=== PATIENT | female | born 1945 | race Caucasian/White ===

== ENCOUNTER 2016-11-01 13:46 | Outpatient (CLI) | payer MEDICARE, OTHER ==
--- NOTE | 2016-11-02 12:17 | XRAY Report ---
CERVICAL SPINE COMPLETE WITH OBLIQUES, AP, LATERAL OBLIQUES, ODONTOID: 11/01/2016 CLINICAL HISTORY: Left hand numbness. FINDINGS: Moderate degree of calcific atherosclerotic plaque is noted at each carotid artery bifurca tion in the neck. Mild anterior spurring is noted at C2, C3, C4, C5, and C6. Moderate degree of disk space narrowing is noted at C5-6. Mild posterior spur formation is noted at C5-6 and C6-7. Moderate amount of osteoarthritis is seen at the right facet joint at the C3-4 level posteriorly. Odontoid process shows no significant abnormality. Spurring at the uncinate processes of C4, C5, and C6 is seen. IMPRESSION: 1. OSTEOARTHRITIS OF THE C-SPINE IS NOTED WITH MOST PRONOUNCED CHANGES SEEN AT THE C6-7 LEVEL. 2. MODERATE DEGREE OF ATHEROSCLEROTIC CALCIFICATION IS NOTED AT THE CAROTID ARTERY BIFURCATION BILAT ERALLY IN THE NECK. JOB #: [id number] EXT JOB #:[id number]
--- NOTE | 2016-11-02 19:00 | XRAY Report ---
LEFT HAND, THREE VIEWS: 11/01/2016 CLINICAL HISTORY: Left hand numbness and pain. FINDINGS: Moderate degree of narrowing is seen at the articulation between the base of the first met acarpal and trapezium. Spurring is noted at the base of the first metacarpal. Prominent subchondral cyst formation is noted along the adjacent articular surfaces of the left second MP joint. Prominen t subchondral cyst formation is seen in the head of the middle phalanx of the left index finger and l eft ring finger. Prominent subchondral cyst formation is seen in the head of the proximal phalanx of the left little finger. Pronounced joint space narrowing s seen in the second and third MP joints a nd in the proximal interphalangeal joint of the left little finger. Also pronounced joint space narr owing is seen in the distal interphalangeal joint of the index and ring fingers. There is prominent subchondral cyst formation also seen in the base of the first metacarpal and in the head of the first metacarpal. Mild joint space narrowing is seen at the first MP joint. Moderate degree of joint spa ce narrowing is noted in the proximal interphalangeal joints of the index and ring finger. Moderate degree of joint space narrowing is noted between the navicular and trapezium/trapezoid. The trapezoi d and trapezium bones appear fused as does the lunate and triquetrum. This fusion is developmental v ariation. Spurring is noted about the periarticular margins of the distal interphalangeal joints and about the periarticular margins of the proximal interphalangeal joint of the little finger. Combination of findings is compatible with significant osteoarthritis of the left hand with also some involvement of the carpal bones. IMPRESSION: 1. SIGNIFICANT OSTEOARTHRITIS OF THE LEFT HAND WITH ALSO SOME INVOLVEMENT OF THE CARPAL BONES. 2. NONSPECIFIC SOFT TISSUE SWELLING IS SEEN ABOUT THE LEFT WRIST, ESPECIALLY DORSALLY. :9 JOB #: [id number] EXT JOB #:[id number]
== END 2016-11-01 13:47 | disposition home or self-care (01) ==
LOC: DI.S 13:46
PROVIDERS: ATTEND Nurse Practitioner Family
DX: M19.042 Primary osteoarthritis, left hand (principal); M19.032 Primary osteoarthritis, left wrist; R22.32 Localized swelling, mass and lump, left upper limb
CPT/HCPCS: 72050

== ENCOUNTER 2016-12-30 10:54 | Outpatient (CLI) | payer MEDICARE, OTHER ==
--- NOTE | 2017-01-01 18:23 | Ultrasound Report ---
EXAM: CAROTID DOPPLER ULTRASOUND EXAM DATE: 12/30/2016 11:01 AM. CLINICAL HISTORY: Atherosclerotic disease of carotid artery per x-ray. COMPARISON: 11/01/2016. TECHNIQUE: Real-time sonographic vascular imaging was performed by the patient accounting representative through the caroti d arterial system with a linear transducer utilizing color-flow, Doppler flow and spectral analysis. Multiple personal financial representative static images were saved for review. FINDINGS: Right: RCCA Prox: PSV 100 cm/sec. RCCA Dist: PSV 59 cm/sec, EDV 14 cm/sec. RECA: PSV 59 cm/sec. R Bulb: PSV 63 cm/sec, EDV 17 cm/sec, ICA/CCA ratio 1.07. GORAN Prox: PSV 54 cm/sec, EDV 19 cm/sec, ICA/CCA ratio 0.92. GORAN Mid: PSV 65 cm/sec, EDV 20 cm/sec, ICA/CCA ratio 1.10. GORAN Dist: PSV 46 cm/sec, EDV 15 cm/sec, ICA/CCA ratio 0.78. RVA: PSV 38 cm/sec. RVA flow direction: Antegrade. Left: LCCA Prox: PSV 83 cm/sec. LCCA Dist: PSV 56 cm/sec, EDV 16 cm/sec. LECA: PSV 46 cm/sec. L Bulb: PSV 77 cm/sec, EDV 26 cm/sec, ICA/CCA ratio 1.38. LICA Prox: PSV 71 cm/sec, EDV 24 cm/sec, ICA/CCA ratio 1.27. LICA Mid: PSV 51 cm/sec, EDV 17 cm/sec, ICA/CCA ratio 0.91. LICA Dist: PSV 66 cm/sec, EDV 22 cm/sec, ICA/CCA ratio 1.18. LVA: PSV 35 cm/sec. LVA flow direction: Antegrade. Other: Mild atherosclerotic disease bilaterally. IMPRESSION: Mild atherosclerotic disease bilaterally without hemodynamically significant stenoses see n in either carotid arterial system. Validated velocity measurements with angiographic measurements and velocity criteria are extrapolated from diameter data as defined by the Society of Radiologists in Ultrasound Consensus Conference Radi ology 2003; 229;340-346. [facility] Referring Provider Line: [phone] SITE ID: [id number]
== END 2016-12-30 10:55 | disposition home or self-care (01) ==
LOC: DI 10:54
PROVIDERS: ATTEND Nurse Practitioner Family
DX: I65.23 Occlusion and stenosis of bilateral carotid arteries (principal)
CPT/HCPCS: 93880

== ENCOUNTER 2017-02-26 10:21 | Day surgery (SDC) | payer MEDICARE, OTHER ==
[2017-02-26] MEDS ORDERED: ceFAZolin 2 GM/50 ML 2 GM/50 ML BAG IV ONE (10:35)
[2017-02-26] MEDS ORDERED: LACTATED RINGERS 1,000 ML IV ONE (11:10)
[2017-02-26] MEDS ORDERED: MIDAZOLAM 2 MG/2 ML VIAL IVP ONE (12:30)
[2017-02-26] MEDS ORDERED: LIDOCAINE-MPF 2% 5 ML VIAL IM ONE (12:30)
[2017-02-26] MEDS ORDERED: PROPOFOL 200 MG/20 ML VIAL IVP ONE (12:30)
[2017-02-26] MEDS ORDERED: LIDOCAINE MPF 2%-EPI 1:200000 20 ML VIAL SUBQ ONE ×3 (13:05)
[2017-02-26] MEDS ORDERED: KETOROLAC 15 MG/ML VIAL ONE (14:07)
[2017-02-26 14:39] VITALS: BP 175/82
--- NOTE | 2017-02-26 17:58 | OPERATIVE REPORT ---
Operative Report - General Procedure Date: 02/26/17 Planned Procedure: LEFT CARPAL TUNNEL RELEASE Pre-Op Diagnosis: LEFT CARPAL TUNNEL SYNDROME Procedure Performed: LEFT CARPAL TUNNEL RELEASE Post Op Diagnosis: SAME - Procedure Note Primary Surgeon: STEPHEN Secondary Surgeon: CLEVELAND Anesthesia Provider: AMOR Anesthesia Technique: Moderate sedation Estimated Blood Loss (mL): 5 Complications: NONE - Other Other Information/Narrative: VERY TIGHT PROXIMAL 1/2 OF CANAL
--- NOTE | 2017-02-27 10:12 | OPERATIVE REPORT ---
DATE OF SURGERY: 02/26/2017 00:00:00 SURGEON: Pete Shepadr MD. PROFESSIONAL FIGHTER: None. ANESTHESIA: ESTEFANÍA Ibrahim. ANESTHESIA TYPE: Intravenous deep sedation and local anesthetic. PREOPERATIVE DIAGNOSIS: Left wrist carpal tunnel syndrome. POSTOPERATIVE DIAGNOSIS: Left wrist carpal tunnel syndrome, compression of the median nerve. PROCEDURE PERFORMED: Left carpal tunnel release. ESTIMATED BLOOD LOSS: 2 mL. TOURNIQUET TIME: 18 minutes. FINDINGS AT SURGERY: The proximal portion of the transverse carpal ligament was very tight on the med candy nerve producing a slight hourglass deformity. Distally, the canal was well opened. INDICATIONS: This woman has suffered for 6 more months with left hand pain and numbness. Nerve conduc tion study showed severe slowing of the median nerve at the wrist. DESCRIPTION OF PROCEDURE: The patient was brought into the operating room and given light sedation. T he hand and wrist were then infiltrated with 2% Marcaine with epinephrine. The left upper extremity w as then prepped and sterilely draped in the usual fashion. Tourniquet was applied to the arm and infl ated to 225 mmHg for 18 minutes. A timeout was then held to identify the patient, site, and procedure . A usual transverse incision was made in the distal volar wrist crease and carried down through the de rmis sharply and with spreading through the subcutaneous tissue. The palmaris longus tendon was retra cted towards the ulnar side. Soft tissue was then pushed away to the radial side. The transverse vola r wrist fascia was then identified. A short longitudinal incision was made in the distal portion of t his. The median nerve was identified below this. The plane was developed superficial at the beginning of the transverse carpal ligament. It was easy to see that the ligament was pushing down on the medi an nerve. With great care, the superficial portion of the transverse carpal ligament was then divided sharply. Then, using a careful stroke of the 15 blade from deep to superficial, the transverse carpa l tunnel was resected in order to about 1 cm. This was under direct vision. Attention was directed distally. A longitudinal incision was made in line with the third finger from the palmar crease. This was carried down through moderate fatty tissue and through the palmaris fasci a. The distal portion of the canal was identified to be well opened with no pressure whatsoever on th e nerve. Again, under direct vision and with care, the transverse carpal ligament was resected proxim ally back into the joint, the resection from the proximal end. This was checked carefully. It was pos sible to introduce a hemostat easily in the canal. The wound was irrigated with normal saline from both directions. The skin was then closed with a 4-0 nylon subcuticular stitch. A sterile dressing was applied. The patient was then taken to the recovery room in good condition having tolerated the procedure well. JOB #: [id number] EXT JOB #:[id number]
== END 2017-02-26 10:22 | disposition home or self-care (01) ==
LOC: SDS 10:21
PROVIDERS: ATTEND Orthopaedic Surgery
PROC: 01N50ZZ Release Median Nerve, Open Approach (ICD-10-PCS; principal; 2017-02-26 11:30)
DX: G56.02 Carpal tunnel syndrome, left upper limb (principal); I10 Essential (primary) hypertension; I49.9 Cardiac arrhythmia, unspecified
CPT/HCPCS: 64721; 93005; J0690; J7120

== ENCOUNTER 2017-06-28 04:11 | Outpatient (CLI) | payer MEDICARE, OTHER | END 2017-06-28 04:12 | disposition critical access hospital (66) | LOC: EMS 04:11 | PROVIDERS: ATTEND Surgery | DX: R53.1 Weakness (principal) | CPT/HCPCS: A0425; A0429 ==

== ENCOUNTER 2017-06-28 04:28 | Observation (INO) | payer MEDICARE, OTHER ==
[2017-06-28] MEDS ORDERED: SODIUM CHLORIDE 0.9% 500 ML IV ONE (04:45)
--- NOTE | 2017-06-28 04:45 | ED Physician Documentation ---
PD HPI FOCAL NEURO - Stated complaint Stated Complaint: POSS STROKE - Chief complaint Chief Complaint: Neuro - History obtained from History obtained from: Patient, Family (son) - History of Present Illness Timing - onset: How many hours ago (uncertain, felt okay when went to bed alst night about 7 pm, then awoke at 1 am), Today Timing - duration: Hours Review of Systems Constitutional: denies: Fever, Chills Eyes: denies: Loss of vision, Decreased vision Nose: denies: Rhinorrhea / runny nose, Congestion Throat: denies: Sore throat Cardiac: denies: Chest pain / pressure, Palpitations Respiratory: denies: Dyspnea, Cough GI: denies: Abdominal Pain, Nausea, Vomiting, Diarrhea : denies: Dysuria, Frequency Skin: denies: Rash, Lesions Musculoskeletal: reports: Back pain (with prior low back fusion), Extremity pain (left hip pain ongoing/chronic). denies: Neck pain Neurologic: reports: Focal weakness. denies: Near syncope, Altered mental status, Headache, Head injury Endocrine: denies: Weight loss, Easy bruising / bleeding Immunocompromised: denies: Immunocompromised PD PAST MEDICAL HISTORY - Past Medical History Past Medical History: Yes Cardiovascular: Congestive heart failure, Hypertension, High cholesterol, Coronary artery disease, Deep vein thrombosis, Arrhythmia, Other Respiratory: Shortness of breath Endocrine/Autoimmune: None : None HEENT: Chronic vision loss, Other Psych: Depression, Other Musculoskeletal: Chronic back pain Derm: None - Past Surgical History Past Surgical History: Yes Ortho: Spine surgery HEENT: Cataracts Derm: Other - Present Medications Home Medications: Ambulatory Orders Medication Instructions Recorded Confirmed Ca/D3/Mag#11/Zinc/Research Assistant Member/Chris/Bor 1 - 2 each PO DAILY 02/23/17 02/26/17 [Caltrate 600+D Plus Tablet] Furosemide 80 mg PO BID 02/23/17 02/26/17 Potassium Chloride [Klor-Con M20] 20 meq PO DAILY 02/23/17 02/26/17 Aspirin 325 mg PO PRN 02/26/17 - Allergies Allergies/Adverse Reactions: Allergies Allergy/AdvReac Type Severity Reaction Status Date / Time No Known Drug Allergies Allergy Verified 06/28/17 04:38 - Living Situation Living Situation: reports: Alone (but on property with her son) Living Arrangement: reports: At home - Social History Does the pt smoke?: Yes Does the pt drink ETOH?: Yes Does the pt have substance abuse?: No - Family History Family history: reports: Non contributory. denies: Cerebral aneurysm - Immunizations Immunizations are current?: No PD ED PE NORMAL - Vitals Vital signs reviewed: Yes - General General: Alert and oriented X 3, No acute distress (but slightly anxious), Well developed/nourished - HEENT HEENT: Atraumatic, PERRL, EOMI, Ears normal, Pharynx benign - Neck Neck: Supple, no meningeal sign, No adenopathy - Cardiac Cardiac: RRR, No murmur - Respiratory Respiratory: Clear bilaterally - Abdomen Abdomen: Soft, Non tender - Female Female : Deferred - Rectal Rectal: Deferred - Back Back: No CVA TTP - Derm Derm: Normal color, Warm and dry - Extremities Extremities: No deformity, No tenderness to palpate, Normal ROM s pain - Neuro Neuro: Alert and oriented X 3, line pilot 2-12 intact, Normal speech, Other (left arm and leg with mild weakness and drift. No facial abnormality. ) Eye Opening: Spontaneous Motor: Obeys Commands Verbal: Oriented GCS Score: 15 - Psych Psych: Normal mood, Normal affect NIHSS - Level of Consciousness Level of consciousness: (0) Alert, Keenly responsive LOC Questions: (0) Answers both Q's correct LOC Commands: (0) Performs both correctly - Gaze Best Gaze: (0) Normal - Visual Visual: (0) No loss - Facial Palsy Facial Palsy: (0) Normal, symmetrical movement - Motor Arms (both separate) Motor Arm (right): (0) No drift Motor Arm (left): (1) Drift - Motor Legs (both separate) Motor Leg (right): (0) No drift Motor Leg (left): (1) Drift - Limb Ataxia Limb Ataxia: (2) Present in 2 limbs - Sensory Sensory: (0) Normal - Best Language Best Language: (0) No aphasia - Dysarthria Dysarthria: (0) Normal - Extinction and Inattention (formally neg Extinction and inattention: (0) No abnormality - Total Score/Results Total Score/Result: 4 Results - Vitals Vitals: Vital Signs - 24 hr 06/28/17 06/28/17 04:29 05:04 Temperature 36.2 C L Heart Rate 65 63 Respiratory 20 18 Rate Blood Pressure 150/73 H O2 Saturation 100 99 Oxygen O2 Source Room air - EKG (time done) 04:33 Rate: Rate (enter#) (66) Rhythm: NSR [place]: LAD Intervals: RBBB Ischemia: Normal ST segments, Non specific changes. No: ST elevation c/w ischemia - Labs Labs: Laboratory Tests 06/28/17 06/28/17 05:20 05:20 WBC 7.9 RBC 3.55 L Hgb 11.7 L Hct 35.6 L MCV 100.2 H MCH 33.1 H MCHC 33.0 RDW 14.4 Plt Count 320 MPV 9.0 Neut # 4.1 Lymph # 2.9 Bulloch # 0.5 Eos # 0.3 Baso # 0.1 Absolute Nucleated RBC 0.00 Nucleated RBC % 0.0 Sodium 135 Potassium 3.7 Chloride 101 Carbon Dioxide 26 Anion Gap 8.0 BUN 16 Creatinine 0.8 Estimated GFR (MDRD) 71 L Glucose 101 H Calcium 8.8 Magnesium 2.2 Total Bilirubin 0.4 AST 18 ALT 10 Alkaline Phosphatase 42 Total Protein 6.9 Albumin 4.0 Globulin 2.9 Albumin/Globulin Ratio 1.4 Lipase 33 - Rads (name of study) head CT Radiology: Prelim report reviewed, Discussed with rads (normal head CT) PD MEDICAL DECISION MAKING - ED course Complexity details: considered differential (sounds like CVA but no facial weakness. Head CT is okay. She awoke with symptoms at 1 am. She is out of window time for even 4 1/[address] results here. I talked with her and son about potential interventions for CVA and the time limitations for these. ) , d/w patient, d/w healthcare network consultant (Hospitalist) Departure - Departure Disposition: ED Place in Observation Clinical Impression: Left-sided weakness Cerebrovascular accident (CVA) Qualifiers: CVA mechanism: unspecified Qualified Code(s): I63.9 - Cerebral infarction, unspecified Condition: Stable Record reviewed to determine appropriate education?: Yes
[2017-06-28] MEDS ORDERED: ASPIRIN CHEW 81 MG TABLET PO STA (05:04)
--- NOTE | 2017-06-28 05:10 | CT Preliminary Report ---
Exam: CT HEAD W/O STROKE PROTOCOL IMPRESSION: 1. No acute intracranial process. ASPECTS score 10. 2. Opacification of the left mastoid sinus without definite air-fluid level. This finding may be welt drawer cleo. [facility] The call report notification system was initiated by Dr. Jeimy Hodgson at 05:07 hrs on 06/28/17. The above findings were discussed with Dr. Whitaker by Dr. Jeimy Hodgson at 05:09 hrs on 06/28/17 . SITE ID: [id number]
--- NOTE | 2017-06-28 05:15 | CT Report ---
EXAM: CT HEAD EXAM DATE: 06/28/2017 05:02 AM. CLINICAL HISTORY: Awoke with left arm/leg weakness at 1 am this morning. COMPARISON: None. TECHNIQUE: Multiaxial CT images were obtained from the foramen magnum to the vertex. Reformats: Coron al. IV contrast: None. In accordance with CT protocol optimization, one or more of the following dose reduction techniques w ere utilized for this exam: automated exposure control, adjustment of mA and/or KV based on patient s ize, or use of iterative reconstructive technique. FINDINGS: Parenchyma: No intraparenchymal hemorrhage. No evidence of mass, midline shift, or CT findings of acu te infarction. Clark-white differentiation is distinct. Mild diffuse chronic microangiopathic white ma tter changes are evident. Extraaxial Spaces: Normal for age. No subdural or epidural collections identified. Ventricles: The ventricles and cortical sulci are mildly enlarged, consistent with age-related tissue loss. Sinuses and orbits: Postsurgical changes from cataract extractions are noted in the globes. The paran avi sinuses are unremarkable. Opacification of the left mastoid sinus is seen without a definite air -fluid level. Bones: No evidence of fracture or calvarial defect. Other: Moderate intracranial atherosclerosis is noted. IMPRESSION: 1. No acute intracranial process. ASPECTS score 10. 2. Opacification of the left mastoid sinus without a definite air-fluid level. This finding may be ch ronic. [facility] The call report notification system was initiated by Dr. Jeimy Hodgson at 05:07 hrs on 06/28/17. The above findings were discussed with Dr. Whitaker by Dr. Jeimy Hodgson at 05:09 hrs on 06/28/17 . Referring Provider Line: [phone] SITE ID: [id number]
[2017-06-28 05:26] LABS: BASOPHILS # (AUTO) 0.1 10^3/uL (0.0-0.1); BASOPHILS % (AUTO) 1.5 %; EOSINOPHILS # (AUTO) 0.3 10^3/uL (0.0-0.7); EOSINOPHILS % (AUTO) 4.4 %; HGB - HEMOGLOBIN 11.7 g/dL (12.0-16.0); LYMPHOCYTES # (AUTO) 2.9 10^3/uL (1.5-3.5); LYMPHOCYTES % (AUTO) 36.3 %; MEAN CORPUSCULAR HEMOGLOBIN 33.1 pg (27.0-31.0); MEAN CORPUSCULAR VOLUME 100.2 fL (81.0-99.0); MONOCYTES # (AUTO) 0.5 10^3/uL (0.0-1.0); MONOCYTES % (AUTO) 5.8 %; NEUTROPHILS # (AUTO) 4.1 10^3/uL (1.5-6.6); PLT - PLATELET COUNT 320 10^3/uL (130-450); RED BLOOD COUNT 3.55 10^6/uL (4.20-5.40); RED CELL DISTRIBUTION WIDTH 14.4 % (12.0-15.0); WHITE BLOOD COUNT 7.9 x10^3/uL (4.8-10.8)
[2017-06-28 05:37] LABS: ALBUMIN/GLOBULIN RATIO 1.4 (1.0-2.2); BILIRUBIN,TOTAL 0.4 mg/dL (0.2-1.0); CALCIUM 8.8 mg/dL (8.5-10.3); CREATININE 0.8 mg/dL (0.4-1.0); MAGNESIUM 2.2 mg/dL (1.7-2.8); TOTAL PROTEIN 6.9 g/dL (6.7-8.2)
[2017-06-28] MEDS ORDERED: ACETAMINOPHEN 325 MG TABLET PO PRN (06:49)
[2017-06-28] MEDS ORDERED: ONDANSETRON 4 MG/2 ML VIAL IVP PRN (06:49)
[2017-06-28] MEDS ORDERED: SODIUM CHLORIDE FLUSH 0.9% 10 ML SYRINGE IVP PRN (06:49)
[2017-06-28] MEDS ORDERED: DEXTROSE 5%-0.9% NACL 1,000 ML IV SCH (07:00)
[2017-06-28] MEDS: POLYETHYLENE GLYCOL 3350 17 GM PACKET PO SCH (10:50)
[2017-06-28] MEDS: FAMOTIDINE 20 MG TABLET PO SCH (10:58)
[2017-06-28] MEDS: SODIUM CHLORIDE FLUSH 0.9% 10 ML SYRINGE IVP SCH ×3 (10:58→23:42)
--- NOTE | 2017-06-28 12:20 | MRI Preliminary Report ---
Exam: MRI BRAIN W/O IMPRESSION: 1. Findings are suspicious for small acute executive administrative asst infarct of the posterior limb of the right inte rnal capsule. 2. Generalized age-related changes. 3. Prominent confluent fluid opacity of the left mastoid air cells. [facility] SITE ID: [id number]
--- NOTE | 2017-06-28 12:40 | MRI Report ---
EXAM: MRI BRAIN WITHOUT CONTRAST EXAM DATE: 06/28/2017 11:59 AM. CLINICAL HISTORY: Left-sided weakness. COMPARISON: None. TECHNIQUE: Multiplanar, multisequence T1-weighted and fluid-sensitive MR sequences of the brain were performed. Sequences optimized for routine evaluation. Other: None. IV Contrast: None. FINDINGS: There is an ovoid asymmetric focus of diffusion hyperintensity measuring about 7 x 4 mm in the region of the posterior limb of the right internal capsule. Equivocal findings of ADC map hypointensity. Th is lesion is difficult to further evaluate accurately due to small size. There may be a trace of T2 h yperintensity. Diffusion hyperintensity can be seen normally in the posterior limbs of the internal c apsules, but the above-described asymmetry is suspicious for small vessel buffing wheel former automatic recent ischemic infarct on the right corresponding to the region of asymmetric increased diffusion signal. No other definite evidence for acute intracranial ischemic injury. No evidence for cerebral hemorrhag e. Mild to moderate chronic-appearing multifocal cerebral white matter disease likely contributed to by aging and chronic microangiopathy. Mild generalized age-related cerebral volume loss. No hydrocephalus. Patchy and confluent much more significant-appearing left than right mastoid fluid opacity. No eviden ce for acute paranasal sinus disease. The major arterial skull base flow voids are present. Previous lens extractions. IMPRESSION: 1. Findings are suspicious for small acute buffing wheel former automatic infarct of the posterior limb of the right inte rnal capsule. 2. Generalized age-related changes as described. 3. Prominent confluent fluid opacity of the left mastoid air cells. [facility] Referring Provider Line: [phone] SITE ID: [id number]
--- NOTE | 2017-06-28 13:42 | HISTORY & PHYSICAL EXAMINATION ---
Chief Complaint - Chief Complaint Chief Complaint: left sided weakness History of Present Illness - Admitted From Admitted From:: ED - History Obtained From Records Reviewed: yes History obtained from: chart review, patient, [place] Exam Limitations: none - History of Present Illness HPI Comment/Other: Nita Holcomb is a 71-year old female with a past medical history of CHF, HTN , hyperlipidemia, CAD, DVT, arrhythmia, chronic vision loss, chronic hearing loss, chronic back pain from scholiosis, post laminectomy, cataracts, and obesity. Patient was in her usual state of health when she went to bed last evening around 7pm, then awoke at 1AM with left sided weakness and an inability to ambulate. Her son lives next door and called 911. Once in the ED, she was noted to have slight upper and lower left extremity weakness with continued ataxia. Patient will be admitted to observation for further work up of her symptoms. History - Past Medical History Cardiovascular: reports: Congestive heart failure, Hypertension, High cholesterol, Coronary artery disease, Deep vein thrombosis, Arrhythmia, Other Respiratory: reports: Shortness of breath Neuro: reports: None Endocrine/Autoimmune: reports: None GI: reports: None : reports: None HEENT: reports: Chronic vision loss, Other Psych: reports: Depression, Other Musculoskeletal: reports: Scoliosis, Chronic back pain Derm: reports: None MRSA Hx?: No - Past Surgical History Ortho: reports: Spine surgery HEENT: reports: Cataracts Derm: reports: Other - Family & Social History Family History: Mother: , Father: , Sister: , Brother: Family History Comment/Other: All family has ; mother had heart disease and colon CA, father of "black lung", 2 sisters had an unknown type of cancer, 2 brothers; one that had vascular disease causing him to loose both lower extremities. Living arrangement: At home Living Situation: Alone (but on property with her son) Social History Notes: Patient has 3 boys. She lives independently and does all of her own ADLs. She drives and loves to bake. 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 She admits to socially drinking alcohol, denies tobacco or illicit drug use. She wishes to be a DNR. - Substance History Use: Uses substance without health or social issues: NONE Abuse: Recurrent use of substance despite neg consequences: NONE Dependence: Experiences withdrawal or developed tolerances: NONE - POLST Patient has POLST: No POLST Status: DNR Meds/Allgy - Home Medications Home Medications: Ambulatory Orders Medication Instructions Recorded Confirmed Furosemide 80 mg PO DAILY 02/23/17 06/28/17 Potassium Chloride [Klor-Con M20] 20 meq PO DAILY 02/23/17 06/28/17 Calcium Carbonate/Vitamin D3 1 tab PO DAILY 06/28/17 06/28/17 [Calcium 600-Vit D3 400 Tablet] - Allergies Allergies/Adverse Reactions: Allergies Allergy/AdvReac Type Severity Reaction Status Date / Time No Known Drug Allergies Allergy Verified 06/28/17 04:38 Review of Systems - Constitutional Constitutional: reports: Weakness - Eyes Eyes: reports: Vision loss, Corrective lenses - Ears, Nose & Throat Ears, Nose & Throat: reports: Hearing loss, Nasal congestion, Postnasal drainage - Cardiovascular Cariovascular: reports: Edema, Decr. exercise tolerance - Respiratory Respiratory: reports: Cough (chronic cough ever since Apr.) - Gastrointestinal Gastrointestinal: reports: Reflux/heartburn - Genitourinary Genitourinary: reports: Dysuria, Incontinence, Nocturia - Musculoskeletal Musculoskeletal: reports: Joint swelling - Integumentary Integumentary: reports: Dryness, Other (current yeasty folds in yoel area) - Neurological Neurological: reports: General weakness, Focal weakness, Headache, Abnormal gait - All Other Systems All Other Systems: reports: Reviewed and negative Exam - Vital Signs Reviewed Vital Signs: Yes Vital Signs: Vital Signs x48h Temp Pulse Pulse Resp BP BP Pulse Ox 06/28/17 12:27 36.6 C 69 17 148/66 H 99 06/28/17 08:00 36.5 C 64 18 152/69 H 98 06/28/17 07:27 60 16 158/78 H 95 06/28/17 07:03 57 L 16 150/77 H 95 - Physical Exam General Appearance: positive: Alert, Moderate distress, Anxious Eyes Bilateral: positive: Normal inspection, PERRL ENT: positive: ENT inspection nml, Pharynx nml, No signs of dehydration Neck: positive: Nml inspection, Thyroid nml, No JVD, Trachea midline Respiratory: positive: Chest non-tender, No respiratory distress, Breath sounds nml, Other (crackles) Cardiovascular: positive: Regular rate & rhythm, No gallop, Systolic murmur, Decreased pulse(s) Peripheral Pulses: positive: 1+ Abdomen: positive: Non-tender, Nml bowel sounds, Hepatomegaly, Other (obese, soft) Back: positive: Nml inspection Skin: positive: No rash, Warm, Dry Extremities: positive: Non-tender, Full ROM, Nml appearance, Pedal edema, Joint swelling Neurologic/Psychiatric: positive: Oriented x3, CN's nml (2-12), Motor nml, Sensation nml, Depressed mood/affect Reflexes: Bicep (R): 3+, Bicep (L): 1+ Conclusion/Plan - Problem List (1) Left-sided weakness Conclusion/Plan: Patient presents with left sided weakness that began at 1AM when the patient got up to use the restroom. When she went to bed last night she was in her usual state of health. She is nearly equal upon exam and notes that she believes she is improved since the onset of her symptoms. Plan: PT evaluation, and fall precautions. (2) Hyperlipidemia Conclusion/Plan: Patient has several risk factors, but predominately uses tobacco. She does not take any medications at home. Plan: Start Atorvastatin and check a lipid panel in the AM. (3) Tobacco dependence Conclusion/Plan: Patient has been a life long smoker and had quit successfully for ~5 years, but recently started again. She states that she currently uses about 5 cigarettes per day. Plan: Offer a nicotine patch and encourage cessation. (4) TIA (transient ischemic attack) Conclusion/Plan: Patient presents with left sided weakness that began at 1AM when the patient got up to use the restroom. When she went to bed last night she was in her usual state of health. Plan: Patient will undergo a full TIA work up including head MRI, carotid dopplers, echocardiogram, PT evaluation and telemetry monitoring. - Lab Results Lab results reviewed: Yes Fish Bones: 06/28/17 05:20 06/28/17 05:20 - Diagnostic Imaging Results Diagnostic Imaging Results: positive: Prelim report reviewed, Final report reviewed - EKG Results EKG Interpreted Independently: Yes Core Measures - Anticipated LOS I expect patient to be DC'd or transferred within 96 hours.: Yes - DVT/VTE - Prophylaxis VTE/DVT Device ordered at admit?: Yes VTE/DVT Prophylaxis med ordered at admit?: Yes - Stroke - Rehab Assessment Rehab services assessment to be ordered?: Yes - AMI - Statin at Admit Aspirin Prescribed on Admit: Yes
[2017-06-28] MEDS ORDERED: FUROSEMIDE 40 MG/4 ML VIAL IVP SCH (14:00)
[2017-06-28] MEDS: NYSTATIN POWDER 15 GM TOP SCH ×2 (14:50→21:18)
[2017-06-28] MEDS: ATORVASTATIN 40 MG TABLET PO SCH (14:50)
[2017-06-28] MEDS: FLUCONAZOLE 100 MG TABLET PO SCH (14:50)
[2017-06-28] MEDS: NICOTINE 7 MG PATCH TOP SCH (14:50)
[2017-06-28] MEDS ORDERED: LORazepam 0.5 MG TABLET PO PRN (15:41)
[2017-06-28] MEDS: ASPIRIN EC 325 MG TABLET PO SCH (15:54)
[2017-06-28] MEDS: HYDROcod/ACETAM 5/325 MG TABLET PO PRN ×2 (18:10→21:59)
--- NOTE | 2017-06-28 18:58 | ADVANCE CARE PLANNING NOTE ---
Advance Care Planning - Date/Time Date: 06/28/17 Time: 18:58 - Purpose of encounter Text: To establish code status and address end of life wishes. - Parties in attendance Parties in attendance: Myself, my patient-Nita Holcomb, and her son-Cesar. - Decisional capacity Decisional capacity of: Patient showed no signs of confusion, could identify her medical conditions correctly and was A & O x4. - Subjective/Patient's story Subjective/Patient's story: Patient states that she wants no resuscitation efforts to be attempted if she were found unresponsive. She believes that she has lived a full life and does not want to be a "burden to her family" in the event of a life threatening event. - Objective/Medical story Objective/Medical Story: The patient and her son expressed their understanding of attempts made to save her life should not be performed given her age and chronic illnesses. She states that she has the paperwork at home and wants to be a DNR. She states NO to chest compressions, shocking, medications, and intubation. - Goals of Care Goals of care determinations: The goal of cares are surrounded by no heroic effort in the event of a life threatening complication and doing necessary testing to figure out non-life threatening conditions. - Plan Plan: Patient is agreeable to undergo necessary testing for this admission, but does not want to be transferred to another hospital and does not want invasive procedures if indicated. - Code Status Code Status: Do Not Attempt Resuscitation - Time Spent on Advance Care Planning Time spent on advance care plannin
[2017-06-29 06:19] LABS: CHOL/HDL RATIO 5.9 (<4.4); CHOLESTEROL 278 mg/dL; HDL CHOLESTEROL 47 mg/dL; LDL CHOLESTEROL,CALCULATED 208 mg/dL; LDL/HDL RATIO 4.4 (<4.4); VLDL CHOLESTEROL 23 mg/dL
[2017-06-29 08:18] VITALS: BP 136/72
--- NOTE | 2017-06-29 08:26 | Discharge Plan ---
Discharge Plan Disposition: Home, Self Care Condition: Good Prescriptions: Aspirin EC [Ecotrin] 325 mg PO DAILY #30 tablet Atorvastatin [Lipitor] 40 mg PO DAILY #30 tablet Nicotine 7 mg Patch [Nicoderm] 1 patch TOP DAILY #30 patch Diet: Cardiac Activity Restrictions: No Restrictions Shower Restrictions: No Driving Restrictions: Yes Assistance Devices: Walker, Cane Weight Bearing: Full Weight Instruction Topics: Meds Cholesterol, Tips Cardiovascular Quit Smoking, Stroke Dc Additional Instructions or Follow Up instructions: You were admitted for left sided weakness and were found to have a same stroke ( CVA). Please follow up with your primary care provider within one week. Please take your new medications and resume all other medications. Follow-Up Care: Home Health - PT, Home Health - OT No Smoking: If you smoke, Please STOP! Call for help.
--- NOTE | 2017-06-29 08:30 | DISCHARGE SUMMARY ---
Discharge Summary Admit Date: 06/28/17 Discharge Date: 06/29/17 Discharging Provider: ROBYN Hutchins Primary Care Provider: Efrain Beckham Code Status: Do Not Attempt Resuscitation Condition at Discharge: Good Discharge Disposition: 01 Home, Self Care - DIAGNOSES Admission Diagnoses: Weakness (R53.1) Hyperlipidemia, unspecified (E78.5) Nicotine dependence, unspecified, uncomplicated (F17.200) Transient cerebral ischemic attack, unspecified (G45.9) Discharge Diagnoses with Status of Each Condition: CVA (cerebral vascular accident) (I63.9) Ataxia (R27.0) Left-sided weakness (R53.1) Hyperlipidemia (E78.5) Tobacco dependence (F17.200) - HPI History of Present Illness: Nita Holcomb is a 71-year old female with a past medical history of CHF, HTN , hyperlipidemia, CAD, DVT, arrhythmia, chronic vision loss, chronic hearing loss, chronic back pain from scholiosis, post laminectomy, cataracts, and obesity. Patient was in her usual state of health when she went to bed last evening around 7pm, then awoke at 1AM with left sided weakness and an inability to ambulate. Her son lives next door and called 911. Once in the ED, she was noted to have slight upper and lower left extremity weakness with continued ataxia. Patient will be admitted to observation for further work up of her symptoms. - HOSPITAL COURSE Hospital Course: The following diagnoses were prevalent during this hospital stay: (1) Left-sided weakness- Patient presents with left sided weakness that began at 1AM when the patient got up to use the restroom. When she went to bed last night she was in her usual state of health. She is nearly equal upon exam and notes that she believes she is improved since the onset of her symptoms. Patient was evaluated by PT, who deemed patient at nearly baseline with mild ataxia. She was maintained on fall precautions. A hip x-ray was ordered that was grossly negative for left hip/groin soreness. (2) Hyperlipidemia- Patient has several risk factors, but predominately uses tobacco. She does not take any medications at home. Patient was started on Atorvastatin which was recommended to continue at the time of discharge. A lipid panel was check and showed a total CHO of 278, triglyceride level of 114, LDL of 208, HDL of 47 and a ratio of 4.4. She is to follow up with her PCP. (3) Tobacco dependence- Patient has been a life long smoker and had quit successfully for ~5 years, but recently started again. She states that she currently uses about 5 cigarettes per day. Patient was offered a low dose nicotine patch and encouraged cessation. (4) TIA (transient ischemic attack)- Patient presents with left sided weakness that began at 1AM when the patient got up to use the restroom. When she went to bed last night she was in her usual state of health. Patient underwent a full TIA work up including head MRI, carotid dopplers, echocardiogram, PT evaluation and telemetry monitoring. The brain MRI was the only abnormal finding and showed an acute food packer infarct of the posterior limb of the right internal capsule and a prominent confluient fluid opacity of the left mastoid air cells. Disposition: Patient was discharged home in stable condition and no oxygen requirements. She was transported via [facility] back home. - ALLERGIES Allergies/Adverse Reactions: Allergies Allergy/AdvReac Type Severity Reaction Status Date / Time No Known Drug Allergies Allergy Verified 06/28/17 04:38 - MEDICATIONS Home Medications: Ambulatory Orders Medication Instructions Recorded Confirmed Furosemide 80 mg PO DAILY 02/23/17 06/28/17 Potassium Chloride [Klor-Con M20] 20 meq PO DAILY 02/23/17 06/28/17 Calcium Carbonate/Vitamin D3 1 tab PO DAILY 06/28/17 06/28/17 [Calcium 600-Vit D3 400 Tablet] Aspirin EC [Ecotrin] 325 mg PO DAILY #30 tablet 06/29/17 Atorvastatin [Lipitor] 40 mg PO DAILY #30 tablet 06/29/17 Nicotine 7 mg Patch [Nicoderm] 1 patch TOP DAILY #30 patch 06/29/17 - PHYSICAL EXAM AT DISCHARGE General Appearance: positive: No acute distress, Alert Eyes Bilateral: positive: Normal inspection, PERRL ENT: positive: ENT inspection nml, Pharynx nml, No signs of dehydration Neck: positive: Nml inspection, Thyroid nml, No JVD, Trachea midline Respiratory: positive: Chest non-tender, No respiratory distress Cardiovascular: positive: Regular rate & rhythm, No gallop Peripheral Pulses: positive: 1+ Abdomen: positive: Non-tender Back: positive: Nml inspection Skin: positive: No rash, Warm, Dry Extremities: positive: Non-tender, Full ROM, Nml appearance, Pedal edema Neurologic/Psychiatric: positive: Oriented x3, CN's nml (2-12), Motor nml, Sensation nml, Weakness, Depressed mood/affect Reflexes: Bicep (R): 2+, Bicep (L): 1+ - LABS Result Diagrams: 06/28/17 05:20 06/28/17 05:20 - DIAGNOSTIC IMAGING Diagnostic Imaging Results: Final report reviewed Diagnostic Imaging Results Comments: EXAM: CT HEAD EXAM DATE: 06/28/2017 05:02 AM. CLINICAL HISTORY: Awoke with left arm/leg weakness at 1 am this morning. COMPARISON: None. TECHNIQUE: Multiaxial CT images were obtained from the foramen magnum to the vertex. Reformats: Coronal. IV contrast: None. In accordance with CT protocol optimization, one or more of the following dose reduction techniques were utilized for this exam: automated exposure control, adjustment of mA and/or KV based on patient size, or use of iterative reconstructive technique. FINDINGS: Parenchyma: No intraparenchymal hemorrhage. No evidence of mass, midline shift, or CT findings of acute infarction. Clark-white differentiation is distinct. Mild diffuse chronic microangiopathic white matter changes are evident. Extraaxial Spaces: Normal for age. No subdural or epidural collections identified. Ventricles: The ventricles and cortical sulci are mildly enlarged, consistent with age-related tissue loss. Sinuses and orbits: Postsurgical changes from cataract extractions are noted in the globes. The paranasal sinuses are unremarkable. Opacification of the left mastoid sinus is seen without a definite air-fluid level. Bones: No evidence of fracture or calvarial defect. Other: Moderate intracranial atherosclerosis is noted. IMPRESSION: 1. No acute intracranial process. ASPECTS score 10. 2. Opacification of the left mastoid sinus without a definite air-fluid level. This finding may be chronic. CAROTID DOPPLER ULTRASOUND: 06/28/2017 COMPARISON: Carotid Doppler ultrasound 12/30/2016. INDICATION: CVA. TECHNIQUE: Real-time sonographic vascular imaging was performed by the claim processor through the carotid arteries utilizing both color-flow and Doppler spectral analysis. Multiple national account representative static images were saved for review. FINDINGS: There is mild diffuse bilateral intimal thickening. IMPRESSION: MILD ATHEROSCLEROTIC DISEASE WITHOUT EVIDENCE OF CLINICALLY SIGNIFICANT STENOSIS. EXAM: MRI BRAIN WITHOUT CONTRAST EXAM DATE: 06/28/2017 11:59 AM. CLINICAL HISTORY: Left-sided weakness. COMPARISON: None. TECHNIQUE: Multiplanar, multisequence T1-weighted and fluid-sensitive MR sequences of the brain were performed. Sequences optimized for routine evaluation. Other: None. IV Contrast: None. FINDINGS: There is an ovoid asymmetric focus of diffusion hyperintensity measuring about 7 x 4 mm in the region of the posterior limb of the right internal capsule. Equivocal findings of ADC map hypointensity. This lesion is difficult to further evaluate accurately due to small size. There may be a trace of T2 hyperintensity. Diffusion hyperintensity can be seen normally in the posterior limbs of the internal capsules, but the above-described asymmetry is suspicious for small vessel food packer recent ischemic infarct on the right corresponding to the region of asymmetric increased diffusion signal. No other definite evidence for acute intracranial ischemic injury. No evidence for cerebral hemorrhage. Mild to moderate chronic-appearing multifocal cerebral white matter disease likely contributed to by aging and chronic microangiopathy. Mild generalized age-related cerebral volume loss. No hydrocephalus. Patchy and confluent much more significant-appearing left than right mastoid fluid opacity. No evidence for acute paranasal sinus disease. The major arterial skull base flow voids are present. Previous lens extractions. IMPRESSION: 1. Findings are suspicious for small acute food packer infarct of the posterior limb of the right internal capsule. 2. Generalized age-related changes as described. 3. Prominent confluent fluid opacity of the left mastoid air cells. LEFT HIP AND PELVIS: 06/29/2017 COMPARISON: None. INDICATION: Pain and weakness. TECHNIQUE: Two views. FINDINGS: Normal alignment. No evidence of acute fracture. No degenerative changes about the hip. Vascular calcifications are noted. IMPRESSION: ESSENTIALLY NEGATIVE HIP. ECHOCARDIOGRAM 06/28/17 Overall LV systolic function is normal with an EF of 60- 65%. Contrast injection of agitated saline was negative for an atrial shunt. - FOLLOW UP Follow Up: Disposition: Home, Self Care Condition: Good Prescriptions: Aspirin EC [Ecotrin] 325 mg PO DAILY #30 tablet Atorvastatin [Lipitor] 40 mg PO DAILY #30 tablet Nicotine 7 mg Patch [Nicoderm] 1 patch TOP DAILY #30 patch Diet: Cardiac Activity Restrictions: No Restrictions Shower Restrictions: No Driving Restrictions: Yes Assistance Devices: Walker, Cane Weight Bearing: Full Weight Instruction Topics: Meds Cholesterol, Tips Cardiovascular Quit Smoking, Stroke Dc Additional Instructions or Follow Up instructions: You were admitted for left sided weakness and were found to have a same stroke ( CVA). Please follow up with your primary care provider within one week. Please take your new medications and resume all other medications. - TIME SPENT Time Spent in Discharge (Minutes): 45
[2017-06-29] MEDS ORDERED: CHOLECALCIFEROL 1,000 UNIT TABLET PO SCH (09:00)
[2017-06-29] MEDS ORDERED: FUROSEMIDE 40 MG TABLET PO SCH (09:00)
[2017-06-29] MEDS ORDERED: POTASSIUM CHLORIDE 20 MEQ TABLET PO SCH (09:00)
[2017-06-29] MEDS ORDERED: CALCIUM CARBONATE CHEW 500 MG TABLET PO SCH (09:00)
--- NOTE | 2017-06-29 09:31 | XRAY Report ---
LEFT HIP AND PELVIS: 06/29/2017 COMPARISON: None. INDICATION: Pain and weakness. TECHNIQUE: Two views. FINDINGS: Normal alignment. No evidence of acute fracture. No degenerative changes about the hip. Vascular calcifications are noted. IMPRESSION: ESSENTIALLY NEGATIVE HIP. TD: 06/29/2017 09:31 MTDEvan
[2017-06-29] MEDS: FAMOTIDINE 20 MG TABLET PO SCH (09:46)
[2017-06-29] MEDS: FLUCONAZOLE 100 MG TABLET PO SCH (09:47)
[2017-06-29] MEDS: ATORVASTATIN 40 MG TABLET PO SCH (09:48)
[2017-06-29] MEDS: ASPIRIN EC 325 MG TABLET PO SCH (09:48)
[2017-06-29] MEDS: NICOTINE 7 MG PATCH TOP SCH (09:49)
[2017-06-29] MEDS: NYSTATIN POWDER 15 GM TOP SCH (09:51)
[2017-06-29] MEDS: POLYETHYLENE GLYCOL 3350 17 GM PACKET PO SCH (09:51)
[2017-06-29] MEDS: SODIUM CHLORIDE FLUSH 0.9% 10 ML SYRINGE IVP SCH (09:51)
[2017-06-29] MEDS: HYDROcod/ACETAM 5/325 MG TABLET PO PRN (12:23)
--- NOTE | 2017-06-29 16:00 | Ultrasound Report ---
CAROTID DOPPLER ULTRASOUND: 06/28/2017 COMPARISON: Carotid Doppler ultrasound 12/30/2016. INDICATION: CVA. TECHNIQUE: Real-time sonographic vascular imaging was performed by the compliance spec through the carotid arteries utilizing both color-flow and Doppler spectral analysis. Multiple sales development representative static images were saved for review. RIGHT Vessel PSV cm/sec EDV cm/sec ICA/CCA RSV Ratio Degree of Stenosis Plaque Estimate % RCCA Prox 80 -- -- RCCA Dist 62 12 -- RECA 69 -- -- RT BULB 67 15 1.08 GORAN Prox 68 20 1.10 GORAN Mid 82 24 1.32 GORAN Dist 43 15 0.69 RVA 41 -- -- RVA flow direction: Antegrade LEFT Vessel PSV cm/sec EDV cm/sec ICA/CCA RSV Ratio Degree of Stenosis Plaque Estimate % LCCA Prox 80 -- -- LCCA Dist 53 18 -- LECA 51 -- -- LFT BULB 58 23 1.09 LICA Prox 85 29 1.60 LICA Mid 51 18 0.96 LICA Dist 77 25 1.45 LVA 62 -- -- LVA flow direction: Antegrade Velocity criteria are extrapolated from diameter data as defined by the Society of Radiologists in Ultrasound Consensus Conference Radiology 2003; 229; 340-346. Degree of Stenosis % ICA PSV cm/sec ICA EDV cm/sec ICA/CCA PSV Ratio Plaque Estimate % Normal < 125 < 40 < 2.0 None <50 < 125 < 40 < 2.0 < 50 50-69 125-130 40-100 2.0-4.0 >/=50 >/=70 but less than near occlusion > 230 > 100 > 4.0 >/=50 Near occlusion High, low or undetectable Variable Variable Visible Total occlusion Undetectable Not applicable Not applicable No detectable lumen FINDINGS: There is mild diffuse bilateral intimal thickening. IMPRESSION: MILD ATHEROSCLEROTIC DISEASE WITHOUT EVIDENCE OF CLINICALLY SIGNIFICANT STENOSIS. TD: 06/28/2017 12:02 [facility]
== END 2017-06-29 12:37 | disposition home or self-care (01) ==
LOC: EDUNIT# → ED 04:28 → OBS 06:49
PROVIDERS: ADMIT Nurse Practitioner; ATTEND Nurse Practitioner
DX: I63.9 Cerebral infarction, unspecified (principal); G81.94 Hemiplegia, unspecified affecting left nondominant side; R29.704 NIHSS score 4; R40.2412 Glasgow coma scale score 13-15, at arrival to emergency department; R27.0 Ataxia, unspecified; M25.552 Pain in left hip; G89.29 Other chronic pain; M41.9 Scoliosis, unspecified; I11.0 Hypertensive heart disease with heart failure; I50.9 Heart failure, unspecified; E78.5 Hyperlipidemia, unspecified; I25.10 Atherosclerotic heart disease of native coronary artery without angina pectoris; F17.210 Nicotine dependence, cigarettes, uncomplicated; E66.9 Obesity, unspecified; Z68.38 Body mass index [BMI] 38.0-38.9, adult; Z86.718 Personal history of other venous thrombosis and embolism; Z98.1 Arthrodesis status; Z79.82 Long term (current) use of aspirin; Z86.79 Personal history of other diseases of the circulatory system; Z66 Do not resuscitate
CPT/HCPCS: 36415; 70450; 70551; 73501; 80053; 80061; 83690; 83735; 85025; 92610; 93005; 93306; 93880; 96360; 97116; 97161; 97165; 99284; 99285; A9270; G0378; G8978; G8979; G8996; G8997; G8998; 83721; 96361; 96374

== ENCOUNTER 2017-11-26 13:39 | Outpatient (CLI) | payer MEDICARE, OTHER ==
[2017-11-26] MEDS ORDERED: GADOBUTROL 7.5 MMOL/7.5 ML VIAL ONE (13:59)
[2017-11-26] MEDS ORDERED: GADOBUTROL 7.5 MMOL/7.5 ML VIAL IVP ONE (14:43)
--- NOTE | 2017-11-27 07:41 | MRI Report ---
Procedure Date: 11/26/2017 Accession Number: [id number] / [id number] Procedure: MRI - Lumbar Spine W/WO CPT Code: FULL RESULT: EXAM: MRI LUMBAR SPINE WITHOUT AND WITH CONTRAST EXAM DATE: 11/26/2017 03:05 PM. CLINICAL HISTORY: 72-year-old female. PERSISTENT LUMBAR PAIN. COMPARISONS: None. TECHNIQUE: Multiplanar, multisequence T1-weighted and fluid-sensitive sequences of the lumbar spine from T12 to S1 before and after administration of intravenous contrast. Other: None. IV contrast: 7.8 mL Gadavist. FINDINGS: Spinal Canal: The conus terminates at T12. The conus medullaris and cauda equina are unremarkable. Alignment: S-shaped thoracolumbar scoliosis with lower thoracic/upper lumbar dextroscoliosis and lower lumbar levoscoliosis. The Green angle for the lower lumbar levoscoliosis measures 20 degrees. Grade 1 anterolisthesis L4 on L5 measuring 5 mm. Grade 1 retrolisthesis L2 on L3 measuring 5 mm Bone Marrow: The patient is status post L1-L2 posterior fusion Five hmq-ojg-cnpsjbp lumbar vertebral bodies are assumed. No gross fractures or bone lesions. The bone marrow is diffusely heterogeneous, nonspecific, may represent fatty replacement of the marrow. Modic type I degenerative endplate changes at L2-L3 level with endplate edema and enhancement. Disk Levels/Facets: T12-L1: Moderate disk height loss and desiccation. Mild diffuse disk bulge. No significant central canal narrowing. Bmwa-ah-iojgjjmg left foraminal narrowing. No right foraminal narrowing. L1-L2: Moderate disk height loss and desiccation. Postsurgical level status post laminectomy. No residual central canal narrowing. Jqrd-fb-ajvxzhee left foraminal narrowing. No right foraminal narrowing. L2-L3: Moderate disk height loss and desiccation. Moderate diffuse disk bulge. Moderate to severe bilateral facet arthropathy and ligamentum flavum hypertrophy. Moderate to severe central canal narrowing. Severe left and moderate to severe right foraminal narrowing. Severe left lateral recess narrowing with mass effect on traversing left L3 nerve. L3-L4: Mild disk height loss and desiccation. Moderate diffuse disk bulge. Moderate to severe bilateral facet arthropathy and ligamentum flavum hypertrophy. There is a likely 6 mm synovial cyst arising from the left facet joint. Moderate central canal narrowing. Moderate to severe right and mild left foraminal narrowing. L4-L5: Uncovered disk with superimposed moderate diffuse disk bulge. Severe right and moderate to severe left facet arthropathy. Ixop-rj-qrzawogn central canal narrowing. Moderate right and mild left foraminal narrowing. L5-S1: Moderate to severe bilateral facet arthropathy. Mild diffuse disk bulge. Mild central canal narrowing. Moderate left and mild right foraminal narrowing. Spinal Canal: No enhancing masses within the spinal canal. No epidural abscess. Musculature: Moderate fatty atrophy of the paraspinal musculature. Other: The visualized retroperitoneum is unremarkable. IMPRESSION: 1. Moderate to severe multilevel degenerative spondylosis in this patient status post L1-L2 posterior fusion, as detailed above and summarized below. No acute fracture or malalignment. No cord signal abnormality. No evidence of diskitis/osteomyelitis or epidural abscess/phlegmon. 2. S-shaped thoracolumbar scoliosis with lower thoracic/upper lumbar dextroscoliosis and lower lumbar levoscoliosis. The Green angle for the lower lumbar levoscoliosis measures 20 degrees. Grade 1 anterolisthesis L4 on L5 measuring 5 mm. Grade 1 retrolisthesis L2 on L3 measuring 5 mm 3. Modic type I degenerative endplate changes at L2-L3 level with endplate edema and enhancement. Modic type 1 changes may represent a source of pain. 4. T12-L1 level demonstrates no significant central canal narrowing. Hxjy-fi-eshtmmog left foraminal narrowing. No right foraminal narrowing. 5. The postsurgical L1-L2 level demonstrates no residual central canal narrowing. Benb-gd-vcfgjqjr left foraminal narrowing. No right foraminal narrowing. 6. L2-L3 level demonstrates moderate to severe central canal narrowing. Severe left and moderate to severe right foraminal narrowing. Severe left lateral recess narrowing with mass effect on traversing left L3 nerve. Recommend correlation for left-sided L2 and L3 radicular symptoms, also for right-sided L2 radicular symptoms. 7. L3-L4 level demonstrates moderate central canal narrowing. Moderate to severe right and mild left foraminal narrowing. Recommend correlation for right-sided L3 radicular symptoms. 8. L4-L5 level demonstrates mild to moderate central canal narrowing. Moderate right and mild left foraminal narrowing. 9. L5-S1 level demonstrates mild central canal narrowing. Moderate left and mild right foraminal narrowing. Comment: The following findings are so common in adults without low back pain that while we report their presence, they must be interpreted with caution and in the context of the clinical situation. (Reference Pandak et al, Spine 2001) Prevalence of findings in patients without low back pain: Disk degeneration (any evidence): 92% Disk desiccation/T2 signal loss: 83% Disk height loss: 56% Disk bulge: 64% Disk protrusion: 32% Annular tear/high intensity zone: 38% RADIA
== END 2017-11-26 13:40 | disposition home or self-care (01) ==
LOC: DI 13:39
PROVIDERS: ATTEND Family Medicine
DX: M47.26 Other spondylosis with radiculopathy, lumbar region (principal); M41.86 Other forms of scoliosis, lumbar region; M48.061 Spinal stenosis, lumbar region without neurogenic claudication; Z98.1 Arthrodesis status
CPT/HCPCS: 72158; A9585

== ENCOUNTER 2021-08-06 22:11 | Inpatient (IN) | payer MEDICARE, OTHER ==
[2021-08-06] MEDS ORDERED: SODIUM CHLORIDE 0.9% 1,000 ML IV STA (22:33)
[2021-08-06] MEDS ORDERED: LORazepam 2 MG/ML VIAL IVP STA (22:33)
--- NOTE | 2021-08-06 22:41 | ED Physician Documentation ---
PD HPI NVD - Stated complaint Stated Complaint: VOMIT, WEAKNESS - Chief complaint Chief Complaint: Neuro - Additonal information Additional information: Patient is a 75-year-old female with past medical significant for CHF, DVT, hypertension, dyslipidemia presenting to the emergency department with chief complaint of nausea and vomiting. Accompanied by son who is present at bedside. Endorsed for cute onset nausea vomiting that began this evening. She states a similar episode happened approximately 2 weeks ago. Denies unusual foods, travel, antibiotics. Review of Systems Ten Systems: 10 systems reviewed and negative Constitutional: denies: Fever Eyes: denies: Loss of vision Ears: denies: Loss of hearing Nose: denies: Rhinorrhea / runny nose Throat: denies: Dental pain / toothache Cardiac: denies: Chest pain / pressure Respiratory: denies: Dyspnea GI: reports: Nausea, Vomiting : denies: Dysuria PD PAST MEDICAL HISTORY - Past Medical History Cardiovascular: Congestive heart failure, Hypertension, High cholesterol, Coronary artery disease, Deep vein thrombosis, Arrhythmia, Other Respiratory: Shortness of breath Endocrine/Autoimmune: None GI: None : None HEENT: Chronic vision loss, Other Psych: Depression, Other Musculoskeletal: Scoliosis, Chronic back pain Derm: None - Past Surgical History Past Surgical History: Yes Ortho: Spine surgery HEENT: Cataracts Derm: Other - Present Medications Home Medications: Ambulatory Orders Medication Instructions Recorded Confirmed Furosemide 80 mg PO DAILY 02/23/17 06/28/17 Potassium Chloride [Klor-Con M20] 20 meq PO DAILY 02/23/17 06/28/17 Calcium Carbonate/Vitamin D3 1 tab PO DAILY 06/28/17 06/28/17 [Calcium 600-Vit D3 400 Tablet] Aspirin EC [Ecotrin] 325 mg PO DAILY #30 tablet 06/29/17 Atorvastatin [Lipitor] 40 mg PO DAILY #30 tablet 06/29/17 Nicotine 7 mg Patch [Nicoderm] 1 patch TOP DAILY #30 patch 06/29/17 - Allergies Allergies/Adverse Reactions: Allergies Allergy/AdvReac Type Severity Reaction Status Date / Time No Known Drug Allergies Allergy Verified 08/06/21 22:27 - Social History Does the pt smoke?: Yes Smoking Status: Current some day smoker Does the pt drink ETOH?: Yes Does the pt have substance abuse?: No - Immunizations Immunizations are current?: No - POLST Patient has POLST: No POLST Status: DNR PD ED PE NORMAL - Vitals Vital signs reviewed: Yes - General General: Alert and oriented X 3, Other (Ill-appearing) - HEENT HEENT: Atraumatic, PERRL, EOMI, Ears normal, Moist mucous membranes, Pharynx benign - Neck Neck: Supple, no meningeal sign, No bony TTP, No JVD - Cardiac Cardiac: RRR, No murmur, No gallop, Strong equal pulses - Respiratory Respiratory: No respiratory distress, Clear bilaterally - Abdomen Abdomen: Normal bowel sounds, Non tender - Female Female : Deferred - Rectal Rectal: Deferred - Back Back: No CVA TTP, No spinal TTP - Extremities Extremities: No deformity - Neuro Neuro: Alert and oriented X 3, travel administrator 2-12 intact, No motor deficit, Normal speech Results - Vitals Vitals: Vital Signs - 24 hr 08/06/21 08/06/21 08/07/21 22:20 22:23 01:38 Temperature 36.0 C L Heart Rate 66 72 60 Respiratory 18 17 16 Rate Blood Pressure 186/110 H 175/124 H 198/76 H O2 Saturation 99 99 Oxygen O2 Source Room air - EKG (time done) 2245 Rate: Rate (enter#) (67) Rhythm: NSR [place]: LAD Intervals: RBBB QRS: Normal Ischemia: Normal ST segments, Non specific changes Compare to prior EKG: Unchanged from prior EKG Computer interpretation: Disagree with computer (Patient's rhythm is not atrial fibrillation) 0017 Rate: Rate (enter#) (61) Rhythm: NSR [place]: LAD Intervals: RBBB QRS: Normal Ischemia: Non specific changes Compare to prior EKG: Unchanged from prior EKG Computer interpretation: Disagree with computer (rhythm not a fib) - Labs Labs: Laboratory Tests 08/06/21 08/06/21 08/06/21 22:43 22:43 22:43 WBC 12.2 H RBC 3.20 L Hgb 13.1 Hct 33.2 L MCV 103.8 H MCH 40.9 H MCHC 39.5 H RDW 18.4 H Plt Count 320 MPV 11.7 H Neut # (Auto) 9.6 H Lymph # (Auto) 1.7 [place] # (Auto) 0.6 Eos # (Auto) 0.1 Baso # (Auto) 0.1 Absolute Nucleated RBC 0.00 Nucleated RBC % 0.0 PT 11.3 INR 1.0 Sodium 136 Potassium 3.6 Chloride 95 L Carbon Dioxide 27 Anion Gap 14.0 H BUN 24 H Creatinine 1.2 H Estimated GFR (MDRD) 44 L Glucose 164 H Lactic Acid Calcium 9.7 Total Bilirubin 0.9 AST 18 ALT 11 Alkaline Phosphatase 59 Total Creatine Kinase 79 Troponin I High Sens Total Protein 8.1 Albumin 4.4 Globulin 3.7 Albumin/Globulin Ratio 1.2 Lipase 60 H Urine Color Urine Clarity Urine pH Ur Specific Rice Urine Protein Urine Glucose (UA) Urine Ketones Urine Occult Blood Urine Nitrite Urine Bilirubin Urine Urobilinogen Ur Leukocyte Esterase Ur Microscopic Review Urine Culture Comments Nasal Adenovirus (PCR) Nasal B. parapertussis DNA (PCR) Nasal Coronavir 229E PCR Nasal Coronavir HKU1 PCR Nasal Coronavir NL63 PCR Nasal Coronavir OC43 PCR Nasal Enterovir/Rhinovir PCR Nasal Influenza B PCR Nasal Influenza A PCR Nasal Parainfluen 1 PCR Nasal Parainfluen 2 PCR Nasal Parainfluen 3 PCR Nasal Parainfluen 4 PCR Nasal RSV (PCR) Nasal B.pertussis DNA PCR Nasal C.pneumoniae (PCR) Tab Human Metapneumo PCR Nasal M.pneumoniae (PCR) Nasal SARS-CoV-2 (PCR) Ethyl Alcohol < 5.0 08/06/21 08/06/21 08/07/21 22:43 22:43 00:25 WBC RBC Hgb Hct MCV MCH MCHC RDW Plt Count MPV Neut # (Auto) Lymph # (Auto) [place] # (Auto) Eos # (Auto) Baso # (Auto) Absolute Nucleated RBC Nucleated RBC % PT INR Sodium Potassium Chloride Carbon Dioxide Anion Gap BUN Creatinine Estimated GFR (MDRD) Glucose Lactic Acid 1.3 Calcium Total Bilirubin AST ALT Alkaline Phosphatase Total Creatine Kinase Troponin I High Sens 15.8 H* 18.3 H* Total Protein Albumin Globulin Albumin/Globulin Ratio Lipase Urine Color Urine Clarity Urine pH Ur Specific Rice Urine Protein Urine Glucose (UA) Urine Ketones Urine Occult Blood Urine Nitrite Urine Bilirubin Urine Urobilinogen Ur Leukocyte Esterase Ur Microscopic Review Urine Culture Comments Nasal Adenovirus (PCR) Nasal B. parapertussis DNA (PCR) Nasal Coronavir 229E PCR Nasal Coronavir HKU1 PCR Nasal Coronavir NL63 PCR Nasal Coronavir OC43 PCR Nasal Enterovir/Rhinovir PCR Nasal Influenza B PCR Nasal Influenza A PCR Nasal Parainfluen 1 PCR Nasal Parainfluen 2 PCR Nasal Parainfluen 3 PCR Nasal Parainfluen 4 PCR Nasal RSV (PCR) Nasal B.pertussis DNA PCR Nasal C.pneumoniae (PCR) Tab Human Metapneumo PCR Nasal M.pneumoniae (PCR) Nasal SARS-CoV-2 (PCR) Ethyl Alcohol 08/07/21 08/07/21 01:00 02:49 WBC RBC Hgb Hct MCV MCH MCHC RDW Plt Count MPV Neut # (Auto) Lymph # (Auto) [place] # (Auto) Eos # (Auto) Baso # (Auto) Absolute Nucleated RBC Nucleated RBC % PT INR Sodium Potassium Chloride Carbon Dioxide Anion Gap BUN Creatinine Estimated GFR (MDRD) Glucose Lactic Acid Calcium Total Bilirubin AST ALT Alkaline Phosphatase Total Creatine Kinase Troponin I High Sens Total Protein Albumin Globulin Albumin/Globulin Ratio Lipase Urine Color YELLOW Urine Clarity CLEAR Urine pH 7.0 Ur Specific Rice 1.015 Urine Protein TRACE Urine Glucose (UA) NEGATIVE Urine Ketones NEGATIVE Urine Occult Blood NEGATIVE Urine Nitrite NEGATIVE Urine Bilirubin NEGATIVE Urine Urobilinogen 0.2 (NORMAL) Ur Leukocyte Esterase NEGATIVE Ur Microscopic Review NOT INDICATED Urine Culture Comments NOT INDICATED Nasal Adenovirus (PCR) NOT DETECTED Nasal B. parapertussis DNA (PCR) NOT DETECTED Nasal Coronavir 229E PCR NOT DETECTED Nasal Coronavir HKU1 PCR NOT DETECTED Nasal Coronavir NL63 PCR NOT DETECTED Nasal Coronavir OC43 PCR NOT DETECTED Nasal Enterovir/Rhinovir PCR NOT DETECTED Nasal Influenza B PCR NOT DETECTED Nasal Influenza A PCR NOT DETECTED Nasal Parainfluen 1 PCR NOT DETECTED Nasal Parainfluen 2 PCR NOT DETECTED Nasal Parainfluen 3 PCR NOT DETECTED Nasal Parainfluen 4 PCR NOT DETECTED Nasal RSV (PCR) NOT DETECTED Nasal B.pertussis DNA PCR NOT DETECTED Nasal C.pneumoniae (PCR) NOT DETECTED Tab Human Metapneumo PCR NOT DETECTED Nasal M.pneumoniae (PCR) NOT DETECTED Nasal SARS-CoV-2 (PCR) NOT DETECTED Ethyl Alcohol PD MEDICAL DECISION MAKING - ED course Complexity details: reviewed results, d/w patient, d/w family, d/w technical consultant ED course: Patient is 75-year-old female presenting to the emergency department with nausea, vomiting that began earlier this evening. Afebrile, hemodynamically stable on arrival to the emergency department. Was ill-appearing on presentation however had a soft and benign abdomen. IV access was obtained and fluid resuscitation initiated. Comprehensive labs obtained demonstrated an elevation in patient's baseline creatinine of 1.2 with baseline 0.8 and an elevation in BUN consistent with mild dehydration. Additionally she had a very mild elevation in high-sensitivity troponin, 0-hour 15.3, 1 hour 18.8 with delta +3.5. She was monitored carefully throughout her stay in the emergency department. On reevaluation she reported feeling significantly better. Of note she denied any chest pain, shortness of breath, heart palpitations or other symptoms that would be of eminent concern for cardiac ischemia. She was able to tolerate p.o. fluids well in the emergency department however Sitting up and standing caused her to become acutely dizzy and she had difficulty with ambulation. Orthostatic vital signs demonstrated an increased elevation heart rate with sitting to standing. Her care was discussed with the Hospital service. At this time she will be hospitalized for further evaluation and treatment. Departure - Departure Disposition: ED Place in Observation Clinical Impression: Nausea & vomiting, Dehydration, Elevated troponin, General weakness Discharge Date/Time: 08/07/21 04:29
[2021-08-06 22:53] LABS: BASOPHILS # (AUTO) 0.1 10^3/uL (0.0-0.1); BASOPHILS % (AUTO) 0.7 %; EOSINOPHILS # (AUTO) 0.1 10^3/uL (0.0-0.7); EOSINOPHILS % (AUTO) 0.6 %; HCT - HEMATOCRIT 33.2 % (37.0-47.0); HGB - HEMOGLOBIN 13.1 g/dL (12.0-16.0); LYMPHOCYTES # (AUTO) 1.7 10^3/uL (1.5-3.5); LYMPHOCYTES % (AUTO) 14.2 %; MEAN CORPUSCULAR HEMOGLOBIN 40.9 pg (27.0-31.0); MEAN CORPUSCULAR HGB CONC 39.5 g/dL (32.0-36.0); MEAN CORPUSCULAR VOLUME 103.8 fL (81.0-99.0); MEAN PLATELET VOLUME 11.7 fL (7.9-10.8); MONOCYTES # (AUTO) 0.6 10^3/uL (0.0-1.0); MONOCYTES % (AUTO) 4.9 %; NEUTROPHILS # (AUTO) 9.6 10^3/uL (1.5-6.6); NEUTROPHILS % (AUTO) 79.3 %; PLT - PLATELET COUNT 320 10^3/uL (130-450); RED CELL DISTRIBUTION WIDTH 18.4 % (12.0-15.0); WHITE BLOOD COUNT 12.2 x10^3/uL (4.8-10.8)
[2021-08-06 22:57] LABS: PT - PROTHROMBIN TIME 11.3 secs (9.9-12.6)
[2021-08-06 23:07] LABS: ALBUMIN 4.4 g/dL (3.2-5.5); ALBUMIN/GLOBULIN RATIO 1.2 (1.0-2.2); ALKALINE PHOSPHATASE 59 IU/L (42-121); ALT ALANINE AMINOTRANSFERASE 11 IU/L (10-60); AST ASPARTATE AMINOTRANSFERASE 18 IU/L (10-42); BILIRUBIN,TOTAL 0.9 mg/dL (0.2-1.0); BUN - BLOOD UREA NITROGEN 24 mg/dL (6-20); CALCIUM 9.7 mg/dL (8.5-10.3); CARBON DIOXIDE - CO2 27 mmol/L (21-32); CHLORIDE 95 mmol/L (101-111); CK- CREATINE KINASE 79 IU/L (22-269); CREATININE 1.2 mg/dL (0.4-1.0); ETOH - ETHANOL < 5.0 mg/dL; GFR - MDRD 44 (>89); GLUCOSE 164 mg/dL (70-100); LIPASE 60 U/L (22-51); POTASSIUM 3.6 mmol/L (3.5-5.0); SODIUM 136 mmol/L (135-145); TOTAL PROTEIN 8.1 g/dL (6.7-8.2)
[2021-08-07 01:46] LABS: BILIRUBIN,URINE NEGATIVE (NEGATIVE); CLARITY,URINE CLEAR (CLEAR); GLUCOSE, URINE (UA) NEGATIVE (NEGATIVE); KETONES,URINE (UA) NEGATIVE (NEGATIVE); LEUKOCYTE ESTERASE, URINE NEGATIVE (NEGATIVE); NITRITE,URINE NEGATIVE (NEGATIVE); OCCULT BLOOD,URINE NEGATIVE (NEGATIVE); PROTEIN,URINE TRACE mg/dL (NEGATIVE); UROBILINOGEN,URINE 0.2 (NORMAL) E.U./dL (NORMAL)
[2021-08-07] MEDS ORDERED: SODIUM CHLORIDE FLUSH 0.9% 10 ML SYRINGE IVP PRN (03:27)
[2021-08-07] MEDS ORDERED: ACETAMINOPHEN 325 MG TABLET PO PRN (03:27)
--- NOTE | 2021-08-07 03:37 | HISTORY & PHYSICAL EXAMINATION ---
Chief Complaint - Chief Complaint Chief Complaint: nausea, vomiting, dizziness, weakness History of Present Illness - Admitted From Admitted From:: [facility] ED - History Obtained From Records Reviewed: yes History obtained from: patient - History of Present Illness HPI Comment/Other: Patient is a 75-year-old female with medical history significant for CHF, hypertension, hyperlipidemia, coronary artery disease, DVT, CVA, chronic back pain, hypothyroidism, who presented to the ED today with complaint of nausea and vomiting. Her symptoms started today. She denied eating anything unusual. She denied abdominal pain, fever or chills. She last vomited upon arrival to the ED. There was no blood in the vomitus. Work-up in the ED showed a creatinine of 1.2. At baseline her creatinine is about 0.8. She was given Ativan which helped with her nausea and vomiting however attempts to ambulate her resulted in significant dizziness. She also has weakness which persist. As a result of her symptoms she was presented for admission for continued treatment. At bedside she was resting comfortably. She also denies chest pain or dyspnea. After her stroke in 2018 she had very mild left-sided weakness. No significant weakness or overall neurologic findings are noted today. History - Past Medical History Cardiovascular: reports: Congestive heart failure, Hypertension, High cholesterol, Coronary artery disease, Deep vein thrombosis, Arrhythmia, Other Respiratory: reports: Shortness of breath Neuro: reports: CVA Endocrine/Autoimmune: reports: None GI: reports: None : reports: None HEENT: reports: Chronic vision loss, Other Psych: reports: Depression, Other Musculoskeletal: reports: Scoliosis, Chronic back pain Derm: reports: None MRSA Hx?: No - Past Surgical History Ortho: reports: Spine surgery HEENT: reports: Cataracts Derm: reports: Other - Family & Social History Family History: Mother: , Father: , Sister: , Brother: Family History Comment/Other: All family has ; mother had heart disease and colon CA, father of "black lung", 2 sisters had an unknown type of cancer, 2 brothers; one that had vascular disease causing him to loose both lower extremities. Social History Notes: Patient has 3 boys. She lives independently and does all of her own ADLs. She drives and loves to bake. 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 She admits to socially drinking alcohol, denies tobacco or illicit drug use. - Substance History Use: Uses substance without health or social issues: NONE - POLST Patient has POLST: No POLST Status: Full Code Meds/Allgy - Home Medications Home Medications: Ambulatory Orders Medication Instructions Recorded Confirmed Furosemide 80 mg PO DAILY 02/23/17 06/28/17 Potassium Chloride [Klor-Con M20] 20 meq PO DAILY 02/23/17 06/28/17 Calcium Carbonate/Vitamin D3 1 tab PO DAILY 06/28/17 06/28/17 [Calcium 600-Vit D3 400 Tablet] Aspirin EC [Ecotrin] 325 mg PO DAILY #30 tablet 06/29/17 Atorvastatin [Lipitor] 40 mg PO DAILY #30 tablet 06/29/17 Nicotine 7 mg Patch [Nicoderm] 1 patch TOP DAILY #30 patch 06/29/17 - Allergies Allergies/Adverse Reactions: Allergies Allergy/AdvReac Type Severity Reaction Status Date / Time No Known Drug Allergies Allergy Verified 08/06/21 22:27 Review of Systems - Constitutional Constitutional: reports: Chills, Weakness. denies: Fever - Eyes Eyes: denies: Pain - Ears, Nose & Throat Ears, Nose & Throat: denies: Ear pain, Sore throat - Cardiovascular Cariovascular: reports: Lightheadedness. denies: Edema, Exertional dyspnea - Respiratory Respiratory: denies: Cough, Sputum production, Wheezing, SOB at rest, SOB with exertion - Gastrointestinal Gastrointestinal: reports: Nausea, Vomiting. denies: Abdominal pain, Diarrhea, [place] blood emesis, Coffee grounds emesis, Reflux/heartburn, Poor appetite - Genitourinary Genitourinary: denies: Dysuria, Frequency, Urgency, Hematuria - Musculoskeletal Musculoskeletal: denies: Muscle pain, Back pain, Stiffness - Integumentary Integumentary: denies: Rash, Pruritis - Neurological Neurological: reports: General weakness, Dizziness. denies: Focal weakness, Hea dache - Psychiatric Psychiatric: denies: Depression, Anxiety - Endocrine Endocrine: denies: Polyuria, Polydypsia - Hematologic/Lymphatic Hematologic/Lymphatic: denies: Anemia, Bruising, Petechiae Prior Level of Functionality: Patient is normally independent of activities of daily living. She lives alone and gets around using a cane or walking independently. Exam - Vital Signs Vital Signs: Vital Signs x48h Temp Pulse Resp BP Pulse Ox 04/24/22 01:38 60 16 198/76 H 08/06/21 22:23 72 17 175/124 H 99 08/06/21 22:20 2.2 C L 66 18 186/110 H 99 - Physical Exam General Appearance: positive: No acute distress, Alert Eyes Bilateral: positive: PERRL, EOMI ENT: positive: Dry mucous membranes Neck: positive: No JVD, Trachea midline Respiratory: positive: Chest non-tender, No respiratory distress, Breath sounds nml. negative: Wheezes, Rales, Rhonchi Cardiovascular: positive: Regular rate & rhythm, Systolic murmur Abdomen: positive: Non-tender, Nml bowel sounds, No distention. negative: Guarding, Rebound Back: positive: Nml inspection Skin: positive: Color nml, No rash, Warm, Dry Extremities: positive: Non-tender, Nml appearance, No pedal edema Neurologic/Psychiatric: positive: Oriented x3, Mood/affect nml Conclusion/Plan - Problem List (1) Dehydration Conclusion/Plan: Likely prerenal due to nausea and vomiting. Patient's creatinine was 1.2. Baseline creatinine is 0.8. Patient's heart rate increased about 20 points when orthostatic vitals were done. Patient was given IV hydration in the ED. We will continue with normal saline at 100 mL/h. Anticipating improvement. (2) Nausea & vomiting Conclusion/Plan: Etiology undetermined. Patient does not have abdominal pain. She also denied fever or chills. CT of the abdomen/pelvis pending. (3) MARCELA (acute kidney injury) Conclusion/Plan: Likely prerenal due to nausea and vomiting. Patient's creatinine was 1.2. Baseline creatinine is 0.8. Patient's heart rate increased about 20 points when orthostatic vitals were done. Patient was given IV hydration in the ED. We will continue with normal saline at 100 mL/h. Anticipating improvement. (4) Dizziness Conclusion/Plan: Suspect this is secondary to dehydration which in turn is related to nausea vomiting. Patient's dizziness significantly worsened with attempt at ambulation. Her orthostatics were positive in that her heart rate increased 20 points going from sitting to standing. We will continue IV hydration with normal saline at 100 mL/h. If dizziness persists despite adequate hydration, will consider obtaining an image of the brain. (5) General weakness Conclusion/Plan: Due to dehydration. Anticipating improvement with hydration. We will also check patient's TSH. (6) Hypothyroidism Conclusion/Plan: We will check patient's TSH. Will resume patient's Synthroid once verified. (7) Hypertension Conclusion/Plan: Will resume patient's antihypertensive when appropriate to do so. However will hold for now while actively hydrating the patient. If systolic blood pressures greater than 180, will administer a as needed medication. (8) Elevated troponin Conclusion/Plan: Mild. Patient does not have chest pain. EKG is negative for any acute findings. Initial troponin was 15.8 with repeat troponin of 18.3. This is probably also affected by acute kidney injury. Will trend troponin x1 more. (9) Hyperlipidemia Conclusion/Plan: On rosuvastatin at home. (10) Tobacco dependence Conclusion/Plan: Nkicotine patch ordered. - Lab Results Fish Bones: 08/06/21 22:43 08/06/21 22:43 Core Measures - Anticipated LOS I expect patient to be DC'd or transferred within 96 hours.: Yes - DVT/VTE - Prophylaxis VTE/DVT Device ordered at admit?: Yes
[2021-08-07 03:40] LABS: B. PARAPERTUSSIS- RESP PCR PAN NOT DETECTED; B. PERTUSSIS- RESP PCR PANEL NOT DETECTED; C. PNEUMONIAE- RESP PCR PANEL NOT DETECTED; CORONAVIRUS 229E-RESP PCR NOT DETECTED; CORONAVIRUS HKU1-RESP PCR NOT DETECTED; CORONAVIRUS NL63-RESP PCR NOT DETECTED; CORONAVIRUS OC43-RESP PCR NOT DETECTED; HUMAN METAPNEUMOVIRUS NOT DETECTED; INFLUENZA A- RESP PCR PANEL NOT DETECTED; INFLUENZA B - RESP PCR PANEL NOT DETECTED; M. PNEUMONIAE- RESP PCR PANEL NOT DETECTED; PARAINFLUENZA VIRUS 1 NOT DETECTED; PARAINFLUENZA VIRUS 2 NOT DETECTED; PARAINFLUENZA VIRUS 3 NOT DETECTED; PARAINFLUENZA VIRUS 4 NOT DETECTED; RHINOVIRUS/ENTEROVIRUS NOT DETECTED; RSV- RESP PCR PANEL NOT DETECTED; SARS-CoV-2 -RESP PCR PANEL NOT DETECTED
[2021-08-07] MEDS: SODIUM CHLORIDE 0.9% 1,000 ML IV SCH ×2 (04:09→14:32)
[2021-08-07] MEDS: ONDANSETRON 4 MG/2 ML VIAL IVP PRN ×2 (04:57→11:53)
[2021-08-07 06:40] LABS: BASOPHILS # (AUTO) 0.1 10^3/uL (0.0-0.1); BASOPHILS % (AUTO) 0.5 %; EOSINOPHILS % (AUTO) 0.1 %; HCT - HEMATOCRIT 34.2 % (37.0-47.0); HGB - HEMOGLOBIN 12.4 g/dL (12.0-16.0); LYMPHOCYTES # (AUTO) 1.4 10^3/uL (1.5-3.5); LYMPHOCYTES % (AUTO) 14.2 %; MEAN CORPUSCULAR HEMOGLOBIN 36.9 pg (27.0-31.0); MEAN CORPUSCULAR HGB CONC 36.3 g/dL (32.0-36.0); MEAN CORPUSCULAR VOLUME 101.8 fL (81.0-99.0); MEAN PLATELET VOLUME 11.4 fL (7.9-10.8); MONOCYTES # (AUTO) 0.4 10^3/uL (0.0-1.0); MONOCYTES % (AUTO) 3.8 %; NEUTROPHILS # (AUTO) 8.1 10^3/uL (1.5-6.6); NEUTROPHILS % (AUTO) 81.2 %; PLT - PLATELET COUNT 296 10^3/uL (130-450); RED BLOOD COUNT 3.36 10^6/uL (4.20-5.40); RED CELL DISTRIBUTION WIDTH 17.1 % (12.0-15.0); WHITE BLOOD COUNT 9.9 x10^3/uL (4.8-10.8)
[2021-08-07 06:50] LABS: CALCIUM 9.2 mg/dL (8.5-10.3); POTASSIUM 3.7 mmol/L (3.5-5.0)
[2021-08-07] MEDS: SODIUM CHLORIDE FLUSH 0.9% 10 ML SYRINGE IVP SCH ×2 (08:09→17:35)
[2021-08-07] MEDS: NICOTINE 7 MG PATCH TOP SCH (08:09)
--- NOTE | 2021-08-07 10:35 | PHARMACY PROGRESS NOTE ---
- Best Possible Medication History Admit Date and Time: 08/07/21 0327 Processed by: Pharmacy Medication History completed: Yes Patient Interview: Completed Secondary Source(s): Pharmacy records, Insurance records Patient reports she takes furosemide but is inconsistent and often forgets. There is no record of a fill of the medication in the last year. Patient says she takes her other medications every day and does not forget them. She also takes a low dose zinc 5 mg - ascorbic acid 15 mg dietary supplement daily. As the person ultimately responsible for medication therapy, providers are able to order a medication from an existing home medication list in [facility] via the "Reconcile Routine" prior to Confirmation of that medication by developer support engineer. Such practice is discouraged except when the physician, in their clinical judgment, deems that a medical need exists for a medication without regard to previous use.
[2021-08-07 11:13] LABS: FOLATE 11.66 ng/mL (5.90 - >24.8)
[2021-08-07] MEDS ORDERED: HYDROcod/ACETAM 7.5 MG/325 MG TABLET PO PRN (11:44)
[2021-08-07] MEDS: ASPIRIN CHEW 81 MG TABLET PO SCH (11:57)
[2021-08-07] MEDS ORDERED: LEVOTHYROXINE 100 MCG VIAL IVP SCH (12:00)
--- NOTE | 2021-08-07 12:32 | PROVIDER PROGRESS NOTE ---
Hospitalist Cross-cover Note - Cross-Cover Note Cross-Cover Note: Telemetry shows afib-flutter, rate 70-90 (on no HR-slowing meds). Pt was seen and examined. She still c/o nausea. She claims no hematemesis. Her mucosa appears dry and possible dried blood on tongue. She is in no respiratory distress currently. Abd soft w/ bowel sounds present. No edema. Orthostatic VS are pending She had no abdominal imaging or CXR done at admission. Labs were remarkable for pre-renal azotemia which has corrected with iv fluids, but she has marked Hypothyroidism present, with TSH >14. This, despite her taking her morning Synthroid dose, she told me. EKG was done to confirm Afib. EKG (was interpreted by me) and showed : Afib- flutter, rate 79, RBBB, LAFB, poor R wave progression. This is similar to EKG from 2017, but in ER last night she was in sinus rhythm. 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 The Echo showed: Dilated LA and RA, moderately. Normal LV size, mild LVH, normal LV contratility, LVEF 55-60%. Mildly dilated RV with normal RV contractility. Mild MR and TR. Provbably mild . There is a modertae circumferential pericardial effusion, with echogenic debris along the visceral pericardium (which signifies chronic effusion). There are no signs of tamponade. Imp: Persistent N/V and abd pain of unclear etiology. She has inability to maintain oral intake yet. Paroxysmal Afib Hx of CVA (and pt says she stopped taking daily aspirin on her own). Hypothyroidism, inadequately treated Moderate circumferential pericardial effusion (likely from undertreated Hypothyroidsim, since she has no Hx of malignancy or Rhemiatoid Arthritis or other connective tissue disease or systolic heart failure) HTN (she was only on Lasix for this at home?) Pre-renal azotemia, improved with iv fluids Plan: Inpatient admission since she has inability to maintain oral intake yet. Obtain CXR Obtain abd/pelvis CT Continue iv fluids. De-escalate her diet to clear liquids, then will advance diet as tolerated and depending on CT of abdomen results. Start daily baby aspirin (pt agreeable) Will consider Eliquis after she is not nauseated and if a GI bleed is not suspected, since her CHADS score = 3 (HTN, age> 75 and Hx of stroke) Continue telemetry Daily orthostatic VS checks. Hold her Lasix Adjust meds for BP control Give IV Synthroid CRITICAL CARE TIME SPENT: 45 min
--- NOTE | 2021-08-07 12:51 | CT Report ---
PROCEDURE: CT abdomen and pelvis without contrast INDICATIONS: Pain TECHNIQUE: Noncontrast 5 mm thick sections acquired from the diaphragms to the symphysis. 5 mm coronal and sagi ttal reformats were then performed. For radiation dose reduction, the following was used: automated exposure control, adjustment of mA and/or kV according to patient size. COMPARISON: None. FINDINGS: Image quality: Excellent. ABDOMEN: Lung bases: Minimal right basilar atelectasis. Dense coronary artery vascular calcification and peric ardial effusion measuring 2 cm in thickness. Solid organs: Liver and spleen are normal in size. Gallbladder unremarkable. Pancreas is normal in contours. No adrenal nodules. Kidneys are normal in size, without hydronephrosis or nephrolithiasi s. Prominence of both adrenal glands probably reflects adrenal hypertrophy. Peritoneum and bowel: Unenhanced bowel loops demonstrate normal wall thickness and caliber. No free fluid or air. Nodes and vessels: No retroperitoneal or mesenteric adenopathy by size criteria. Infrarenal abdomina l aortic aneurysm measures 5.2 x 4.4 cm. Dense atherosclerotic vascular calcification. Miscellaneous: No ventral hernias. PELVIS: Genitourinary: Bladder wall thickness is normal. Miscellaneous: No inguinal hernias or adenopathy. Bones: No suspicious bony lesions. No vertebral body compression fractures. Multilevel degenerativ e disc disease and arthropathy. L1-2 discectomy and fusion with posterior javed and screw instrumentati on. IMPRESSION: 1. No acute CT findings in the abdomen and pelvis. 2. Infrarenal abdominal aortic aneurysm measures up to 5.2 cm. Recommend vascular consultation. Reviewed by: Abdelrahman Woo MD on 08/07/2021 11:50 AM GORDY Approved by: Abdelrahman Woo MD on 08/07/2021 11:50 AM GORDY Station ID: [id number]
--- NOTE | 2021-08-07 13:07 | XRAY Report ---
PROCEDURE: Chest 1 View X-Ray INDICATIONS: Lightheadedness, pericardial effusion on Echo TECHNIQUE: One view of the chest was acquired. COMPARISON: None FINDINGS: Surgical changes and devices: None. Lungs and pleura: No pleural effusions or pneumothorax. Lungs are clear. Mediastinum: Mediastinal contours appear normal. Heart size is enlarged. Mild vascular congestion n oted. Atherosclerotic vascular calcification noted in the aortic arch. . Bones and chest wall: No suspicious bony lesions. Overlying soft tissues appear unremarkable. IMPRESSION: Primary mild vascular congestion Reviewed by: Abdelrahman Woo MD on 08/07/2021 12:06 PM GORDY Approved by: Abdelrahman Woo MD on 08/07/2021 12:06 PM GORDY Station ID: [id number]
[2021-08-08] MEDS: SODIUM CHLORIDE FLUSH 0.9% 10 ML SYRINGE IVP SCH ×2 (00:14→08:31)
[2021-08-08] MEDS: SODIUM CHLORIDE 0.9% 1,000 ML IV SCH ×3 (00:36→12:06)
[2021-08-08] MEDS: ONDANSETRON 4 MG/2 ML VIAL IVP PRN (01:13)
[2021-08-08 04:41] LABS: BASOPHILS # (AUTO) 0.1 10^3/uL (0.0-0.1); EOSINOPHILS # (AUTO) 0.1 10^3/uL (0.0-0.7); EOSINOPHILS % (AUTO) 1.1 %; HCT - HEMATOCRIT 29.2 % (37.0-47.0); HGB - HEMOGLOBIN 10.8 g/dL (12.0-16.0); LYMPHOCYTES # (AUTO) 1.6 10^3/uL (1.5-3.5); LYMPHOCYTES % (AUTO) 22.2 %; MEAN CORPUSCULAR HEMOGLOBIN 39.1 pg (27.0-31.0); MEAN CORPUSCULAR VOLUME 105.8 fL (81.0-99.0); MONOCYTES # (AUTO) 0.5 10^3/uL (0.0-1.0); MONOCYTES % (AUTO) 6.3 %; NEUTROPHILS # (AUTO) 5.1 10^3/uL (1.5-6.6); NEUTROPHILS % (AUTO) 69.1 %; PLT - PLATELET COUNT 289 10^3/uL (130-450); RED BLOOD COUNT 2.76 10^6/uL (4.20-5.40); RED CELL DISTRIBUTION WIDTH 18.1 % (12.0-15.0); WHITE BLOOD COUNT 7.3 x10^3/uL (4.8-10.8)
[2021-08-08 04:50] LABS: CALCIUM 8.7 mg/dL (8.5-10.3); CREATININE 0.9 mg/dL (0.4-1.0); POTASSIUM 3.4 mmol/L (3.5-5.0)
[2021-08-08] MEDS ORDERED: hydrALAZINE INJ 20 MG/ML VIAL IVP PRN (07:09)
[2021-08-08] MEDS: ASPIRIN CHEW 81 MG TABLET PO SCH (08:05)
[2021-08-08] MEDS: NICOTINE 7 MG PATCH TOP SCH (08:05)
[2021-08-08] MEDS: POTASSIUM CHLOR 10 MEQ/100 ML 10 MEQ/100 ML BAG IV SCH ×2 (08:27→10:06)
[2021-08-08] MEDS ORDERED: LOSARTAN 50 MG TABLET PO SCH ×2 (09:00→12:00)
[2021-08-08] MEDS ORDERED: MULTIVITAMIN W/MINERALS TABLET PO SCH (12:00)
[2021-08-08 13:05] VITALS: BP 151/63
--- NOTE | 2021-08-08 14:22 | Discharge Plan ---
Discharge Plan Problem Reviewed?: Yes Disposition: Home, Self Care Condition: Fair Prescriptions: Losartan [Cozaar] 50 mg PO 0900 #30 tablet Levothyroxine Sodium [Levothyroxine] 100 mcg PO DAILY #30 cap Aspirin Chewable [St Ab Aspirin] 81 mg PO DAILY #30 tablet Multivitamin W/Minerals [Theragran M] 1 tab PO QDLUNCH #30 tablet Diet: Low Sodium (Please advance your diet from pureed and soft to your usual diet (low salt) in several days, but go back to liquids if you become nauseated) Activity Restrictions: Activity as Tolerated Shower Restrictions: No Driving Restrictions: Yes (due to dizziness, until cleared to resume by PCP) Instruction Topics: Balance System Inner Ear, Dizziness Vertigo Inner Ear, Dizziness Vertigo Balance Safety, Labyrinthitis Health Concerns: You were hospitalized for ongoing dizziness plus nausea and vomiting, which had caused dehydration. We found you to have atrial fib (Afib) - an abnormal heart rhythm that causes strokes. An ultrasound Echocardiogram of your heart was done and we found a significant amount of fluid in the sac around your heart (pericardial effusion), which is likely causing the chest pain you get and is probably related to another finding, which is severe hypothyroidism. Your blood pressure was very high and your BP meds was changed. The Cy maneuver was performed twice for you, which appeared to have helped your dizziness and nausea. Your medications have been adjusted, please follow the new list and put away the old meds and doses. All new prescriptions were electronically sent to your pharmacy. You should see your primary care provider in the next 5 to 10 days for hospital follow-up visit, and to be cleared to drive a car safely. There needs to be determination if your once a day aspirin should be changed to once a day blood thinner (like Eliquis). Plan of Treatment: As above. Care Goals: Improvement in symptoms and stabilization are the goals. Assessment: The patient, and son at bedside, understand and are agreeable with the plan. Additional Instructions or Follow Up instructions: If you have new or worsening symptoms, call your PCP for advice or come to the ED. No Smoking: If you smoke, Please STOP! Call for help. Follow-up with: ANDREW MEDRAON ARNP [Physician No Access] -
--- NOTE | 2021-08-08 14:32 | DISCHARGE SUMMARY ---
Discharge Summary Admit Date: 08/07/21 Discharge Date: 08/08/21 Discharging Provider: Dr Sendy Martell Primary Care Provider: DAVID Dumont Code Status: Attempt Resuscitation Condition at Discharge: Fair Discharge Disposition: 01 Home, Self Care - DIAGNOSES Admission Diagnoses: (1) Dehydration (2) Nausea & vomiting (3) MARCELA (acute kidney injury) (4) Dizziness (5) General weakness (6) Hypothyroidism (7) Hypertension (8) Elevated troponin (9) Hyperlipidemia (10) Tobacco dependence - HPI History of Present Illness: From the admission H&P of Dr. Kamar Durant: Patient is a 75-year-old female with medical history significant for CHF, hypertension, hyperlipidemia, coronary artery disease, DVT, CVA, chronic back pain, hypothyroidism, who presented to the ED today with complaint of nausea and vomiting. Her symptoms started today. She denied eating anything unusual. She denied abdominal pain, fever or chills. She last vomited upon arrival to the ED. There was no blood in the vomitus. Work-up in the ED showed a creatinine of 1.2. At baseline her creatinine is about 0.8. She was given Ativan which helped with her nausea and vomiting canales umer attempts to ambulate her resulted in significant dizziness. She also has weakness which persist. As a result of her symptoms she was presented for admission for continued treatment. At bedside she was resting comfortably. She also denies chest pain or dyspnea. After her stroke in 2018 she had very mild left-sided weakness. No significant weakness or overall neurologic findings are noted today. - HOSPITAL COURSE Hospital Course: 1) Pre-renal azotemia The patient was given IV fluids starting in the ED and continued on the hospital side. Her BUN/creatinine labs improved by the next day. She was continued on IV fluids an additional day until she was able to tolerate oral hydration and a bland diet without nausea and vomiting. 2) Persistent N/V Her N/V persisted after the first day and she was made an inpatient because of inability to adequately orally hydrate. IV fluids were continued. She underwent an abdominal CT which showed no GI pathology. Her nausea improved, along with her dizziness, after an Cy maneuver was performed (see below). 3) Dizziness Her "dizziness" complaint was of vertigo, not of lightheadedness or presyncope. Her orthostatic vital signs were only abnormal with respect to heart rate, no drop in BP. This Hospitalist therefore performed an Cy maneuver, and this showed nystagmus to the right. After the maneuver, she had resolution of her nausea, had no more vomiting and no more vertigo. The Cy maneuver was repeated just before discharge at her request. 4) Paroxysmal Afib Her admission EKG showed sinus rhythm with PACs but telemetry showed A. fib at rates of 70-90 (on no rate-controlled meds). When A. fib was mentioned to the patient, she said she has heard this term before and thinks she gets it occasionally. Because of the A. fib, an Echocardiogram was performed by this Hospitalist (as a Board-Certified Integration Specialist), since we have no Echo service available here at this time. The Echo showed: Moderately dilated left atrium and right atrium. Normal LV size, mild LVH, normal LV contratility, LVEF 55-60%. Mildly dilated RV with normal RV contractility. Mild mitral regurg and tricuspid regurg. Probably mild aortic stenosis. There is a moderate circumferential pericardial effusion, with echogenic debris along the visceral pericardium (which signifies chronic effusion). There were no signs of tamponade. The patient was started on 1 baby aspirin daily. The patient needs follow-up with her PCP or with Cardiology, to determine if she is a candidate for anticoagulat ion (like using Eliquis), because an anticoagulant would be preferred, given her CHADS score of 3 (hypertension, age over 75 and history of stroke). 5) Hx of CVA Patient was hospitalized here for stroke symptoms in 2018. Her Echocardiogram then showed normal LVEF. She reported that she stopped taking daily aspirin on her own and only takes aspirin prn pain. She was started on 1 baby aspirin daily and she and her son at bedside were educated as to her needing it chronically. The patient needs follow-up with her PCP to determine if she is a candidate for anticoagulation (using Eliquis), because an anticoagulant would be preferred, given her CHADS score of 3 (hypertension, age over 75 and history of stroke). There were no signs of muscle weakness noted. She was seen by Physical Therapy and had no trouble with ambulation or balance. 6) Hypothyroidism A very remarkable lab result returned showing her TSH to be over 14 (normal range 0.34-5.6), despite her being on Levothyroxine 50 mcg daily, which she said she was compliant with. This was probably the cause of the significant pericardial effusion, with debris noted, signifying that it was chronic. She received a dose of IV levothyroxine 75 mcg x 1. She was discharged on a new higher dose of Levothyroxine 100 mcg daily. She needs follow-up with her PCP re garding re-testing for adequate dosing. 7) Moderate circumferential pericardial effusion Her marked hypothyroidism was probably the cause of this significant pericardial effusion, since she had no evidence of systolic heart failure or any connective tissue disorders. There was echogenic debris noted within the pericardial effusion, signifying that it was chronic, thus we suspected her hypothyroidism has been under treated for a long time. There were no signs of tamponade. Adequate thyroid treatment and anti-inflammatory medications would help it reabsorb. 8) Chest pain Her troponins were "flat" at 15, 18, 16, ruling her out for AK. On the morning of discharge, she complained of left anterior chest pain, she could not qualify it, it had no radiation or associated symptoms and she said she has had it for several years, on and off, it happens several times a month, not associated with exercise. She has never reported to her PCP. She takes an aspirin for it and it usually resolves in 30-60 min. Her vital signs were normal at the time. This complaint is likely discomfort related to the pericardial effusion. She needs evaluation and follow-up of the pericardial effusion with Cardiology. 9) HTN According to the patient, her medication for high blood pressure is oral Lasix daily. The Lasix was stopped given her dehydration. It was not resumed. She was started on new blood pressure medicine when systolic BP reached 180-200 mmHg. Losartan 50 mg daily was begun. She needs close follow-up with her PCP regarding adjusting the dose. 10) Depression She has a very flat affect, answered all questions in a monotone, and voiced to her RN that she "does not care about anything". She was seen in consult by Social Work for possible depression. The impression was that of mild chronic depression, no suicidal ideation. No meds were started for this. 11) Tobacco use Quitting smoking was discussed. 12) AAA An incidental finding on the CT abdomen was abdominal aortic aneurysm sized 5.2 cm x 4.4 cm. This will need further follow-up. - ALLERGIES Allergies/Adverse Reactions: Allergies Allergy/AdvReac Type Severity Reaction Status Date / Time milk AdvReac Mild Cramps Verified 08/08/21 14:06 - MEDICATIONS Home Medications: Ambulatory Orders Medication Instructions Recorded Confirmed HYDROcodone/ACET 7.5/325 [[place] 0.5 - 1 tab PO DAILY PRN 08/07/21 08/07/21 7.5/325] Rosuvastatin Calcium [Crestor] 5 mg PO DAILY 08/07/21 08/07/21 Aspirin Chewable [St Ab 81 mg PO DAILY #30 tablet 08/08/21 Aspirin] Levothyroxine Sodium 100 mcg PO DAILY #30 cap 08/08/21 [Levothyroxine] Losartan [Cozaar] 50 mg PO 0900 #30 tablet 08/08/21 Multivitamin W/Minerals [Theragran 1 tab PO QDLUNCH #30 tablet 08/08/21 M] - PHYSICAL EXAM AT DISCHARGE General Appearance: positive: No acute distress, Alert Eyes Bilateral: positive: Normal inspection, EOMI ENT: positive: ENT inspection nml, No signs of dehydration Neck: positive: Nml inspection, No JVD Respiratory: positive: No respiratory distress, Breath sounds nml Cardiovascular: positive: Irregularly irregular, Systolic murmur, Friction rub Abdomen: positive: Non-tender, Nml bowel sounds, No distention Skin: positive: Warm, Dry Extremities: positive: Non-tender, No pedal edema Neurologic/Psychiatric: positive: Oriented x3 (Non-focal) - LABS Result Diagrams: 08/08/21 04:20 08/08/21 04:20 - DIAGNOSTIC IMAGING Diagnostic Imaging Results: Final report reviewed - FOLLOW UP Follow Up: See PCP for a hospital follow-up visit in 5-10 days. - TIME SPENT Time Spent in Discharge (Minutes): 60
== END 2021-08-08 14:44 | disposition home or self-care (01) | DRG 683 ==
LOC: ED 22:11 → MS2 08-07 03:27 → OBSVTOIN 08-07 12:32
PROVIDERS: ADMIT Internal Medicine; ATTEND Internal Medicine
DX: N17.9 Acute kidney failure, unspecified (principal); R11.2 Nausea with vomiting, unspecified; I31.3 Pericardial effusion (noninflammatory); E03.9 Hypothyroidism, unspecified; E78.00 Pure hypercholesterolemia, unspecified; E86.0 Dehydration; I45.10 Unspecified right bundle-branch block; I11.0 Hypertensive heart disease with heart failure; I25.10 Atherosclerotic heart disease of native coronary artery without angina pectoris; I48.0 Paroxysmal atrial fibrillation; I50.9 Heart failure, unspecified; I71.4 Abdominal aortic aneurysm, without rupture; G89.29 Other chronic pain; M54.9 Dorsalgia, unspecified; R10.9 Unspecified abdominal pain; F17.200 Nicotine dependence, unspecified, uncomplicated; Z66 Do not resuscitate; Z20.822 Contact with and (suspected) exposure to COVID-19; F32.A Depression, unspecified; R11.15 Cyclical vomiting syndrome unrelated to migraine; R42 Dizziness and giddiness; R77.8 Other specified abnormalities of plasma proteins; R79.89 Other specified abnormal findings of blood chemistry; Z79.82 Long term (current) use of aspirin; Z79.890 Hormone replacement therapy; Z79.899 Other long term (current) drug therapy; Z80.0 Family history of malignant neoplasm of digestive organs; Z80.9 Family history of malignant neoplasm, unspecified; Z82.49 Family history of ischemic heart disease and other diseases of the circulatory system; Z86.718 Personal history of other venous thrombosis and embolism; Z86.73 Personal history of transient ischemic attack (TIA), and cerebral infarction without residual deficits
CPT/HCPCS: 36415; 71045; 74176; 80048; 80053; 81003; 82550; 82607; 82746; 83605; 83690; 83735; 84443; 84484; 85025; 85610; 87633; 93005; 96361; 96374; 96375; 96376; 97161; 99283; 99285; A9270; G0480; J2060; 80320; 81001; 82272; 87086

== ENCOUNTER 2021-08-09 16:58 | Inpatient (IN) | payer MEDICARE, OTHER ==
--- NOTE | 2021-08-09 17:23 | ED Physician Documentation ---
PD HPI FOCAL NEURO - Stated complaint Stated Complaint: WEAK/DON'T FEEL GOOD - Chief complaint Chief Complaint: General - History obtained from History obtained from: Patient, Family - Additional information Additional information: 75-year-old woman with history of paroxysmal atrial fibrillation not on anticoagulation, CHF, hypertension, hyperlipidemia, coronary disease, history of DVT, history of CVA with chronic mild left-sided deficits chronic back pain, hypothyroidism, and tobacco abuse presents to the emergency department feeling like she is had a stroke. Specifically she says she cannot write today and she feels like she cannot play games on her Charlene. It started on awakening this morning. She is had 2 days of a frontal headache. She was discharged from the hospital yesterday afternoon for weakness and dizziness primarily. She did have episodes of paroxysmal atrial fibrillation while here. She was noted to have what appeared to be a chronic pericardial effusion. Limited echo done by the hospitalist showed moderately dilated LA and RA, normal LV size, mild LVH, LVEF 55 to 60%, mildly dilated RV with normal RV contractility, mild MR and TR, probably mild AAS. Review of Systems Ten Systems: 10 systems reviewed and negative Constitutional: denies: Fever, Chills Ears: reports: Reviewed and negative Nose: reports: Reviewed and negative Throat: reports: Reviewed and negative Cardiac: reports: Reviewed and negative PD PAST MEDICAL HISTORY - Past Medical History Cardiovascular: Congestive heart failure, Hypertension, High cholesterol, Coron yas artery disease, Deep vein thrombosis, Arrhythmia, Other Respiratory: Shortness of breath Neuro: CVA Endocrine/Autoimmune: None GI: None : None HEENT: Chronic vision loss, Other Psych: Depression, Other Musculoskeletal: Scoliosis, Chronic back pain Derm: None - Past Surgical History Past Surgical History: Yes Ortho: Spine surgery HEENT: Cataracts Derm: Other - Present Medications Home Medications: Ambulatory Orders Medication Instructions Recorded Confirmed HYDROcodone/ACET 7.5/325 [[place] 0.5 - 1 tab PO DAILY PRN 08/07/21 08/07/21 7.5/325] Rosuvastatin Calcium [Crestor] 5 mg PO DAILY 08/07/21 08/07/21 Aspirin Chewable [St Ab 81 mg PO DAILY #30 tablet 08/08/21 Aspirin] Levothyroxine Sodium 100 mcg PO DAILY #30 cap 08/08/21 [Levothyroxine] Losartan [Cozaar] 50 mg PO 0900 #30 tablet 08/08/21 Multivitamin W/Minerals [Theragran 1 tab PO QDLUNCH #30 tablet 08/08/21 M] - Allergies Allergies/Adverse Reactions: Allergies Allergy/AdvReac Type Severity Reaction Status Date / Time milk AdvReac Mild Cramps Verified 08/08/21 14:06 - Social History Does the pt smoke?: Yes Smoking Status: Current every day smoker Does the pt drink ETOH?: Yes Does the pt have substance abuse?: No - Immunizations Immunizations are current?: No - POLST Patient has POLST: No POLST Status: DNR PD ED PE NORMAL - Vitals Vital signs reviewed: Yes - General General: Alert and oriented X 3, Other (Slow slurred speech, refusing to wear a mask) - HEENT HEENT: PERRL, Other (Difficulty checking extraocular movements because of lack of attention to following my finger. But grossly normal.) - Neck Neck: Supple, no meningeal sign, No bony TTP - Cardiac Cardiac: RRR, Other (3 out of 6 decrescendo systolic murmur) - Respiratory Respiratory: No respiratory distress, Clear bilaterally - Abdomen Abdomen: Normal bowel sounds, Soft, Non tender - Back Back: No CVA TTP, No spinal TTP - Derm Derm: Normal color, Warm and dry - Extremities Extremities: No edema, No calf tenderness / cord - Neuro Neuro: Alert and oriented X 3, No motor deficit, No sensory deficit, Other (Slow but seemingly normal [id number]-[id number] testing, no pronator drift; I had her try to write her name and draw a star and she could not write her name. She raine a very floppy oblong star) Eye Opening: Spontaneous Motor: Obeys Commands Verbal: Oriented GCS Score: 15 NIHSS - Time Time: 17:15 - Level of Consciousness Level of consciousness: (0) Alert, Keenly responsive LOC Questions: (0) Answers both Q's correct LOC Commands: (0) Performs both correctly - Gaze Best Gaze: (0) Normal - Visual Visual: (0) No loss - Facial Palsy Facial Palsy: (0) Normal, symmetrical movement - Motor Arms (both separate) Motor Arm (right): (0) No drift Motor Arm (left): (0) No drift - Motor Legs (both separate) Motor Leg (right): (0) No drift Motor Leg (left): (0) No drift - Limb Ataxia Limb Ataxia: (0) Absent - Sensory Sensory: (0) Normal - Best Language Best Language: (0) No aphasia - Dysarthria Dysarthria: (1) Skkq-[id number] dysarthria - Extinction and Inattention (formally neg Extinction and inattention: (0) No abnormality - Total Score/Results Total Score/Result: 1 Results - Vitals Vitals: Vital Signs - 24 hr 08/09/21 08/09/21 08/09/21 17:03 18:35 18:46 Temperature 36.6 C Heart Rate 70 Respiratory 14 19 22 Rate Blood Pressure 158/102 H 194/105 H 208/91 H O2 Saturation 98 98 99 Oxygen O2 Source Room air - EKG (time done) 1730 Rate: Rate (enter#) (72) Rhythm: Atrial fibrillation Intervals: RBBB, Other (LAFB) QRS: LVH Ischemia: Q waves (inferior) Compare to prior EKG: Unchanged from prior EKG Computer interpretation: Agree with computer - Labs Labs: Laboratory Tests 08/09/21 08/09/21 08/09/21 17:45 18:22 18:22 WBC 7.8 RBC 3.40 L Hgb 12.2 Hct 34.9 L MCV 102.6 H MCH 35.9 H MCHC 35.0 RDW 15.8 H Plt Count 318 MPV 11.4 H Neut # (Auto) 5.2 Lymph # (Auto) 1.8 [place] # (Auto) 0.6 Eos # (Auto) 0.1 Baso # (Auto) 0.1 Absolute Nucleated RBC 0.00 Nucleated RBC % 0.0 Sodium 135 Potassium 3.4 L Chloride 100 L Carbon Dioxide 26 Anion Gap 9.0 BUN 13 Creatinine 1.0 Estimated GFR (MDRD) 54 L Glucose 98 Calcium 9.3 Magnesium 2.1 Total Bilirubin 0.5 AST 17 ALT < 10 L Alkaline Phosphatase 44 Troponin I High Sens 17.4 H* Total Protein 6.4 L Albumin 3.6 Globulin 2.8 Albumin/Globulin Ratio 1.3 Lipase 41 Ethyl Alcohol < 5.0 - Rads (name of study) CT angiography of the head Radiology: EMP read contemporaneously (1. NAD 2. Moderate atrophy and chronic microvascular ischemic chgs 3. Moderate bilateral supraclinoid internal carotid artery stenosis. 4.~50% narrowing of the high cervical segment of the right internal carotid artery. 5. 50% narrowing of the V4 segment of the right vertebral artery.) CTA Neck Radiology: EMP read contemporaneously (Approximate 50-60% stenosis at the origin of the left internal carotid artery with approximately 40-50% narrowing at the origin of the right internal carotid artery. Approximate 50% narrowing at the V4 segment of the right vertebral artery. Approximately 50% narrowing in the high right cervical segm) PD MEDICAL DECISION MAKING - ED course ED course: 75-year-old woman presents with strokelike symptoms, some confusion a little slurred speech, inability to do fine hand tasks. She has significant risk factors for stroke including paroxysmal atrial fibrillation, tobacco abuse, hypertension. She is not a tPA candidate due to the time course, been going on the better part of [address] angiography as above. Presented to nurse practitioner Torsten Magaña for observation at 7:05 PM. Note made that she has an elevated troponin here, but her troponin is in line with the troponins she had on the prior admission. Of note she persistently refused to wear a mask while in the department despite multiple staff redirecting her as to the current rules and also refused prehospitalization COVID testing. Departure - Departure Disposition: ED Place in Observation Clinical Impression: Stroke-like symptoms Condition: Stable
[2021-08-09] MEDS ORDERED: IOVERSOL 320 50 ML VIAL ONE (17:36)
[2021-08-09] MEDS ORDERED: IOVERSOL 320 50 ML VIAL IVP ONE (18:20)
[2021-08-09 18:27] LABS: BASOPHILS # (AUTO) 0.1 10^3/uL (0.0-0.1); EOSINOPHILS # (AUTO) 0.1 10^3/uL (0.0-0.7); EOSINOPHILS % (AUTO) 1.3 %; HCT - HEMATOCRIT 34.9 % (37.0-47.0); HGB - HEMOGLOBIN 12.2 g/dL (12.0-16.0); LYMPHOCYTES # (AUTO) 1.8 10^3/uL (1.5-3.5); LYMPHOCYTES % (AUTO) 23.1 %; MEAN CORPUSCULAR HEMOGLOBIN 35.9 pg (27.0-31.0); MEAN CORPUSCULAR VOLUME 102.6 fL (81.0-99.0); MEAN PLATELET VOLUME 11.4 fL (7.9-10.8); MONOCYTES # (AUTO) 0.6 10^3/uL (0.0-1.0); MONOCYTES % (AUTO) 7.8 %; NEUTROPHILS # (AUTO) 5.2 10^3/uL (1.5-6.6); NEUTROPHILS % (AUTO) 66.7 %; PLT - PLATELET COUNT 318 10^3/uL (130-450); RED CELL DISTRIBUTION WIDTH 15.8 % (12.0-15.0); WHITE BLOOD COUNT 7.8 x10^3/uL (4.8-10.8)
--- NOTE | 2021-08-09 18:34 | CT Report ---
PROCEDURE: ANGIO HEAD W/WO INDICATIONS: stroke like sx CONTRAST: IV CONTRAST: Optiray 320 ml: 80 PO CONTRAST: *NO PO CONTRAST TECHNIQUE: Precontrast 4.5 mm thick angled axial sections acquired from the foramen magnum to the vertex. Afte r the administration of intravenous contrast, 1 mm thick sections acquired through the [place] is. Postcontrast 4.5 mm thick sections then re-acquired from the foramen magnum to the vertex. 3-di mensional cvpqeyg-hlogcnulk-pfvtbhirrm (MIP) and/or volume rendering reformats were acquired of the c entral intracranial vasculature. For radiation dose reduction, the following was used: automated ex posure control, adjustment of mA and/or kV according to patient size. COMPARISON: CTA neck 08/09/2021, MRI brain 06/28/2017, CT head 06/28/2017 FINDINGS: Image quality: Excellent. Anterior circulation: There is approximate 50% narrowing of the right internal carotid artery in the high cervical segment seen on series 13 image 6.. Moderate bilateral supraclinoid atherosclerotic flavio rowing is present. The flow within the paired anterior cerebral arteries is normal and symmetric. Th e flow within the middle cerebral arteries is normal and symmetric. The anterior communicating arter y is seen. No aneurysms are seen. Posterior circulation: Basilar artery is unremarkable. Flow within the posterior cerebral arteries is normal and symmetric. No aneurysms are seen. There is a left vertebral artery dominance. There is approximate 50% focal narrowing of the right V4 segment of the right vertebral artery. The ventricular system and cortical sulci demonstrate atrophy, consistent for patient's stated age. There are areas of hypodensity in the periventricular and subcortical white matter. There is no acut e intra or extra-axial fluid collection. No acute hemorrhage, mass lesion or midline shift. Brainst em is unremarkable. Globes are symmetrical. Sinuses are aerated. Osseous structures are intact. IMPRESSION: 1. No acute intracranial process. 2. Moderate atrophy and chronic microvascular ischemic changes 3. Moderate bilateral supraclinoid internal carotid artery stenosis. 4. Approximate 50% narrowing of the high cervical segment of the right internal carotid artery. 5. 50% narrowing of the V4 segment of the right vertebral artery. Reviewed by: Jeanie Nguyen MD on 08/09/2021 6:32 PM PDT Approved by: Jeanie Nguyen MD on 08/09/2021 6:32 PM PDT Station ID: [id number]
[2021-08-09 18:39] LABS: ALBUMIN 3.6 g/dL (3.2-5.5); ALBUMIN/GLOBULIN RATIO 1.3 (1.0-2.2); ALKALINE PHOSPHATASE 44 IU/L (42-121); ALT ALANINE AMINOTRANSFERASE < 10 IU/L (10-60); AST ASPARTATE AMINOTRANSFERASE 17 IU/L (10-42); BILIRUBIN,TOTAL 0.5 mg/dL (0.2-1.0); BUN - BLOOD UREA NITROGEN 13 mg/dL (6-20); CALCIUM 9.3 mg/dL (8.5-10.3); CARBON DIOXIDE - CO2 26 mmol/L (21-32); CHLORIDE 100 mmol/L (101-111); ETOH - ETHANOL < 5.0 mg/dL; GFR - MDRD 54 (>89); GLUCOSE 98 mg/dL (70-100); LIPASE 41 U/L (22-51); MAGNESIUM 2.1 mg/dL (1.7-2.8); POTASSIUM 3.4 mmol/L (3.5-5.0); SODIUM 135 mmol/L (135-145); TOTAL PROTEIN 6.4 g/dL (6.7-8.2)
--- NOTE | 2021-08-09 18:53 | CT Report ---
PROCEDURE: ANGIO NECK W INDICATIONS: stroke like sx CONTRAST: IV CONTRAST: Optiray 320 ml: 80 PO CONTRAST: *NO PO CONTRAST TECHNIQUE: After the administration of intravenous contrast, 1.5 mm axial sections acquired from the aortic arch to the [place] of [place]. Coronal 3-D maximum intensity projection (MIP) and/or volume rendering ref ormats were then performed. For radiation dose reduction, the following was used: automated exposur e control, adjustment of mA and/or kV according to patient size. COMPARISON: CTA head 08/09/2021, MRI brain 06/28/2017, CT head 06/29/1979 FINDINGS: Image quality: Excellent. The origins of the left and right common and external carotid arteries demonstrate no areas of hemody namically significant stenosis, vascular occlusion or aneurysmal dilation. There is significant calci fication at the origins of the internal carotid arteries bilaterally. There is approximate 50-60% shu nosis at the origin of the left internal carotid artery. Approximate 40-50% narrowing is present at t he origin of the right internal carotid artery with a small focus of partially calcified mural thromb us. There is approximate 50% narrowing in the high cervical segment of the right internal carotid artery. Origin of the left vertebral artery demonstrate approximate 50% stenosis at the origin. There is maya roximately 60% stenosis at the origin of the right vertebral artery. There is approximate 50% narrowi ng at the V4 segment of the right vertebral artery. Aortic arch demonstrates conventional anatomy. Li mited, visualized portions of the subclavian vasculature are unremarkable. IMPRESSION: Approximate 50-60% stenosis at the origin of the left internal carotid artery with approximately 40-5 0% narrowing at the origin of the right internal carotid artery. Approximate 50% narrowing at the V4 segment of the right vertebral artery. Approximately 50% narrowing in the high right cervical segment of the right internal carotid artery. The estimate of stenosis included in the report of the imaging study was calculated using the NASCET method CLINICAL RECOMMENDATION STATEMENTS: In patients <35 years with an ITN detected on CT, MRI, or extrathyroidal ultrasound, the Committee re commends further evaluation with dedicated thyroid ultrasound if the nodule is "e1 cm and has no susp icious imaging features, and if the patient has normal life expectancy. In patients "e35 years with an ITN detected on CT, MRI, or extrathyroidal ultrasound, the Committee r ecommends further evaluation with dedicated thyroid ultrasound if the nodule is "e1.5 cm and has no s uspicious imaging features, and if the patient has normal life expectancy. (ACR, 2014) Reviewed by: Jeanie Nguyen MD on 08/09/2021 6:52 PM PDT Approved by: Jeanie Nguyen MD on 08/09/2021 6:52 PM PDT Station ID: [id number]
[2021-08-09] MEDS ORDERED: ASPIRIN CHEW 81 MG TABLET PO STA (19:07)
[2021-08-09] MEDS ORDERED: ONDANSETRON 4 MG/2 ML VIAL IVP PRN (19:18)
[2021-08-09] MEDS ORDERED: SODIUM CHLORIDE FLUSH 0.9% 10 ML SYRINGE IVP PRN (19:18)
[2021-08-09] MEDS ORDERED: ACETAMINOPHEN 325 MG TABLET PO PRN (19:18)
[2021-08-09] MEDS ORDERED: oxyCODONE 5 MG TABLET PO PRN (19:18)
[2021-08-09] MEDS ORDERED: ONDANSETRON ODT 4 MG TABLET TL PRN (19:18)
[2021-08-09] MEDS ORDERED: ATORVASTATIN 40 MG TABLET PO STA (19:24)
[2021-08-09] MEDS ORDERED: ASPIRIN 325 MG TABLET PO STA (19:24)
--- NOTE | 2021-08-09 19:28 | HISTORY & PHYSICAL EXAMINATION ---
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 She is presenting today feeling weak and not herself. She states that for the past 12 hours or so she has had a frontal headache and then she noticed she couldn't get her hands to work to play games on her phone or write her name. The is having a bit of trouble finding her words and some of her speech is slurred. She was previously admitted on 08/07/21 with nausea, vomiting, dehydration, and generalized weakness and vertigo. Her nausea and vomiting resolved after hydrating with IV fluids. There was no evidence of acute GI bleed. While she was in normal sinus rhythm in the ED, after admission on 08/07 she was found to have paraxysmal afib with a rate of 60-70bpm not on any rate control medications. She was not started on anticoagulation medication at this time other than aspirin and encouraged to follow up with PCP. She has not been to PCP yet as this was only 2 days ago. She also had prerenal azotemia at this time which resolved with IV fluids. Her vertigo was resolved with the Cy maneuver. Her TSH was 14.5 during her admission and she was treated with IV levo 75mcg and discharged on an increased dose of 100mg. A pericardial effusion was found on CXR, which was attributed to hypothyroid as there was no evidence of heart failure or any connective tissue disorder. Her troponin's were steady in the mid-teens which is consistent to her troponin today in the ED. She had significant hypertension during her visit with SBP 180-200mmHg so Losartan 50mg daily was started. There was also concern for depression and patient was seen by social work, who report mild chronic depression with no AR. No treatment was started for depression. Lastly, a CT abdomen showed a AAA of 5.2cm x 4.4 cm which will need to be followed up on. Of note, patient reports 20 lb unintentional weight loss in the past 6 months. S he says she has not had much of an appetite and only eats ~1 meal daily. She lives at home alone with her puggleRosalie, and [place]. Patient also originally refused to get covid tested and family was considering having her leave AMA as they did not agree with the covid restrictions. However, they changed their mind and patient got tested. History - Past Medical History Cardiovascular: reports: Congestive heart failure, Hypertension, High cholesterol, Coronary artery disease, Deep vein thrombosis, Arrhythmia, Other Respiratory: reports: Shortness of breath Neuro: reports: CVA Endocrine/Autoimmune: reports: None GI: reports: None : reports: None HEENT: reports: Chronic vision loss, Other Psych: reports: Depression, Other Musculoskeletal: reports: Scoliosis, Chronic back pain Derm: reports: None MRSA Hx?: No - Past Surgical History Ortho: reports: Spine surgery HEENT: reports: Cataracts Derm: reports: Other - Family & Social History Family History: Mother: , Father: , Sister: , Brother: Family History Comment/Other: All family has ; mother had heart disease and colon CA, father of "black lung", 2 sisters had an unknown type of cancer, 2 brothers; one that had vascular disease causing him to lose both lower extremities. Living arrangement: At home Living Situation: Alone Social History Notes: Patient lives alone with her puggleRosalie, and does all of her own ADLs. She walks independently or with a cane. She moved from [place], where she raised her 3 boys and she and her owned a [employer]. Her in 2016 from a "blood infection." She moved from [place] to [facility] shortly after to be close [place] two [place]. She [place] her garden in [place]. She smoked 5-6 cigarrettes daily for about the passed 50 years but states she quit this week. She rarely drinks and just will try a sip of her son's drinks when he makes them. - Substance History Use: Uses substance without health or social issues: Tobacco (smoked 5-6 cigarrettes daily for the past 50ish years. Quit this week), Alcohol (Rarely, only tastes tests son's drinks "to make sure they are not poison") Tobacco Details: Cigarettes - POLST Patient has POLST: No POLST Status: DNR Meds/Allgy - Home Medications Home Medications: Ambulatory Orders Medication Instructions Recorded Confirmed HYDROcodone/ACET 7.5/325 [[place] 0.5 - 1 tab PO DAILY PRN 08/07/21 08/07/21 7.5/325] Rosuvastatin Calcium [Crestor] 5 mg PO DAILY 08/07/21 08/09/21 Aspirin Chewable [St Ab 81 mg PO DAILY #30 tablet 08/08/21 08/09/21 Aspirin] Levothyroxine Sodium 100 mcg PO DAILY #30 cap 08/08/21 08/09/21 [Levothyroxine] Losartan [Cozaar] 50 mg PO 0900 #30 tablet 08/08/21 08/09/21 Multivitamin W/Minerals [Theragran 1 tab PO QDLUNCH #30 tablet 08/08/21 M] - Allergies Allergies/Adverse Reactions: Allergies Allergy/AdvReac Type Severity Reaction Status Date / Time milk AdvReac Mild Cramps Verified 08/08/21 14:06 Review of Systems - Constitutional Constitutional: reports: Fatigue, Weakness, Poor appetite (only hungry for one meal/day for the past 6 months), Weight loss (20 lbs unintensional in the last 6 months). denies: Fever, Chills - Eyes Eyes: denies: Vision loss - Cardiovascular Cariovascular: reports: Chest pain (Comes in goes, present at last admission). denies: Syncope - Respiratory Respiratory: denies: Cough, Sputum production - Gastrointestinal Gastrointestinal: denies: Abdominal pain, Diarrhea, Nausea, Vomiting - Genitourinary Genitourinary: reports: Dysuria - Neurological Neurological: reports: Headache (frontally located), Dizziness, Pre-existing deficit (left sided weakness since CVA in 2018), Incoordination (can't play game s on delia, can't write signature neatly), Slurred speech - All Other Systems All Other Systems: reports: Reviewed and negative Prior Level of Functionality: Lives independently and independent with all ADLs. Ambulates with cane or by herself. Exam - Vital Signs Reviewed Vital Signs: Yes Vital Signs: Vital Signs x48h Temp Pulse Resp BP Pulse Ox 08/09/21 19:11 36.4 C L 76 16 204/91 H 97 08/09/21 18:46 22 208/91 H 99 08/09/21 18:35 19 194/105 H 98 08/09/21 17:03 36.6 C 70 14 158/102 H 98 - Physical Exam General Appearance: positive: No acute distress (Elderly white women, sitting in bed) Eyes Bilateral: positive: PERRL, EOMI, No scleral icterus ENT: positive: Other (poor dentition) Respiratory: positive: Chest non-tender, No respiratory distress, Breath sounds nml Cardiovascular: positive: Irregularly irregular. negative: Tachycardia, Bradycardia Abdomen: positive: Non-tender. negative: Guarding, Rebound, Hepatomegaly, Splenomegaly Extremities: positive: Full ROM Neurologic/Psychiatric: positive: Oriented x3, CN's nml (2-12), Sensation nml, Mood/affect nml, Slurred/abnml speech (mildly slurred, some words hard to understand). negative: Weakness, Sensory loss, Facial droop Conclusion/Plan - Problem List (1) Stroke-like symptoms Conclusion/Plan: Patient presents with mild ataxia, dysgraphia, and slurred speech. CT head was negative for acute ischemic changes. CTA head and neck showed ~50% high cervical segment of the right internal carotid artery, ~50% narrowing of the V4 segment of the right vertebral artery, and 50-60% narrowing of left internal carotid artery. PICA stroke is highest on differential due to symptoms, h/o previous CVA, and significant risk factors. Will continue to monitor symptoms and neurologic deficits. MRI ordered for tomorrow. Will continue to reduce risk factors by treating with aspirin and Lipitor and allow for permissive hy pertension up to SBP of 180s due to likelihood of stroke. (2) Elevated troponin Conclusion/Plan: Troponins elevated at 17.4 today consistent with troponins at last admission which measured consistently in the mid teens demonstrating NTEMI is unlikely. She is no longer having the transient chest pain that was evident at prior admission. (3) Hypertension Conclusion/Plan: Most recent BP 170/95mmHg. At this time, will allow for permissive hypertension up to 180s SBP due to possibility of stroke. Will have patient continue Losartan at discharge. (4) Unintentional weight loss Conclusion/Plan: Patient reports 20 lb unintentional weight loss in the past 6 months. She states that she has not had an appetite and is only eating around one meal daily. She attributes this to aging. This is inconsistent with her elevated TSH. She no longer has N/V, her belly is nontender/nondistended, and she has been having regular bowel movements indicating bowel ischemia or other GI etiology is unlikely. Also on ddx includes failure to thrive although patient says she gets around her house okay with or without her cane. Lastly, cancer of unknown origin is a consideration for this unintended weight loss. Will have her follow up with PCP for further workup. (5) Macrocytic anemia Conclusion/Plan: Likely secondary to hypothyroidism (TSH 14.52 at last visit). Also on ddx is myelodysplastic syndrome but labs indicate more likely to be due to hypothyroidism. B12 and folate deficiency were found to be in normal range and ruled out as possible etiologies. (6) Abdominal aortic aneurysm (AAA) greater than 5.0 cm in diameter in female Conclusion/Plan: This was found on abdominal CT at last visit. Will have her continue Losartan at home for BP control and follow up with PCP for referral to vascular surgery. (7) Hypothyroidism Conclusion/Plan: Patient was found to have a TSH of 14.52 at last admission 2 days prior. She was given IV levothyroxine and discharged on an increased dose from 50mg to 100mg daily. Will have her follow up with PCP to recheck TSH in one month. - Lab Results Fish Bones: 08/09/21 18:22 08/09/21 18:22 Core Measures - Anticipated LOS I expect patient to be DC'd or transferred within 96 hours.: Yes - DVT/VTE - Prophylaxis VTE/DVT Device ordered at admit?: No VTE/DVT Prophylaxis med ordered at admit?: Yes
[2021-08-09 23:44] LABS: B. PARAPERTUSSIS- RESP PCR PAN NOT DETECTED; B. PERTUSSIS- RESP PCR PANEL NOT DETECTED; C. PNEUMONIAE- RESP PCR PANEL NOT DETECTED; CORONAVIRUS 229E-RESP PCR NOT DETECTED; CORONAVIRUS HKU1-RESP PCR NOT DETECTED; CORONAVIRUS NL63-RESP PCR NOT DETECTED; CORONAVIRUS OC43-RESP PCR NOT DETECTED; HUMAN METAPNEUMOVIRUS NOT DETECTED; INFLUENZA A- RESP PCR PANEL NOT DETECTED; INFLUENZA B - RESP PCR PANEL NOT DETECTED; M. PNEUMONIAE- RESP PCR PANEL NOT DETECTED; PARAINFLUENZA VIRUS 1 NOT DETECTED; PARAINFLUENZA VIRUS 2 NOT DETECTED; PARAINFLUENZA VIRUS 3 NOT DETECTED; PARAINFLUENZA VIRUS 4 NOT DETECTED; RHINOVIRUS/ENTEROVIRUS NOT DETECTED; RSV- RESP PCR PANEL NOT DETECTED; SARS-CoV-2 -RESP PCR PANEL NOT DETECTED
[2021-08-10] MEDS: SODIUM CHLORIDE FLUSH 0.9% 10 ML SYRINGE IVP SCH ×3 (02:00→19:03)
[2021-08-10] MEDS ORDERED: POTASSIUM CHLORIDE 20 MEQ TABLET PO ONE (08:26)
[2021-08-10 08:43] LABS: BASOPHILS # (AUTO) 0.1 10^3/uL (0.0-0.1); BASOPHILS % (AUTO) 1.3 %; EOSINOPHILS # (AUTO) 0.2 10^3/uL (0.0-0.7); EOSINOPHILS % (AUTO) 2.1 %; HCT - HEMATOCRIT 37.1 % (37.0-47.0); HGB - HEMOGLOBIN 13.1 g/dL (12.0-16.0); MEAN CORPUSCULAR HEMOGLOBIN 35.5 pg (27.0-31.0); MEAN CORPUSCULAR HGB CONC 35.3 g/dL (32.0-36.0); MEAN CORPUSCULAR VOLUME 100.5 fL (81.0-99.0); MEAN PLATELET VOLUME 11.3 fL (7.9-10.8); MONOCYTES # (AUTO) 0.4 10^3/uL (0.0-1.0); MONOCYTES % (AUTO) 5.6 %; NEUTROPHILS % (AUTO) 64.7 %; PLT - PLATELET COUNT 352 10^3/uL (130-450); RED BLOOD COUNT 3.69 10^6/uL (4.20-5.40); RED CELL DISTRIBUTION WIDTH 15.6 % (12.0-15.0); WHITE BLOOD COUNT 7.7 x10^3/uL (4.8-10.8)
[2021-08-10 09:01] LABS: CALCIUM 9.8 mg/dL (8.5-10.3); POTASSIUM 3.5 mmol/L (3.5-5.0)
[2021-08-10] MEDS: ENOXAPARIN 40 MG/0.4 ML SYRINGE SUBQ SCH (09:16)
[2021-08-10] MEDS: ASPIRIN EC 81 MG TABLET PO SCH (09:16)
[2021-08-10 09:20] LABS: MUDS CUTOFF CONCENTRATIONS CUTOFF CONC BELOW:
[2021-08-10 09:22] LABS: BILIRUBIN,URINE NEGATIVE (NEGATIVE); GLUCOSE, URINE (UA) NEGATIVE (NEGATIVE); KETONES,URINE (UA) NEGATIVE (NEGATIVE); LEUKOCYTE ESTERASE, URINE NEGATIVE (NEGATIVE); NITRITE,URINE NEGATIVE (NEGATIVE); OCCULT BLOOD,URINE NEGATIVE (NEGATIVE); PH,URINE 6.5 PH (5.0-7.5); PROTEIN,URINE NEGATIVE (NEGATIVE); UROBILINOGEN,URINE 0.2 (NORMAL) E.U./dL (NORMAL)
[2021-08-10 09:24] LABS: CLARITY,URINE CLEAR (CLEAR)
[2021-08-10 09:33] LABS: AMPHETAMINE SCREEN,URINE NEGATIVE (NEGATIVE); BARBITURATE SCREEN,UR NEGATIVE (NEGATIVE); BENZODIAZEPINES SCREEN, URINE NEGATIVE (NEGATIVE); COCAINE SCREEN URINE NEGATIVE (NEGATIVE); METHADONE SCREEN, URINE NEGATIVE (NEGATIVE); METHAMPHETAMINES SCREEN, URINE NEGATIVE (NEGATIVE); OPIATE SCREEN, URINE NEGATIVE (NEGATIVE); OXYCODONE SCREEN, URINE NEGATIVE (NEGATIVE); PROPOXYPHENE SCREEN, URINE NEGATIVE (NEGATIVE); THC CANNABINOID SCREEN, URINE NEGATIVE (NEGATIVE); TRICYCLIC ANTIDEPRESSANT,URINE NEGATIVE (NEGATIVE)
[2021-08-10] MEDS: LEVOTHYROXINE 100 MCG TABLET PO SCH ×3 (09:34→18:32)
--- NOTE | 2021-08-10 10:57 | PROVIDER PROGRESS NOTE ---
Subjective - Prog Note Date Prog Note Date: 08/10/21 Prog Note Time: 11:00 - Subjective Pt reports feeling: No change Subjective: Patient states she "still feels odd" and her son confirmed that her speech is still "drunk sounding." She ate dinner last night and had some breakfast this morning. She has not had any abdominal pain but has not had a bowel movement in 4 days. She reports only getting 2 hours of sleep last night and says "its impossible to get any sleep in this place." She has had a couple episodes of the non-radiating chest pain that she has reported in the past. The last episode was around 9:30am and lasted about 30 minutes. She denies any other pain and is waiting to go to MRI. Current Medications - Current Medications Current Medications: Active Medications Acetaminophen (Acetaminophen 325 Mg Tablet) 650 mg PO Q4HR PRN PRN Reason: Pain 1 to 4, or Fever Aspirin (Aspirin Ec 81 Mg Tablet) 81 mg PO DAILY [facility] Last Admin: 08/10/21 09:16 Dose: 81 mg Enoxaparin Sodium (Enoxaparin 40 Mg/0.4 Ml Syringe) 40 mg SUBQ DAILY [facility] Last Admin: 08/10/21 09:16 Dose: 40 mg Levothyroxine Sodium (Levothyroxine 100 Mcg Tablet) 100 mcg PO QDAC [facility] Last Admin: 08/10/21 09:34 Dose: 100 mcg Ondansetron HCl (Ondansetron Odt 4 Mg Tablet) 4 mg TL Q6HR PRN PRN Reason: Nausea / Vomiting Ondansetron HCl (Ondansetron 4 Mg/2 Ml Vial) 4 mg IVP Q6HR PRN PRN Reason: Nausea / Vomiting Oxycodone HCl (Oxycodone 5 Mg Tablet) 5 mg PO Q4HR PRN PRN Reason: Pain 5 to 7 Polyethylene Glycol (Polyethylene Glycol 3350 17 Gm Packet) 17 gm PO DAILY [facility] Sodium Chloride (Sodium Chloride Flush 0.9% 10 Ml Syringe) 10 ml IVP PRN PRN PRN Reason: NEEDED PER PROVIDER ORDERS Sodium Chloride (Sodium Chloride Flush 0.9% 10 Ml Syringe) 10 ml IVP 0100,0900,1700 [facility] Last Admin: 08/10/21 09:35 Dose: 10 ml HYDROcodone/ACET 7.5/325 [[place] 7.5/325] 0.5 - 1 tab PO DAILY PRN 08/07/21 Rosuvastatin Calcium [Crestor] 5 mg PO DAILY 08/07/21 Objective - Vital Signs/Intake & Output Reviewed Vital Signs: Yes Vital Signs: Vital Signs x48h Temp Pulse Resp BP Pulse Ox 08/10/21 07:50 36.7 C 66 14 154/80 H 96 08/10/21 05:45 36.5 C 65 16 169/67 H 94 Intake & Output: Intake & Output 08/07/21 08/08/21 08/09/21 08/10/21 23:59 23:59 23:59 23:59 Intake Total 100 650 Output Total 500 Balance -400 650 - Objective General Appearance: positive: No acute distress, Lethargic Eyes Bilateral: positive: PERRL, EOMI, Other (left sided horizontal nystagmus with Cy maneuver) ENT: positive: No signs of dehydration Neck: positive: Nml inspection Respiratory: positive: Chest non-tender, No respiratory distress Cardiovascular: positive: Regular rate & rhythm, No gallop. negative: JVD present, Decreased pulse(s) Abdomen: positive: Non-tender, No organomegaly, Nml bowel sounds Extremities: positive: Non-tender, No pedal edema Neurologic/Psychiatric: positive: Oriented x3, CN's nml (2-12), Sensation nml, Mood/affect nml (affect is flat), Slurred/abnml speech (slurred), Other (left sided horizontal nystagmus on Cy). negative: Motor nml (decreased coordination, slowed alternating movements and able to touch nose but movements were slowed and jerky), Weakness, Sensory loss, Facial droop - Lab Results Fish Bones: 08/10/21 08:37 08/10/21 08:37 Other Labs: Lab Results x24hrs 08/10/21 08/10/21 08/10/21 Range/Units 08:50 08:37 08:37 WBC 7.7 (4.8-10.8) x10^3/uL RBC 3.69 L (4.20-5.40) 10^6/uL Hgb 13.1 (12.0-16.0) g/dL Hct 37.1 (37.0-47.0) % MCV 100.5 H (81.0-99.0) fL MCH 35.5 H (27.0-31.0) pg MCHC 35.3 (32.0-36.0) g/dL RDW 15.6 H (12.0-15.0) % Plt Count 352 (130-450) 10^3/uL MPV 11.3 H (7.9-10.8) fL Neut # (Auto) 5.0 (1.5-6.6) 10^3/uL Lymph # (Auto) 2.0 (1.5-3.5) 10^3/uL [place] # (Auto) 0.4 (0.0-1.0) 10^3/uL Eos # (Auto) 0.2 (0.0-0.7) 10^3/uL Baso # (Auto) 0.1 (0.0-0.1) 10^3/uL Absolute Nucleated RBC 0.00 x10^3/uL Nucleated RBC % 0.0 /100WBC Sodium 136 (135-145) mmol/L Potassium 3.5 (3.5-5.0) mmol/L Chloride 97 L (101-111) mmol/L Carbon Dioxide 26 (21-32) mmol/L Anion Gap 13.0 (6-13) BUN 13 (6-20) mg/dL Creatinine 1.0 (0.4-1.0) mg/dL Estimated GFR (MDRD) 54 L (>89) Glucose 137 H (70-100) mg/dL Calcium 9.8 (8.5-10.3) mg/dL Magnesium (1.7-2.8) mg/dL Total Bilirubin (0.2-1.0) mg/dL AST (10-42) IU/L ALT (10-60) IU/L Alkaline Phosphatase (42-121) IU/L Troponin I High Sens (2.3-14.8) ng/L Total Protein (6.7-8.2) g/dL Albumin (3.2-5.5) g/dL Globulin (2.1-4.2) g/dL Albumin/Globulin Ratio (1.0-2.2) Lipase (22-51) U/L Urine Color YELLOW Urine Clarity CLEAR (CLEAR) Urine pH 6.5 (5.0-7.5) PH Ur Specific [place] <=1.005 (1.002-1.030) Urine Protein NEGATIVE (NEGATIVE) mg/dL Urine Glucose (UA) NEGATIVE (NEGATIVE) mg/dL Urine Ketones NEGATIVE (NEGATIVE) mg/dL Urine Occult Blood NEGATIVE (NEGATIVE) Urine Nitrite NEGATIVE (NEGATIVE) Urine Bilirubin NEGATIVE (NEGATIVE) Urine Urobilinogen 0.2 (NORMAL) (NORMAL) E.U./dL Ur Leukocyte Esterase NEGATIVE (NEGATIVE) Ur Microscopic Review NOT INDICATED Urine Culture Comments NOT INDICATED Nasal Adenovirus (PCR) Nasal B. parapertussis DNA (PCR) Nasal Coronavir 229E PCR Nasal Coronavir HKU1 PCR Nasal Coronavir NL63 PCR Nasal Coronavir OC43 PCR Nasal Enterovir/Rhinovir PCR Nasal Influenza B PCR Nasal Influenza A PCR Nasal Parainfluen 1 PCR Nasal Parainfluen 2 PCR Nasal Parainfluen 3 PCR Nasal Parainfluen 4 PCR Nasal RSV (PCR) Nasal B.pertussis DNA PCR Nasal C.pneumoniae (PCR) Tab Human Metapneumo PCR Nasal M.pneumoniae (PCR) Nasal SARS-CoV-2 (PCR) Urine Opiates Screen NEGATIVE (NEGATIVE) Ur Oxycodone Screen NEGATIVE (NEGATIVE) Urine Methadone Screen NEGATIVE (NEGATIVE) Ur Propoxyphene Screen NEGATIVE (NEGATIVE) Ur Barbiturates Screen NEGATIVE (NEGATIVE) Ur Tricyclics Screen NEGATIVE (NEGATIVE) Ur Phencyclidine Scrn NEGATIVE (NEGATIVE) Ur Amphetamine Screen NEGATIVE (NEGATIVE) U Methamphetamines Scrn NEGATIVE (NEGATIVE) U Benzodiazepines Scrn NEGATIVE (NEGATIVE) Urine Cocaine Screen NEGATIVE (NEGATIVE) U Cannabinoids Screen NEGATIVE (NEGATIVE) Ethyl Alcohol mg/dL 08/10/21 08/09/21 08/09/21 Range/Units 08:37 22:26 18:22 WBC (4.8-10.8) x10^3/uL RBC (4.20-5.40) 10^6/uL Hgb (12.0-16.0) g/dL Hct (37.0-47.0) % MCV (81.0-99.0) fL MCH (27.0-31.0) pg MCHC (32.0-36.0) g/dL RDW (12.0-15.0) % Plt Count (130-450) 10^3/uL MPV (7.9-10.8) fL Neut # (Auto) (1.5-6.6) 10^3/uL Lymph # (Auto) (1.5-3.5) 10^3/uL [place] # (Auto) (0.0-1.0) 10^3/uL Eos # (Auto) (0.0-0.7) 10^3/uL Baso # (Auto) (0.0-0.1) 10^3/uL Absolute Nucleated RBC x10^3/uL Nucleated RBC % /100WBC Sodium 135 (135-145) mmol/L Potassium 3.4 L (3.5-5.0) mmol/L Chloride 100 L (101-111) mmol/L Carbon Dioxide 26 (21-32) mmol/L Anion Gap 9.0 (6-13) BUN 13 (6-20) mg/dL Creatinine 1.0 (0.4-1.0) mg/dL Estimated GFR (MDRD) 54 L (>89) Glucose 98 (70-100) mg/dL Calcium 9.3 (8.5-10.3) mg/dL Magnesium 2.1 (1.7-2.8) mg/dL Total Bilirubin 0.5 (0.2-1.0) mg/dL AST 17 (10-42) IU/L ALT < 10 L (10-60) IU/L Alkaline Phosphatase 44 (42-121) IU/L Troponin I High Sens 21.4 H* (2.3-14.8) ng/L Total Protein 6.4 L (6.7-8.2) g/dL Albumin 3.6 (3.2-5.5) g/dL Globulin 2.8 (2.1-4.2) g/dL Albumin/Globulin Ratio 1.3 (1.0-2.2) Lipase 41 (22-51) U/L Urine Color Urine Clarity (CLEAR) Urine pH (5.0-7.5) PH Ur Specific [place] (1.002-1.030) Urine Protein (NEGATIVE) mg/dL Urine Glucose (UA) (NEGATIVE) mg/dL Urine Ketones (NEGATIVE) mg/dL Urine Occult Blood (NEGATIVE) Urine Nitrite (NEGATIVE) Urine Bilirubin (NEGATIVE) Urine Urobilinogen (NORMAL) E.U./dL Ur Leukocyte Esterase (NEGATIVE) Ur Microscopic Review Urine Culture Comments Nasal Adenovirus (PCR) NOT DETECTED Nasal B. parapertussis DNA (PCR) NOT DETECTED Nasal Coronavir 229E PCR NOT DETECTED Nasal Coronavir HKU1 PCR NOT DETECTED Nasal Coronavir NL63 PCR NOT DETECTED Nasal Coronavir OC43 PCR NOT DETECTED Nasal Enterovir/Rhinovir PCR NOT DETECTED Nasal Influenza B PCR NOT DETECTED Nasal Influenza A PCR NOT DETECTED Nasal Parainfluen 1 PCR NOT DETECTED Nasal Parainfluen 2 PCR NOT DETECTED Nasal Parainfluen 3 PCR NOT DETECTED Nasal Parainfluen 4 PCR NOT DETECTED Nasal RSV (PCR) NOT DETECTED Nasal B.pertussis DNA PCR NOT DETECTED Nasal C.pneumoniae (PCR) NOT DETECTED Tab Human Metapneumo PCR NOT DETECTED Nasal M.pneumoniae (PCR) NOT DETECTED Nasal SARS-CoV-2 (PCR) NOT DETECTED Urine Opiates Screen (NEGATIVE) Ur Oxycodone Screen (NEGATIVE) Urine Methadone Screen (NEGATIVE) Ur Propoxyphene Screen (NEGATIVE) Ur Barbiturates Screen (NEGATIVE) Ur Tricyclics Screen (NEGATIVE) Ur Phencyclidine Scrn (NEGATIVE) Ur Amphetamine Screen (NEGATIVE) U Methamphetamines Scrn (NEGATIVE) U Benzodiazepines Scrn (NEGATIVE) Urine Cocaine Screen (NEGATIVE) U Cannabinoids Screen (NEGATIVE) Ethyl Alcohol < 5.0 mg/dL 08/09/21 08/09/21 Range/Units 18:22 17:45 WBC 7.8 (4.8-10.8) x10^3/uL RBC 3.40 L (4.20-5.40) 10^6/uL Hgb 12.2 (12.0-16.0) g/dL Hct 34.9 L (37.0-47.0) % MCV 102.6 H (81.0-99.0) fL MCH 35.9 H (27.0-31.0) pg MCHC 35.0 (32.0-36.0) g/dL RDW 15.8 H (12.0-15.0) % Plt Count 318 (130-450) 10^3/uL MPV 11.4 H (7.9-10.8) fL Neut # (Auto) 5.2 (1.5-6.6) 10^3/uL Lymph # (Auto) 1.8 (1.5-3.5) 10^3/uL [place] # (Auto) 0.6 (0.0-1.0) 10^3/uL Eos # (Auto) 0.1 (0.0-0.7) 10^3/uL Baso # (Auto) 0.1 (0.0-0.1) 10^3/uL Absolute Nucleated RBC 0.00 x10^3/uL Nucleated RBC % 0.0 /100WBC Sodium (135-145) mmol/L Potassium (3.5-5.0) mmol/L Chloride (101-111) mmol/L Carbon Dioxide (21-32) mmol/L Anion Gap (6-13) BUN (6-20) mg/dL Creatinine (0.4-1.0) mg/dL Estimated GFR (MDRD) (>89) Glucose (70-100) mg/dL Calcium (8.5-10.3) mg/dL Magnesium (1.7-2.8) mg/dL Total Bilirubin (0.2-1.0) mg/dL AST (10-42) IU/L ALT (10-60) IU/L Alkaline Phosphatase (42-121) IU/L Troponin I High Sens 17.4 H* (2.3-14.8) ng/L Total Protein (6.7-8.2) g/dL Albumin (3.2-5.5) g/dL Globulin (2.1-4.2) g/dL Albumin/Globulin Ratio (1.0-2.2) Lipase (22-51) U/L Urine Color Urine Clarity (CLEAR) Urine pH (5.0-7.5) PH Ur Specific [place] (1.002-1.030) Urine Protein (NEGATIVE) mg/dL Urine Glucose (UA) (NEGATIVE) mg/dL Urine Ketones (NEGATIVE) mg/dL Urine Occult Blood (NEGATIVE) Urine Nitrite (NEGATIVE) Urine Bilirubin (NEGATIVE) Urine Urobilinogen (NORMAL) E.U./dL Ur Leukocyte Esterase (NEGATIVE) Ur Microscopic Review Urine Culture Comments Nasal Adenovirus (PCR) Nasal B. parapertussis DNA (PCR) Nasal Coronavir 229E PCR Nasal Coronavir HKU1 PCR Nasal Coronavir NL63 PCR Nasal Coronavir OC43 PCR Nasal Enterovir/Rhinovir PCR Nasal Influenza B PCR Nasal Influenza A PCR Nasal Parainfluen 1 PCR Nasal Parainfluen 2 PCR Nasal Parainfluen 3 PCR Nasal Parainfluen 4 PCR Nasal RSV (PCR) Nasal B.pertussis DNA PCR Nasal C.pneumoniae (PCR) Tab Human Metapneumo PCR Nasal M.pneumoniae (PCR) Nasal SARS-CoV-2 (PCR) Urine Opiates Screen (NEGATIVE) Ur Oxycodone Screen (NEGATIVE) Urine Methadone Screen (NEGATIVE) Ur Propoxyphene Screen (NEGATIVE) Ur Barbiturates Screen (NEGATIVE) Ur Tricyclics Screen (NEGATIVE) Ur Phencyclidine Scrn (NEGATIVE) Ur Amphetamine Screen (NEGATIVE) U Methamphetamines Scrn (NEGATIVE) U Benzodiazepines Scrn (NEGATIVE) Urine Cocaine Screen (NEGATIVE) U Cannabinoids Screen (NEGATIVE) Ethyl Alcohol mg/dL Assessment/Plan - Problem List (1) Stroke-like symptoms Impression: Patient is still having slurred speech, demonstrates nystagmus and nausea with left sided Cy manuever, and slowed rapid alternating movements and nose touching. A PICA stroke remains on top of differential due to these correlating symptoms, history of CVA, and risk factors. Other etiology of cerebellar dysf unction such as alcohol intoxication were ruled out through negative labs and the rapid onset and lack of classic resting tremor and cogwheel rigidity rule out Parkinson's. Patient is awaiting MRI and will continue to allow permissive hypertension up to the 180s and give aspirin and Lipitor. (2) Elevated troponin Impression: Patient's troponin is 21.4 which is only a slight increase from the 17.8 yesterday and the values in the mid-teens on last admission earlier this week. She reports transient chest pain that may be due to her pericardial effusion s een on abdominal CT. Patient to follow up with cardiology for echocardiogram and possible pericardiocentesis. Will continue to check troponin tomorrow and 24 hour telemetry. (3) Hypertension Impression: Will continue to allow permissive hypertension up to SBP of 180s due to likelihood of stroke. If stroke is evident will allow permissive hypertension for 48-72 hours since start of symptoms. Will have patient continue Losartan at home. (4) Unintentional weight loss Impression: She has had a 20lb weight loss in the last 6 months. Patient reports good appetite during her hospital stay including eating dinner last night and breakfast this morning. This is an increase from her normal [id number]-m-day that she reports for the last 6 months. (5) Macrocytic anemia Impression: Hct and Hb normal today but RBC still decreased and MCV and MCHC still elevated. Likely, due to hypothyroidism as TSH was 14.52 at last visit. Will expect decrease in MCV as patient continues to take new increased dose of Levothyroxine 100mg. (6) Abdominal aortic aneurysm (AAA) greater than 5.0 cm in diameter in female Impression: Infrarenal AAA found on abdominal CT at last admission on 08/07. Patient to follow up with PCP for referral to vascular surgery. Once discharged, tight blood pressure control will be imperative and patient should follow up with PCP to see if she is well controlled on outpatient Losartan dose. (7) Hypothyroidism Impression: Patient's TSH was 14.52 at last visit on 08/07. Levothyroxine dose was increased from 50 mg to 100mg. Patient to follow up with PCP for repeat TSH in one month.
[2021-08-10] MEDS: polyethylene glycoL 3350 17 GM PACKET PO SCH (13:17)
--- NOTE | 2021-08-10 13:19 | MRI Report ---
PROCEDURE: Brain W/O INDICATIONS: slurred speech, cerebellar exam (+) TECHNIQUE: Noncontrast axial T1 spin echo, axial T2 fast spin echo, sagittal and axial FLAIR, coronal T2 fast sp in echo, axial gradient echo, axial diffusion and ADC through the brain. COMPARISON: 08/09/2021 CT FINDINGS: Image quality: Excellent. CSF Spaces: Basal cisterns are patent. No extra-axial fluid collections. Ventricles are normal in size and shape. Brain: No intracranial masses or hemorrhage. [place]/white matter interface is normal. Brainstem appe ars normal. Diffusion-weighted images demonstrate a few small, 10 mm or less in diameter regions of elevated signal intensity within the right mid temporal lobe cortex, as well as the right temporal oc cipital lobe cortex and right parietal lobe cortex, which demonstrate low ADC map signal, and mild FL AIR signal elevation. Normal intravascular flow voids are present. Skull and face: Calvarium has normal marrow signal. Orbits appear normal. Sinuses: Moderate mastoid fluid bilaterally. Sinuses and mastoids are otherwise clear. IMPRESSION: 1. Small subacute infarcts within the right temporal, occipital, and parietal lobes. 2. Volume loss and small vessels disease. 3. Mastoiditis. Reviewed by: Solomon Miller MD on 08/10/2021 1:18 PM PDT Approved by: Solomon Miller MD on 08/10/2021 1:18 PM PDT Station ID: [id number]
--- NOTE | 2021-08-10 15:21 | PHARMACY PROGRESS NOTE ---
- Best Possible Medication History Admit Date and Time: 08/10/21 1157 Processed by: Pharmacy Medication History completed: Yes Patient Interview: Completed Secondary Source(s): Insurance records As the person ultimately responsible for medication therapy, providers are able to order a medication from an existing home medication list in [facility] via the "Reconcile Routine" prior to Confirmation of that medication by high school learning support teacher. Such practice is discouraged except when the physician, in their clinical judgment, deems that a medical need exists for a medication without regard to previous use.
[2021-08-10] MEDS: SENNA 8.6 MG TABLET PO SCH (22:58)
[2021-08-10] MEDS: DOCUSATE SODIUM 250 MG CAPSULE PO SCH (22:58)
[2021-08-11] MEDS: SODIUM CHLORIDE FLUSH 0.9% 10 ML SYRINGE IVP SCH ×2 (01:30→08:45)
[2021-08-11 05:11] LABS: BASOPHILS # (AUTO) 0.1 10^3/uL (0.0-0.1); BASOPHILS % (AUTO) 1.1 %; EOSINOPHILS # (AUTO) 0.2 10^3/uL (0.0-0.7); EOSINOPHILS % (AUTO) 2.9 %; HCT - HEMATOCRIT 29.3 % (37.0-47.0); HGB - HEMOGLOBIN 11.2 g/dL (12.0-16.0); LYMPHOCYTES # (AUTO) 2.2 10^3/uL (1.5-3.5); LYMPHOCYTES % (AUTO) 30.3 %; MEAN CORPUSCULAR HEMOGLOBIN 39.6 pg (27.0-31.0); MEAN CORPUSCULAR HGB CONC 38.2 g/dL (32.0-36.0); MEAN CORPUSCULAR VOLUME 103.5 fL (81.0-99.0); MEAN PLATELET VOLUME 11.8 fL (7.9-10.8); MONOCYTES # (AUTO) 0.5 10^3/uL (0.0-1.0); MONOCYTES % (AUTO) 7.1 %; NEUTROPHILS # (AUTO) 4.3 10^3/uL (1.5-6.6); NEUTROPHILS % (AUTO) 58.3 %; PLT - PLATELET COUNT 314 10^3/uL (130-450); RED BLOOD COUNT 2.83 10^6/uL (4.20-5.40); RED CELL DISTRIBUTION WIDTH 17.7 % (12.0-15.0); WHITE BLOOD COUNT 7.3 x10^3/uL (4.8-10.8)
[2021-08-11 05:25] LABS: CALCIUM 8.9 mg/dL (8.5-10.3); POTASSIUM 3.3 mmol/L (3.5-5.0)
[2021-08-11] MEDS: LEVOTHYROXINE 100 MCG TABLET PO SCH (06:26)
--- NOTE | 2021-08-11 07:22 | Discharge Plan ---
Discharge Plan Problem Reviewed?: Yes Disposition: Home, Self Care Condition: Stable Prescriptions: bisacodyL [Dulcolax] 10 mg PO ONCE #1 tablet Apixaban [Eliquis] 5 mg PO BID #60 tablet Diet: Cardiac Activity Restrictions: Activity as Tolerated Shower Restrictions: No Driving Restrictions: Yes (no driving) Assistance Devices: Walker Instruction Topics: Stroke After Moods Depression, Stroke Resources Support, Stroke Self Care, Aneurysm Abdominal Aortic, Abdomen Aortic Aneurysm Surg, AAA Endovascular Repair About Health Concerns: You were brought to the hospital by your son because you were having slurred speech, weakness in your arms, and you just want yourself. You had already been in the hospital for nausea and vomiting 2 days ago. But you were not having that right now. We found that you had several small strokes. It was on the right front part of your brain. The right middle part of your brain. And the right back of your brain. Amazingly it has not made you paralyzed on one side. But you are weak. It is affected mainly your speech and your ability to move quickly. We have also found to have an aneurysm in your abdomen. It is quite large. Most aneurysms are operated on when they are greater than 5 cm. You are about that size. You are at 5.2 cm. Plan of Treatment: 1. We will be sending you home with physical therapy and Occupational Therapy to get you stronger. Sometimes stroke affects your ability to think quickly, or to use regular home appliances the same way. So Occupational Therapy will help you with that. 2. Continue cholesterol pill for further stroke risk. I have written a prescription for Eliquis. This is a blood thinner that prevents clots from forming in your heart. We think it is your atrial fibrillation causing small clots in your heart and those clots caused your stroke. However this is a Catch-22 situation. We are doing this so that you do not have further strokes but it can have catastrophic consequences if your aneurysm ruptures. I think your risk of further stroke is higher than aneurysm rupture at this time. So the pros outweight the cons at this current moment. However you may feel differently. Please discuss this with your primary care provider to decide if you want a continue this medicine or not. This medicine will definitely be safe to use if you can get your aneurysm fixed. 3. It is now even more important that your blood pressure stay within a low normal range. Goal should be 120/70. This is to not only to reduce your risk of stroke, but will reduce your risk of aneurysm rupturing in your abdomen. Please have your primary care provider, Dr. Beckham, refer you to vascular surgery or interventional radiology. You may be able to have a simple procedure that is in and out in a day to fix this problem with something called a stent. Care Goals: To regain use of your speech and speak in a normal fashion. To remain independent at home. Assessment: Patient states she understands the care goals, and states that her son will help her make future appointments. Follow-Up Care: Outpatient Rehab - PT, Outpatient Rehab - OT, Outpatient Rehab - ST No Smoking: If you smoke, Please STOP! Call for help. Follow-up with: Efrain Beckham DO [Primary Care Provider] -
--- NOTE | 2021-08-11 07:35 | DISCHARGE SUMMARY ---
Discharge Summary Admit Date: 08/09/21 Discharge Date: 08/11/21 Discharging Provider: Trini Sagastume MD Primary Care Provider: Efrain Beckham MD Code Status: Attempt Resuscitation Condition at Discharge: Stable Discharge Disposition: 06 [facility] - DIAGNOSES Discharge Diagnoses with Status of Each Condition: 1. Stroke 2. Elevated troponin 3. Hypertension 4. Unintentional weight loss 5. Macrocytic anemia 6. Abdominal aortic aneurysm, 5.2 cm 7. Hypothyroidism 8. hypokalemia - HPI History of Present Illness: This is a 75-year-old female with a history of prior CVA in 2018 with chronic left side weakness, afib not on anticoagulation, CHF, hypertension, hyperlipidemia, coronary artery disease, and uncontrolled hypothyroidism. She is presenting today feeling weak and not herself. She states that for the past 12 hours or so she has had a frontal headache and then she noticed she couldn't get her hands to work to play games on her phone or write her name. The is having a bit of trouble finding her words and some of her speech is slurred. She was previously admitted on 08/07/21 with nausea, vomiting, dehydration, and generalized weakness and vertigo. Her nausea and vomiting resolved after hydrating with IV fluids. There was no evidence of acute GI bleed. While she was in normal sinus rhythm in the ED, after admission on 08/07 she was found to have paraxysmal afib with a rate of 60-70bpm not on any rate control medications. She was not started on anticoagulation medication at this time other than aspirin and encouraged to follow up with PCP. She has not been to PCP yet as this was only 2 days ago. She also had prerenal azotemia at this time which resolved with IV fluids. Her vertigo was resolved with the Cy maneuver. Her TSH was 14.5 during her admission and she was treated with IV levo 75mcg and discharged on an increased dose of 100mg. A pericardial effusion was found on CXR, which was attributed to hypothyroid as there was no evidence of heart failure or any connective tissue disorder. Her troponin's were steady in the mid-teens which is consistent to her troponin today in the ED. She had significant hypertension during her visit with SBP 180-200mmHg so Losartan 50mg daily was started. There was also concern for depression and patient was seen by social work, who report mild chronic depression with no [place]. No treatment was started for depression. Lastly, a CT abdomen showed a AAA of 5.2cm x 4.4 cm which will need to be followed up on. Of note, patient reports 20 lb unintentional weight loss in the past 6 months. She says she has not had much of an appetite and only eats ~1 meal daily. She lives at home alone with her puggle, Rosalie, and [place]. Patient also originally refused to get covid tested and family was considering having her leave AMA as they did not agree with the covid restrictions. However, they changed their mind and patient got tested. - CONSULTS | PROCEDURES Procedures: 1. CT angio of head without acute intracranial process. Moderate atrophy and chronic microvascular ischemic changes. Moderate bilateral supraclinoid internal carotid stenosis. 50% narrowing of the high cervical segment of the right internal carotid artery. 50% narrowing of the V4 segment of the right vertebral artery. 2. Neck CT angiogram with 50 to 60% stenosis of the origin of the left internal carotid artery with 40 to 50% narrowing at the origin of the right internal carotid artery. 50% narrowing at the V4 segment of the right vertebral artery. 50% narrowing in the high cervical segment of the right internal carotid artery. 3. Brain MRI with small subacute infarcts within the right frontal, occipital, and parietal lobes. Volume loss and small vessel disease. Mastoiditis. - HOSPITAL COURSE Hospital Course: The patient presented as very subtle neurological deficits. Main complaints were that of lightheadedness, dizziness, gait imbalance. The son described the most prominent dysfunction was that of slurred speech. "She sounds like she is drunk". But there was no severe lateralizing neurological deficits. MRI was done and confirms that she has 3 small strokes. She is in atrial fibrillation patient that is not anticoagulated. We delayed anticoagulation until 42 hours in hopes to avoid conversion to hemorrhagic stroke. She will be discharged on Eliquis. She will continue losartan, and a statin. She was evaluated by physical and Occupational Therapy. I offered the son home health physical therapy or physical therapy here in the hospital. They have opted for home health physical therapy at least initially. She is very annoyed about all of this. She really hates that she cannot write signature or use her hand to write with. She wants to know when she will get back to normal. I told her it may take several weeks if not months. While she will regain most of her function ag ain, I explained that she will always feel slightly "different" now than she did before. I cannot guarantee that she will be 100% back to normal However there is significant risk with her Eliquis. On the one hand she is confirmed that she is 100% risk for having recurrent embolic strokes from atrial fibrillation, but on the other hand she has an abdominal aortic aneurysm that is 5.2 cm. Blood pressure is not perfectly controlled. I have emphasized to her that she needs to get her blood pressure at 120/70. She needs to be seen by interventional radiology since I think she would be a good candidate for infrarenal stenting. During her stay her blood pressure was anywhere from 148- 190 systolic. Permissive hypertension was allowed because of the stroke. Losartan will be resumed at discharge. I did ask for a Neurology phone call from [facility] to discuss the case due to it's complexity. I was able to push the MRI for him to read. He said that her stroke burden size was relatively small and he felt it was safe enough to give her Eliquis. He would recommend that she get the aneurysm addressed as soon as possible. An incident during her stay that was slightly unusual. She shared with the late evening nurse that she had a concealed weapons permit and had a gun in her purse which she stated that kept on her person at all times. However we gently reminded her that there are times that she has left the bed to go to the bathroom, and her purse and gun within it were on her bed. It could have been a risk for people such as housekeeping or the practical nursing teacher in their effort to try and straighten out her sheets. Nursing removed her gun for safety sake and return to her at discharge. On the day of discharge she did have a 30-minute episode of chest pain located underneath her left breast. She says it was vague. It was not squeezing. She denied any radiation to the neck or left arm. It was nonstop. She did not feel particularly ill with it but just wanted us to know. EKG shows NSR, no ST elevation or depression, and no arrhythmias. No significant T-wave inversions. EKG was stable. She has chronic atrial fibrillation with a right bundle branch block and a left anterior fascicular block. This EKG is unchanged from August 07 rate August 09. Stat for troponins were stable. She also had an episode where her blood pressure was 160/120 on a mechanical blood pressure cuff. I asked the nurse to please do a manual check and it was 170/80. Gave the patient a one- time dose of Lopressor 50 mg. She had no symptoms with this. No chest pain, shortness of breath. I again stressed that her blood pressure needs to stay as low as possible as she moves into the future. Hypokalemia was supplemented with p.o. potassium. I am asking her to follow-up with her primary care provider regarding her unintentional weight loss. She will also need to follow-up with her primary care provider regarding her hypothyroidism. With her last visit on August 07 her TSH was 14.52. Synthroid was increased from 50 mcg to 100 mcg. She will need a TSH approximately September 06 or September 07 to follow-up on that. The final problem that should be addressed is that of macrocytic anemia. At discharge, the anemia panel show iron studies are normal. Ferritin is normal. She is not hemolyzing. And B12 is on the low end of normal at 279. Blood pressure medicne needs to be adjusted to aim for the BP goal as stated. I would asked that a BMP be done in the office to make sure potassium is staying stable on chlorthalidone. And the final task is to refer for AAA to interventional radiology. Discharge examination was a temperature of 36.5. Heart rate 57. Blood pressure 190/76. Respirations 18. 97% on room air. Alert, oriented elderly female, somewhat short statured and obese. Oriented to person, place, not necessarily time. Speech is still slightly thick with the tongue moving slowly. Slight dysmetria of the hands with right worse than the left but she is able to sit up on her own with a little bit of effort. She can then stand and sways only a little bit. Left arm is slightly weaker than right arm but she attributes that to residual stroke deficits from previous stroke. Pbgbdf-[id number] is intact but there is quite a bit of target dysmetria. Rapid alternating hand movements are very slow. No JVD in the neck. Lungs are clear to auscultation and percussion. Irregular rate and rhythm. The abdomen is obese, soft, nontender. Normal bowel sounds. Extremities have slight trace edema around the ankles. She is able to walk with a shuffling gait. Greater than 30 minutes was spent coordinating discharge. She is discharged in stable condition. Son at the bedside when discharge instructions reviewed and his questions were answered. - ALLERGIES Allergies/Adverse Reactions: Allergies Allergy/AdvReac Type Severity Reaction Status Date / Time milk AdvReac Mild Cramps Verified 08/08/21 14:06 - MEDICATIONS Home Medications: Ambulatory Orders Medication Instructions Recorded Confirmed HYDROcodone/ACET 7.5/325 [[place] 0.5 - 1 tab PO DAILY PRN 08/07/21 08/10/21 7.5/325] Rosuvastatin Calcium [Crestor] 5 mg PO DAILY 08/07/21 08/09/21 Levothyroxine Sodium 100 mcg PO DAILY #30 cap 08/08/21 08/09/21 [Levothyroxine] Losartan [Cozaar] 50 mg PO 0900 #30 tablet 08/08/21 08/09/21 Multivitamin W/Minerals [Theragran 1 tab PO QDLUNCH #30 tablet 08/08/21 08/10/21 M] Potassium Chloride [Micro-K] 20 meq PO DAILY 08/10/21 08/10/21 Apixaban [Eliquis] 5 mg PO BID #60 tablet 08/11/21 Multivitamin W/Minerals [Theragran 1 tab PO DAILYWM tablet 08/11/21 M] bisacodyL [Dulcolax] 10 mg PO ONCE #1 tablet 08/11/21 - LABS Result Diagrams: 08/11/21 04:47 08/11/21 04:47
[2021-08-11] MEDS ORDERED: LOSARTAN 50 MG TABLET PO ONE (07:59)
[2021-08-11] MEDS ORDERED: MULTIVITAMIN W/MINERALS TABLET PO SCH (08:00)
[2021-08-11 08:07] LABS: ABSOLUTE RETICS # AUTO 0.057 10^6/uL (0.020-0.110); RED BLOOD COUNT 2.86 10^6/uL (4.20-5.40); RETICULOCYTE COUNT % (AUTO) 1.98 % (0.5-2.3)
[2021-08-11] MEDS: ENOXAPARIN 40 MG/0.4 ML SYRINGE SUBQ SCH (08:44)
[2021-08-11] MEDS: polyethylene glycoL 3350 17 GM PACKET PO SCH (08:44)
[2021-08-11] MEDS: ASPIRIN EC 81 MG TABLET PO SCH ×2 (08:45→08:52)
[2021-08-11] MEDS: SENNA 8.6 MG TABLET PO SCH (08:45)
[2021-08-11] MEDS: DOCUSATE SODIUM 250 MG CAPSULE PO SCH (08:45)
[2021-08-11 08:53] LABS: % IRON SATURATION 20 % (20-50); IRON 52 ug/dL (28-170); TOTAL IRON BINDING CAPACITY 263 ug/dL (250-450); TRANSFERRIN 188 mg/dL (192-382)
[2021-08-11 08:55] LABS: FERRITIN 161.6 ng/mL (11.0-306.8)
[2021-08-11] MEDS ORDERED: METOPROLOL TARTRATE 50 MG TABLET PO STA (14:47)
[2021-08-11 14:55] VITALS: BP 170/80
== END 2021-08-11 15:10 | disposition home or self-care (01) | DRG 65 ==
LOC: ED 16:58 → MS2 19:18 → OBSVTOIN 08-10 11:57
PROVIDERS: ADMIT Specialist; ATTEND Specialist
DX: I63.9 Cerebral infarction, unspecified (principal); R27.8 Other lack of coordination; I69.954 Hemiplegia and hemiparesis following unspecified cerebrovascular disease affecting left non-dominant side; I48.20 Chronic atrial fibrillation, unspecified; R47.81 Slurred speech; I11.0 Hypertensive heart disease with heart failure; I50.9 Heart failure, unspecified; R29.701 NIHSS score 1; I48.91 Unspecified atrial fibrillation; R77.8 Other specified abnormalities of plasma proteins; R63.4 Abnormal weight loss; Z66 Do not resuscitate; Z20.822 Contact with and (suspected) exposure to COVID-19; D53.9 Nutritional anemia, unspecified; I71.4 Abdominal aortic aneurysm, without rupture; I25.10 Atherosclerotic heart disease of native coronary artery without angina pectoris; E78.5 Hyperlipidemia, unspecified; E03.9 Hypothyroidism, unspecified; I65.23 Occlusion and stenosis of bilateral carotid arteries; R27.0 Ataxia, unspecified; R07.9 Chest pain, unspecified; I45.10 Unspecified right bundle-branch block; I44.4 Left anterior fascicular block; E87.6 Hypokalemia; E66.9 Obesity, unspecified; Z68.34 Body mass index [BMI] 34.0-34.9, adult; Z86.718 Personal history of other venous thrombosis and embolism; Z87.891 Personal history of nicotine dependence
CPT/HCPCS: 36415; 70496; 70498; 70551; 80048; 80053; 80306; 81003; 82607; 82728; 83540; 83615; 83690; 83735; 84466; 84484; 85025; 85045; 87633; 93005; 96372; 97112; 97116; 97162; 97165; 99284; 99285; A9270; G0378; G0480; J1650; 80320; 81001; 87086

== ENCOUNTER 2021-08-27 05:25 | Outpatient (CLI) | payer MEDICARE, OTHER | END 2021-08-27 05:26 | disposition critical access hospital (66) | LOC: EMS 05:25 | DX: R29.898 Other symptoms and signs involving the musculoskeletal system (principal) | CPT/HCPCS: A0425 ×3 ==

== ENCOUNTER 2021-08-27 05:41 | Inpatient (IN) | payer MEDICARE, OTHER ==
--- NOTE | 2021-08-27 05:46 | ED Physician Documentation ---
PD HPI FOCAL NEURO - Stated complaint Stated Complaint: FACIAL DROOP, LEFT SIDE DEFICIT - Chief complaint Chief Complaint: Neuro - History obtained from History obtained from: Patient, Family (son (at bedside in ED)), EMS - History of Present Illness Timing - onset: Other (last known normal midnight, woke from sleep 4:15 AM with symptoms) Severity of deficit: Moderate Weakness: Arm Associated symptoms: No: Fall, Head injury, Chest pain Contributing factors: positive: Anticoagulated, Atrial fibrillation Baseline status: positive: A&OX3, ambulatory, indep Similar symptoms before: Diagnosis (CVA (see narrative below)) Recently seen: Admitted - Additional information Additional information: BIBA. Patient went to bed at approximately midnight at her neurologic baseline (per son, patient has some residual deficits from recent CVA), woke at approximately 4:15 AM with LUE weakness, slurred speech, left facial droop. Patient was recently admitted to [facility] for stroke symptoms; admitted 08/09 and discharged 08/11 after workup that included CTA head, CTA neck, and MRI brain. The MRI revealed three small subacute infarcts. She also was noted to have paroxysmal atrial fibrillation and she was prescribed eliquis for this. Review of Systems Constitutional: reports: Reviewed and negative Eyes: reports: Reviewed and negative Ears: reports: Reviewed and negative Nose: reports: Reviewed and negative Cardiac: reports: Reviewed and negative Respiratory: reports: Reviewed and negative GI: reports: Reviewed and negative : denies: Incontinent Skin: reports: Reviewed and negative Musculoskeletal: reports: Back pain Neurologic: reports: Focal weakness (LUE), Difficulty speaking (patient's son i ndicates to me that this is residual from her recent CVA (last [facility] stay)). denies: Generalized weakness, Numbness, Confused, Altered mental status, Headache, Head injury, LOC PD PAST MEDICAL HISTORY - Past Medical History Cardiovascular: Congestive heart failure, Hypertension, High cholesterol, Coronary artery disease, Deep vein thrombosis, Arrhythmia, Other Respiratory: Shortness of breath Neuro: CVA Endocrine/Autoimmune: None GI: None : None HEENT: Chronic vision loss, Other Psych: Depression, Other Musculoskeletal: Scoliosis, Chronic back pain Derm: None Other Past Medical History: AAA - Past Surgical History Past Surgical History: Yes Ortho: Spine surgery HEENT: Cataracts Derm: Other - Present Medications Home Medications: Ambulatory Orders Medication Instructions Recorded Confirmed Rosuvastatin Calcium [Crestor] 5 mg PO DAILY 08/07/21 08/27/21 Levothyroxine Sodium 100 mcg PO DAILY #30 cap 08/08/21 08/27/21 [Levothyroxine] Losartan [Cozaar] 50 mg PO 0900 #30 tablet 08/08/21 08/27/21 Multivitamin W/Minerals [Theragran 1 tab PO QDLUNCH #30 tablet 08/08/21 08/27/21 M] Multivitamin W/Minerals [Theragran 1 tab PO DAILYWM tablet 08/11/21 08/27/21 M] bisacodyL [Dulcolax] 10 mg PO ONCE #1 tablet 08/11/21 Apixaban [Eliquis] 5 mg PO DAILY 08/27/21 08/27/21 Aspirin Chewable [St Ab 81 mg PO DAILY 08/27/21 08/27/21 Aspirin] Potassium Chloride 10 meq PO DAILY 08/27/21 08/27/21 - Allergies Allergies/Adverse Reactions: Allergies Allergy/AdvReac Type Severity Reaction Status Date / Time milk AdvReac Mild Cramps Verified 08/27/21 06:01 - Social History Does the pt smoke?: Yes Smoking Status: Current every day smoker Does the pt drink ETOH?: Yes Does the pt have substance abuse?: No - Immunizations Immunizations are current?: No - POLST Patient has POLST: No POLST Status: DNR PD ED PE NORMAL - Vitals Vital signs reviewed: Yes - General General: Alert and oriented X 3, No acute distress, Well developed/nourished - HEENT HEENT: Atraumatic, PERRL, EOMI, Moist mucous membranes - Neck Neck: Supple, no meningeal sign - Respiratory Respiratory: No respiratory distress, Clear bilaterally - Abdomen Abdomen: Soft, Non tender, Other (will only allow light palpation; she says she has an abdominal aneurysm which is not causing pain but she does not want me to palpate the abdomen because of the AAA) - Derm Derm: Normal color, Warm and dry - Extremities Extremities: No edema - Neuro Neuro: Alert and oriented X 3 (answers slowly but is accurate with year, month, place, name), [employer] 2-12 intact, Other (see NIHSS) PD ED PE EXPANDED - Cardiac Cardiac: Irregularly irregular, Murmur Present (2/6 AVNI greatest at LSB/apex) NIHSS - Time Time: 06:10 - Level of Consciousness Level of consciousness: (0) Alert, Keenly responsive LOC Questions: (0) Answers both Q's correct LOC Commands: (0) Performs both correctly - Gaze Best Gaze: (0) Normal - Visual Visual: (0) No loss - Facial Palsy Facial Palsy: (0) Normal, symmetrical movement - Motor Arms (both separate) Motor Arm (right): (0) No drift Motor Arm (left): (1) Drift - Motor Legs (both separate) Motor Leg (right): (0) No drift Motor Leg (left): (1) Drift (NOTE THAT PATIENT SAYS SHE CANNOT KEEP THE LLE RAISED DUE TO BACK PAIN AND NOT WEAKNESS) - Limb Ataxia Limb Ataxia: (1) Present in 1 limb - Sensory Sensory: (1) Kesw-zc-geoffvkq loss - Best Language Best Language: (0) No aphasia - Dysarthria Dysarthria: (1) Qeho-nl-ebbbqaak dysarthria - Extinction and Inattention (formally neg Extinction and inattention: (0) No abnormality - Total Score/Results Total Score/Result: 5 Results - Vitals Vitals: Vital Signs - 24 hr 08/27/21 08/27/21 08/27/21 05:41 06:03 06:16 Temperature 36.1 C L Heart Rate 75 92 65 Respiratory 18 20 13 Rate Blood Pressure 179/103 H 179/103 H 173/83 H O2 Saturation 97 99 98 08/27/21 08/27/21 08/27/21 06:29 06:39 06:49 Temperature 36.1 C L 36.1 C L Heart Rate 70 71 65 Respiratory 19 19 23 Rate Blood Pressure 192/89 H 188/74 H 179/76 H O2 Saturation 100 100 99 08/27/21 08/27/21 08/27/21 07:00 07:30 08:00 Temperature Heart Rate 65 75 70 Respiratory 14 19 18 Rate Blood Pressure 186/96 H 194/93 H 189/84 H O2 Saturation 97 100 96 08/27/21 08/27/21 08:30 09:00 Temperature Heart Rate 71 74 Respiratory 17 19 Rate Blood Pressure 188/98 H 187/86 H O2 Saturation 98 97 Oxygen O2 Source Room air - EKG (time done) No standard instances Rate: Rate (enter#) (68) Rhythm: Atrial fibrillation [place]: LAD, Anterior hemiblock Intervals: RBBB QRS: Normal Ischemia: Normal ST segments - Labs Labs: Laboratory Tests 08/27/21 08/27/21 08/27/21 06:18 06:18 06:18 WBC 7.3 RBC 3.68 L Hgb 12.6 Hct 36.9 L MCV 100.3 H MCH 34.2 H MCHC 34.1 RDW 15.0 Plt Count 353 MPV 11.6 H Neut # (Auto) 5.2 Lymph # (Auto) 1.5 [place] # (Auto) 0.4 Eos # (Auto) 0.2 Baso # (Auto) 0.1 Absolute Nucleated RBC 0.00 Nucleated RBC % 0.0 PT 17.1 H INR 1.5 H APTT 32.0 Sodium 135 Potassium 3.8 Chloride 102 Carbon Dioxide 23 Anion Gap 10.0 BUN 19 Creatinine 1.0 Estimated GFR (MDRD) 54 L Glucose 123 H Calcium 9.7 Total Bilirubin 0.8 AST 16 ALT 13 Alkaline Phosphatase 52 Troponin I High Sens Total Protein 7.3 Albumin 3.9 Globulin 3.4 Albumin/Globulin Ratio 1.1 Lipase 48 08/27/21 06:18 WBC RBC Hgb Hct MCV MCH MCHC RDW Plt Count MPV Neut # (Auto) Lymph # (Auto) [place] # (Auto) Eos # (Auto) Baso # (Auto) Absolute Nucleated RBC Nucleated RBC % PT INR APTT Sodium Potassium Chloride Carbon Dioxide Anion Gap BUN Creatinine Estimated GFR (MDRD) Glucose Calcium Total Bilirubin AST ALT Alkaline Phosphatase Troponin I High Sens 26.1 H* Total Protein Albumin Globulin Albumin/Globulin Ratio Lipase - Rads (name of study) CTA head Radiology: Prelim report reviewed, See rad report CTA neck Radiology: Prelim report reviewed, See rad report PD MEDICAL DECISION MAKING - ED course Complexity details: reviewed old records, reviewed results, re-evaluated patient, considered differential, d/w patient, d/w family ED course: recent CVA with some residual deficits. It is not clear to what extent tonight's symptoms/signs are new or changed from previous. Son indicates her speech sounds the same as after the recent CVA. Reported facial droop in field but there is no facial droop on my exam. She does have LUE weakness, although previous notes (from recent inpatient stay) indicate some degree of LUE weakness in discharge summary. Tonight's CTA head/neck do not show any LVO; other findings are unchanged from the studies performed on previous visit last month. I discussed this case with the telestroke neurologist, Dr. Moore. He recommends observation for twenty-four hours, the goal of which is to monitor for any worsening signs/symptoms due to potential for transformation from ischemic CVA to hemorrhagic CVA (given that she might have new symptoms/signs at this time and that she is currently taking eliquis). Dr. Moore says that worsening signs/symptoms or new c/o such as severe headache, should prompt CT (without contrast) looking for ICH. He opines that the description of symptoms at this time would suggest a low area of infarct volume and thus the eliquis can be continued. Furthermore, if there are no new signs/symptoms that develop after a 24-hour observation period, patient can be considered for discharge unless PT/OT is needed (for severity of any new deficits). D/W Dr. Martell, accepts to hospitalist service - TPA CVA checklist Inclusion crititeria: positive: Sig neuro deficit, CT no bleed. negative: Onset know < 4.5 hr Absolute contraindications: positive: CVA < 3 months Departure - Departure Disposition: ED Place in Observation Clinical Impression: Cerebrovascular accident (CVA) Qualifiers: CVA mechanism: unspecified Qualified Code(s): I63.9 - Cerebral infarction, unspecified Condition: Good
[2021-08-27] MEDS: IOPAMIDOL-300 100 ML VIAL IVP ONE (06:19)
[2021-08-27 06:27] LABS: BASOPHILS # (AUTO) 0.1 10^3/uL (0.0-0.1); EOSINOPHILS # (AUTO) 0.2 10^3/uL (0.0-0.7); HCT - HEMATOCRIT 36.9 % (37.0-47.0); HGB - HEMOGLOBIN 12.6 g/dL (12.0-16.0); LYMPHOCYTES # (AUTO) 1.5 10^3/uL (1.5-3.5); LYMPHOCYTES % (AUTO) 19.8 %; MEAN CORPUSCULAR HEMOGLOBIN 34.2 pg (27.0-31.0); MEAN CORPUSCULAR HGB CONC 34.1 g/dL (32.0-36.0); MEAN CORPUSCULAR VOLUME 100.3 fL (81.0-99.0); MEAN PLATELET VOLUME 11.6 fL (7.9-10.8); MONOCYTES # (AUTO) 0.4 10^3/uL (0.0-1.0); NEUTROPHILS # (AUTO) 5.2 10^3/uL (1.5-6.6); NEUTROPHILS % (AUTO) 70.8 %; PLT - PLATELET COUNT 353 10^3/uL (130-450); RED BLOOD COUNT 3.68 10^6/uL (4.20-5.40); WHITE BLOOD COUNT 7.3 x10^3/uL (4.8-10.8)
[2021-08-27] MEDS ORDERED: IOPAMIDOL-300 100 ML VIAL ONE (06:29)
[2021-08-27 06:31] LABS: INR 1.5 (0.8-1.2); PT - PROTHROMBIN TIME 17.1 secs (9.9-12.6)
[2021-08-27 06:39] LABS: ALBUMIN 3.9 g/dL (3.2-5.5); ALBUMIN/GLOBULIN RATIO 1.1 (1.0-2.2); BILIRUBIN,TOTAL 0.8 mg/dL (0.2-1.0); CALCIUM 9.7 mg/dL (8.5-10.3); POTASSIUM 3.8 mmol/L (3.5-5.0); TOTAL PROTEIN 7.3 g/dL (6.7-8.2)
--- NOTE | 2021-08-27 07:38 | XRAY Report ---
PROCEDURE: Chest 1 View X-Ray INDICATIONS: CVA TECHNIQUE: One view of the chest was acquired. COMPARISON: 08/07/2021 FINDINGS: Surgical changes and devices: None. Lungs and pleura: No pleural effusions or pneumothorax. Mild bilateral perihilar and left basilar re ticulonodular density. Mediastinum: Mediastinal contours appear normal. Heart size is enlarged Bones and chest wall: No s uspicious bony lesions. Overlying soft tissues appear unremarkable. IMPRESSION: 1. Mild atelectasis versus atypical pneumonia. 2. Cardiomegaly. 3. Concordant with preliminary interpretation. Reviewed by: Solomon Miller MD on 08/27/2021 7:37 AM PDT Approved by: Solomon Miller MD on 08/27/2021 7:37 AM PDT Station ID: [id number]
--- NOTE | 2021-08-27 07:43 | CT Report ---
PROCEDURE: ANGIO HEAD W/WO INDICATIONS: facial droop, left sided weakness CONTRAST: IV CONTRAST: Isovue 300 ml: 100 PO CONTRAST: *NO PO CONTRAST TECHNIQUE: Precontrast 4.5 mm thick angled axial sections acquired from the foramen magnum to the vertex. Afte r the administration of intravenous contrast, 1 mm thick sections acquired through the [place] of [place] is. Postcontrast 4.5 mm thick sections then re-acquired from the foramen magnum to the vertex. 3-di mensional mxlwmyw-uhmwovsfq-ojzfidezfi (MIP) and/or volume rendering reformats were acquired of the c entral intracranial vasculature. For radiation dose reduction, the following was used: automated ex posure control, adjustment of mA and/or kV according to patient size. COMPARISON: 08/09/2021 FINDINGS: Image quality: Excellent. Anterior circulation: No change in roughly 50% stenosis of the right high cervical internal carotid a rtery. Mild to moderate stenosis of the supraclinoid and cavernous segments of the internal carotid a rteries is present, as before. The flow within the paired anterior cerebral arteries is normal and sy mmetric. The flow within the middle cerebral arteries is normal and symmetric. The anterior communi cating artery is seen. No aneurysms are seen. Posterior circulation: Visualized portions of the vertebral arteries demonstrate mild diffuse calcif ic stenosis, and join to form a normal appearing basilar artery. Flow within the posterior cerebral arteries is normal and symmetric. No aneurysms are seen. CSF spaces: Ventricles are normal in size and shape. Basal cisterns are patent. No extra-axial flu id collections. Brain: No midline shift. No intracranial bleeds or masses. Clark-white matter interface appears int act. Skull and face: Calvarium and facial bones appear intact, without suspicious lesions. Sinuses: Visualized sinuses and mastoids are clear. IMPRESSION: 1. Internal carotid and vertebral artery stenoses as described above. 2. No acute process. 3. Concordant with preliminary interpretation. Reviewed by: Solomon Miller MD on 08/27/2021 7:41 AM PDT Approved by: Solomon Miller MD on 08/27/2021 7:41 AM PDT Station ID: [id number]
--- NOTE | 2021-08-27 07:47 | CT Report ---
PROCEDURE: ANGIO NECK W INDICATIONS: facial droop, left sided weakness CONTRAST: IV CONTRAST: Isovue 300 ml: 100 PO CONTRAST: *NO PO CONTRAST TECHNIQUE: After the administration of intravenous contrast, 1.5 mm axial sections acquired from the aortic arch to the [place] of [place]. Coronal 3-D maximum intensity projection (MIP) and/or volume rendering ref ormats were then performed. For radiation dose reduction, the following was used: automated exposur e control, adjustment of mA and/or kV according to patient size. COMPARISON: 08/09/2021 CT FINDINGS: Image quality: Excellent. Carotid system: The great vessels demonstrate a conventional anatomy as they arise from the aortic a rch. High-grade innominate artery origin stenosis. High-grade left common carotid artery origin sten osis. The origins of the common carotid arteries otherwise appear patent. The common carotid arterie s demonstrate normal calibers and courses. The bifurcation regions appear normal bilaterally. No barby nge in roughly 60-70% stenosis of the left internal carotid artery origin. No change in roughly 50% s tenosis of the right internal carotid artery origin. Roughly 50% stenosis of the right high cervical internal carotid artery is unchanged. Posterior circulation: High-grade stenoses of the bilateral proximal vertebral arteries are present, as before. Multifocal mild and moderate stenoses within the bilateral distal vertebral arteries, as b efore. They join to form a normal appearing basilar artery. Soft tissues: Visualized neck soft tissues demonstrate no suspicious abnormalities. The thyroid is normal in size and there are no incidental findings. Bones: No suspicious bony lesions. Visualized cervical spine appears normally aligned. IMPRESSION: 1. No change in bilateral internal carotid and vertebral artery stenoses. 2. No change in great vessel origin stenosis. 3. No acute process. 4. Concordant with preliminary interpretation. The estimate of stenosis included in the report of the imaging study was calculated using the NASCET method CLINICAL RECOMMENDATION STATEMENTS: In patients <35 years with an ITN detected on CT, MRI, or extrathyroidal ultrasound, the Committee re commends further evaluation with dedicated thyroid ultrasound if the nodule is "e1 cm and has no susp icious imaging features, and if the patient has normal life expectancy. In patients "e35 years with an ITN detected on CT, MRI, or extrathyroidal ultrasound, the Committee r ecommends further evaluation with dedicated thyroid ultrasound if the nodule is "e1.5 cm and has no s uspicious imaging features, and if the patient has normal life expectancy. (ACR, 2014) Reviewed by: Solomon Miller MD on 08/27/2021 7:46 AM PDT Approved by: Solomon Miller MD on 08/27/2021 7:46 AM PDT Station ID: [id number]
[2021-08-27] MEDS ORDERED: SODIUM CHLORIDE FLUSH 0.9% 10 ML SYRINGE IVP PRN (10:50)
[2021-08-27] MEDS ORDERED: ONDANSETRON 4 MG/2 ML VIAL IVP PRN (10:50)
[2021-08-27] MEDS ORDERED: hydrALAZINE INJ 20 MG/ML VIAL IVP STA (11:08)
[2021-08-27] MEDS: LOSARTAN 50 MG TABLET PO SCH (11:39)
--- NOTE | 2021-08-27 11:41 | HISTORY & PHYSICAL EXAMINATION ---
Chief Complaint - Chief Complaint Chief Complaint: Stroke-like symptoms <Sendy Martell - Last Filed: 08/28/21 17:02> History of Present Illness - Admitted From Admitted From:: ED - History Obtained From History obtained from: ED provider, chart review, the patient and the son at bedside <Sendy Martell - Last Filed: 08/28/21 17:02> - History of Present Illness HPI Comment/Other: This is a 75-year-old white female with a history of hypertension, stroke 2 years ago, CAD, macrocytic anemia, hypothyroidism who presents to the emergency room today for the third time in 1 month. She was hospitalized here from 022 to 08/08/2021 for nausea and vomiting causing dehydration and dizziness which improved with iv hydration an Cy maneuver done here x2. Incidental findings were abdominal aortic aneurysm measuring 5.2 cm, undertreated hypothyroidism with a TSH of 14.5 and paroxysmal Afib was documented. A POCUS Echo was done and showed a moderate periocardial effusion, probably due to myxedema. She was seen by Social Work and felt to have mild depression. She was sent home on ASA but advised to see her PCP for possible anticoagulant start for her paroxysmal Afib and for referral for AAA management. She was admitted from 08/09/2021 to 08/11/2021 with stroke-like symptoms of slurred speech and weakness. She underwent head CTA and neck CTA, head CT and MRI. The findings on MRI showed multiple subacute infarcts. We have no Echo service available to look for cardiac source of embolus. Her neurodeficits resolved back to their baseline (arm strength 4/5). She was discharged home, she was to be on Eliquis and told to have follow-up soon with her PCP. She did have follow-up with some specialist regarding the abdominal aortic aneurysm, she does not know what plan is coming up. The patient awoke today and the son noticed that she had facial droop, and left arm worsening weakness and c/o new abnormal sensation in the left arm and leg and she was brought to the ED. By the time she was in the ED, her facial droop had improved, her sensory deficit was improving and strength of the left arm was improving. By the time I saw her for placing her in observation, her sensory deficits had resolved completely of the left arm and leg, her facial droop was gone, there was no slurred speech, she had 3-4/5 strength of the left arm. The patient is being placed in Observation for further neuro checks, repeat CT imaging without contrast would be done if she has new neurologic symptoms or headache or worsening vital signs, as were recommended by the Neurologist who spoke to our ED provider today. At the last recent admission, the patient changed her CODE BLUE wishes from DNR to Full Code. (Sendy Martell) History - Past Medical History Cardiovascular: reports: Congestive heart failure, Hypertension, High c holesterol, Coronary artery disease, Deep vein thrombosis, Arrhythmia, Other Respiratory: reports: Shortness of breath Neuro: reports: CVA Endocrine/Autoimmune: reports: None GI: reports: None : reports: None HEENT: reports: Chronic vision loss, Other Psych: reports: Depression, Other Musculoskeletal: reports: Scoliosis, Chronic back pain Derm: reports: None MRSA Hx?: No Other Past Medical History: AAA - Past Surgical History Ortho: reports: Spine surgery HEENT: reports: Cataracts Derm: reports: Other - Family & Social History Family History: Mother: , Father: , Sister: , Brother: Family History Comment/Other: All family has ; mother had heart disease and colon CA, father of "black lung", 2 sisters had an unknown type of cancer, 2 brothers; one that had vascular disease causing him to lose both lower extremities. Living arrangement: At home Living Situation: Alone Social History Notes: Patient lives alone with her puggle, Rosalie, and does all of her own ADLs. She walks independently or with a cane. She moved from [place], where she raised her 3 boys and she and her owned a [employer]. Her in 2016 from a "blood infection." She moved from [place] to [facility] shortly after [place] in [place]. She smoked 5-6 cigarrettes daily for about the passed 50 years but states she quit this week. She rarely drinks and just will try a sip of her son's drinks when he makes them. - Substance History Use: Uses substance without health or social issues: Tobacco (smoked 5-6 cigarrettes daily for the past 50ish years. Quit this week), Alcohol (Rarely, only tastes tests son's drinks "to make sure they are not poison") - POLST Patient has POLST: No POLST Status: DNR <Sendy Martell - Last Filed: 08/28/21 17:02> Meds/Allgy <Selwyn Lal - Last Filed: 08/28/21 01:47> <Sendy Martell - Last Filed: 08/28/21 17:02> - Home Medications Home Medications: Ambulatory Orders Medication Instructions Recorded Confirmed Rosuvastatin Calcium [Crestor] 5 mg PO DAILY 08/07/21 08/27/21 Levothyroxine Sodium 100 mcg PO DAILY #30 cap 08/08/21 08/27/21 [Levothyroxine] Losartan [Cozaar] 50 mg PO 0900 #30 tablet 08/08/21 08/27/21 Multivitamin W/Minerals [Theragran 1 tab PO QDLUNCH #30 tablet 08/08/21 08/27/21 M] Apixaban [Eliquis] 5 mg PO BID 08/27/21 08/27/21 Aspirin Chewable [St Ab 81 mg PO DAILY 08/27/21 08/27/21 Aspirin] Potassium Chloride 10 meq PO DAILY 08/27/21 08/27/21 - Allergies Allergies/Adverse Reactions: Allergies Allergy/AdvReac Type Severity Reaction Status Date / Time milk AdvReac Mild Cramps Verified 08/27/21 06:01 Review of Systems - Constitutional Constitutional: reports: Weakness - Musculoskeletal Musculoskeletal: reports: Back pain (Severe LBP and L leg pain with weight bearing), Other (L leg pain with weight bearing) - All Other Systems All Other Systems: reports: Reviewed and negative <Sendy Martell - Last Filed: 08/28/21 17:02> Exam - Physical Exam General Appearance: positive: No acute distress, Alert Eyes Bilateral: positive: Normal inspection, EOMI ENT: positive: ENT inspection nml, No signs of dehydration Neck: positive: Nml inspection, No JVD Respiratory: positive: No respiratory distress, Breath sounds nml Cardiovascular: positive: No murmur Abdomen: positive: Non-tender, Nml bowel sounds, No distention Skin: positive: Warm, Dry Extremities: positive: Non-tender, No pedal edema Neurologic/Psychiatric: positive: Oriented x3, Other (L arm 4/5, otherwise normal neuro exam) <Sendy Martell Evan - Last Filed: 08/28/21 17:02> - Vital Signs Vital Signs: Vital Signs x48h Temp Pulse Resp BP Pulse Ox 08/28/21 00:39 36.5 C 83 18 148/84 H 93 08/27/21 20:17 37 C 75 18 152/81 H 100 Conclusion/Plan - Lab Results Fish Bones: 08/27/21 06:18 08/27/21 06:18 <Selwyn Lal - Last Filed: 08/28/21 01:47> - Problem List (1) Stroke-like symptoms Conclusion/Plan: The ED provider reached out to neurology at [facility] regarding this patient. She is outside of the window for any thrombolytics and does not need transfer for any intervention. All her imaging is similar to head and neck imaging done just 2 weeks ago. The neurologist recommended observing her for 24 hours for any hemorrhagic transformation if CT imaging is repeated and CT imaging would need to be repeated if there are new symptoms. Will place patient in observation status. Will order neuro checks every 4 hours. We will check fasting lipid panel and am We will continue with her aspirin and her anticoagulant, this was confirmed by ED provider talking to the neurologist 2. Chronic low back pain She has had this on her previous admissions. It appears to be worsened when there is some weight bearing and she has recently had muscles checked for strength because of the admissions for stroke-like symptoms. Will order lidocaine topical patch. Try to avoid narcotics for pain control, as it may change her neuro exam. 3. Hypertension Will resume her losartan, the dose was recently increased. Will also order IV hydralazine as needed very high blood pressures greater than 200. 4. Macrocytic anemia Will order B12 and folate levels checked. We will continue her home doses of multivitamins with supplements. 5. Abdominal aortic aneurysm, 5.2 cm When I interviewed this patient she was very focused on the fact that she went to see a specialist in [place] and that no imaging had been available for the specialist to see regarding her aorta or her Echo. Continue with blood pressure control and statin and will check her lipid panel. 6. Hypothyroidism Two admissions ago which was just 3 weeks ago, she had a very elevated TSH of 14.5 and she received 1 dose of IV thyroid at double the dose, then her dose orally went from 50 mcg to 100 mcg. Will check a morning TSH level. 7. Hx CAD Patient does get occasional chest pain, on last admission and 2 admissions ago but it is felt to be from her pericardial effusion which is moderate in size, found on the xiodo-ri-bkst echo done 3 weeks ago. We will continue with her aspirin and statin and usual home medications for CAD. 8. Depression This patient has had unintentional weight loss and 2 admissions ago was seen by social work for concern of suicide or being very depressed since she said "I have nothing to live for". Social work consult then found that she has mild chronic depression, no antidepressants were started then. Will have her follow-up for this with her PCP after discharge - Lab Results Fish Bones: 08/27/21 06:18 08/27/21 06:18 <Sendy Martell - Last Filed: 08/28/21 17:02>
[2021-08-27] MEDS ORDERED: WARFARIN 5 MG TABLET PO SCH (14:00)
[2021-08-27] MEDS ORDERED: LIDOCAINE PATCH 5% TOP STA (14:49)
--- NOTE | 2021-08-27 16:28 | PHARMACY PROGRESS NOTE ---
- Best Possible Medication History Admit Date and Time: 08/27/21 1050 Processed by: Nursing Medication History completed: Yes Patient Interview: Completed Secondary Source(s): Prescription bottles, Physician records, Pharmacy records, Insurance records, Previous admit records As the person ultimately responsible for medication therapy, providers are able to order a medication from an existing home medication list in [facility] via the "Reconcile Routine" prior to Confirmation of that medication by community support worker. Such practice is discouraged except when the physician, in their clinical judgment, deems that a medical need exists for a medication without regard to previous use.
[2021-08-27] MEDS: APIXABAN 5 MG TABLET PO SCH (20:29)
[2021-08-27] MEDS: ACETAMINOPHEN 325 MG TABLET PO PRN (20:29)
[2021-08-27] MEDS: SODIUM CHLORIDE FLUSH 0.9% 10 ML SYRINGE IVP SCH (20:29)
[2021-08-27] MEDS: ATORVASTATIN 10 MG TABLET PO SCH (20:29)
[2021-08-28 06:10] LABS: INR 1.4 (0.8-1.2); PT - PROTHROMBIN TIME 15.7 secs (9.9-12.6)
[2021-08-28 06:36] LABS: THYROID STIMULATING HORMONE 16.72 uIU/mL (0.34-5.60)
[2021-08-28 06:37] LABS: CHOL/HDL RATIO 3.1 (<4.4); CHOLESTEROL 148 mg/dL; HDL CHOLESTEROL 47 mg/dL; LDL CHOLESTEROL,CALCULATED 76 mg/dL; LDL/HDL RATIO 1.6 (<4.4); TRIGLYCERIDES 127 mg/dL; VLDL CHOLESTEROL 25 mg/dL
[2021-08-28 06:47] LABS: FOLATE 14.03 ng/mL (5.90 - >24.8)
[2021-08-28] MEDS: SODIUM CHLORIDE FLUSH 0.9% 10 ML SYRINGE IVP SCH ×3 (06:57→15:40)
[2021-08-28] MEDS ORDERED: LEVOTHYROXINE 100 MCG TABLET PO SCH (07:00)
[2021-08-28] MEDS ORDERED: MULTIVITAMIN W/MINERALS TABLET PO SCH (08:00)
[2021-08-28] MEDS: ASPIRIN CHEW 81 MG TABLET PO SCH (08:17)
[2021-08-28] MEDS: LOSARTAN 50 MG TABLET PO SCH (08:17)
[2021-08-28] MEDS: APIXABAN 5 MG TABLET PO SCH (08:17)
[2021-08-28] MEDS: MULTIVITAMIN W/MINERALS TABLET PO SCH (12:09)
--- NOTE | 2021-08-28 12:54 | CT Report ---
PROCEDURE: Head W/O Stroke Protocol INDICATIONS: worsening neuro deficit (L arm weakness) TECHNIQUE: Noncontrast 4.5 mm thick angled axial sections acquired from the foramen magnum to the vertex, with c oronal reformats. For radiation dose reduction, the following was used: automated exposure control, adjustment of mA and/or kV according to patient size. COMPARISON: CTA head 08/27/2021. MRI brain 08/10/2021. FINDINGS: Image quality: Fair. CSF spaces: Basal cisterns are patent. No extra-axial fluid collections. Ventricles are normal in size and shape. Brain: No midline shift. No intracranial masses or hemorrhage. No area of hypodensity in a large va scular diffusion to suggest acute infarction. Periventricular hypodensity most consistent with chroni c microvascular ischemic disease. A small infarct seen on recent MRI are not appreciated. Skull and face: Calvarium and visualized facial bones are intact, without suspicious lesions. Sinuses: Visualized sinuses and mastoids are clear. IMPRESSION: Image quality is fair. No acute intracranial abnormality demonstrated. No acute intracranial hemorrhage. This study fulfills neurological imaging criteria for inclusion or exclusion of acute stroke therapie s based on available published neurological imaging guidelines. Reviewed by: Kyle Marr MD on 08/28/2021 12:53 PM PDT Approved by: Kyle Marr MD on 08/28/2021 12:53 PM PDT Station ID: [id number]
[2021-08-28] MEDS ORDERED: LEVOTHYROXINE 100 MCG VIAL IVP ONE (14:00)
[2021-08-28] MEDS: ACETAMINOPHEN 325 MG TABLET PO PRN (15:39)
[2021-08-28] MEDS ORDERED: IOPAMIDOL-300 100 ML VIAL ONE (16:00)
[2021-08-28] MEDS: IOPAMIDOL-300 100 ML VIAL IVP ONE (16:17)
--- NOTE | 2021-08-28 16:28 | CT Report ---
PROCEDURE: ANGIO HEAD W/WO INDICATIONS: Stuttering acute stroke CONTRAST: IV CONTRAST: Isovue 300 ml: 80 PO CONTRAST: *NO PO CONTRAST TECHNIQUE: Precontrast noncontrast head CT images were performed earlier in the day and not repeated. After the administration of intravenous contrast, 1 mm thick sections acquired through the [place] of [place]. P ostcontrast 4.5 mm thick sections then re-acquired from the foramen magnum to the vertex. 3-dimensio nal cnkljjb-nakfjtvyi-uakntvtjxo (MIP) and/or volume rendering reformats were acquired of the central intracranial vasculature. For radiation dose reduction, the following was used: automated exposure control, adjustment of mA and/or kV according to patient size. COMPARISON: Correlation is made with head CT performed earlier in the day, 08/28/2021. Correlation is also made with prior head CT angiogram, 08/27/2021. Correlation is also made with prior brain MRI, . Correlation is made with the accompanying neck CT angiogram, 08/28/2021. FINDINGS: Image quality: Excellent. Anterior circulation: Atherosclerotic irregularity can be seen involving the distal extracranial cer vical internal carotid arteries, with approximately 50% narrowing seen on the right. Intracranial internal carotid arteries are demonstrated atherosclerotic calcification and irregularit y, with approximately 50% narrowing seen on each side. The flow within the paired anterior cerebral a rteries is normal and symmetric. The flow within the middle cerebral arteries is normal and symmetri c. The anterior communicating artery is seen. No aneurysms are seen. Posterior circulation: Focal atherosclerotic calcification and irregularity can be seen involving the V4 segments, with 60-70% narrowing on the right and up to 30% narrowing on the left. Normal appearin g basilar artery. Flow within the posterior cerebral arteries is normal and symmetric. No aneurysms are seen. CSF spaces: Ventricles are normal in size and shape. Basal cisterns are patent. No extra-axial flu id collections. Brain: No midline shift. No intracranial bleeds or masses. Clark-white matter interface appears int act. Skull and face: Calvarium and facial bones appear intact, without suspicious lesions. Sinuses: Visualized sinuses and mastoids are clear. IMPRESSION: Study similar to the prior. If there is strong clinical concern for a stroke, please consider a dedicated brain MRI for further e valuation (assuming that there is no contraindication to MRI). Focal atherosclerotic calcification can be seen involving the intracranial internal carotid arteries, with approximately 50% narrowing on each side. There is 60-70% narrowing seen involving the right V4 segment, with approximately 30% narrowing invol ving the left knee 4 segment. Within the distal extracranial right internal carotid artery, there is approximately 50% narrowing. Reviewed by: Rangel Menard MD on 08/28/2021 3:26 PM AKNITA Approved by: Rangel Menard MD on 08/28/2021 3:26 PM AKNITA Station ID: [id number]
--- NOTE | 2021-08-28 16:34 | CT Report ---
PROCEDURE: ANGIO NECK W INDICATIONS: Stuttering acute stroke CONTRAST: IV CONTRAST: Isovue 300 ml: 80 PO CONTRAST: *NO PO CONTRAST TECHNIQUE: After the administration of intravenous contrast, 1.5 mm axial sections acquired from the aortic arch to the [place] of [place]. Coronal 3-D maximum intensity projection (MIP) and/or volume rendering ref ormats were then performed. For radiation dose reduction, the following was used: automated exposur e control, adjustment of mA and/or kV according to patient size. COMPARISON: Prior neck CT angiogram studies, 08/09/2021 and 08/27/2021. Correlation is also made with the accompanying head CT angiogram, 08/28/2021. FINDINGS: Image quality: Excellent. Carotid system: The great vessels demonstrate a conventional anatomy as they arise from the aortic a rch. The origins of the common carotid arteries appear patent, although dense atherosclerotic calcif ication and irregularity can be seen, with approximately 50% narrowing involving the origin of the le ft common carotid artery and proximal 80% narrowing involving the innominate origin. The common mcl[place] tid arteries demonstrate normal calibers and courses. The bifurcation regions demonstrate atherosclerotic calcification and irregularity, with approximatel y 70% narrowing involving the left proximal internal carotid artery. Within the right proximal financial services intern al carotid artery, there is hard and soft plaque seen, with approximately 60% narrowing involving the origin of the right internal carotid artery. Within the more distal internal carotid arteries, atherosclerotic calcification and irregularity can be seen, including approximately 50% narrowing involving the distal extracranial right internal carot id artery, with hard and soft plaque. Posterior circulation: The origins of the vertebral arteries appear patent. Several areas of atheros clerotic irregularity and calcification can be seen involving the vertebral arteries, with areas of a pproximately 50% narrowing. Within the right V4 segment, there is an area of 60-70% narrowing. Soft t issues: Visualized neck soft tissues demonstrate no suspicious abnormalities. The thyroid is normal in size and there are no incidental findings. Bones: No suspicious bony lesions. Visualized cervical spine appears normally aligned. Moderate c ervical spine degenerative changes are seen. IMPRESSION: Extensive atherosclerotic calcification and irregularity can be seen, with a stenoses not significant ly changed compared to the angiogram CT study performed on the prior day. The estimate of stenosis included in the report of the imaging study was calculated using the NASCET method Reviewed by: Rangel Menard MD on 08/28/2021 3:32 PM GORDY Approved by: Rangel Menard MD on 08/28/2021 3:32 PM GORDY Station ID: [id number]
[2021-08-28] MEDS: ATORVASTATIN 10 MG TABLET PO SCH (20:08)
[2021-08-29] MEDS: ACETAMINOPHEN 325 MG TABLET PO PRN ×2 (01:27→06:11)
[2021-08-29] MEDS: SODIUM CHLORIDE FLUSH 0.9% 10 ML SYRINGE IVP SCH ×3 (01:28→21:06)
[2021-08-29] MEDS: LOSARTAN 50 MG TABLET PO SCH (09:07)
[2021-08-29] MEDS: ASPIRIN CHEW 81 MG TABLET PO SCH (09:07)
--- NOTE | 2021-08-29 11:42 | PROVIDER PROGRESS NOTE ---
Assessment/Plan - Problem List (1) Acute CVA (cerebrovascular accident) Assessment/Plan: A neuro check at 0900 showed trivial left arm weakness and facial symmetry, which was similar to her neuro check last night. At 1130 the son noticed the patient had slurred speech and left arm weakness. The RN was told about this and did a neuro check and confirmed that she has significant left arm weakness compared to 0900. I went to assess the patient at 1145. At that time she had very garbled/slurred speech. She was trying to swallow peas for lunch and could not accomplish this. Her airway was protected, however. There was a facial droop on the right. The left arm had 1/5 strength and left leg had 1/5 strength but there was pain in the low back so she would not raise her leg. The patient was admitted to Inpatient status. Head CT was done stat that showed no bleeding and no other acute findings. Neurology at [facility] was called. The case was reviewed with Dr. Whiteside. He requested a stat head CTA and neck CTA. These tests were ordered and done. At 1500 Dr[address] Whiteside and I again spoke and we discussed that there was no large vessel occlusion seen on the new CTA head and CTA neck. The patient's neuro status was the same with deficits continuing. Dr. Whiteside felt the patient should be transferred because of the findings on the MRI from 2 weeks ago showing subacute infarcts in multiple vascular distribu tions, this is suggesting a shower of emboli. I reported that we have no Echo service whatsoever here now and never have CODEY available, in order to do a complete work-up for cardiac source of embolus with Cardiology involvement. Dr. Whiteside agreed she needs to be transferred but not emergently, will not get interventional radiology. I spoke to the Hospitalist at [facility], Dr. Taylor, who agreed to accept this patient on the Hospitalist service at [facility]. An ambulance was arranged for. I turned over the case to the nighttime hospitalist here, expecting the patient to be discharged/transferred tonight. CRITICAL CARE TIME SPENT: 3 HOURS (on multiple phone calls with the Transfer center at [facility], multiple phone calls with Dr. Whiteside, placing new orders, rech екатерина of the patient several times between noon and 6:30 PM, updating the patient and the son at bedside) 2) Paroxysmal A. fib. Patient has a history of this. She was put on Eliquis before this admission. Dr. Champagne recommended we stop the Eliquis now, in order to decrease the chance of having hemorrhagic transformation of this acute stroke. He agrees with continuing her antiplatelet agent, using 1 baby aspirin daily. 3) AAA This incidental finding, found 2 recent admissions ago, was also discussed with Dr. Whiteside. He asked that we get input from vascular surgery regarding proper antiplatelet versus anticoagulant use. I reported that we have no vascular surgeons here. Dr. Whiteside agreed that the patient needs transfer in order to get multiple specialists involved in her case. 4) Hypothyroidism Her TSH was repeated today and is still very elevated at 16.5. She will get a dose of IV Synthroid today, 150 mcg x 1 today, no po Synthoid today. In 5 days she can have resumption of oral Synthroid, the dose will be increased however. 5) Hypertension The patient has a Hx of high blood pressure. The son reported that it is very high when she drinks a lot of caffeine and smokes. Will allow permissive hypertension but not greater than 200 systolic. 6) Chronic low back pain A lidocaine patch will be ordered. 7) Macrocytic anemia B12 and folate levels will be checked and replaced if low. 8) History of CAD Patient cannot give details regarding any past work-up. At admission she told me she stopped her aspirin on her own years ago.. 9) Depression At the last recent admission, she told her nurse that she had "nothing to live for" and was seen by social work for [facility] and they had impression that she had mild chronic depression, she is not on any medications for this. - Current Meds Current Meds: Current Medications Generic Name Dose Route Start Last Admin Trade Name Genq PRN Reason Stop Dose Admin Acetaminophen 650 mg 08/27/21 10:50 08/29/21 06:11 Acetaminophen 325 Mg Tablet PO 650 mg Q4HR PRN Administration Pain 1 to 4, or Fever Aspirin 81 mg 08/28/21 09:00 08/29/21 09:07 Aspirin Chew 81 Mg Tablet PO 81 mg DAILY DELPHINE Administration Atorvastatin Calcium 10 mg 08/27/21 21:00 08/28/21 20:08 Atorvastatin 10 Mg Tablet PO 10 mg QPM DELPHINE Administration Losartan Potassium 50 mg 08/27/21 12:00 08/29/21 09:07 Losartan 50 Mg Tablet PO 50 mg 0900 DELPHINE Administration Multivitamins/Minerals 1 tab 08/28/21 12:00 08/28/21 12:09 Multivitamin W/Minerals Tablet PO 1 tab QDLUNCH DELPHINE Administration Ondansetron HCl 4 mg 08/27/21 10:50 08/27/21 22:57 Ondansetron 4 Mg/2 Ml Vial IVP 4 mg Q6HR PRN Administration Nausea / Vomiting Sodium Chloride 10 ml 08/27/21 10:50 08/27/21 22:58 Sodium Chloride Flush 0.9% 10 Ml Syringe IVP 10 ml PRN PRN Administration NEEDED PER PROVIDER ORDERS Sodium Chloride 10 ml 08/27/21 17:00 08/29/21 09:07 Sodium Chloride Flush 0.9% 10 Ml Syringe IVP 10 ml 0100,0900,1700 DELPHINE Administration - Lab Result Fish Bone Diagrams: 08/27/21 06:18 08/27/21 06:18 - Additional Planning My Orders: My Active Orders 08/28/21 12:00 Multivitamin W/Minerals [Theragran M] 1 tab PO QDLUNCH 08/28/21 16:52 Miscellaenous Nursing Order [RC] ONCE 08/28/21 17:34 Miscellaenous Nursing Order [RC] ONCE 08/29/21 Lunch Dysphagia - Puree [DIET] 09/02/21 07:00 Levothyroxine [Synthroid] 150 mcg PO QDAC Subjective - Subjective Patient Reports: Other (At 1130, son at bedside noticed new slurred speech and L arm weak) Objective Vital Signs: Vital Signs - 24 hr 08/28/21 08/28/21 08/28/21 13:00 15:34 20:06 Temperature 36.6 C 37 C 36.4 C L Heart Rate [ 81 73 65 Brachial] Respiratory 16 20 20 Rate Blood Pressure 130/69 146/73 H 139/68 H [Right Brachial artery] O2 Saturation 98 95 98 08/29/21 08/29/21 08/29/21 00:23 05:00 08:52 Temperature 36.9 C 36.9 C 37.0 C Heart Rate [ 68 73 74 Brachial] Respiratory 18 18 16 Rate Blood Pressure 155/79 H 150/67 H 134/70 H [Right Brachial artery] O2 Saturation 94 94 96 Oxygen O2 Source Room air I&O (Last 24 Hrs): Intake and Output Totals x24h 08/27/21 08/28/21 08/29/21 23:59 23:59 23:59 Intake Total 1490 1220 645 Output Total 250 1750 1500 Balance 1240 -530 -855 General: Alert, Moderate distress HEENT: Mucous membr. moist/pink, Other (Cannot swallow her peas (for lunch)) Neck: Supple Neuro: Other (Has facial droop, very slurred and garbled speech, orientation not assessed, left arm 0/5, left leg unable to assess due to pain and low back, normal sensation in left arm and left leg.) Cardiovascular: No murmurs Respiratory: No respiratory distress, Breath sounds nml Abdomen: Normal bowel sounds, Soft, No tenderness Extremities: No edema, No tenderness/swelling - Results Results: Laboratory Results WBC 7.3 x10^3/uL (4.8-10.8) 08/27/21 06:18 RBC 3.68 10^6/uL (4.20-5.40) L 08/27/21 06:18 Hgb 12.6 g/dL (12.0-16.0) 08/27/21 06:18 Hct 36.9 % (37.0-47.0) L 08/27/21 06:18 MCV 100.3 fL (81.0-99.0) H 08/27/21 06:18 MCH 34.2 pg (27.0-31.0) H 08/27/21 06:18 MCHC 34.1 g/dL (32.0-36.0) 08/27/21 06:18 RDW 15.0 % (12.0-15.0) 08/27/21 06:18 Plt Count 353 10^3/uL (130-450) 08/27/21 06:18 MPV 11.6 fL (7.9-10.8) H 08/27/21 06:18 Neut # (Auto) 5.2 10^3/uL (1.5-6.6) 08/27/21 06:18 Lymph # (Auto) 1.5 10^3/uL (1.5-3.5) 08/27/21 06:18 [place] # (Auto) 0.4 10^3/uL (0.0-1.0) 08/27/21 06:18 Eos # (Auto) 0.2 10^3/uL (0.0-0.7) 08/27/21 06:18 Baso # (Auto) 0.1 10^3/uL (0.0-0.1) 08/27/21 06:18 Absolute Nucleated RBC 0.00 x10^3/uL 08/27/21 06:18 Nucleated RBC % 0.0 /100WBC 08/27/21 06:18 PT 15.7 secs (9.9-12.6) H 08/28/21 05:17 INR 1.4 (0.8-1.2) H 08/28/21 05:17 APTT 32.0 secs (24.9-33.3) 08/27/21 06:18 Sodium 135 mmol/L (135-145) 08/27/21 06:18 Potassium 3.8 mmol/L (3.5-5.0) 08/27/21 06:18 Chloride 102 mmol/L (101-111) 08/27/21 06:18 Carbon Dioxide 23 mmol/L (21-32) 08/27/21 06:18 Anion Gap 10.0 (6-13) 08/27/21 06:18 BUN 19 mg/dL (6-20) 08/27/21 06:18 Creatinine 1.0 mg/dL (0.4-1.0) 08/27/21 06:18 Estimated GFR (MDRD) 54 (>89) L 08/27/21 06:18 Glucose 123 mg/dL (70-100) H 08/27/21 06:18 Calcium 9.7 mg/dL (8.5-10.3) 08/27/21 06:18 Total Bilirubin 0.8 mg/dL (0.2-1.0) 08/27/21 06:18 AST 16 IU/L (10-42) 08/27/21 06:18 ALT 13 IU/L (10-60) 08/27/21 06:18 Alkaline Phosphatase 52 IU/L (42-121) 08/27/21 06:18 Troponin I High Sens 26.1 ng/L (2.3-14.8) H* 08/27/21 06:18 Total Protein 7.3 g/dL (6.7-8.2) 08/27/21 06:18 Albumin 3.9 g/dL (3.2-5.5) 08/27/21 06:18 Globulin 3.4 g/dL (2.1-4.2) 08/27/21 06:18 Albumin/Globulin Ratio 1.1 (1.0-2.2) 08/27/21 06:18 Triglycerides 127 mg/dL (-149) 08/28/21 05:17 Cholesterol 148 mg/dL (-199) 08/28/21 05:17 LDL Cholesterol, Calc 76 mg/dL (-129) 08/28/21 05:17 VLDL Cholesterol 25 mg/dL 08/28/21 05:17 HDL Cholesterol 47 mg/dL (60-) L 08/28/21 05:17 LDL/HDL Ratio 1.6 (<4.4) 08/28/21 05:17 Cholesterol/HDL Ratio 3.1 (<4.4) 08/28/21 05:17 Lipase 48 U/L (22-51) 08/27/21 06:18 Vitamin B12 278 pg/mL (180-914) 08/28/21 05:17 Folate 14.03 ng/mL (5.90 - >24.8) 08/28/21 05:17 TSH 16.72 uIU/mL (0.34-5.60) H 08/28/21 05:17 SARS-CoV-2 (PCR) NOT DETECTED 08/27/21 09:15 - Procedures Procedures: Procedures RELEASE MEDIAN NERVE, OPEN APPROACH (02/26/17)
[2021-08-29] MEDS: MULTIVITAMIN W/MINERALS TABLET PO SCH (12:53)
[2021-08-29] MEDS ORDERED: ZINC OXIDE 20% OINT 30 GM TUBE TOP PRN (18:30)
[2021-08-29] MEDS: ATORVASTATIN 10 MG TABLET PO SCH (21:06)
[2021-08-30] MEDS: SODIUM CHLORIDE FLUSH 0.9% 10 ML SYRINGE IVP SCH ×2 (03:45→08:41)
[2021-08-30] MEDS: ACETAMINOPHEN 325 MG TABLET PO PRN (03:45)
[2021-08-30 05:21] LABS: ALBUMIN 3.6 g/dL (3.2-5.5); ALBUMIN/GLOBULIN RATIO 1.1 (1.0-2.2); BILIRUBIN,TOTAL 0.9 mg/dL (0.2-1.0); CALCIUM 9.4 mg/dL (8.5-10.3); POTASSIUM 4.1 mmol/L (3.5-5.0); TOTAL PROTEIN 6.8 g/dL (6.7-8.2)
[2021-08-30 05:27] LABS: BASOPHILS # (AUTO) 0.1 10^3/uL (0.0-0.1); BASOPHILS % (AUTO) 1.1 %; EOSINOPHILS # (AUTO) 0.2 10^3/uL (0.0-0.7); EOSINOPHILS % (AUTO) 3.4 %; HCT - HEMATOCRIT 36.8 % (37.0-47.0); HGB - HEMOGLOBIN 12.1 g/dL (12.0-16.0); LYMPHOCYTES # (AUTO) 1.6 10^3/uL (1.5-3.5); MEAN CORPUSCULAR HEMOGLOBIN 32.1 pg (27.0-31.0); MEAN CORPUSCULAR HGB CONC 32.9 g/dL (32.0-36.0); MEAN CORPUSCULAR VOLUME 97.6 fL (81.0-99.0); MEAN PLATELET VOLUME 11.9 fL (7.9-10.8); MONOCYTES # (AUTO) 0.5 10^3/uL (0.0-1.0); MONOCYTES % (AUTO) 6.6 %; NEUTROPHILS # (AUTO) 4.7 10^3/uL (1.5-6.6); NEUTROPHILS % (AUTO) 65.8 %; PLT - PLATELET COUNT 352 10^3/uL (130-450); RED BLOOD COUNT 3.77 10^6/uL (4.20-5.40); RED CELL DISTRIBUTION WIDTH 14.8 % (12.0-15.0); WHITE BLOOD COUNT 7.1 x10^3/uL (4.8-10.8)
[2021-08-30 07:35] VITALS: BP 184/75
[2021-08-30] MEDS: LOSARTAN 50 MG TABLET PO SCH (08:41)
[2021-08-30] MEDS: ASPIRIN CHEW 81 MG TABLET PO SCH (08:41)
[2021-08-30] MEDS ORDERED: HYDROcod/ACETAM 5/325 MG TABLET PO STA (08:51)
[2021-08-30] MEDS ORDERED: polyethylene glycoL 3350 17 GM PACKET PO SCH (09:00)
--- NOTE | 2021-08-30 09:24 | PROVIDER PROGRESS NOTE ---
Assessment/Plan - Problem List (1) Acute CVA (cerebrovascular accident) Assessment/Plan: (1) Acute CVA (cerebrovascular accident) Yesterday she had an acute CVA: A neuro check at 0900 showed trivial left arm weakness and facial symmetry, which was similar to her neuro check the previous night. At 1130 a.m. yesterday, the son noticed the patient had slurred speech and left arm weakness. I went to assess the patient and at that time she had very garbled/slurred speech. There was a facial droop on the right. The left arm had 1/5 strength and left leg had 1/5 strength but there was pain in the low back so she would not raise her leg. The patient was then admitted to Inpatient status. Head CT was done stat that showed no bleeding and no other acute findings. Neurology at [facility] was called. The case was reviewed with Dr. Whiteside. He requested a stat head CTA and neck CTA. These tests were ordered and done. At [address] Whiteside and I again spoke and we discussed that there was no large vessel occlusion seen on the new CTA head and CTA neck. The patient's neuro status was the same with deficits continuing. Dr. Whiteside felt the patient should be transferred because of the findings on the MRI from 2 weeks ago showing subacute infarcts in multiple vascular distributions, this is suggesting a shower of emboli. I reported that we have no Echo service whatsoever here now and never have CODEY available, in order to do a complete work-up for cardiac source of embolus with Cardiology involvement. Dr. Whiteside agreed she needs to be transferred but not emergently, as she will not get interventional radiology. I then spoke to the Hospitalist at [facility], Dr. Taylor, who agreed to accept this patient on the Hospitalist service at [facility]. An ambulance was arranged for but she was not transferred due to no open beds at the [facility] today. 2) Paroxysmal A. fib. Patient has a history of paroxysmal Afib. She was put on Eliquis before this admission. Dr. Whiteside recommended yesterday that we stop the Eliquis now, in order to decrease the chance of having hemorrhagic transformation of this acute stroke. He agreed with continuing her antiplatelet agent, using 1 baby aspirin daily. 3) AAA This incidental finding, found 2 recent admissions ago, was also discussed with Dr. Whiteside. He asked that we get input from vascular surgery regarding proper antiplatelet versus anticoagulant use. I reported that we have no vascular surgeons here. Dr. Whiteside agreed that the patient needs transfer in order to get multiple specialists involved in her case. 4) Hypothyroidism Her TSH was repeated and is still very elevated at 16.5. She got a dose of IV Synthroid 150 mcg x 1 and po Synthoid is on hold. In 5 days after the iv Synthroid she can have resumption of oral Synthroid, the dose will be increased however. 5) Hypertension The patient has a Hx of high blood pressure. The son reported that it is very high when she drinks a lot of caffeine and smokes. Will allow permissive hypertension but not greater than 200 systolic. 6) Chronic low back pain A lidocaine patch was ordered and has controlled that pain. 7) Macrocytic anemia B12 and folate levels were checked and are normal. 8) History of CAD Patient cannot give details regarding any past work-up. At admission she told me she stopped her aspirin on her own years ago.. 9) Depression At the last recent admission, she told her nurse that she had "nothing to live for" and was seen by [facility] and they had impression that she had mild chronic depression, she is not on any medications for this. - Current Meds Current Meds: Current Medications Generic Name Dose Route Start Last Admin Trade Name Melvin PRN Reason Stop Dose Admin Acetaminophen 650 mg 08/27/21 10:50 08/30/21 03:45 Acetaminophen 325 Mg Tablet PO 650 mg Q4HR PRN Administration Pain 1 to 4, or Fever Aspirin 81 mg 08/28/21 09:00 08/30/21 08:41 Aspirin Chew 81 Mg Tablet PO 81 mg DAILY DELPHINE Administration Atorvastatin Calcium 10 mg 08/27/21 21:00 08/29/21 21:06 Atorvastatin 10 Mg Tablet PO 10 mg QPM DELPHINE Administration Losartan Potassium 50 mg 08/27/21 12:00 08/30/21 08:41 Losartan 50 Mg Tablet PO 50 mg 0900 DELPHINE Administration Multivitamins/Minerals 1 tab 08/28/21 12:00 08/29/21 12:53 Multivitamin W/Minerals Tablet PO 1 tab QDLUNCH DELPHINE Administration Ondansetron HCl 4 mg 08/27/21 10:50 08/27/21 22:57 Ondansetron 4 Mg/2 Ml Vial IVP 4 mg Q6HR PRN Administration Nausea / Vomiting Polyethylene Glycol 17 gm 08/30/21 09:00 08/30/21 08:41 Polyethylene Glycol 3350 17 Gm Packet PO Not Given DAILY [facility] Sodium Chloride 10 ml 08/27/21 10:50 08/27/21 22:58 Sodium Chloride Flush 0.9% 10 Ml Syringe IVP 10 ml PRN PRN Administration NEEDED PER PROVIDER ORDERS Sodium Chloride 10 ml 08/27/21 17:00 08/30/21 08:41 Sodium Chloride Flush 0.9% 10 Ml Syringe IVP 10 ml 0100,0900,1700 [facility] Administration - Lab Result Fish Bone Diagrams: 08/30/21 04:42 08/30/21 04:42 - Additional Planning My Orders: My Active Orders 08/29/21 Lunch Dysphagia - Puree [DIET] 08/29/21 17:00 Telemetry- [RC] Q4HR 08/29/21 18:30 Zinc Oxide 20% Oint [Zinc Oxide] 1 applic TOP PRN PRN 08/30/21 09:00 polyethylene glycoL 3350 [Miralax] 17 gm PO DAILY 09/02/21 07:00 Levothyroxine [Synthroid] 150 mcg PO QDAC Subjective - Subjective Patient Reports: Resting Comfortably, Other (Speech is better, unchanged weakness of L arm. Has pain in L anterior hollis.) Objective Vital Signs: Vital Signs - 24 hr 08/29/21 08/29/21 08/29/21 13:00 16:01 17:23 Temperature 37.1 C 36.7 C Heart Rate [ 69 61 74 Brachial] Respiratory 14 24 Rate Blood Pressure [Left Brachial artery] Blood Pressure 145/81 H 150/95 H 136/73 H [Right Brachial artery] O2 Saturation 94 97 08/29/21 08/29/21 08/30/21 20:14 23:56 05:44 Temperature 36.4 C L 36.9 C 37 C Heart Rate [ 72 82 80 Brachial] Respiratory 24 18 20 Rate Blood Pressure [Left Brachial artery] Blood Pressure 146/76 H 151/58 H 151/86 H [Right Brachial artery] O2 Saturation 97 96 98 08/30/21 07:34 Temperature 36.7 C Heart Rate [ 69 Brachial] Respiratory 18 Rate Blood Pressure 155/83 H [Left Brachial artery] Blood Pressure 184/75 H [Right Brachial artery] O2 Saturation 98 Oxygen O2 Source Room air I&O (Last 24 Hrs): Intake and Output Totals x24h 08/28/21 08/29/21 08/30/21 23:59 23:59 23:59 Intake Total 1220 1395 710 Output Total 1750 2950 200 Balance -530 -1555 510 General: Alert, Oriented x3, Other (Appears very fatigued) HEENT: Mucous membr. moist/pink Neck: Supple Neuro: Alert, Other (L arm 0/5, L leg 0/5, slow speech and short phrases but not slurred, sensation normal in L arm and L leg) Cardiovascular: Regular rate, No murmurs Respiratory: No respiratory distress, Breath sounds nml Abdomen: Normal bowel sounds, Soft Extremities: No clubbing, No edema, No tenderness/swelling (No L calf or hollis tenderness, neg Preston's sign) - Results Results: Laboratory Results WBC 7.1 x10^3/uL (4.8-10.8) 08/30/21 04:42 RBC 3.77 10^6/uL (4.20-5.40) L 08/30/21 04:42 Hgb 12.1 g/dL (12.0-16.0) 08/30/21 04:42 Hct 36.8 % (37.0-47.0) L 08/30/21 04:42 MCV 97.6 fL (81.0-99.0) 08/30/21 04:42 MCH 32.1 pg (27.0-31.0) H 08/30/21 04:42 MCHC 32.9 g/dL (32.0-36.0) 08/30/21 04:42 RDW 14.8 % (12.0-15.0) 08/30/21 04:42 Plt Count 352 10^3/uL (130-450) 08/30/21 04:42 MPV 11.9 fL (7.9-10.8) H 08/30/21 04:42 Neut # (Auto) 4.7 10^3/uL (1.5-6.6) 08/30/21 04:42 Lymph # (Auto) 1.6 10^3/uL (1.5-3.5) 08/30/21 04:42 [place] # (Auto) 0.5 10^3/uL (0.0-1.0) 08/30/21 04:42 Eos # (Auto) 0.2 10^3/uL (0.0-0.7) 08/30/21 04:42 Baso # (Auto) 0.1 10^3/uL (0.0-0.1) 08/30/21 04:42 Absolute Nucleated RBC 0.00 x10^3/uL 08/30/21 04:42 Nucleated RBC % 0.0 /100WBC 08/30/21 04:42 PT 15.7 secs (9.9-12.6) H 08/28/21 05:17 INR 1.4 (0.8-1.2) H 08/28/21 05:17 APTT 32.0 secs (24.9-33.3) 08/27/21 06:18 Sodium 136 mmol/L (135-145) 08/30/21 04:42 Potassium 4.1 mmol/L (3.5-5.0) 08/30/21 04:42 Chloride 102 mmol/L (101-111) 08/30/21 04:42 Carbon Dioxide 24 mmol/L (21-32) 08/30/21 04:42 Anion Gap 10.0 (6-13) 08/30/21 04:42 BUN 12 mg/dL (6-20) 08/30/21 04:42 Creatinine 1.0 mg/dL (0.4-1.0) 08/30/21 04:42 Estimated GFR (MDRD) 54 (>89) L 08/30/21 04:42 Glucose 116 mg/dL (70-100) H 08/30/21 04:42 Calcium 9.4 mg/dL (8.5-10.3) 08/30/21 04:42 Total Bilirubin 0.9 mg/dL (0.2-1.0) 08/30/21 04:42 AST 16 IU/L (10-42) 08/30/21 04:42 ALT 12 IU/L (10-60) 08/30/21 04:42 Alkaline Phosphatase 45 IU/L (42-121) 08/30/21 04:42 Troponin I High Sens 26.1 ng/L (2.3-14.8) H* 08/27/21 06:18 Total Protein 6.8 g/dL (6.7-8.2) 08/30/21 04:42 Albumin 3.6 g/dL (3.2-5.5) 08/30/21 04:42 Globulin 3.2 g/dL (2.1-4.2) 08/30/21 04:42 Albumin/Globulin Ratio 1.1 (1.0-2.2) 08/30/21 04:42 Triglycerides 127 mg/dL (-149) 08/28/21 05:17 Cholesterol 148 mg/dL (-199) 08/28/21 05:17 LDL Cholesterol, Calc 76 mg/dL (-129) 08/28/21 05:17 VLDL Cholesterol 25 mg/dL 08/28/21 05:17 HDL Cholesterol 47 mg/dL (60-) L 08/28/21 05:17 LDL/HDL Ratio 1.6 (<4.4) 08/28/21 05:17 Cholesterol/HDL Ratio 3.1 (<4.4) 08/28/21 05:17 Lipase 48 U/L (22-51) 08/27/21 06:18 Vitamin B12 278 pg/mL (180-914) 08/28/21 05:17 Folate 14.03 ng/mL (5.90 - >24.8) 08/28/21 05:17 TSH 16.72 uIU/mL (0.34-5.60) H 08/28/21 05:17 SARS-CoV-2 (PCR) NOT DETECTED 08/27/21 09:15 - Procedures Procedures: Procedures RELEASE MEDIAN NERVE, OPEN APPROACH (02/26/17)
--- NOTE | 2021-08-30 12:27 | Discharge Plan ---
Discharge Plan Problem Reviewed?: Yes Disposition: 02 Transfer Acute Care Hosp Condition: Poor No Smoking: If you smoke, Please STOP! Call for help.
--- NOTE | 2021-08-30 12:32 | DISCHARGE SUMMARY ---
Discharge Summary Admit Date: 08/27/21 Discharge Date: 08/30/21 Discharging Provider: Dr Sendy Martell Primary Care Provider: Dr Efrain Beckham Condition at Discharge: Poor Discharge Disposition: 02 Transfer Acute Care Hosp - [facility] History of Present Illness: This is a 75-year-old white female with a history of hypertension, stroke 2 years ago, CAD, macrocytic anemia, hypothyroidism who presents to the emergency room today for the third time in 1 month. She was hospitalized here from 08/07/2021 to 08/08/2021 for nausea and vomiting causing dehydration and dizziness which improved with iv hydration an Cy maneuver done here x2. Incidental findings were findings of an abdominal aortic aneurysm measuring 5.2 cm, undertreated hypothyroidism with a TSH of 14.5 and paroxysmal Afib was documented. A limited bediside Echo was done on 08/07 and showed a moderate pericardial effusion, probably due to myxedema. She was seen by Social Work and felt to have mild depression. She was sent home on ASA but advised to see her PCP for possible anticoagulant start given her paroxysmal Afib and for referral for AAA management. She was started on Eliquis as an outpatient then. She was then admitted from 08/09/2021 to 08/11/2021 with stroke-like symptoms of slurred speech and weakness. She underwent head and neck CTA, head CT and brain MRI. The CT scans found moderate stenoses and the findings on MRI showed multiple subacute infarcts. We have no Echo service available to perform a complete Echo exam or do a CODEY to look for cardiac source of embolus. Her neurodeficits resolved back to their baseline (which is chronic L arm strength 4/5). She was discharged home, she was to be on Eliquis and told to have follow-up with her PCP. She was then seen somewhere by a specialist for her AAA. The patient awoke today and the son noticed that she had facial droop, and left arm worsening weakness and c/o new sensation deficit in the left arm and leg and she was brought to the ED. By the time she was in the ED, her facial droop had improved, her sensory deficit was improving and strength of the left arm was improving. By the time I saw her, the sensory deficits of the left arm and leg had resolved completely, her facial droop was gone, there was no slurred speech, and she had 4/5 strength of the left arm. The patient is being placed in Observation for further neuro checks, repeat CT imaging without contrast would be done if she has new neurologic symptoms or headache or worsening vital signs, as were recommended by the Neurologist who spoke to our ED provider today. At the last recent admission, the patient changed her CODE BLUE wishes from DNR to Full Code. - HOSPITAL COURSE Hospital Course: (1) Acute CVA (cerebrovascular accident) On the next morning she had sudden neuro deficit with very garbled/slurred speech, facial droop, the left arm had 1/5 strength and left leg had 1/5 strength. The patient was then admitted from Observation to Inpatient status. Head CT was done stat that showed no bleeding and no other acute findings. Neurology at [facility] was called and the case was reviewed with Dr. Whiteside on multiple phone calls. He requested a stat head CTA and neck CTA which showed no large vessel occlusion, and was similar to the last CTA head and CTA neck. The patient's neuro deficits continued and Dr. Whiteside felt the patient should be transferred because of the findings on the MRI from 2 weeks previously showing subacute infarcts in multiple vascular distributions, suggesting a shower of emboli. We have no Echo service whatsoever here now and never have CODEY available, in order to do a complete work-up for cardiac source of embolus with Cardiology and Neurology involvement. The Hospitalist at [facility] accepted the patient in transfer, however there were no beds available there for 2 days, at which time she was transferred there by ambulance. Unfortunately, her neuro deficits remained. 2) Paroxysmal A. fib. Patient has a history of paroxysmal Afib. She was put on Eliquis before this admission. Dr. Whiteside recommended that we stop the Eliquis, in order to decrease the chance of having hemorrhagic transformation of this acute stroke. He agreed with continuing her antiplatelet agent, using 1 baby aspirin daily. 3) AAA This incidental finding, found 2 recent admissions ago, was also discussed with Dr. Whiteside. He asked that we get input from vascular surgery regarding proper antiplatelet versus anticoagulant use. I reported that we have no vascular surgeons here. Dr. Whiteside agreed that the patient needs transfer in order to get multiple specialists involved in her case. 4) Hypothyroidism Her TSH was repeated and was still very elevated at 16.5. She got a dose of IV Synthroid 150 mcg x 1 and po Synthoid was to resume 5 days later. 5) Hypertension The patient has a Hx of high blood pressure. The son reported that it is very high because she drinks a lot of caffeine and smokes alot. We allowed permissive hypertension but not greater than 200 systolic. 6) Chronic low back pain A lidocaine patch was ordered and this controlled her pain. 7) Macrocytic anemia Hgb ran 12.5. Her B12 and folate levels were checked and were normal. 8) History of CAD Patient knew no details regarding any past work-up. At admission she told me she stopped her aspirin on her own years ago. Here she was on aspirin and a statin. 9) Depression At the last recent admission, she told her nurse that she had "nothing to live for" and was seen by social work for mental health evaluation then, and they had impression that she had mild chronic depression, but she is not on any medications for this. - ALLERGIES Allergies/Adverse Reactions: Allergies Allergy/AdvReac Type Severity Reaction Status Date / Time milk AdvReac Mild Cramps Verified 08/27/21 06:01 - MEDICATIONS Home Medications: Ambulatory Orders Medication Instructions Recorded Confirmed Rosuvastatin Calcium [Crestor] 5 mg PO DAILY 08/07/21 08/27/21 Levothyroxine Sodium 100 mcg PO DAILY #30 cap 08/08/21 08/27/21 [Levothyroxine] Losartan [Cozaar] 50 mg PO 0900 #30 tablet 08/08/21 08/27/21 Multivitamin W/Minerals [Theragran 1 tab PO QDLUNCH #30 tablet 08/08/21 08/27/21 M] Apixaban [Eliquis] 5 mg PO BID 08/27/21 08/27/21 Aspirin Chewable [St Ab 81 mg PO DAILY 08/27/21 08/27/21 Aspirin] Potassium Chloride 10 meq PO DAILY 08/27/21 08/27/21 - PHYSICAL EXAM AT DISCHARGE General Appearance: positive: No acute distress, Alert, Lethargic, Other (Disheveled.) Eyes Bilateral: positive: Normal inspection, EOMI ENT: positive: ENT inspection nml, No signs of dehydration, Other (slight facial droop) Neck: positive: Nml inspection, Thyroid nml, No JVD Respiratory: positive: No respiratory distress, Breath sounds nml Cardiovascular: positive: No murmur, Irregularly irregular Abdomen: positive: Non-tender, Nml bowel sounds, No distention Skin: positive: Warm, Dry Extremities: positive: Non-tender, No pedal edema Neurologic/Psychiatric: positive: Other (L arm 0/5 strength, L leg 1/5 strength, normal sensory exam, speaks in short sentences without slurring, but has word- finding difficulty) Babinski Reflex: Left: Absent - LABS Result Diagrams: 08/30/21 04:42 08/30/21 04:42 - DIAGNOSTIC IMAGING Diagnostic Imaging Results: Final report reviewed - FOLLOW UP Follow Up: F/U will be determined after her hospitalization at [facility]. - TIME SPENT Time Spent in Discharge (Minutes): 60
[2021-09-02] MEDS ORDERED: LEVOTHYROXINE 75 MCG TABLET PO SCH (07:00)
== END 2021-08-30 11:41 | disposition short-term general hospital (02) | DRG 65 ==
LOC: EDUNIT# → ED 05:41 → SUATTDRO 05:41 → MS2 10:50 → OBSVTOIN 08-28 12:08
PROVIDERS: ADMIT Internal Medicine; ATTEND Internal Medicine
DX: I63.9 Cerebral infarction, unspecified (principal); G83.24 Monoplegia of upper limb affecting left nondominant side; I63.89 Other cerebral infarction; G81.94 Hemiplegia, unspecified affecting left nondominant side; R29.705 NIHSS score 5; Z20.822 Contact with and (suspected) exposure to COVID-19; R47.81 Slurred speech; R29.810 Facial weakness; I11.0 Hypertensive heart disease with heart failure; I50.9 Heart failure, unspecified; M54.50 Low back pain, unspecified; G89.29 Other chronic pain; I48.0 Paroxysmal atrial fibrillation; I71.4 Abdominal aortic aneurysm, without rupture; E03.9 Hypothyroidism, unspecified; D53.9 Nutritional anemia, unspecified; I25.10 Atherosclerotic heart disease of native coronary artery without angina pectoris; F32.A Depression, unspecified; E78.00 Pure hypercholesterolemia, unspecified; R13.10 Dysphagia, unspecified; Z79.01 Long term (current) use of anticoagulants; Z79.82 Long term (current) use of aspirin; Z87.891 Personal history of nicotine dependence
CPT/HCPCS: 36415; 70450; 70496; 70498; 71045; 80053; 80061; 82607; 82746; 83690; 84443; 84484; 85025; 85610; 85730; 87635; 93005; 96374; 96375; 99284; 99285; A9270; G0378; Q9967; 83721

== ENCOUNTER 2021-08-30 11:33 | Outpatient (CLI) | payer MEDICARE, OTHER | END 2021-08-30 11:34 | disposition short-term general hospital (02) | LOC: EMS 11:33 | PROVIDERS: ATTEND Internal Medicine | DX: I69.359 Hemiplegia and hemiparesis following cerebral infarction affecting unspecified side (principal) | CPT/HCPCS: A0425; A0428 ==

== ENCOUNTER 2021-09-15 08:00 | Outpatient (CLI) | payer MEDICARE, OTHER ==
[2021-09-15 17:55] LABS: ALBUMIN 3.6 g/dL (3.2-5.5); BILIRUBIN,TOTAL 0.9 mg/dL (0.2-1.0); CALCIUM 9.5 mg/dL (8.5-10.3); CREATININE 0.8 mg/dL (0.4-1.0); POTASSIUM 4.1 mmol/L (3.5-5.0); TOTAL PROTEIN 7.2 g/dL (6.7-8.2)
[2021-09-15 18:09] LABS: THYROID STIMULATING HORMONE 17.48 uIU/mL (0.34-5.60)
[2021-09-15 18:11] LABS: FREE T4 (FREE THYROXINE) 0.91 ng/dL (0.58-1.64)
[2021-09-15 18:19] LABS: BASOPHILS # (AUTO) 0.1 10^3/uL (0.0-0.1); BASOPHILS % (AUTO) 1.2 %; EOSINOPHILS # (AUTO) 0.4 10^3/uL (0.0-0.7); EOSINOPHILS % (AUTO) 4.5 %; HCT - HEMATOCRIT 37.2 % (37.0-47.0); HGB - HEMOGLOBIN 12.1 g/dL (12.0-16.0); LYMPHOCYTES # (AUTO) 1.6 10^3/uL (1.5-3.5); LYMPHOCYTES % (AUTO) 19.6 %; MEAN CORPUSCULAR HEMOGLOBIN 32.4 pg (27.0-31.0); MEAN CORPUSCULAR HGB CONC 32.5 g/dL (32.0-36.0); MEAN CORPUSCULAR VOLUME 99.5 fL (81.0-99.0); MEAN PLATELET VOLUME 12.5 fL (7.9-10.8); MONOCYTES # (AUTO) 0.5 10^3/uL (0.0-1.0); MONOCYTES % (AUTO) 6.6 %; NEUTROPHILS # (AUTO) 5.6 10^3/uL (1.5-6.6); NEUTROPHILS % (AUTO) 67.7 %; PLT - PLATELET COUNT 329 10^3/uL (130-450); RED BLOOD COUNT 3.74 10^6/uL (4.20-5.40); RED CELL DISTRIBUTION WIDTH 14.4 % (12.0-15.0); WHITE BLOOD COUNT 8.2 x10^3/uL (4.8-10.8)
== END 2021-09-15 23:59 | disposition home or self-care (01) ==
LOC: LAB.R 08:00
PROVIDERS: ATTEND Hospitalist
DX: I63.9 Cerebral infarction, unspecified (principal); E03.9 Hypothyroidism, unspecified; I10 Essential (primary) hypertension
CPT/HCPCS: 80053; 84439; 84443; 85025

== ENCOUNTER 2022-01-31 12:26 | Outpatient (CLI) | payer MEDICARE, OTHER ==
[2022-01-31] MEDS ORDERED: iohexoL-300 100 ML VIAL ONE ×2 (12:45→15:26)
[2022-01-31 12:52] LABS: CREATININE 0.9 mg/dL (0.4-1.0)
[2022-01-31] MEDS ORDERED: iohexoL-300 100 ML VIAL IVP ONE (23:42)
--- NOTE | 2022-02-01 18:00 | CT Report ---
PROCEDURE: ANGIO ABDOMEN/PELVIS W INDICATIONS: AAA CONTRAST: 100ml Omnipaque 300 TECHNIQUE: After the administration of intravenous contrast, 2.5 mm thick sections acquired from the diaphragm t o the symphysis. 10 mm maximum-intensity projection (MIP) reformats were then acquired. For radiati on dose reduction, the following was used: automated exposure control, adjustment of mA and/or kV ac cording to patient size. COMPARISON: CT abdomen pelvis 08/07/2021 FINDINGS: Image quality: Excellent. Aorta: As identified on prior exam, there is an infrarenal abdominal aortic aneurysm, stable in size measuring approximately 5.0 transverse x 4.5 AP cm x 12.5 cm craniocaudal. Atherosclerotic rim calci fications are present. Prominent mural thrombus is present. Mesenteric arteries: Celiac trunk, superior and inferior mesenteric arteries appear patent. Right pelvic arteries: Widely patent without gross aneurysmal dilation. Left pelvic arteries: Widely patent without gross aneurysmal dilation. Extravascular soft tissues: Lung bases are clear. Heart size is enlarged. There is been near comple te interval resolution of previous pericardial effusion. Liver and spleen are normal in size and enha ncement. Gallbladder is unremarkable. Biliary system is non dilated. Pancreas enhances normally. T here is an unchanged appearance of left adrenal gland thickening. Kidneys are normal in size and enha ncement, without hydronephrosis. Non opacified bowel loops are normal in wall thickness and caliber. No free fluid or air. No retroperitoneal or mesenteric adenopathy. No ventral hernias. No suspic ious bony lesions. No vertebral body compression fractures. IMPRESSION: Stable appearance of infrarenal aneurysmal dilation. Reviewed by: Jeanie Nguyen MD on 02/01/2022 5:59 PM PDT Approved by: Jeanie Nguyen MD on 02/01/2022 5:59 PM PDT Station ID: [id number]
== END 2022-01-31 12:27 | disposition home or self-care (01) ==
LOC: LAB 12:26
PROVIDERS: ATTEND Family Medicine
DX: I71.43 Infrarenal abdominal aortic aneurysm, without rupture (principal)
CPT/HCPCS: 36415; 74174; 82565; Q9967

== ENCOUNTER 2022-07-07 12:35 | Outpatient (CLI) | payer MEDICARE, OTHER ==
--- NOTE | 2022-07-07 14:23 | XRAY Report ---
PROCEDURE: Thoracic Spine 2 View INDICATIONS: THORACIC BACK PAIN TECHNIQUE: 2 views of the thoracic spine were acquired. COMPARISON: None. FINDINGS: Bones: No acute fractures or dislocations. Multilevel thoracic spondylitic changes. There is levocu rvature of the thoracic spine. Postsurgical changes of the upper lumbar spine from prior fusion and d iscectomy. No suspicious bony lesions. 12 pairs of ribs are noted, and appear intact where visualize d. Soft tissues: No paravertebral stripe thickening. Visualized portions of the lungs are clear. Dense atherosclerotic calcifications. IMPRESSION: Levocurvature of the thoracic spine. No acute osseous abnormalities. Multilevel thoracic spondylosis. Reviewed by: Joe Albrecht MD on 07/07/2022 2:21 PM PDT Approved by: Joe Albrecht MD on 07/07/2022 2:21 PM PDT Station ID: [id number]
== END 2022-07-07 12:36 | disposition home or self-care (01) ==
LOC: DI 12:35
PROVIDERS: ATTEND Family Medicine
DX: M47.814 Spondylosis without myelopathy or radiculopathy, thoracic region (principal); M41.9 Scoliosis, unspecified

== ENCOUNTER 2022-12-16 12:20 | Outpatient (CLI) | payer MEDICARE | END 2022-12-16 12:21 | disposition critical access hospital (66) | LOC: EMS 12:20 | DX: R29.810 Facial weakness (principal); R53.1 Weakness; R47.81 Slurred speech; R41.0 Disorientation, unspecified | CPT/HCPCS: A0425; A0429 ==

== ENCOUNTER 2022-12-16 12:41 | Inpatient (IN) | payer MEDICARE, OTHER ==
[2022-12-16] MEDS ORDERED: SODIUM CHLORIDE 0.9% 500 ML IV STA (13:03)
--- NOTE | 2022-12-16 13:07 | ED Physician Documentation ---
PD HPI ALTERED MENTAL STATUS - Stated complaint Stated Complaint: ALOC - Chief complaint Chief Complaint: Neuro - History obtained from History obtained from: Patient, Family (Son) - Additional information Additional information: Patient is a 77-year-old female with a history of atrial fibrillation and prior strokes presenting for evaluation of altered mental status noted by her family this morning and abnormal speech. Patient has a history of residual left-sided weakness. Per the son at the bedside she was last seen by family members around 8:00 yesterday. This morning when she woke up she appeared more confused with very difficult to understand speech with a state is new for her. She has been noncompliant with her medications including Coumadin for the past 3 months. Denies any recent illness. Patient is not able to provide much meaningful history. Review of Systems Unable to obtain: Confused PD PAST MEDICAL HISTORY - Past Medical History Cardiovascular: Congestive heart failure, Hypertension, High cholesterol, Coronary artery disease, Deep vein thrombosis, Arrhythmia, Other Respiratory: Shortness of breath Neuro: CVA Endocrine/Autoimmune: None GI: None : None HEENT: Chronic vision loss, Other Psych: Depression, Other Musculoskeletal: Scoliosis, Chronic back pain Derm: None - Past Surgical History Past Surgical History: Yes Ortho: Spine surgery HEENT: Cataracts Derm: Other - Present Medications Home Medications: Ambulatory Orders Medication Instructions Recorded Confirmed Rosuvastatin Calcium [Crestor] 5 mg PO DAILY 08/07/21 08/27/21 Levothyroxine Sodium 100 mcg PO DAILY #30 cap 08/08/21 08/27/21 Losartan [Cozaar] 50 mg PO 0900 #30 tablet 08/08/21 08/27/21 Multivitamin W/Minerals [Theragran 1 tab PO QDLUNCH #30 tablet 08/08/21 08/27/21 M] Apixaban [Eliquis] 5 mg PO BID 08/27/21 08/27/21 Aspirin Chewable [St Ab 81 mg PO DAILY 08/27/21 08/27/21 Aspirin] Potassium Chloride 10 meq PO DAILY 08/27/21 08/27/21 - Allergies Allergies/Adverse Reactions: Allergies Allergy/AdvReac Type Severity Reaction Status Date / Time milk AdvReac Mild Cramps Verified 08/27/21 06:01 - Social History Does the pt smoke?: Yes Smoking Status: Current every day smoker Does the pt drink ETOH?: Yes Does the pt have substance abuse?: No - Immunizations Immunizations are current?: No - POLST Patient has POLST: No POLST Status: DNR PD ED PE NORMAL - General General: No acute distress, Well developed/nourished. No: Alert and oriented X 3 - HEENT HEENT: Atraumatic, PERRL, EOMI, Moist mucous membranes, Pharynx benign - Neck Neck: Supple, no meningeal sign - Cardiac Cardiac: Other (Irregularly irregular) - Respiratory Respiratory: No respiratory distress, Clear bilaterally - Abdomen Abdomen: Soft, Non tender, Non distended - Derm Derm: Warm and dry - Neuro Neuro: No sensory deficit. No: Alert and oriented X 3 (Alert and oriented to person and place), drop wire aliner 2-12 intact (Mild left-sided facial droop), No motor deficit (Left-sided weakness), Normal speech NIHSS - Level of Consciousness Level of consciousness: (0) Alert, Keenly responsive LOC Questions: (1) Answers one Q correctly LOC Commands: (0) Performs both correctly - Gaze Best Gaze: (0) Normal - Visual Visual: (0) No loss - Facial Palsy Facial Palsy: (1) Minor paralysis - Motor Arms (both separate) Motor Arm (right): (0) No drift Motor Arm (left): (3) No effort against gravity - Motor Legs (both separate) Motor Leg (right): (0) No drift Motor Leg (left): (2) Some effort against gravity - Limb Ataxia Limb Ataxia: (1) Present in 1 limb - Sensory Sensory: (0) Normal - Best Language Best Language: (0) No aphasia - Dysarthria Dysarthria: (2) Severe dysarthria - Extinction and Inattention (formally neg Extinction and inattention: (0) No abnormality - Total Score/Results Total Score/Result: 10 Results - Vitals Vitals: Vital Signs - 24 hr 12/16/22 12/16/22 12/16/22 12:47 14:51 15:58 Temperature 36.7 C Heart Rate 74 75 72 Respiratory 20 16 16 Rate Blood Pressure 197/107 H 184/109 H 189/116 H O2 Saturation 97 94 94 Oxygen O2 Source Room air - EKG (time done) 1302 EKG releavant findings:: EKG personally interpreted by author of this note. Relevant findings are: Rate 75, atrial fibrillation, no STEMI Rate: Rate (enter#) (75) Rhythm: Atrial fibrillation Ischemia: No: ST elevation c/w ischemia Compare to prior EKG: Unchanged from prior EKG - Labs Labs: Laboratory Tests 12/16/22 12/16/22 12/16/22 13:00 13:00 13:00 WBC 4.1 L RBC 3.57 L Hgb 12.0 Hct 35.8 L MCV 100.3 H MCH 33.6 H MCHC 33.5 RDW 15.9 H Plt Count 340 MPV 10.7 Neut # (Auto) 2.5 Lymph # (Auto) 1.3 L Crook # (Auto) 0.1 Eos # (Auto) 0.1 Baso # (Auto) 0.1 Absolute Nucleated RBC 0.00 Nucleated RBC % 0.0 PT 11.4 INR 1.0 Sodium 135 Potassium 3.4 L Chloride 98 L Carbon Dioxide 30 Anion Gap 7.0 BUN 16 Creatinine 1.0 Estimated GFR (MDRD) 54 L Glucose 106 H Calcium 10.2 Total Bilirubin 0.8 AST 18 ALT 5 L Alkaline Phosphatase 56 Total Protein 7.8 Albumin 4.5 Globulin 3.3 Albumin/Globulin Ratio 1.4 Lipase 23 Urine Color Urine Clarity Urine pH Ur Specific Ryan Urine Protein Urine Glucose (UA) Urine Ketones Urine Occult Blood Urine Nitrite Urine Bilirubin Urine Urobilinogen Ur Leukocyte Esterase Ur Microscopic Review Urine Culture Comments 12/16/22 13:47 WBC RBC Hgb Hct MCV MCH MCHC RDW Plt Count MPV Neut # (Auto) Lymph # (Auto) Crook # (Auto) Eos # (Auto) Baso # (Auto) Absolute Nucleated RBC Nucleated RBC % PT INR Sodium Potassium Chloride Carbon Dioxide Anion Gap BUN Creatinine Estimated GFR (MDRD) Glucose Calcium Total Bilirubin AST ALT Alkaline Phosphatase Total Protein Albumin Globulin Albumin/Globulin Ratio Lipase Urine Color YELLOW Urine Clarity CLEAR Urine pH 7.0 Ur Specific Ryan 1.010 Urine Protein TRACE Urine Glucose (UA) NEGATIVE Urine Ketones NEGATIVE Urine Occult Blood NEGATIVE Urine Nitrite NEGATIVE Urine Bilirubin NEGATIVE Urine Urobilinogen 0.2 (NORMAL) Ur Leukocyte Esterase NEGATIVE Ur Microscopic Review NOT INDICATED Urine Culture Comments NOT INDICATED PD Medical Decision Making - ED course Complexity details: reviewed results, re-evaluated patient, d/w patient, d/w family ED course: 1625 - D/W Tele stroke. (Dr. Sosa) - Reviewed angio results. No indication for acute intervention given location of vertebral artery. Recommends admission and further work-up for acute CVA. Patient is a 77-year-old female presenting for evaluation of seemingly being altered this morning with abnormal speech. She has a history of prior strokes with residual left-sided weakness that is chronic for her. Son at the bedside states that she was last normal last night around 8 PM and that her speech this morning is severely slurred and not normal for her. Patient is very difficult to understand in regards to her speech. No other acute deficits noted. Stroke work-up initiated. EKG is A-fib but rate controlled. CBC, chemistries were obtained and reviewed and without significant findings. Urine is negative for infection. No pneumonia on chest x-ray. CT head and angios of the head and neck were reviewed. She does have a new occlusion of the right vertebral artery.I did review this with telestroke. Patient is not a candidate for any intervention. She presented outside the window for tPA. Given concerns for new stroke I consulted with hospitalist to admit for further management. Patient did receive aspirin. Departure - Departure Disposition: 66 [facility] DC/Xfer Clinical Impression: Acute CVA (cerebrovascular accident), Atrial fibrillation, Nonadherence to medication, Uncontrolled hypertension Condition: Good Discharge Date/Time: 12/16/22 17:59
[2022-12-16 13:17] LABS: PT - PROTHROMBIN TIME 11.4 secs (9.9-12.6)
[2022-12-16 13:27] LABS: ALBUMIN 4.5 g/dL (3.2-5.5); ALBUMIN/GLOBULIN RATIO 1.4 (1.0-2.2); BILIRUBIN,TOTAL 0.8 mg/dL (0.2-1.0); CALCIUM 10.2 mg/dL (8.5-10.3); POTASSIUM 3.4 mmol/L (3.5-4.5); TOTAL PROTEIN 7.8 g/dL (6.4-8.9)
[2022-12-16 13:30] LABS: BASOPHILS # (AUTO) 0.1 10^3/uL (0.0-0.1); BASOPHILS % (AUTO) 2.4 %; EOSINOPHILS # (AUTO) 0.1 10^3/uL (0.0-0.7); EOSINOPHILS % (AUTO) 2.9 %; HCT - HEMATOCRIT 35.8 % (37.0-47.0); LYMPHOCYTES # (AUTO) 1.3 10^3/uL (1.5-3.5); LYMPHOCYTES % (AUTO) 30.9 %; MEAN CORPUSCULAR HEMOGLOBIN 33.6 pg (27.0-31.0); MEAN CORPUSCULAR HGB CONC 33.5 g/dL (32.0-36.0); MEAN CORPUSCULAR VOLUME 100.3 fL (81.0-99.0); MEAN PLATELET VOLUME 10.7 fL (7.9-10.8); MONOCYTES # (AUTO) 0.1 10^3/uL (0.0-1.0); MONOCYTES % (AUTO) 2.9 %; NEUTROPHILS # (AUTO) 2.5 10^3/uL (1.5-6.6); NEUTROPHILS % (AUTO) 60.7 %; PLT - PLATELET COUNT 340 10^3/uL (130-450); RED BLOOD COUNT 3.57 10^6/uL (4.20-5.40); RED CELL DISTRIBUTION WIDTH 15.9 % (12.0-15.0); WHITE BLOOD COUNT 4.1 x10^3/uL (4.8-10.8)
--- NOTE | 2022-12-16 13:39 | XRAY Report ---
PROCEDURE: Chest 1 View X-Ray INDICATIONS: AMS TECHNIQUE: One view of the chest was acquired. COMPARISON: Chest x-ray, 08/27/2021. FINDINGS: Surgical changes and devices: None. Lungs and pleura: Mild interstitial prominence. No focal consolidation. No pleural effusions or pneu mothorax. Mediastinum: Mediastinal contours appear normal. Heart size is normal. Severe aortic atherosclerosi s. Bones and chest wall: No suspicious bony lesions. Overlying soft tissues appear unremarkable. IMPRESSION: 1. No acute cardiopulmonary process. 2. Mild to moderate interstitial prominence. Reviewed by: Rani Carpenter MD on 12/16/2022 1:38 PM PDT Approved by: Rani Carpenter MD on 12/16/2022 1:38 PM PDT Station ID: [id number]
[2022-12-16 13:53] LABS: BILIRUBIN,URINE NEGATIVE (NEGATIVE); GLUCOSE, URINE (UA) NEGATIVE (NEGATIVE); KETONES,URINE (UA) NEGATIVE (NEGATIVE); LEUKOCYTE ESTERASE, URINE NEGATIVE (NEGATIVE); NITRITE,URINE NEGATIVE (NEGATIVE); OCCULT BLOOD,URINE NEGATIVE (NEGATIVE); PROTEIN,URINE TRACE mg/dL (NEGATIVE); UROBILINOGEN,URINE 0.2 (NORMAL) E.U./dL (NORMAL)
[2022-12-16 13:54] LABS: CLARITY,URINE CLEAR (CLEAR)
--- NOTE | 2022-12-16 16:09 | CT Report ---
PROCEDURE: CT Angio Head/Neck INDICATIONS: L sided weakness TECHNIQUE: After the administration of intravenous contrast, 1 mm thick sections acquired from the aortic arch t hrough the [place]. Post-contrast 4.5 mm thick sections then re-acquired from the foramen m agnum to the vertex. 3-dimensional oldgosw-qdkyilkwx-kcpudigxqg (MIP) and/or volume rendering reform ats were acquired of the central intracranial vasculature and neck separately. For radiation dose re duction, the following was used: automated exposure control, adjustment of mA and/or kV according to patient size. CONTRAST: 100ml omni 300 COMPARISON: 08/28/2021, 08/27/2021 Correlation is made with the accompanying noncontrasted. FINDINGS: Image quality: Diagnostic. HEAD CT: CSF Spaces: Basal cisterns are patent. No extra-axial fluid collections. Ventricles are normal in size and shape. Brain: No midline shift. No intracranial bleeds or masses. No abnormal intracranial enhancement. Clark-white interface appears normal. Skull and face: Calvarium and visualized facial bones appear intact, without suspicious lesions. Sinuses: Visualized sinuses and mastoids are clear. HEAD CT ANGIOGRAPHY: Anterior circulation: Intracranial internal carotid arteries are normal in size and flow. Note is m andra of a diminutive right A1 segment, with a correspondingly robust left A1 segment. This is consider ed to be a developmental variant of no clinical consequence. The flow within the paired anterior cer ebral arteries is otherwise normal and symmetric. The flow within the middle cerebral arteries is no rmal and symmetric. The anterior communicating artery is seen. No aneurysms are seen. Posterior circulation: Visualized portions of the vertebral arteries demonstrate normal caliber, and join to form a normal appearing basilar artery. Flow within the posterior cerebral arteries is norm al and symmetric. No aneurysms are seen. NECK CT ANGIOGRAPHY: Carotid system: The great vessels demonstrate a conventional anatomy as they arise from the aortic a rch. The origins of the common carotid arteries appear patent, although prominent atherosclerotic ch katalina can be seen of the aortic arch and the origins of the great vessels. The common carotid arteries demonstrate normal caliber and courses. The bifurcation demonstrate atherosclerotic irregularity an d calcification. There is approximately 50% narrowing involving the left proximal internal carotid ar tarik, with 50% narrowing involving the right proximal internal carotid artery. Within the distal righ t internal carotid artery, there is an approximately 50% narrowing. Posterior circulation: The origin of the right vertebral artery is occluded. There is a mild restorat ion of blood flow within the right V3 segment. The origin of the left vertebral artery demonstrates a pproximately 60% narrowing. Soft tissues: Visualized neck soft tissues demonstrate no suspicious abnormalities. Mild dependent o pacity can be seen within the posterior inferior left upper lobe. Bones: No suspicious bony lesions. Visualized cervical spine appears normally aligned. Mild to mod erate cervical spine degenerative change. 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 Approximately 60% narrowing involving the origin of the left vertebral artery. Within the right proximal internal carotid artery, there is approximately 50% narrowing. There is maya roximately 50% narrowing involving the more distal right internal carotid artery. Approximately 50% narrowing seen involving the left proximal internal carotid artery. No significant intracranial arterial abnormalities are seen. If there is strong clinical concern for a stroke, please consider a dedicated brain MRI for further e valuation (assuming that there is no contraindication to MRI). Mild dependent opacity can be seen involving the visualized inferior aspect of the left upper lobe, w hich may related to atelectasis. This is slightly more prominent than in 202. Additional findings: [place] developmental anomalies The estimate of stenosis included in the report of the imaging study was calculated using the NASCET method Reviewed by: Rangel Menard MD on 12/16/2022 3:08 PM GORDY Approved by: Rangel Menard MD on 12/16/2022 3:08 PM GORDY Station ID: [id number]
--- NOTE | 2022-12-16 16:13 | CT Report ---
PROCEDURE: HEAD WO INDICATIONS: LT SIDE WEAKNESS TECHNIQUE: Noncontrast 4.5 mm thick angled axial sections acquired from the foramen magnum to the vertex. For r adiation dose reduction, the following was used: automated exposure control, adjustment of mA and/or kV according to patient size. COMPARISON: 08/29/2021. 08/09/2021. Correlation is also made with the accompanying head and neck CT an giogram. Correlation is made with prior brain MRI, 08/10/2021. FINDINGS: Image quality: Excellent. CSF spaces: Basal cisterns are patent. No extra-axial fluid collections. Ventricles are normal in size and shape. Brain: No midline shift. No intracranial masses or hemorrhage. Clark-white matter interface is norm al. Skull and face: Calvarium and visualized facial bones are intact, without suspicious lesions. Sinuses: Visualized sinuses and mastoids are clear. IMPRESSION: No intracranial hemorrhage is seen. No significant intracranial abnormality is seen. If there is strong clinical concern for a stroke, please consider a dedicated brain MRI for further e valuation (assuming that there is no contraindication to MRI). Reviewed by: Rangel Menard MD on 12/16/2022 3:11 PM GORDY Approved by: Rangel Menard MD on 12/16/2022 3:11 PM GORDY Station ID: [id number]
[2022-12-16] MEDS ORDERED: ASPIRIN 325 MG TABLET PO STA (16:32)
[2022-12-16] MEDS ORDERED: SODIUM CHLORIDE FLUSH 0.9% 10 ML SYRINGE IVP PRN (17:18)
[2022-12-16] MEDS ORDERED: ONDANSETRON 4 MG/2 ML VIAL IVP PRN (17:18)
[2022-12-16] MEDS ORDERED: ACETAMINOPHEN 1,000 MG/100 ML 1,000 MG/100 ML BAG IV PRN (17:21)
[2022-12-16] MEDS ORDERED: hydrALAZINE INJ 20 MG/ML VIAL IVP PRN (17:25)
--- NOTE | 2022-12-16 17:27 | HISTORY & PHYSICAL EXAMINATION ---
Chief Complaint - Chief Complaint Chief Complaint: slurred speech History of Present Illness - Admitted From Admitted From:: ED - History Obtained From History obtained from: ED provider and chart review - History of Present Illness HPI Comment/Other: This is a 77-year-old female who lives with her son Shraddha (who is also her DPOS), and with [id number]. She has a history of chronic atrial fib, HTN and AAA. There was a history of prior TIA, then a stroke leaving her with left arm and leg weakness. Her admission in July here resulted in her being transferred to [facility] for work-up of an acute stroke, to have a CODEY. The results of that are not known. Other history is of AAA that measured 5.2 cm and she was seen by vascular surgeon, but plan for managing that is not known. When she was here for stroke-like sx in August, she was to be on Eliquis, but she did not want to pay the higher cost and was changed to Warfarin. During that admission she also admitted that she has a gun permit and said she carries a gun in her purse at all times. The gun was removed for safety reasons. Patient presents now after her last known well being last night. She awoke with abnormal speech and presented to the ER. In the ER she was found to have continued new abnormal speech and her chronic old left-sided weakness. The son at bedside in ER (the son who does not live with her), reported that the patient has been noncompliant with taking her warfarin for the past 3 months because she does not want to take it. Her blood pressure was 189/116 and heart rate in A- fib, was controlled at 80. 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 The ED provider spoke to a telestroke doctor who advised that nothing can be done due to the location. The ED provider spoke to me about this patient. She will be admitted for treating a stroke. During an admission here in July of this year, the patient confirms she wants to be a Full Code. History - Past Medical History Cardiovascular: reports: Congestive heart failure, Hypertension, High cholesterol, Coronary artery disease, Deep vein thrombosis, Arrhythmia, Other Respiratory: reports: Shortness of breath Neuro: reports: CVA Endocrine/Autoimmune: reports: None GI: reports: None : reports: None HEENT: reports: Chronic vision loss, Other Psych: reports: Depression, Other Musculoskeletal: reports: Scoliosis, Chronic back pain Derm: reports: None MRSA Hx?: No - Past Surgical History Ortho: reports: Spine surgery HEENT: reports: Cataracts Derm: reports: Other - Family & Social History Family History: Mother: , Father: , Sister: , Brother: Family History Comment/Other: All family has ; mother had heart disease and colon CA, father of "black lung", 2 sisters had an unknown type of cancer, 2 brothers; one that had vascular disease causing him to lose both lower extremities. Living Situation: Alone Social History Notes: Patient used to live alone with her dog and did all of her own ADLs, walking independently or with a cane. 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 Her in 2015 from a "blood infection." She moved from [place] to [facility] shortly after to be close to two of her sons who live on the [place]. She misses her garden in [place]. She smoked 5-6 cigarrettes daily for about the passed 50 years but quit. She rarely drinks alcohol. - Substance History Use: Uses substance without health or social issues: Tobacco (smoked 5-6 cigarrettes daily for the past 50ish years. Quit this week), Alcohol (Rarely, only tastes tests son's drinks "to make sure they are not poison") - POLST Patient has POLST: No POLST Status: DNR Meds/Allgy - Home Medications Home Medications: Ambulatory Orders Medication Instructions Recorded Confirmed Potassium Chloride 10 meq PO DAILY 08/27/21 08/27/21 Amlodipine Besylate [Norvasc] 10 mg PO DAILY 12/17/22 Atorvastatin Calcium [Lipitor] 80 mg PO QPM 12/17/22 Levothyroxine Sodium [Synthroid] 137 mcg PO QDAC 12/17/22 Losartan [Cozaar] 50 mg PO DAILY 12/17/22 Metoprolol Succinate [Toprol Xl] 12.5 mg PO DAILY 12/17/22 Sertraline HCl 100 mg PO DAILY 12/17/22 Warfarin [Coumadin] 5 mg PO DAILY 12/17/22 - Allergies Allergies/Adverse Reactions: Allergies Allergy/AdvReac Type Severity Reaction Status Date / Time milk AdvReac Mild Cramps Verified 08/27/21 06:01 Exam - Vital Signs Vital Signs: Vital Signs x48h Temp Pulse Resp BP Pulse Ox 12/16/22 15:58 72 16 189/116 H 94 12/16/22 14:51 75 16 184/109 H 94 12/16/22 12:47 36.7 C 74 20 197/107 H 97 - Physical Exam General Appearance: positive: No acute distress, Alert Eyes Bilateral: positive: Normal inspection, EOMI ENT: positive: ENT inspection nml, Dry mucous membranes Neck: positive: Nml inspection, No JVD Respiratory: positive: No respiratory distress, Breath sounds nml Cardiovascular: positive: Regular rate & rhythm, No murmur Abdomen: positive: Non-tender, No distention Skin: positive: Warm, Dry Extremities: positive: Non-tender, No pedal edema Neurologic/Psychiatric: positive: Disoriented to person, Disoriented to place, Disoriented to time, Other (Poor memory. L hemiparesis of arm and leg. Speech is normal. She is GRAYLING.) Conclusion/Plan - Problem List (1) Acute CVA (cerebrovascular accident) Conclusion/Plan: New slurred speech is of the current neurologic deficit. She has had prior TIAs and prior completed strokes in the past. The last one has left her with chronic left-sided weakness She has had work-up in the past including a CODEY several months ago at another facility, the results of that are not known Her risk factors for stroke are noncompliance with her anticoagulant use in a patient with A-fib and prior stroke, hypertension, advanced age, hyperlipidemia Plan: We will request the records from the hospital where she had the CODEY. Will not be getting a new TTE here We will obtain a swallowing screen by nursing, before starting a diet or any p.o. meds Neuro checks q4h No gun can be left at her bedside, if brought in by visitors We will allow permissive hypertension for the next 24 to 48 hours. If blood pressure goes over 190 however, will give IV hydralazine We will order PT and OT evaluations. She may also need speech therapy for both swallowing and for speech rehab. Will wait 72 hours before re-starting an anticoagulant, to decrease risk for hemorrhagic transformation of the stroke (2) Hypertension Conclusion/Plan: Patient was on losartan for blood pressure management. Currently she is very hypertensive running blood pressure 189/116, and this in the face of acute CVA Plan: We will allow permissive hypertension for the next 24 to 48 hours Will resume her losartan after that We will give as needed IV hydralazine if blood pressure is over 190 (3) Chronic a-fib Conclusion/Plan: In her past she was prescribed be on Eliquis, she did not want to take this because of cost, it was changed to a prescription for warfarin. In the ER, the son who does not live with her describes that the patient has not been taking her warfarin for 3 months. Plan: We will await reconciled med list to resume any heart rate-slowing meds We will wait 72 hours before potentially restarting an anticoagulant. The discussion will first be had with the patient and her DPOA regarding this plan. If she will not go on an anticoagulant, she will need daily antiplatelet regimen with aspirin prescribed (4) AAA (abdominal aortic aneurysm) Conclusion/Plan: Patient has a history of a 5.2 cm AAA. In the past she said she has seen specialists regarding management of this but could not remember what the plan was Plan: We will attempt to get records or learn from her family what the plan is for managing this We will check fasting lipid panel and treat per guidelines We will manage the hypertension as described above If she will not go on an anticoagulant, she will need daily antiplatelet regimen with aspirin prescribed (5) CVA, old, hemiparesis Conclusion/Plan: Her severe left arm and left weakness are results of a prior stroke - Lab Results Fish Bones: 12/16/22 13:00 12/16/22 13:00 - Diagnostic Imaging Results Diagnostic Imaging Results: positive: Final report reviewed - Other Other Results/Comments: Attestation: The patient is expected to be hospitalized for greater than 2 midnights and is expected to be discharged or transferred to another facility within 96 hours: Yes.
[2022-12-16] MEDS ORDERED: iohexoL-300 100 ML VIAL IVP ONE (17:56)
[2022-12-16] MEDS ORDERED: SODIUM CHLORIDE 0.9% 1,000 ML IV SCH (18:00)
[2022-12-16] MEDS: POTASSIUM CHLOR 10 MEQ/100 ML 10 MEQ/100 ML BAG IV SCH ×4 (18:32→22:04)
[2022-12-17] MEDS: SODIUM CHLORIDE FLUSH 0.9% 10 ML SYRINGE IVP SCH ×3 (00:04→17:22)
--- NOTE | 2022-12-17 10:38 | PROVIDER PROGRESS NOTE ---
Assessment/Plan - Problem List (1) Acute CVA (cerebrovascular accident) Assessment/Plan: New slurred speech has resolved. Today I spoke with both sons at bedside who tell me that her memory problem is new: Today she cannot remember the names of her dogs, she thought that she had her watch on and pointed to the bed and not her left wrist, and other examples given me. She has had work-up in the past for the prior stroke, including a presumed CODEY in August 2022, at [facility]. The results of that are not known. Her risk factors for stroke are noncompliance with her anticoagulant use in a patient with A-fib and prior stroke, and poorly controlled hypertension, advanced age, hyperlipidemia. Today I learned from pharmacy that she has not filled any of her meds for 3 mos, and both sons today confirmed she is non- compliant with ALL her meds. Plan: I will request the records from [facility] where she had a CODEY or at least an Echo. No need to do a new complete Echo Will advance her diet today Neuro checks q4h No gun can be left at her bedside, if brought in by visitors We will allow permissive hypertension for the next 12 hours. If syst blood pressure goes over 190, or diastolic BP over 110, however, will give IV hydralazine push. PT eval to be done today and OT evaluation tomorrow (no OT in hosp today, [facility]). She may also need speech therapy for speech rehab. The son Cesar, who is her DPOA, and with whom she lives, told me today that he and his can no longer take care of her, and want to know their options. I briefly discussed that they can get more in-home health or work on getting her into a long-term care jail. I will put in a social work consult to assist him with this. (2) Hypertension Conclusion/Plan: Patient was supposed to be on Losartan for blood pressure management. Today we learned from pharmacy that she has not filled any of her meds for 3 mos, and both sons confirmed to me today that she was non-compliant with ALL her meds for 3 mos. Plan: We will allow permissive hypertension for the next 12 hours. But will give prn I V hydralazine if blood pressure is over 190, or if diastolic over 110. Since she refuses to take all p.o. meds, I will start her on a weekly topical clonidine patch later today. I updated the family about the plan (3) Chronic a-fib Conclusion/Plan: In her past she was prescribed Eliquis, she did not want to take this because of cost, and it was changed to a prescription for warfarin about 3 mos ago. In the ER, the son who does not live with her described that the patient has not been taking her warfarin for 3 months. He told the ER provider she was not t aking it "due to belligerence". Today the son Cesar, with whom she lives, confirmed that she refuses all medications entirely Plan: She has chronotropic incompetence and her A-fib rate is not tachycardic at rest, even without any heart rate-slowing meds. Today I discussed the options of her taking Coumadin and getting blood tests versus at least getting a daily antiplatelet regimen of baby aspirin. Both sons agreed not to pursue forcing her to take pills, such as a statin or an anticoagulant. Therefore we will start her on 1 baby aspirin daily p.o., it can be crushed into her applesauce if she refuses to swallow a pill. (4) AAA (abdominal aortic aneurysm) Conclusion/Plan: Patient has a history of a 5.2 cm AAA. In the past she said she has seen jessica franciss regarding management of this but could not remember what the plan was I planned on checking her fasting lipid panel and treat per guidelines, but the pt refused all blood tests today Plan: No aggressive management for the AAA is planned We will manage the hypertension as described above I will put her on 1 baby aspirin daily as described above (5) CVA, old, hemiparesis Conclusion/Plan: Her severe left arm and left leg weakness are results of a prior stroke, not the most recent stroke. Today I learned from Shraddha, the son at bedside with whom she lives, that the patient no longer walks to bathroom, she does not even stand to pivot to use a bedside commode. She now urinates and defecates into a diaper and Shraddha's takes care of that. Also when PT and OT were ordered for her after the last CVA, she refused to cooperate and they signed off on her since she was not rehabable. The son Cesar,stated today that he and his can no longer take care of her, and want to know their options. I quickly discussed some options: they can get more in-home health or work on getting the pt into a long-term care jail. Plan: I will put in a social work consult to assist the DPOA with a discharge plan (we have no SW here today, Sun, and poss none tomorrow, Day). - Current Meds Current Meds: Current Medications Generic Name Dose Route Start Last Admin Trade Name Freq PRN Reason Stop Dose Admin Sodium Chloride 1,000 mls @ 50 mls/hr 12/16/22 18:00 12/16/22 18:32 Normal Saline 0.9% IV 50 mls/hr .Q20H DELPHINE Administration Sodium Chloride 10 ml 12/16/22 17:18 12/16/22 18:32 Sodium Chloride Flush 0.9% 10 Ml Syringe IVP 10 ml PRN PRN Administration NEEDED PER PROVIDER ORDERS Sodium Chloride 10 ml 12/17/22 01:00 12/17/22 09:08 Sodium Chloride Flush 0.9% 10 Ml Syringe IVP 10 ml 0100,0900,1700 DELPHINE Administration - Lab Result Fish Bone Diagrams: 12/16/22 13:00 12/16/22 13:00 - Additional Planning My Orders: My Active Orders 12/16/22 17:18 Activity Orders [RC] Q2HR IO [RC] IOSHIFT Initiate Bowel Care Protocol [RC] .protocol Initiate Line Care Protocol [RC] QSHIFT Initiate Personal Care Protoco [RC] .protocol Oxygen Therapy [RC] .PRN Telemetry- [RC] Q4HR Vital Signs [RC] Q4HR Ondansetron Inj [Zofran Inj] 4 mg IVP Q6HR PRN Sodium Chloride Flush 0.9% [Normal Saline Flush 0.9%] 10 ml IVP PRN PRN Code Status [OTHERS] Routine Condition of Patient [OTHERS] Routine DVT Prophylaxis [OTHERS] Routine 12/16/22 17:21 SCDs [RC] QSHIFT Acetaminophen 1,000 mg/100 ml [Acetaminophen] 1,000 mg in 100 ml IV Q6HR 12/16/22 17:22 Neuro Check [RC] Q4HR 12/16/22 17:25 hydrALAZINE INJ [Apresoline Inj] 10 mg IVP Q8H PRN 12/16/22 17:26 Miscellaenous Nursing Order [RC] ONCE 12/16/22 18:00 Sodium Chloride 0.9% [Normal Saline 0.9%] 1,000 ml IV 50 mls/hr 12/16/22 18:16 Miscellaenous Nursing Order [RC] QSHIFT 12/16/22 18:17 Miscellaenous Nursing Order [RC] QSHIFT 12/17/22 01:00 Sodium Chloride Flush 0.9% [Normal Saline Flush 0.9%] 10 ml IVP 0100,0900,1700 12/17/22 Breakfast Clear Liquid Diet [DIET] 12/17/22 05:00 BMP - BASIC METABOLIC PANEL [CHEM] DAILYLAB LIPID Panel [CHEM] DAILYLAB MAGNESIUM [CHEM] DAILYLAB 12/17/22 Lunch DIET [Dysphagia - Minced and Moist] [DIET] 12/18/22 05:00 TSH [THYROID STIMULATING HORMONE] [CHEM] DAILYLAB Subjective - Subjective Patient Reports: Resting Comfortably Nursing Reports: Other (She is complaining about not having her TV remote in her hand to control and she is focused on this, even when being directed onto another topic) Objective Vital Signs: Vital Signs - 24 hr 12/16/22 12/16/22 12/16/22 12:47 14:51 15:58 Temperature 36.7 C Heart Rate 74 75 72 Heart Rate [ Brachial] Heart Rate [ Monitoring electrodes] Respiratory 20 16 16 Rate Blood Pressure 197/107 H 184/109 H 189/116 H Blood Pressure [Left Brachial artery] Blood Pressure [Right Brachial artery] O2 Saturation 97 94 94 12/16/22 12/16/22 12/16/22 18:00 20:55 23:38 Temperature 36.3 C L 36.3 C L 36.4 C L Heart Rate Heart Rate [ 128 H 113 H 79 Brachial] Heart Rate [ Monitoring electrodes] Respiratory 16 15 16 Rate Blood Pressure Blood Pressure 175/97 H [Left Brachial artery] Blood Pressure 182/97 H 173/99 H 156/110 H [Right Brachial artery] O2 Saturation 97 96 96 12/17/22 12/17/22 03:47 08:28 Temperature 36.4 C L 36.1 C L Heart Rate Heart Rate [ Brachial] Heart Rate [ 74 72 Monitoring electrodes] Respiratory 15 16 Rate Blood Pressure Blood Pressure [Left Brachial artery] Blood Pressure 175/92 H 178/111 H [Right Brachial artery] O2 Saturation 96 98 Oxygen O2 Source Room air I&O (Last 24 Hrs): Intake and Output Totals x24h 12/15/22 12/16/22 12/17/22 23:59 23:59 23:59 Intake Total 1530 150 Output Total 300 1250 Balance 1230 -1100 General: Alert, Oriented x3 HEENT: Mucous membr. moist/pink, Other (Disheveled) Neck: Supple Neuro: Alert, Other (Poor memory, focused on TV remote, L arm and leg severely weak, speech is normal.) Cardiovascular: Other (Distant heart sounds, irregularly irregular) Respiratory: No respiratory distress, Breath sounds nml Abdomen: Soft, No tenderness Extremities: No clubbing, No edema, No tenderness/swelling - Results Results: Laboratory Results WBC 4.1 x10^3/uL (4.8-10.8) L 12/16/22 13:00 RBC 3.57 10^6/uL (4.20-5.40) L 12/16/22 13:00 Hgb 12.0 g/dL (12.0-16.0) 12/16/22 13:00 Hct 35.8 % (37.0-47.0) L 12/16/22 13:00 MCV 100.3 fL (81.0-99.0) H 12/16/22 13:00 MCH 33.6 pg (27.0-31.0) H 12/16/22 13:00 MCHC 33.5 g/dL (32.0-36.0) 12/16/22 13:00 RDW 15.9 % (12.0-15.0) H 12/16/22 13:00 Plt Count 340 10^3/uL (130-450) 12/16/22 13:00 MPV 10.7 fL (7.9-10.8) 12/16/22 13:00 Neut # (Auto) 2.5 10^3/uL (1.5-6.6) 12/16/22 13:00 Lymph # (Auto) 1.3 10^3/uL (1.5-3.5) L 12/16/22 13:00 Bureau # (Auto) 0.1 10^3/uL (0.0-1.0) 12/16/22 13:00 Eos # (Auto) 0.1 10^3/uL (0.0-0.7) 12/16/22 13:00 Baso # (Auto) 0.1 10^3/uL (0.0-0.1) 12/16/22 13:00 Absolute Nucleated RBC 0.00 x10^3/uL 12/16/22 13:00 Nucleated RBC % 0.0 /100WBC 12/16/22 13:00 PT 11.4 secs (9.9-12.6) 12/16/22 13:00 INR 1.0 (0.8-1.2) 12/16/22 13:00 Sodium 135 mmol/L (135-145) 12/16/22 13:00 Potassium 3.4 mmol/L (3.5-4.5) L 12/16/22 13:00 Chloride 98 mmol/L (101-111) L 12/16/22 13:00 Carbon Dioxide 30 mmol/L (21-32) 12/16/22 13:00 Anion Gap 7.0 (6-13) 12/16/22 13:00 BUN 16 mg/dL (6-20) 12/16/22 13:00 Creatinine 1.0 mg/dL (0.6-1.3) 12/16/22 13:00 Estimated GFR (MDRD) 54 (>89) L 12/16/22 13:00 Glucose 106 mg/dL (74-104) H 12/16/22 13:00 Calcium 10.2 mg/dL (8.5-10.3) 12/16/22 13:00 Total Bilirubin 0.8 mg/dL (0.2-1.0) 12/16/22 13:00 AST 18 IU/L (10-42) 12/16/22 13:00 ALT 5 IU/L (10-60) L 12/16/22 13:00 Alkaline Phosphatase 56 IU/L (42-121) 12/16/22 13:00 Total Protein 7.8 g/dL (6.4-8.9) 12/16/22 13:00 Albumin 4.5 g/dL (3.2-5.5) 12/16/22 13:00 Globulin 3.3 g/dL (2.1-4.2) 12/16/22 13:00 Albumin/Globulin Ratio 1.4 (1.0-2.2) 12/16/22 13:00 Lipase 23 U/L (11-82) 12/16/22 13:00 Urine Color YELLOW 12/16/22 13:47 Urine Clarity CLEAR (CLEAR) 12/16/22 13:47 Urine pH 7.0 PH (5.0-7.5) 12/16/22 13:47 Ur Specific Roberta 1.010 (1.002-1.030) 12/16/22 13:47 Urine Protein TRACE mg/dL (NEGATIVE) 12/16/22 13:47 Urine Glucose (UA) NEGATIVE mg/dL (NEGATIVE) 12/16/22 13:47 Urine Ketones NEGATIVE mg/dL (NEGATIVE) 12/16/22 13:47 Urine Occult Blood NEGATIVE (NEGATIVE) 12/16/22 13:47 Urine Nitrite NEGATIVE (NEGATIVE) 12/16/22 13:47 Urine Bilirubin NEGATIVE (NEGATIVE) 12/16/22 13:47 Urine Urobilinogen 0.2 (NORMAL) E.U./dL (NORMAL) 12/16/22 13:47 Ur Leukocyte Esterase NEGATIVE (NEGATIVE) 12/16/22 13:47 Ur Microscopic Review NOT INDICATED 12/16/22 13:47 Urine Culture Comments NOT INDICATED 12/16/22 13:47 - Procedures Procedures: Procedures RELEASE MEDIAN NERVE, OPEN APPROACH (02/26/17)
--- NOTE | 2022-12-17 10:55 | PHARMACY PROGRESS NOTE ---
- Best Possible Medication History Admit Date and Time: 12/16/22 1718 Processed by: Pharmacy Medication History completed: Yes Patient Interview: Completed Secondary Source(s): Pharmacy records, Insurance records As the person ultimately responsible for medication therapy, providers are able to order a medication from an existing home medication list in [facility] via the "Reconcile Routine" prior to Confirmation of that medication by academic support center director. Such practice is discouraged except when the physician, in their clinical judgment, deems that a medical need exists for a medication without regard to previous use.
[2022-12-17] MEDS: ASPIRIN CHEW 81 MG TABLET PO SCH (12:59)
[2022-12-17] MEDS ORDERED: SODIUM CHLORIDE 0.9% 500 ML IV SCH (13:00)
[2022-12-17] MEDS ORDERED: cloNIDine 0.1 MG PATCH TOP SCH (17:00)
[2022-12-18] MEDS: SODIUM CHLORIDE FLUSH 0.9% 10 ML SYRINGE IVP SCH ×3 (01:00→16:36)
--- NOTE | 2022-12-18 09:08 | PROVIDER PROGRESS NOTE ---
Assessment/Plan - Problem List (1) Acute CVA (cerebrovascular accident) Assessment/Plan: The new slurred speech has resolved. But her memory problem is new, or definitely worse than before this admission, per the sons. She has had work-up in the past for the prior stroke, including a presumed CODEY in August 2022, at [facility]. The results of that are not known. Her risk factors for stroke are noncompliance with her anticoagulant use in a patient with A-fib and prior stroke, and poorly controlled hypertension, advanced age, hyperlipidemia. Also, both sons confirmed she is non-compliant with ALL her meds. We allowed permissive hypertension for 24 hours. She got ASA 324 mg in ER, then ordered to get 81 mg daily. PT eval was done and she cannot maintain her trunk upright, making her now bedbound. Also, she has a Hx of being non-cooperative with rehab, therefore is not rehabable. Plan: I requested records from [facility] where she had a CODEY or at least an Echo. No need to do a new complete Echo Cont Neuro checks q4h OT evaluation ordered (we have no OT here yesterday (Sun) or today ( holiday) The son Cesar, who is her DPOA, and with whom she lives, told me that he and his can no longer take care of her, and wanted to know their options. I put in a social work consult to assist him with this. (2) Hypertension Conclusion/Plan: Patient was supposed to be on Losartan for blood pressure management. I learned from pharmacy, and both sons confirmed, that she was non-compliant with ALL her meds for 3 mos. We allowed permissive hypertension for 24 hours. Since she refuses to take all p.o. meds, I started her yesterday 12/17 on a weekly topical clonidine patch 0.1 mg BP is still very high (VS were reviewed). Plan: Will increase the Clonidone patch dose to 0.2 mg top weekly Will give prn IV hydralazine if blood pressure is over 190, or if diastolic over 110. (3) Chronic a-fib Conclusion/Plan: In her past she was prescribed Eliquis, she did not want to take this because of cost, and it was changed to a prescription for warfarin about 3 mos ago. In the ER, the son who does not live with her described that the patient has not been taking her warfarin for 3 months. He told the ER provider she was not ta cristy it "due to belligerence". Today the son Cesar, with whom she lives, confirmed that she refuses all medications entirely Plan: She has chronotropic incompetence and her A-fib rate is not tachycardic at rest, even without any heart rate-slowing meds. Yesterday I discussed with both sons the options of her taking Coumadin and getting blood tests, since she will not buy Eliquis versus at least getting a daily antiplatelet regimen of baby aspirin. Both sons agreed not to pursue forcing her to take pills, such as a statin or an anticoagulant. Therefore I started her on 1 chewable baby aspirin po daily, it can be crushed into her applesauce if she refuses to swallow a pill. (4) AAA (abdominal aortic aneurysm) Conclusion/Plan: Patient has a history of a 5.2 cm AAA. In the past she said she has seen specialists regarding management of this but could not remember what the plan was I planned on checking her fasting lipid panel and treat per guidelines, but the pt refused all blood tests yesterday. Plan: No aggressive management for the AAA is planned We will manage the hypertension as described above Continue 1 baby aspirin daily as described above (5) CVA, old, hemiparesis Conclusion/Plan: Her severe left arm and left leg weakness are results of a prior stroke, not the most recent stroke. Today I learned from Shraddha, the son at bedside with whom she lives, that the patient no longer walks to bathroom, she does not even stand to pivot to use a bedside commode. She now urinates and defecates into a diaper and Shraddha's takes care of that. Also when PT and OT were ordered for her after the last CVA, she refused to cooperate and they signed off on her since she was not rehabable. The son Cesar,stated today that he and his can no longer take care of her, and want to know their options. I quickly discussed some options: they can get more in-home health or work on getting the pt into a long-term care fdc. Plan: I put in a social work consult to assist the DPOA with a discharge plan (we have no SW here today, Sun, and poss none tomorrow, Labor Day). Today discussed changing her Full CODE status with her DPOA, son Cesar. Chaim Valenzuela completed a POLST. She will be changed to DNR code status. (6) Noncompliance with meds and management Conclusion/Plan: As described above; she refuses all blood testing here. She refuses to swallow p.o. meds and has refused that for 3 months Plan: No more blood test will be ordered We will use topical meds where possible A POLST was filled out today, and medical management with selective treatment was chosen by the family. - Current Meds Current Meds: Current Medications Generic Name Dose Route Start Last Admin Trade Name Freq PRN Reason Stop Dose Admin Aspirin 81 mg 12/17/22 13:00 12/17/22 12:59 Aspirin Chew 81 Mg Tablet PO 81 mg DAILY DELPHINE Administration Sodium Chloride 10 ml 12/16/22 17:18 12/16/22 18:32 Sodium Chloride Flush 0.9% 10 Ml Syringe IVP 10 ml PRN PRN Administration NEEDED PER PROVIDER ORDERS Sodium Chloride 10 ml 12/17/22 01:00 12/18/22 01:00 Sodium Chloride Flush 0.9% 10 Ml Syringe IVP Not Given 0100,0900,1700 DELPHINE - Lab Result Fish Bone Diagrams: 12/16/22 13:00 12/16/22 13:00 - Additional Planning My Orders: My Active Orders 12/17/22 Lunch DIET [Dysphagia - Minced and Moist] [DIET] 12/17/22 12:49 hydrALAZINE INJ [Apresoline Inj] 10 mg IVP Q8H PRN 12/17/22 13:00 Aspirin Chewable [St Ab Aspirin] 81 mg PO DAILY 12/18/22 10:00 cloNIDine 0.2 MG PATCH [[id number]] 1 patch TOP Q7D Subjective - Subjective Patient Reports: Resting Comfortably Nursing Reports: Other (PT tried to sit her up to dangle and she could not supp ort her trunk, was leaning forward.) Objective Vital Signs: Vital Signs - 24 hr 12/17/22 12/17/22 12/17/22 11:13 11:30 12:55 Temperature 36.4 C L Heart Rate [ Brachial] Heart Rate [ 88 Monitoring electrodes] Heart Rate [ 90 Sitting] Heart Rate [ 83 Supine] Respiratory 18 Rate Blood Pressure 165/118 H 164/94 H [Right Brachial artery] Blood Pressure 156/90 H [Sitting] Blood Pressure 188/115 H [Supine] O2 Saturation 96 12/17/22 12/17/22 12/17/22 16:25 16:44 21:00 Temperature 36.7 C 36.4 C L Heart Rate [ Brachial] Heart Rate [ 69 86 Monitoring electrodes] Heart Rate [ Sitting] Heart Rate [ Supine] Respiratory 19 16 Rate Blood Pressure 186/89 H 166/102 H 174/109 H [Right Brachial artery] Blood Pressure [Sitting] Blood Pressure [Supine] O2 Saturation 95 96 12/18/22 12/18/22 05:57 08:37 Temperature 36.3 C L 36.3 C L Heart Rate [ 65 72 Brachial] Heart Rate [ Monitoring electrodes] Heart Rate [ Sitting] Heart Rate [ Supine] Respiratory 20 20 Rate Blood Pressure 166/106 H 168/107 H [Right Brachial artery] Blood Pressure [Sitting] Blood Pressure [Supine] O2 Saturation 97 100 Oxygen O2 Source Room air I&O (Last 24 Hrs): Intake and Output Totals x24h 12/16/22 12/17/22 12/18/22 23:59 23:59 23:59 Intake Total 1530 1408.167 500 Output Total 300 2350 800 Balance 1230 -941.833 -300 General: No acute distress HEENT: Mucous membr. moist/pink Neck: Supple Neuro: Alert, Other (Poor memory, normal speech, left arm and leg 0/5 strength) Respiratory: No respiratory distress Abdomen: No tenderness Extremities: No clubbing, No edema, No tenderness/swelling - Results Results: Laboratory Results WBC 4.1 x10^3/uL (4.8-10.8) L 12/16/22 13:00 RBC 3.57 10^6/uL (4.20-5.40) L 12/16/22 13:00 Hgb 12.0 g/dL (12.0-16.0) 12/16/22 13:00 Hct 35.8 % (37.0-47.0) L 12/16/22 13:00 MCV 100.3 fL (81.0-99.0) H 12/16/22 13:00 MCH 33.6 pg (27.0-31.0) H 12/16/22 13:00 MCHC 33.5 g/dL (32.0-36.0) 12/16/22 13:00 RDW 15.9 % (12.0-15.0) H 12/16/22 13:00 Plt Count 340 10^3/uL (130-450) 12/16/22 13:00 MPV 10.7 fL (7.9-10.8) 12/16/22 13:00 Neut # (Auto) 2.5 10^3/uL (1.5-6.6) 12/16/22 13:00 Lymph # (Auto) 1.3 10^3/uL (1.5-3.5) L 12/16/22 13:00 [place] # (Auto) 0.1 10^3/uL (0.0-1.0) 12/16/22 13:00 Eos # (Auto) 0.1 10^3/uL (0.0-0.7) 12/16/22 13:00 Baso # (Auto) 0.1 10^3/uL (0.0-0.1) 12/16/22 13:00 Absolute Nucleated RBC 0.00 x10^3/uL 12/16/22 13:00 Nucleated RBC % 0.0 /100WBC 12/16/22 13:00 PT 11.4 secs (9.9-12.6) 12/16/22 13:00 INR 1.0 (0.8-1.2) 12/16/22 13:00 Sodium 135 mmol/L (135-145) 12/16/22 13:00 Potassium 3.4 mmol/L (3.5-4.5) L 12/16/22 13:00 Chloride 98 mmol/L (101-111) L 12/16/22 13:00 Carbon Dioxide 30 mmol/L (21-32) 12/16/22 13:00 Anion Gap 7.0 (6-13) 12/16/22 13:00 BUN 16 mg/dL (6-20) 12/16/22 13:00 Creatinine 1.0 mg/dL (0.6-1.3) 12/16/22 13:00 Estimated GFR (MDRD) 54 (>89) L 12/16/22 13:00 Glucose 106 mg/dL (74-104) H 12/16/22 13:00 Calcium 10.2 mg/dL (8.5-10.3) 12/16/22 13:00 Total Bilirubin 0.8 mg/dL (0.2-1.0) 12/16/22 13:00 AST 18 IU/L (10-42) 12/16/22 13:00 ALT 5 IU/L (10-60) L 12/16/22 13:00 Alkaline Phosphatase 56 IU/L (42-121) 12/16/22 13:00 Total Protein 7.8 g/dL (6.4-8.9) 12/16/22 13:00 Albumin 4.5 g/dL (3.2-5.5) 12/16/22 13:00 Globulin 3.3 g/dL (2.1-4.2) 12/16/22 13:00 Albumin/Globulin Ratio 1.4 (1.0-2.2) 12/16/22 13:00 Lipase 23 U/L (11-82) 12/16/22 13:00 Urine Color YELLOW 12/16/22 13:47 Urine Clarity CLEAR (CLEAR) 12/16/22 13:47 Urine pH 7.0 PH (5.0-7.5) 12/16/22 13:47 Ur Specific [place] 1.010 (1.002-1.030) 12/16/22 13:47 Urine Protein TRACE mg/dL (NEGATIVE) 12/16/22 13:47 Urine Glucose (UA) NEGATIVE mg/dL (NEGATIVE) 12/16/22 13:47 Urine Ketones NEGATIVE mg/dL (NEGATIVE) 12/16/22 13:47 Urine Occult Blood NEGATIVE (NEGATIVE) 12/16/22 13:47 Urine Nitrite NEGATIVE (NEGATIVE) 12/16/22 13:47 Urine Bilirubin NEGATIVE (NEGATIVE) 12/16/22 13:47 Urine Urobilinogen 0.2 (NORMAL) E.U./dL (NORMAL) 12/16/22 13:47 Ur Leukocyte Esterase NEGATIVE (NEGATIVE) 12/16/22 13:47 Ur Microscopic Review NOT INDICATED 12/16/22 13:47 Urine Culture Comments NOT INDICATED 12/16/22 13:47 - Procedures Procedures: Procedures RELEASE MEDIAN NERVE, OPEN APPROACH (02/26/17)
[2022-12-18] MEDS ORDERED: cloNIDine 0.2 MG PATCH TOP SCH (10:00)
[2022-12-18] MEDS: ASPIRIN CHEW 81 MG TABLET PO SCH (11:39)
[2022-12-19] MEDS: SODIUM CHLORIDE FLUSH 0.9% 10 ML SYRINGE IVP SCH ×3 (01:21→17:24)
[2022-12-19] MEDS ORDERED: MIN OIL/DIMETHICON/COCONUT OIL 92 GM TUBE TOP PRN (06:43)
[2022-12-19] MEDS: hydrALAZINE INJ 20 MG/ML VIAL IVP PRN (09:18)
[2022-12-19] MEDS: ASPIRIN CHEW 81 MG TABLET PO SCH (09:18)
--- NOTE | 2022-12-19 15:47 | PROVIDER PROGRESS NOTE ---
Assessment/Plan - Problem List (1) Acute CVA (cerebrovascular accident) Assessment/Plan: The new slurred speech has resolved. But her memory problem is new, or definitely worse than before this admission, per the sons. She has had work-up in the past for the prior stroke, including a presumed CODEY in August 2022, at [facility]. The results of that are not known. Her risk factors for stroke are noncompliance with her anticoagulant use in a patient with A-fib and prior stroke, poorly controlled hypertension, advanced age, hyperlipidemia, and non-compliance with all her meds for 3 mos. We allowed permissive hypertension for 24 hours. She got ASA 324 mg in ER, then ordered to get 81 mg daily. PT and OT evals were done and she could not maintain her trunk upright. But she was able to bear weight on her right leg and could even squat and pivot and was transferred to a chair. Her R arm is ataxic when feeding herself. PT did recommend rehab to maintain the strength in the right leg. OT did recommend OT rehab for the R arm. Plan: Still awaiting requested records from [facility] where she had a CODEY or at least an Echo. No need to do a new complete Echo Cont Neuro checks q4h Plan will be a SNF for PT and OT rehab and then family wants her to transition to permanent LTC (2) Hypertension Conclusion/Plan: Patient was supposed to be on Losartan for blood pressure management. I learned from pharmacy, and both sons confirmed, that she was non-compliant with ALL her meds for 3 mos. She simply refused them We allowed permissive hypertension for 24 hours. Since she refuses to take all p.o. meds, I started her on a weekly topical clonidine patch 0.2 mg Plan: Cont the Clonidone patch 0.2 mg top weekly Will give prn IV hydralazine if blood pressure is over 190, or if diastolic over 110. (3) Chronic a-fib Conclusion/Plan: In her past she was prescribed Eliquis, she did not want to take this because of cost, and it was changed to a prescription for warfarin about 3 mos ago. She has not been taking her warfarin for 3 months. She refuses all oral medications entirely Plan: She has chronotropic incompetence and her A-fib rate is not tachycardic at rest, even without any heart rate-slowing meds. Both sons agreed not to pursue forcing her to take pills, such as a statin or an anticoagulant. Therefore I started her on 1 chewable baby aspirin po daily, it can be crushed into her applesauce if she refuses to swallow a pill. (4) AAA (abdominal aortic aneurysm) Conclusion/Plan: Patient has a history of a 5.2 cm AAA. at the last admission, she said she has seen specialists regarding management of this but could not remember what the plan was. I planned on checking her fasting lipid panel and treat per guidelines, but the pt refused all blood tests yesterday. Plan: No aggressive management for the AAA is planned We will manage the hypertension as described above Continue 1 baby aspirin daily as described above (5) CVA, old, hemiparesis Conclusion/Plan: Her severe left arm and left leg weakness are results of a prior stroke, not the most recent stroke. The patient no longer walks to bathroom, she does not even stand to pivot to use a bedside commode. She now urinates and defecates into a diaper and Shraddha's cleans that. The son Cesar and his can no longer take care of her, and want her in a LTC facility After discussion with Cesar, her DPOA yestrday, I changed her Full CODE status to DNR code status. Plan: SNF for rehab then LTC are the overall plan (6) Noncompliance with meds and management Conclusion/Plan: As described above; she refuses all blood testing here. She refuses to swallow p.o. meds and has refused that for 3 months Plan: No more blood test will be ordered We will use topical meds where possible A POLST was filled out by the DPOA and medical management with selective treatment was chosen by the family. - Current Meds Current Meds: Current Medications Generic Name Dose Route Start Last Admin Trade Name Melvin PRN Reason Stop Dose Admin Aspirin 81 mg 12/17/22 13:00 12/19/22 09:18 Aspirin Chew 81 Mg Tablet PO 81 mg DAILY DELPHINE Administration Clonidine HCl 1 patch 12/18/22 10:00 12/18/22 12:24 Clonidine 0.2 Mg Patch TOP 1 patch Q7D DELPHINE Administration Hydralazine HCl 10 mg 12/17/22 12:49 12/19/22 09:18 Hydralazine Inj 20 Mg/Ml Vial IVP 10 mg Q8H PRN Administration Hypertensive Emergency Acetaminophen 1,000 mg in 100 mls @ 400 mls/hr 12/16/22 17:21 12/18/22 16:51 Acetaminophen IV Infused Q6HR PRN Infusion Pain or Fever > 38C (100.4F) Sodium Chloride 10 ml 12/16/22 17:18 12/16/22 18:32 Sodium Chloride Flush 0.9% 10 Ml Syringe IVP 10 ml PRN PRN Administration NEEDED PER PROVIDER ORDERS Sodium Chloride 10 ml 12/17/22 01:00 12/19/22 09:23 Sodium Chloride Flush 0.9% 10 Ml Syringe IVP 10 ml 0100,0900,1700 DELPHINE Administration - Lab Result Fish Bone Diagrams: 12/16/22 13:00 12/16/22 13:00 - Additional Planning My Orders: My Active Orders 12/18/22 16:50 Telemetry-Discontinue [RC] .ONCE 12/19/22 06:43 Min Oil/Dimeth/Coconut Oil Crm [Cavilon] 1 applic TOP PRN PRN 12/19/22 10:41 Straight Catheter Insertion [RC] ONCE 12/19/22 17:00 polyethylene glycoL 3350 [Miralax] 17 gm PO DAILY Subjective - Subjective Patient Reports: No Complaints Objective Vital Signs: Vital Signs - 24 hr 12/18/22 12/18/22 12/19/22 15:40 19:48 00:58 Temperature 36.8 C 36.7 C 36.2 C L Heart Rate [ 70 78 Brachial] Heart Rate [ 72 Monitoring electrodes] Respiratory 19 18 16 Rate Blood Pressure Blood Pressure [Left Brachial artery] Blood Pressure 142/85 H 139/88 H 162/96 H [Right Brachial artery] O2 Saturation 96 96 92 12/19/22 12/19/22 12/19/22 06:24 08:55 09:00 Temperature 36.4 C L 36.4 C L 36.4 C L Heart Rate [ 68 69 69 Brachial] Heart Rate [ Monitoring electrodes] Respiratory 16 16 Rate Blood Pressure Blood Pressure 159/101 H [Left Brachial artery] Blood Pressure [Right Brachial artery] O2 Saturation 95 95 12/19/22 12/19/22 12/19/22 09:18 09:29 09:40 Temperature Heart Rate [ Brachial] Heart Rate [ Monitoring electrodes] Respiratory Rate Blood Pressure 191/98 H Blood Pressure [Left Brachial artery] Blood Pressure 154/84 H 133/76 H [Right Brachial artery] O2 Saturation 12/19/22 12/19/22 12/19/22 09:48 10:00 10:10 Temperature Heart Rate [ Brachial] Heart Rate [ Monitoring electrodes] Respiratory Rate Blood Pressure 138/94 H Blood Pressure [Left Brachial artery] Blood Pressure 143/71 H 138/94 H [Right Brachial artery] O2 Saturation 12/19/22 12:15 Temperature 36.5 C Heart Rate [ 78 Brachial] Heart Rate [ Monitoring electrodes] Respiratory 18 Rate Blood Pressure Blood Pressure [Left Brachial artery] Blood Pressure 141/84 H [Right Brachial artery] O2 Saturation 95 Oxygen O2 Source Room air I&O (Last 24 Hrs): Intake and Output Totals x24h 12/17/22 12/18/22 12/19/22 23:59 23:59 23:59 Intake Total 7008.743 2231 1280 Output Total 2350 800 Balance -941.913 779 8282 General: Alert, Other (Disheveled) HEENT: Mucous membr. moist/pink, Other ([place]) Neck: Supple Neuro: Alert, Disoriented, Focal Deficits, Other (Poor memory) Cardiovascular: Other (Irreg irreg) Respiratory: No respiratory distress Abdomen: No tenderness Extremities: No clubbing, No edema - Results Results: Laboratory Results WBC 4.1 x10^3/uL (4.8-10.8) L 12/16/22 13:00 RBC 3.57 10^6/uL (4.20-5.40) L 12/16/22 13:00 Hgb 12.0 g/dL (12.0-16.0) 12/16/22 13:00 Hct 35.8 % (37.0-47.0) L 12/16/22 13:00 MCV 100.3 fL (81.0-99.0) H 12/16/22 13:00 MCH 33.6 pg (27.0-31.0) H 12/16/22 13:00 MCHC 33.5 g/dL (32.0-36.0) 12/16/22 13:00 RDW 15.9 % (12.0-15.0) H 12/16/22 13:00 Plt Count 340 10^3/uL (130-450) 12/16/22 13:00 MPV 10.7 fL (7.9-10.8) 12/16/22 13:00 Neut # (Auto) 2.5 10^3/uL (1.5-6.6) 12/16/22 13:00 Lymph # (Auto) 1.3 10^3/uL (1.5-3.5) L 12/16/22 13:00 [place] # (Auto) 0.1 10^3/uL (0.0-1.0) 12/16/22 13:00 Eos # (Auto) 0.1 10^3/uL (0.0-0.7) 12/16/22 13:00 Baso # (Auto) 0.1 10^3/uL (0.0-0.1) 12/16/22 13:00 Absolute Nucleated RBC 0.00 x10^3/uL 12/16/22 13:00 Nucleated RBC % 0.0 /100WBC 12/16/22 13:00 PT 11.4 secs (9.9-12.6) 12/16/22 13:00 INR 1.0 (0.8-1.2) 12/16/22 13:00 Sodium 135 mmol/L (135-145) 12/16/22 13:00 Potassium 3.4 mmol/L (3.5-4.5) L 12/16/22 13:00 Chloride 98 mmol/L (101-111) L 12/16/22 13:00 Carbon Dioxide 30 mmol/L (21-32) 12/16/22 13:00 Anion Gap 7.0 (6-13) 12/16/22 13:00 BUN 16 mg/dL (6-20) 12/16/22 13:00 Creatinine 1.0 mg/dL (0.6-1.3) 12/16/22 13:00 Estimated GFR (MDRD) 54 (>89) L 12/16/22 13:00 Glucose 106 mg/dL (74-104) H 12/16/22 13:00 Calcium 10.2 mg/dL (8.5-10.3) 12/16/22 13:00 Total Bilirubin 0.8 mg/dL (0.2-1.0) 12/16/22 13:00 AST 18 IU/L (10-42) 12/16/22 13:00 ALT 5 IU/L (10-60) L 12/16/22 13:00 Alkaline Phosphatase 56 IU/L (42-121) 12/16/22 13:00 Total Protein 7.8 g/dL (6.4-8.9) 12/16/22 13:00 Albumin 4.5 g/dL (3.2-5.5) 12/16/22 13:00 Globulin 3.3 g/dL (2.1-4.2) 12/16/22 13:00 Albumin/Globulin Ratio 1.4 (1.0-2.2) 12/16/22 13:00 Lipase 23 U/L (11-82) 12/16/22 13:00 Urine Color YELLOW 12/16/22 13:47 Urine Clarity CLEAR (CLEAR) 12/16/22 13:47 Urine pH 7.0 PH (5.0-7.5) 12/16/22 13:47 Ur Specific [place] 1.010 (1.002-1.030) 12/16/22 13:47 Urine Protein TRACE mg/dL (NEGATIVE) 12/16/22 13:47 Urine Glucose (UA) NEGATIVE mg/dL (NEGATIVE) 12/16/22 13:47 Urine Ketones NEGATIVE mg/dL (NEGATIVE) 12/16/22 13:47 Urine Occult Blood NEGATIVE (NEGATIVE) 12/16/22 13:47 Urine Nitrite NEGATIVE (NEGATIVE) 12/16/22 13:47 Urine Bilirubin NEGATIVE (NEGATIVE) 12/16/22 13:47 Urine Urobilinogen 0.2 (NORMAL) E.U./dL (NORMAL) 12/16/22 13:47 Ur Leukocyte Esterase NEGATIVE (NEGATIVE) 12/16/22 13:47 Ur Microscopic Review NOT INDICATED 12/16/22 13:47 Urine Culture Comments NOT INDICATED 12/16/22 13:47 - Procedures Procedures: Procedures RELEASE MEDIAN NERVE, OPEN APPROACH (02/26/17)
[2022-12-19] MEDS: MULTIVITAMIN W/MINERALS TABLET PO SCH (17:24)
[2022-12-19] MEDS: polyethylene glycoL 3350 17 GM PACKET PO SCH (17:24)
[2022-12-20] MEDS: SODIUM CHLORIDE FLUSH 0.9% 10 ML SYRINGE IVP SCH ×3 (00:36→16:53)
[2022-12-20] MEDS: hydrALAZINE INJ 20 MG/ML VIAL IVP PRN (08:30)
[2022-12-20] MEDS: ASPIRIN CHEW 81 MG TABLET PO SCH (09:00)
[2022-12-20] MEDS: MULTIVITAMIN W/MINERALS TABLET PO SCH (09:00)
[2022-12-20] MEDS: polyethylene glycoL 3350 17 GM PACKET PO SCH (09:01)
[2022-12-20] MEDS ORDERED: MAGNESIUM HYDROXIDE 2,400 MG/30 ML UDC PO ONE (12:24)
[2022-12-20] MEDS: SENNA 8.6 MG TABLET PO SCH ×2 (12:56→19:34)
--- NOTE | 2022-12-20 15:11 | PROVIDER PROGRESS NOTE ---
Assessment/Plan - Problem List (1) Acute CVA (cerebrovascular accident) Assessment/Plan: The new slurred speech has resolved. But her memory problem is new, or definitely worse than before this admission, per the sons. She has had work-up in the past for the prior stroke, including a presumed CODEY in August 2022, at [facility]. The results of that are not known. Her risk factors for stroke are noncompliance with her anticoagulant use in a patient with A-fib and prior stroke, poorly controlled hypertension, advanced age, hyperlipidemia, and non-compliance with all her meds for 3 mos. We allowed permissive hypertension for 24 hours. She got ASA 324 mg in ER, then ordered to get 81 mg daily. PT and OT evals were done and she could not maintain her trunk upright. But she was able to bear weight on her right leg and could even squat and pivot and was transferred to a chair. Her R arm is ataxic when feeding herself. PT did recommend rehab to maintain the strength in the right leg. OT did recommend OT rehab for the R arm. I updated her son Cesar today with this plan Today I received the requested records from [facility] where she had an Echo, when hospitalized there with CVA in August 2021. Reviewed those records. She had a lacunar stroke. She had an echo but not a CODEY. The echo showed LVEF 60-65%, mild aortic stenosis w/ AoV area 1.5 cm2, no intracardiac clot and no intracardiac shunt Plan: No need to do a new complete Echo Plan will be a SNF for PT and OT rehab and then family wants her to transition to permanent LTC. Today ANJEL General Adjuster came here and met te pt and has agreed to that plan, thus I anticipate her being [facility] tomorrow (2) Hypertension Conclusion/Plan: Patient was supposed to be on Losartan for blood pressure management. I learned from pharmacy, and both sons confirmed, that she was non-compliant with ALL her meds for 3 mos. She simply refused them We allowed permissive hypertension for 24 hours. Since has refused to take all p.o. meds, I started her on a weekly topical clonidine patch 0.2 mg Plan: Cont the Clonidone patch 0.2 mg top weekly Will give prn IV hydralazine if blood pressure is over 190, or if diastolic over 110. (3) Chronic a-fib Conclusion/Plan: In her past she was prescribed Eliquis, she did not want to take this because of cost, and it was changed to a prescription for warfarin about 3 mos ago. She has not been taking her warfarin for 3 months. She refuses all oral medications entirely Plan: She has chronotropic incompetence and her A-fib rate is not tachycardic at rest, even without any heart rate-slowing meds. Both sons agreed not to pursue forcing her to take pills, such as a statin or an anticoagulant. Therefore I started her on 1 chewable baby aspirin po daily, it can be crushed into her applesauce if she refuses to swallow a pill. (4) AAA (abdominal aortic aneurysm) Conclusion/Plan: Patient has a history of a 5.2 cm AAA. at the last admission, she said she has seen specialists regarding management of this but could not remember what the plan was. I planned on checking her fasting lipid panel and treat per guidelines, but the pt refused all blood tests yesterday. Plan: No aggressive management for the AAA is planned We will manage the hypertension as described above Continue 1 baby aspirin daily as described above (5) CVA, old, hemiparesis Conclusion/Plan: Her severe left arm and left leg weakness are results of a prior stroke, not the most recent stroke. The patient has not been walking to bathroom, she did not stand to pivot at home and was urinating and defecating into a diaper and Shraddha's cleaned that. The son Cesar and his can no longer take care of her, and want her in a LTC facility. Plan: After discussion with Cesar, her DPOA, I changed her Full CODE status to DNR code status. SNF for rehab then LTC are the overall plan (6) Aortic stenosis Conclusion/Plan: As per Echo done August 2021. Plan: No intervention planned. (7) Noncompliance with meds and management Conclusion/Plan: As described above; she refuses all blood testing here. She refuses to swallow p.o. meds and has refused that for 3 months Plan: No more blood test will be ordered We will use topical meds where possible A POLST was filled out by the DPOA and medical management with selective treatment was chosen by the family. - Current Meds Current Meds: Current Medications Generic Name Dose Route Start Last Admin Trade Name Freq PRN Reason Stop Dose Admin Aspirin 81 mg 12/17/22 13:00 12/20/22 09:00 Aspirin Chew 81 Mg Tablet PO 81 mg DAILY DELPHINE Administration Clonidine HCl 1 patch 12/18/22 10:00 12/18/22 12:24 Clonidine 0.2 Mg Patch TOP 1 patch Q7D DELPHINE Administration Hydralazine HCl 10 mg 12/17/22 12:49 12/20/22 08:30 Hydralazine Inj 20 Mg/Ml Vial IVP 10 mg Q8H PRN Administration Hypertensive Emergency Acetaminophen 1,000 mg in 100 mls @ 400 mls/hr 12/16/22 17:21 12/18/22 16:51 Acetaminophen IV Infused Q6HR PRN Infusion Pain or Fever > 38C (100.4F) Multivitamins/Minerals 1 tab 12/19/22 17:00 12/20/22 09:00 Multivitamin W/Minerals Tablet PO 1 tab DAILYWM DELPHINE Administration Polyethylene Glycol 17 gm 12/19/22 17:00 12/20/22 09:01 Polyethylene Glycol 3350 17 Gm Packet PO 17 gm DAILY DELPHINE Administration Senna 17.2 - 25.8 mg 12/20/22 13:00 12/20/22 12:56 Senna 8.6 Mg Tablet PO 12/21/22 07:01 17.2 mg Q6H DELPHINE Administration Sodium Chloride 10 ml 12/16/22 17:18 12/16/22 18:32 Sodium Chloride Flush 0.9% 10 Ml Syringe IVP 10 ml PRN PRN Administration NEEDED PER PROVIDER ORDERS Sodium Chloride 10 ml 12/17/22 01:00 12/20/22 09:00 Sodium Chloride Flush 0.9% 10 Ml Syringe IVP 10 ml 0100,0900,1700 DELPHINE Administration - Lab Result Fish Bone Diagrams: 12/16/22 13:00 12/16/22 13:00 - Additional Planning My Orders: My Active Orders 12/19/22 17:00 Multivitamin W/Minerals [Theragran M] 1 tab PO DAILYWM polyethylene glycoL 3350 [Miralax] 17 gm PO DAILY 12/20/22 13:00 Senna [Senokot] 17.2 - 25.8 mg PO Q6H Subjective - Subjective Patient Reports: Resting Comfortably, No Complaints Objective Vital Signs: Vital Signs - 24 hr 12/19/22 12/19/22 12/20/22 16:30 20:57 00:00 Temperature 36.7 C 36.5 C 36.2 C L Heart Rate [ 70 65 68 Brachial] Respiratory 18 18 18 Rate Blood Pressure Blood Pressure 161/96 H 157/78 H 152/97 H [Right Brachial artery] O2 Saturation 98 95 93 12/20/22 12/20/22 12/20/22 07:51 08:30 08:40 Temperature 36.2 C L Heart Rate [ 73 Brachial] Respiratory 18 Rate Blood Pressure 193/80 H Blood Pressure 193/80 H 122/56 L [Right Brachial artery] O2 Saturation 92 12/20/22 12/20/22 08:50 09:00 Temperature Heart Rate [ Brachial] Respiratory Rate Blood Pressure 126/71 Blood Pressure 116/66 123/72 [Right Brachial artery] O2 Saturation Oxygen O2 Source Room air I&O (Last 24 Hrs): Intake and Output Totals x24h 12/18/22 12/19/22 12/20/22 23:59 23:59 23:59 Intake Total 1640 1850 1900 Output Total 800 1150 Balance 840 1850 750 General: Alert, Oriented x3 HEENT: Mucous membr. moist/pink Neck: Supple, No JVD Neuro: Alert, Other (L arm and leg 0/5 strength, poor memory) Cardiovascular: Other (Distant heart sound) Respiratory: No respiratory distress Abdomen: Soft Extremities: No clubbing, No edema, No tenderness/swelling - Results Results: Laboratory Results WBC 4.1 x10^3/uL (4.8-10.8) L 12/16/22 13:00 RBC 3.57 10^6/uL (4.20-5.40) L 12/16/22 13:00 Hgb 12.0 g/dL (12.0-16.0) 12/16/22 13:00 Hct 35.8 % (37.0-47.0) L 12/16/22 13:00 MCV 100.3 fL (81.0-99.0) H 12/16/22 13:00 MCH 33.6 pg (27.0-31.0) H 12/16/22 13:00 MCHC 33.5 g/dL (32.0-36.0) 12/16/22 13:00 RDW 15.9 % (12.0-15.0) H 12/16/22 13:00 Plt Count 340 10^3/uL (130-450) 12/16/22 13:00 MPV 10.7 fL (7.9-10.8) 12/16/22 13:00 Neut # (Auto) 2.5 10^3/uL (1.5-6.6) 12/16/22 13:00 Lymph # (Auto) 1.3 10^3/uL (1.5-3.5) L 12/16/22 13:00 [place] # (Auto) 0.1 10^3/uL (0.0-1.0) 12/16/22 13:00 Eos # (Auto) 0.1 10^3/uL (0.0-0.7) 12/16/22 13:00 Baso # (Auto) 0.1 10^3/uL (0.0-0.1) 12/16/22 13:00 Absolute Nucleated RBC 0.00 x10^3/uL 12/16/22 13:00 Nucleated RBC % 0.0 /100WBC 12/16/22 13:00 PT 11.4 secs (9.9-12.6) 12/16/22 13:00 INR 1.0 (0.8-1.2) 12/16/22 13:00 Sodium 135 mmol/L (135-145) 12/16/22 13:00 Potassium 3.4 mmol/L (3.5-4.5) L 12/16/22 13:00 Chloride 98 mmol/L (101-111) L 12/16/22 13:00 Carbon Dioxide 30 mmol/L (21-32) 12/16/22 13:00 Anion Gap 7.0 (6-13) 12/16/22 13:00 BUN 16 mg/dL (6-20) 12/16/22 13:00 Creatinine 1.0 mg/dL (0.6-1.3) 12/16/22 13:00 Estimated GFR (MDRD) 54 (>89) L 12/16/22 13:00 Glucose 106 mg/dL (74-104) H 12/16/22 13:00 Calcium 10.2 mg/dL (8.5-10.3) 12/16/22 13:00 Total Bilirubin 0.8 mg/dL (0.2-1.0) 12/16/22 13:00 AST 18 IU/L (10-42) 12/16/22 13:00 ALT 5 IU/L (10-60) L 12/16/22 13:00 Alkaline Phosphatase 56 IU/L (42-121) 12/16/22 13:00 Total Protein 7.8 g/dL (6.4-8.9) 12/16/22 13:00 Albumin 4.5 g/dL (3.2-5.5) 12/16/22 13:00 Globulin 3.3 g/dL (2.1-4.2) 12/16/22 13:00 Albumin/Globulin Ratio 1.4 (1.0-2.2) 12/16/22 13:00 Lipase 23 U/L (11-82) 12/16/22 13:00 Urine Color YELLOW 12/16/22 13:47 Urine Clarity CLEAR (CLEAR) 12/16/22 13:47 Urine pH 7.0 PH (5.0-7.5) 12/16/22 13:47 Ur Specific [place] 1.010 (1.002-1.030) 12/16/22 13:47 Urine Protein TRACE mg/dL (NEGATIVE) 12/16/22 13:47 Urine Glucose (UA) NEGATIVE mg/dL (NEGATIVE) 12/16/22 13:47 Urine Ketones NEGATIVE mg/dL (NEGATIVE) 12/16/22 13:47 Urine Occult Blood NEGATIVE (NEGATIVE) 12/16/22 13:47 Urine Nitrite NEGATIVE (NEGATIVE) 12/16/22 13:47 Urine Bilirubin NEGATIVE (NEGATIVE) 12/16/22 13:47 Urine Urobilinogen 0.2 (NORMAL) E.U./dL (NORMAL) 12/16/22 13:47 Ur Leukocyte Esterase NEGATIVE (NEGATIVE) 12/16/22 13:47 Ur Microscopic Review NOT INDICATED 12/16/22 13:47 Urine Culture Comments NOT INDICATED 12/16/22 13:47 - Procedures Procedures: Procedures RELEASE MEDIAN NERVE, OPEN APPROACH (02/26/17)
[2022-12-21 00:28] VITALS: O2SAT 96
[2022-12-21] MEDS: SENNA 8.6 MG TABLET PO SCH ×2 (00:29→06:21)
[2022-12-21] MEDS: SODIUM CHLORIDE FLUSH 0.9% 10 ML SYRINGE IVP SCH ×2 (00:32→08:54)
[2022-12-21] MEDS: polyethylene glycoL 3350 17 GM PACKET PO SCH (08:47)
[2022-12-21] MEDS: MULTIVITAMIN W/MINERALS TABLET PO SCH (08:48)
[2022-12-21] MEDS: ASPIRIN CHEW 81 MG TABLET PO SCH (08:48)
[2022-12-21] MEDS ORDERED: amLODIPine 5 MG TABLET PO SCH (09:00)
[2022-12-21] MEDS ORDERED: LACTULOSE 10 GM /15 ML UDC PO ONE (10:30)
[2022-12-21 10:58] VITALS: BP 121/78
--- NOTE | 2022-12-21 11:37 | Discharge Plan ---
"Discharge Plan for SNF / TOMMY - Discharge Plan And Transition Orders Problem Reviewed?: Yes Disposition: 03 SNF DC/Xfer Condition: Fair Allergies and Adverse Reactions: Allergies Allergy/AdvReac Type Severity Reaction Status Date / Time milk AdvReac Mild Cramps Verified 08/27/21 06:01 Health Concerns: The patient was hospitalized with a new stroke (which were sx of garbled speech and worsened confusion). Her old stroke from a year previously, had left her with severe left arm and leg weakness. We learned that the patient had been refusing all of her medicines, including her Coumadin for A-fib and blood pressure meds, for the past 3 months. The following morning her garbled speech resolved and confusion was only slightly better. She was put on topical Clonidine for blood pressure control and chewable baby aspirin, then did not refuse swallowing of Amlodipine when it was added. She was seen by PT and OT, and felt to be rehabable to maintain strength of the right leg and needs OT for the right arm, for feeding herself. She is being transferred to a SNF for PT and OT rehab then is to transition to long-term care there. Plan of Treatment: As above and daily PT and OT. Care Goals: Stabilization and comfort are the goals. A new POLST was completed by the son Cesar, her DPOA and the Hospitalist, and she is now a DNR/DNI. Assessment: The adolph Guerrero, the DPOA, understands and is agreeable with the plan. - SNF / DETENTION Transition Orders Admit to (Facility): [facility] Under the care of (Name): Dr Efrain Beckham Discharge Diagnosis: (1) Acute CVA (cerebrovascular accident) Garbled speech has resolved, confusion remains. (2) Hypertension She is now on clonidine patch daily and amlodipine orally daily (3) Chronic a-fib Heart rate is controlled on its own. She is now on 1 baby aspirin daily (4) AAA (abdominal aortic aneurysm) No management for the AAA is planned (5) CVA, old, hemiparesis Left arm and leg weakness is chronic (6) Aortic stenosis No intervention planned. Medicare Certification Statement: I certify that [facility] is medically necessary on a continuing basis for any of the conditions for which she/he is receiving care during hospitalization. Notify PCP of admission and forward orders to primary provider for signature. Weight on admission and: Monthly Other Notification Orders: Call PCP immediately if patient develops dyspnea, chest pain/tightness or edema. House Bowel Program: Yes Additional Bowel Program Orders: If no BM after 2 days, nurse may give M.O.M. 30ml PO PRN and/or ducolax Supp 1 OR and/or MYNOR 250mg P.O., and/or senna 1-2 tabs PO. On day 3 nurse may give repeat above order until residents constipation is resolved. Annual Influenza Vaccine (between Dec 15 and July 14): Yes Two-step PPD per [facility] [phone] or approved exception documents: Yes Treatments & Other Orders: Daily PT and OT Medication Orders: PLEASE REFER TO THE DISCHARGE MEDICATION LIST. Insulin Orders?: No - Medications New Prescriptions: cloNIDine 0.2 MG PATCH [[id number]] 1 patch TOP Q7D #4 patch amLODIPine [Norvasc] 2.5 mg PO DAILY #30 tab Aspirin Chewable [St Ab Aspirin] 81 mg PO DAILY #30 tab - Diet Type: Geriatric (Minced and moist solid foods, no added salt, however OK to have ketchup) Texture: Regular Liquids: Thin May have monthly special meal: Yes - Therapies | Activity Therapy: Evaluation | Treat if indicated: PT, OT Rehabilitation Potential: Maximize functional status Weight Bearing: Partial Weight (She can bear weight on the right leg) Follow Up: See PCP for routine hospital follow-up visit in 1 to 3 weeks."
--- NOTE | 2022-12-21 11:55 | DISCHARGE SUMMARY ---
Discharge Summary Admit Date: 12/16/22 Discharge Date: 12/21/22 Discharging Provider: Dr Sendy Martell Primary Care Provider: Dr Efrain Beckham Condition at Discharge: Fair Discharge Disposition: 03 SNF DC/Xfer - HPI History of Present Illness: This is a 77-year-old female who lives with her son Cesar (who is also her DPOA), and with [id number]. She has a history of chronic atrial fib, HTN and AAA. There was a history of prior TIA, then a stroke leaving her with severe left arm and leg weakness. Her admission in July 2021 here resulted in her being transferred to [facility] for work-up of an acute stroke, to have a CODEY. The results of that are not known. Her other history is of AAA that measured 5.2 cm and she was seen by vascular surgeon, but plan for managing that is not known. When she was here for stroke-like sx in August, she was to be on Eliquis, but she did not want to pay the higher cost and was changed to Warfarin. During that admission she also said that she has a gun permit and said she "carries a gun in her purse at all times". The gun was removed for safety reasons. Patient presents now after her last known well being last night. She awoke with abnormal speech and presented to the ER. In the ER she was found to have continued new abnormal speech and her chronic old left-sided weakness. The son at bedside in ER (the son who does not live with her), reported that the patient has been noncompliant with taking her warfarin for the past 3 months because she does not want to take it. Her blood pressure was 189/116 and heart rate in A- fib, was controlled at 80. 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 The ED provider spoke to a telestroke doctor who advised that nothing can be done due to the location. The ED provider spoke to me about this patient. She will be admitted for treating a stroke. During an admission here previously, the patient confirmed she wants to be a Full Code. - HOSPITAL COURSE Hospital Course: (1) Acute CVA (cerebrovascular accident) The new slurred speech resolved by the next day, but her memory problem was new, or definitely worsened, per the sons. Her risk factors for stroke were noncompliance with her anticoagulant use (in a patient with A-fib and prior stroke), poorly controlled hypertension, advanced age, and hyperlipidemia. We learned she was non-compliant with all her meds for 3 mos. She got ASA 324 mg in ER, then ordered to get 81 mg daily. PT and OT evals were done and she initially could not maintain her trunk upright in bed. She slowly improved, was able to bear weight on her right leg and could even squat and pivot to transfer to a chair. Her R arm was ataxic when feeding herself. PT did recommend rehab to maintain the strength in the right leg. OT did recommend OT rehab for the R arm. Records from her [facility] hospitalization for CVA in August 2021 were requested and showed she had a lacunar stroke. Her Echo done there showed LVEF 60-65%, mild aortic stenosis w/ AoV area 1.5 cm2, no intracardiac clot and no intracardiac shunt seen. She was discharged to [facility] for PT and OT rehab and then family wants her to transition to permanent LTC there. (2) Hypertension Patient was supposed to be on Losartan for her HTN. We learned she was non- compliant with all her meds for 3 mos; she simply refused them. We allowed permissive hypertension initially. Since she refused to take all p.o. meds, I s tarted her on a weekly topical Clonidine patch 0.2 mg. But before discharge, Amlodipine po was added, which she took. (3) Chronic a-fib In her past she was prescribed Eliquis, but she did not want to take that because of cost, and it was changed to warfarin.We learned she was not taking her warfarin for 3 months, refusing all oral medications entirely. Both sons agreed not to pursue forcing her to take pills,therefore I started her on 1 chewable baby aspirin po daily, which can be crushed into her applesauce if she refuses to swallow a pill. Her A-fib rate is not tachycardic, even without any heart rate-slowing meds, therefore she has chronotropic incompetence and no other meds were needed. (4) AAA (abdominal aortic aneurysm) Patient has a history of a 5.2 cm AAA. She had seen specialists regarding management and no intervention was desired. (5) CVA, old, hemiparesis Her left arm and left leg paralysis were result of a prior stroke, not this current stroke. At home, she did not stand to pivot and was urinating and defecating into a diaper and Shraddha's cleaned that. The son Cesar and his said they could no longer take care of her. The plan was to transition from SNF to LTC at [facility]. Also, after discussion with Cesar, her DPOA, her Full CODE status was changed to DNR code status and a POLST form was completed. (6) Aortic stenosis As per Echo done August 2021. No intervention planned. (7) Noncompliance with meds and management As described above. She even refused blood testing after admission. She refused to swallow p.o. meds and had refused that for 3 months - ALLERGIES Allergies/Adverse Reactions: Allergies Allergy/AdvReac Type Severity Reaction Status Date / Time milk AdvReac Mild Cramps Verified 08/27/21 06:01 - MEDICATIONS Home Medications: Ambulatory Orders Medication Instructions Recorded Confirmed Aspirin Chewable [St Ab 81 mg PO DAILY #30 tab 12/21/22 Aspirin] amLODIPine [Norvasc] 2.5 mg PO DAILY #30 tab 12/21/22 cloNIDine 0.2 MG PATCH 1 patch TOP Q7D #4 patch 12/21/22 [[id number]] - PHYSICAL EXAM AT DISCHARGE General Appearance: positive: No acute distress, Alert Eyes Bilateral: positive: Normal inspection, EOMI ENT: positive: ENT inspection nml, No signs of dehydration Neck: positive: Nml inspection, No JVD Respiratory: positive: No respiratory distress Cardiovascular: positive: No murmur, Irregularly irregular Abdomen: positive: Non-tender, No distention Skin: positive: Warm, Dry Extremities: positive: Non-tender Neurologic/Psychiatric: positive: Other (Oriented to person & place, poor memory, L arm and L leg paretic, R arm ataxic.) - LABS Result Diagrams: 12/16/22 13:00 12/16/22 13:00 - DIAGNOSTIC IMAGING Diagnostic Imaging Results: Final report reviewed - FOLLOW UP Follow Up: See PCP after SNF portion of her stay at [facility], or transfer to Dr Lim when she is a resident in LTC at [facility]. - TIME SPENT Time Spent in Discharge (Minutes): 45
[2022-12-21] MEDS ORDERED: BISACODYL 10 MG SUPP PR ONE (13:00)
== END 2022-12-21 14:10 | DRG 65 ==
LOC: EDUNIT# → ED 12:41 → MS2 17:18
PROVIDERS: ADMIT Internal Medicine; ATTEND Internal Medicine
DX: I63.9 Cerebral infarction, unspecified (principal); G81.94 Hemiplegia, unspecified affecting left nondominant side; I63.219 Cerebral infarction due to unspecified occlusion or stenosis of unspecified vertebral artery; I48.20 Chronic atrial fibrillation, unspecified; I69.354 Hemiplegia and hemiparesis following cerebral infarction affecting left non-dominant side; T45.516A Underdosing of anticoagulants, initial encounter; I71.40 Abdominal aortic aneurysm, without rupture, unspecified; F17.200 Nicotine dependence, unspecified, uncomplicated; I48.91 Unspecified atrial fibrillation; R27.0 Ataxia, unspecified; R47.81 Slurred speech; R29.710 NIHSS score 10; I11.0 Hypertensive heart disease with heart failure; I50.9 Heart failure, unspecified; I25.10 Atherosclerotic heart disease of native coronary artery without angina pectoris; E78.00 Pure hypercholesterolemia, unspecified; H54.7 Unspecified visual loss; F32.A Depression, unspecified; R41.3 Other amnesia; Z66 Do not resuscitate; Z79.01 Long term (current) use of anticoagulants; Z79.890 Hormone replacement therapy; Z79.899 Other long term (current) drug therapy; Z80.0 Family history of malignant neoplasm of digestive organs; Z80.9 Family history of malignant neoplasm, unspecified; Z82.49 Family history of ischemic heart disease and other diseases of the circulatory system; Z87.891 Personal history of nicotine dependence; Z91.128 Patient's intentional underdosing of medication regimen for other reason; Z91.148 Patient's other noncompliance with medication regimen for other reason; Z91.199 Patient's noncompliance with other medical treatment and regimen due to unspecified reason
CPT/HCPCS: 36415; 70450; 70496; 70498; 71045; 80053; 81003; 83690; 85025; 85610; 93005; 96360; 97162; 97165; 97530; 99285; A9270; J0131; Q9967; 80048; 80061; 81001; 83721; 83735; 87086

== ENCOUNTER 2022-12-21 14:16 | Outpatient (CLI) | payer MEDICARE | END 2022-12-21 23:59 | LOC: EMS 14:16 | PROVIDERS: ATTEND Internal Medicine | DX: I69.359 Hemiplegia and hemiparesis following cerebral infarction affecting unspecified side (principal); I10 Essential (primary) hypertension; I48.91 Unspecified atrial fibrillation; R41.0 Disorientation, unspecified; Z74.01 Bed confinement status | CPT/HCPCS: A0425; A0428 ==

== ENCOUNTER 2023-01-23 14:46 | Outpatient (CLI) | payer MEDICARE ==
[2023-01-23 15:15] LABS: ALBUMIN/GLOBULIN RATIO 1.5 (1.0-2.2); BILIRUBIN,TOTAL 0.6 mg/dL (0.2-1.0); CALCIUM 9.5 mg/dL (8.5-10.3); CREATININE 1.3 mg/dL (0.6-1.3); POTASSIUM 3.9 mmol/L (3.5-4.5); TOTAL PROTEIN 6.6 g/dL (6.4-8.9)
[2023-01-23 15:20] LABS: BASOPHILS # (AUTO) 0.1 10^3/uL (0.0-0.1); BASOPHILS % (AUTO) 1.7 %; EOSINOPHILS # (AUTO) 0.2 10^3/uL (0.0-0.7); EOSINOPHILS % (AUTO) 3.9 %; HCT - HEMATOCRIT 31.6 % (37.0-47.0); HGB - HEMOGLOBIN 10.7 g/dL (12.0-16.0); LYMPHOCYTES # (AUTO) 1.3 10^3/uL (1.5-3.5); LYMPHOCYTES % (AUTO) 28.3 %; MEAN CORPUSCULAR HEMOGLOBIN 34.9 pg (27.0-31.0); MEAN CORPUSCULAR HGB CONC 33.9 g/dL (32.0-36.0); MEAN CORPUSCULAR VOLUME 102.9 fL (81.0-99.0); MONOCYTES # (AUTO) 0.2 10^3/uL (0.0-1.0); MONOCYTES % (AUTO) 4.9 %; NEUTROPHILS # (AUTO) 2.8 10^3/uL (1.5-6.6); RED BLOOD COUNT 3.07 10^6/uL (4.20-5.40); RED CELL DISTRIBUTION WIDTH 16.3 % (12.0-15.0); WHITE BLOOD COUNT 4.7 x10^3/uL (4.8-10.8)
[2023-01-23 16:30] LABS: SLIDE REVIEW? Indicated
[2023-01-23 16:32] LABS: PLATELET ESTIMATE, MANUAL NORMAL (130-450,000) (NORMAL); PLATELET MORPHOLOGY PLATELET CLUMPING (NORMAL)
== END 2023-01-23 14:47 | disposition home or self-care (01) ==
LOC: LAB.R 14:46
PROVIDERS: ATTEND Registered Nurse
DX: I10 Essential (primary) hypertension (principal)
CPT/HCPCS: 80053; 85025

== ENCOUNTER 2023-01-31 08:25 | Outpatient (CLI) | payer MEDICARE ==
[2023-01-31 08:53] LABS: ALBUMIN 3.9 g/dL (3.2-5.5); ALBUMIN/GLOBULIN RATIO 1.4 (1.0-2.2); BILIRUBIN,TOTAL 0.7 mg/dL (0.2-1.0); CALCIUM 9.6 mg/dL (8.5-10.3); CREATININE 1.1 mg/dL (0.6-1.3); POTASSIUM 4.4 mmol/L (3.5-4.5); TOTAL PROTEIN 6.6 g/dL (6.4-8.9)
[2023-01-31 09:06] LABS: BASOPHILS # (AUTO) 0.1 10^3/uL (0.0-0.1); BASOPHILS % (AUTO) 1.7 %; EOSINOPHILS # (AUTO) 0.3 10^3/uL (0.0-0.7); EOSINOPHILS % (AUTO) 5.9 %; HCT - HEMATOCRIT 33.7 % (37.0-47.0); HGB - HEMOGLOBIN 11.3 g/dL (12.0-16.0); LYMPHOCYTES # (AUTO) 1.6 10^3/uL (1.5-3.5); LYMPHOCYTES % (AUTO) 30.7 %; MEAN CORPUSCULAR HEMOGLOBIN 34.6 pg (27.0-31.0); MEAN CORPUSCULAR HGB CONC 33.5 g/dL (32.0-36.0); MEAN CORPUSCULAR VOLUME 103.1 fL (81.0-99.0); MEAN PLATELET VOLUME 10.3 fL (7.9-10.8); MONOCYTES # (AUTO) 0.3 10^3/uL (0.0-1.0); MONOCYTES % (AUTO) 5.5 %; NEUTROPHILS # (AUTO) 2.9 10^3/uL (1.5-6.6); PLT - PLATELET COUNT 432 10^3/uL (130-450); RED BLOOD COUNT 3.27 10^6/uL (4.20-5.40); RED CELL DISTRIBUTION WIDTH 15.9 % (12.0-15.0); WHITE BLOOD COUNT 5.3 x10^3/uL (4.8-10.8)
== END 2023-01-31 08:26 | disposition home or self-care (01) ==
LOC: LAB.R 08:25
PROVIDERS: ATTEND Registered Nurse
DX: I25.10 Atherosclerotic heart disease of native coronary artery without angina pectoris (principal)
CPT/HCPCS: 80053; 85025

== ENCOUNTER 2023-02-08 15:07 | Outpatient (CLI) | payer MEDICARE ==
[2023-02-08 16:03] LABS: ALBUMIN 3.8 g/dL (3.2-5.5); ALBUMIN/GLOBULIN RATIO 1.4 (1.0-2.2); BASOPHILS # (AUTO) 0.1 10^3/uL (0.0-0.1); BASOPHILS % (AUTO) 1.9 %; BILIRUBIN,TOTAL 0.5 mg/dL (0.2-1.0); CALCIUM 9.5 mg/dL (8.5-10.3); EOSINOPHILS # (AUTO) 0.2 10^3/uL (0.0-0.7); EOSINOPHILS % (AUTO) 4.6 %; HCT - HEMATOCRIT 30.2 % (37.0-47.0); HGB - HEMOGLOBIN 10.3 g/dL (12.0-16.0); LYMPHOCYTES # (AUTO) 1.2 10^3/uL (1.5-3.5); LYMPHOCYTES % (AUTO) 23.5 %; MEAN CORPUSCULAR HEMOGLOBIN 35.2 pg (27.0-31.0); MEAN CORPUSCULAR HGB CONC 34.1 g/dL (32.0-36.0); MEAN CORPUSCULAR VOLUME 103.1 fL (81.0-99.0); MEAN PLATELET VOLUME 10.5 fL (7.9-10.8); MONOCYTES # (AUTO) 0.3 10^3/uL (0.0-1.0); NEUTROPHILS # (AUTO) 3.4 10^3/uL (1.5-6.6); NEUTROPHILS % (AUTO) 64.8 %; PLT - PLATELET COUNT 476 10^3/uL (130-450); POTASSIUM 4.5 mmol/L (3.5-4.5); RED BLOOD COUNT 2.93 10^6/uL (4.20-5.40); RED CELL DISTRIBUTION WIDTH 15.9 % (12.0-15.0); TOTAL PROTEIN 6.5 g/dL (6.4-8.9); WHITE BLOOD COUNT 5.2 x10^3/uL (4.8-10.8)
== END 2023-02-08 15:08 | disposition home or self-care (01) ==
LOC: LAB.R 15:07
PROVIDERS: ATTEND Registered Nurse
DX: M62.59 Muscle wasting and atrophy, not elsewhere classified, multiple sites (principal); E78.00 Pure hypercholesterolemia, unspecified
CPT/HCPCS: 80053; 85025

== ENCOUNTER 2023-02-08 15:49 | Outpatient (CLI) | payer MEDICARE ==
--- NOTE | 2023-02-08 16:41 | XRAY Report ---
PROCEDURE: Chest 2 View X-Ray INDICATIONS: PNEUMONIA TECHNIQUE: 2 views of the chest were acquired. COMPARISON: None. FINDINGS: Surgical changes and devices: 01/10/2023. Lungs and pleura: No pleural effusions or pneumothorax. Lungs are clear. Mediastinum: Mediastinal contours appear normal. Heart is enlarged. Bones and chest wall: Lumbar spine fixation hardware. No suspicious bony lesions. Overlying soft ti ssues appear unremarkable. IMPRESSION: No acute cardiopulmonary process. Reviewed by: Elenita Guallpa MD, PhD on 02/08/2023 4:40 PM PDT Approved by: Elenita Guallpa MD, PhD on 02/08/2023 4:40 PM PDT Station ID: [id number]
== END 2023-02-08 15:50 | disposition home or self-care (01) ==
LOC: DI 15:49
PROVIDERS: ATTEND Registered Nurse
DX: R06.89 Other abnormalities of breathing (principal); M62.59 Muscle wasting and atrophy, not elsewhere classified, multiple sites; E78.00 Pure hypercholesterolemia, unspecified
CPT/HCPCS: 80053; 85025

== ENCOUNTER 2023-03-05 16:21 | Outpatient (CLI) | payer MEDICARE | END 2023-03-05 16:22 | disposition critical access hospital (66) | LOC: EMS 16:21 | DX: I16.9 Hypertensive crisis, unspecified (principal); I10 Essential (primary) hypertension | CPT/HCPCS: A0425; A0429 ==

== ENCOUNTER 2023-03-05 16:27 | Inpatient (IN) | payer MEDICARE ==
[2023-03-05 17:32] LABS: BASOPHILS # (AUTO) 0.1 10^3/uL (0.0-0.1); BASOPHILS % (AUTO) 0.8 %; EOSINOPHILS # (AUTO) 0.1 10^3/uL (0.0-0.7); EOSINOPHILS % (AUTO) 1.5 %; HCT - HEMATOCRIT 31.3 % (37.0-47.0); HGB - HEMOGLOBIN 11.5 g/dL (12.0-16.0); LYMPHOCYTES % (AUTO) 15.8 %; MEAN CORPUSCULAR HEMOGLOBIN 36.1 pg (27.0-31.0); MEAN CORPUSCULAR HGB CONC 36.7 g/dL (32.0-36.0); MEAN CORPUSCULAR VOLUME 98.1 fL (81.0-99.0); MONOCYTES # (AUTO) 0.3 10^3/uL (0.0-1.0); MONOCYTES % (AUTO) 4.1 %; NEUTROPHILS # (AUTO) 4.7 10^3/uL (1.5-6.6); NEUTROPHILS % (AUTO) 77.5 %; RED BLOOD COUNT 3.19 10^6/uL (4.20-5.40); RED CELL DISTRIBUTION WIDTH 13.2 % (12.0-15.0); WHITE BLOOD COUNT 6.1 x10^3/uL (4.8-10.8)
[2023-03-05 17:34] LABS: ALBUMIN/GLOBULIN RATIO 1.4 (1.0-2.2); BILIRUBIN,TOTAL 0.6 mg/dL (0.2-1.0); CALCIUM 9.1 mg/dL (8.5-10.3); CREATININE 0.7 mg/dL (0.6-1.3); POTASSIUM 4.2 mmol/L (3.5-4.5); TOTAL PROTEIN 6.8 g/dL (6.4-8.9)
[2023-03-05 17:39] LABS: TROPONIN I HIGH SENSITIVITY 12.1 ng/L (2.3-14.8)
[2023-03-05] MEDS ORDERED: SODIUM CHLORIDE 0.9% 500 ML IV STA (17:44)
[2023-03-05 18:00] LABS: MEAN PLATELET VOLUME 9.7 fL (7.9-10.8); PLATELET ESTIMATE, MANUAL INCREASED (>450,000) (NORMAL); PLATELET MORPHOLOGY 2+ GIANT PLATELETS (NORMAL); PLT - PLATELET COUNT 432 10^3/uL (130-450); RBC MORPHOLOGY (MULTIPLE) 1+ ANISOCYTOSIS (NORMAL)
--- NOTE | 2023-03-05 18:09 | ED Physician Documentation ---
History of Present Illness - Stated complaint Stated Complaint: HIGH BP - Chief complaint Chief Complaint: Cardiac - History obtained from History obtained from: Patient - Additonal information Additional information: This is a 77-year-old female who has a history of a prior CVA, with LEFT-sided deficits and slurred speech. Per report from the facility in which she lives, [facility], there was concern that her blood pressure was elevated today and that is why they sent her to the hospital. Her blood pressure is normally well controlled but today it was in the 180s over 100s. I called the facility to discuss with the nurse further and it sounds as though around 3 PM the patient told the nurse that she thought she was having a stroke. The nurse did not note any change in mental status, no change in speech or focal deficits at that time but she felt it was difficult to know because of her chronic deficits. She spoke with the facility physician who advised she send the patient to the ER. Th e patient is not sure why she was taken to the hospital and states that she cannot hear anything that I am saying. She denies any concerns at this time and is asking for water. Review of Systems Unable to obtain: Confused PD PAST MEDICAL HISTORY - Past Medical History Past Medical History: Yes Cardiovascular: Congestive heart failure, Hypertension, High cholesterol, Coronary artery disease, Deep vein thrombosis, Atrial fibrillation, Arrhythmia, Other Respiratory: Shortness of breath Neuro: CVA Endocrine/Autoimmune: None GI: None : None HEENT: Chronic vision loss, Other Psych: Depression, Other Musculoskeletal: Scoliosis, Chronic back pain Derm: None - Past Surgical History Past Surgical History: Yes Ortho: Spine surgery HEENT: Cataracts Derm: Other - Present Medications Home Medications: Ambulatory Orders Medication Instructions Recorded Confirmed Aspirin Chewable [St Ab 81 mg PO DAILY #30 tab 12/21/22 03/05/23 Aspirin] amLODIPine [Norvasc] 2.5 mg PO DAILY #30 tab 12/21/22 03/05/23 cloNIDine 0.2 MG PATCH 1 patch TOP Q7D #4 patch 12/21/22 03/05/23 [[id number]] Apixaban [Eliquis] 2.5 mg PO BID 03/05/23 03/05/23 DULoxetine [Cymbalta] 30 mg PO DAILY 03/05/23 03/05/23 Lisinopril [Zestril] 20 mg PO DAILY 03/05/23 03/05/23 hydrALAZINE [Apresoline] 10 mg PO BID PRN 03/05/23 03/05/23 - Allergies Allergies/Adverse Reactions: Allergies Allergy/AdvReac Type Severity Reaction Status Date / Time milk AdvReac Mild Cramps Verified 08/27/21 06:01 - Social History Does the pt smoke?: Yes Smoking Status: Former smoker Does the pt drink ETOH?: Yes Does the pt have substance abuse?: No - Immunizations Immunizations are current?: No - POLST Patient has POLST: No POLST Status: DNR PD ED PE NORMAL - Vitals Vital signs reviewed: Yes - General General: Other (Difficult to assess orientation as patient states she cannot hear me. She is awake and alert.) - HEENT HEENT: Atraumatic, PERRL, EOMI, Other (Appears to be bleeding from broke right upper incisor, poor dentition. ). No: Moist mucous membranes (MM dry), Dentition benign - Neck Neck: Supple, no meningeal sign, No JVD - Cardiac Cardiac: RRR, No murmur, No gallop, No rub - Respiratory Respiratory: No respiratory distress, Other (scattered rhonchi). No: Clear bilaterally - Abdomen Abdomen: Normal bowel sounds, Soft, Non tender, Non distended - Derm Derm: Normal color, Warm and dry - Extremities Extremities: No deformity, No tenderness to palpate, Normal ROM s pain, Other (2 lower leg edema bilaterally.). No: No edema (Bilateral lower leg and feet edema 1-2+) - Neuro Neuro: Other (Chronic LEFT-sided weakness and slurred speech. Follows commands on both sides. Patient awake and alert, speech fairly clear. No facial droop.) Eye Opening: Spontaneous Motor: Obeys Commands Verbal: Confused GCS Score: 14 Results - Vitals Vitals: Vital Signs - 24 hr 03/05/23 03/05/23 03/05/23 16:30 18:44 19:41 Temperature 36.1 C L Heart Rate 67 71 71 Respiratory 16 15 18 Rate Blood Pressure 159/106 H 154/93 H 175/96 H O2 Saturation 97 96 95 Oxygen O2 Source Room air - EKG (time done) No standard instances EKG releavant findings:: EKG personally interpreted by author of this note. Relevant findings are: Rate: Rate (enter#) (59) Rhythm: Sinus bradycardia [place]: Normal Intervals: Prolonged GA, 1st degree AVB, RBBB QRS: LVH Ischemia: Non specific changes Computer interpretation: Agree with computer - Labs Labs: Laboratory Tests 03/05/23 03/05/23 03/05/23 16:49 16:49 16:49 WBC 6.1 RBC 3.19 L Hgb 11.5 L Hct 31.3 L MCV 98.1 MCH 36.1 H MCHC 36.7 H RDW 13.2 Plt Count 432 MPV 9.7 Neut # (Auto) 4.7 Lymph # (Auto) 1.0 L [place] # (Auto) 0.3 Eos # (Auto) 0.1 Baso # (Auto) 0.1 Absolute Nucleated RBC 0.00 Nucleated RBC % 0.0 Platelet Estimate INCREASED (>450,000) Platelet Morphology 2+ GIANT PLATELETS RBC Morph Micro Appear 1+ ANISOCYTOSIS Sodium 112 L* Potassium 4.2 Chloride 78 L* Carbon Dioxide 28 Anion Gap 6.0 BUN 8 Creatinine 0.7 Estimated GFR (MDRD) 81 L Glucose 101 Calcium 9.1 Total Bilirubin 0.6 AST 25 ALT 7 L Alkaline Phosphatase 51 Troponin I High Sens 12.1 Total Protein 6.8 Albumin 4.0 Globulin 2.8 Albumin/Globulin Ratio 1.4 Lipase 17 TSH 65.18 H Urine Color Urine Clarity Urine pH Ur Specific [place] Urine Protein Urine Glucose (UA) Urine Ketones Urine Occult Blood Urine Nitrite Urine Bilirubin Urine Urobilinogen Ur Leukocyte Esterase Urine RBC Urine WBC Ur Squamous Epith Cells Amorphous Sediment Urine Bacteria Ur Microscopic Review Urine Culture Comments Urine Sodium 03/05/23 03/05/23 03/05/23 18:45 18:45 19:43 WBC RBC Hgb Hct MCV MCH MCHC RDW Plt Count MPV Neut # (Auto) Lymph # (Auto) [place] # (Auto) Eos # (Auto) Baso # (Auto) Absolute Nucleated RBC Nucleated RBC % Platelet Estimate Platelet Morphology RBC Morph Micro Appear Sodium 111 L* Potassium Chloride Carbon Dioxide Anion Gap BUN Creatinine Estimated GFR (MDRD) Glucose Calcium Total Bilirubin AST ALT Alkaline Phosphatase Troponin I High Sens Total Protein Albumin Globulin Albumin/Globulin Ratio Lipase TSH Urine Color YELLOW Urine Clarity HAZY Urine pH 7.5 Ur Specific [place] 1.010 Urine Protein TRACE Urine Glucose (UA) NEGATIVE Urine Ketones NEGATIVE Urine Occult Blood NEGATIVE Urine Nitrite NEGATIVE Urine Bilirubin NEGATIVE Urine Urobilinogen 1 (NORMAL) Ur Leukocyte Esterase TRACE H Urine RBC 0-5 Urine WBC 11-25 H Ur Squamous Epith Cells RARE Squamous Amorphous Sediment Few Urine Bacteria Moderate H Ur Microscopic Review INDICATED Urine Culture Comments INDICATED Urine Sodium 45.1 - Rads (name of study) No standard instances Relevant Findings:: Final report received, See rad report PD Medical Decision Making - ED course Complexity details: reviewed old records, reviewed results, re-evaluated patient, considered differential, d/w patient ED course: This is a 77-year-old female with a past medical history of atrial fibrillation, prior strokes, hypertension and chronic left-sided weakness from prior strokes who presents from her care facility after the patient reported to the nurse that she felt like she was having a stroke. There were no acute findings on exam at that time per the facility nurse but patient was sent into the ER for further evaluation. This occurred around 3 PM. On arrival here, the patient has no acute complaints and does not know why she is here. She appears confused though it is unclear if this is her baseline, she has slurred speech, she has chronic left-sided weakness, no new focal deficits noted. She has a mild hypertension otherwise stable vital signs. We obtained an EKG which shows no acute ischemic changes, her labs are concerning for a sodium of 112, I added a TSH which was elevated in the 60s. Her CBC and the remainder of her CMP are stable. Her urinalysis is suggestive of infection and ceftriaxone was ordered. A urinary catheter was placed to monitor output due to hyponatremia. A head CT was obtained which shows possibly progressive encephalomalacia compared to prior CT but no acute strokes noted. The patient requires admission for her hyponatremia and consider MRI in the morning. I have given the patient 500 mL of normal saline here and I am repeating the sodium level pending admission to the hospitalist service. I did order urine sodium and osmolality however it appears that some of these tests are send out and is unclear if they will be available. I did review her other medication and she is not on any diuretics or other medication to cause significiant hyponatremia. Patient kindly accepted by Dr. Del Valle of the hospitalist service.. Departure - Departure Disposition: 66 [facility] DC/Xfer Clinical Impression: Hyponatremia, Acute UTI Forms: PCP List
[2023-03-05 19:13] LABS: BILIRUBIN,URINE NEGATIVE (NEGATIVE); GLUCOSE, URINE (UA) NEGATIVE (NEGATIVE); KETONES,URINE (UA) NEGATIVE (NEGATIVE); LEUKOCYTE ESTERASE, URINE TRACE (NEGATIVE); NITRITE,URINE NEGATIVE (NEGATIVE); OCCULT BLOOD,URINE NEGATIVE (NEGATIVE); PH,URINE 7.5 PH (5.0-7.5); PROTEIN,URINE TRACE mg/dL (NEGATIVE); UROBILINOGEN,URINE 1 (NORMAL) E.U./dL (NORMAL)
[2023-03-05 19:17] LABS: CLARITY,URINE HAZY (CLEAR)
[2023-03-05 19:23] LABS: AMORPHOUS SEDIMENT,UR Few /LPF; BACTERIA,URINE Moderate /HPF (None Seen); RBC,URINE 0-5 /HPF (0-5); SQUAMOUS EPITHELIAL CELL,UR RARE Squamous (<= Few)
--- NOTE | 2023-03-05 19:52 | CT Report ---
PROCEDURE: HEAD WO INDICATIONS: AMS TECHNIQUE: Noncontrast 4.5 mm thick angled axial sections acquired from the foramen magnum to the vertex. For r adiation dose reduction, the following was used: automated exposure control, adjustment of mA and/or kV according to patient size. COMPARISON: December 16, 2022 FINDINGS: Image quality: Good CSF spaces: Basal cisterns are patent. Lateral ventricles are symmetric. Volume: Vascular calcifications. Periventricular white matter disease is commonly seen with chronic m icroangiopathy. Volume loss is present. These findings are mild to moderate. Brain: Encephalomalacia in the left occipital lobe appears slightly more prominent than prior. There is also hypoattenuation in the region of the right basal ganglia, seen previously. No acute hematoma. No gross new loss of david-white differentiation. Craniofacial structures: Mild mucosal thickening of the ethmoid air cells. IMPRESSION: Encephalomalacia in the left occipital lobe is slightly more prominent than prior imaging of Septembe r 2022, however no acute features are suspected. There is also encephalomalacia in the right basal ga nglia. No acute intracranial abnormality. Consider MRI to further evaluate if there is sufficient cli nical concern. Reviewed by: Gabino Baltazar MD on 03/05/2023 7:51 PM PST Approved by: Gabino Baltazar MD on 03/05/2023 7:51 PM PST Station ID: [id number]
[2023-03-05] MEDS ORDERED: cefTRIAXone 1 GM in SODIUM CHLORIDE 0.9% MINIBAG 100 ML IV STA (20:22)
[2023-03-05] MEDS ORDERED: cefTRIAXone 1 GM VIAL ONE (20:37)
--- NOTE | 2023-03-05 20:37 | HISTORY & PHYSICAL EXAMINATION ---
Chief Complaint - Chief Complaint Chief Complaint: High BP History of Present Illness - Admitted From Admitted From:: ER - History Obtained From Records Reviewed: Yes History obtained from: Staff, chart Exam Limitations: Pt's condition, virtual exam - History of Present Illness HPI Comment/Other: H&P was conducted via video remotely, using Access Cart. Patient is in [place]. Physician is in [place]. REPA[employer]ER [employer] OBJECTS at bedside. Unable to obtain history from pt d/t pt's clinical condition. History obtained from staff, chart. Pt is hard of hearing and cannot hear/understand my questions. 77 yo F with PMH of CVA with residual L sided weakness, slurred speech, CHF, HTN, HLD, Atrial Fibrillation, CAD, Aortic Stenosis, DVT, Vision loss, Depression, AAA, NC with meds presented to the ER from SNF with c/o 1 day h/o increased BP. Pt had told staff that she feels like she is "having another stroke" around 3P. No further symptoms/explanation given by pt or staff. Staff could not find any change on exam, no AMS from baseline, except that her BP was elevated to 180s/100s, and sent pt to ER. BP usually controlled. Pt now has no complaints, but does not answer direct questioning. She has asked the staff for water. Pt was previously hospitalized from 12/16-12/21/22 for CVA with L sided weakness, slurred speech. In the ER, BP 175/96, Hgb 11.5, MCH 36.1, Na 112/repeat 111, TSH 65.18, U/A: LE WBC Bact CXR: pending EKG: Sinus Bradycardia at 59 bpm, RBBB, no STTw changes CT Head: encephalomalacia, NAD; consider MRI, if indicated Pt was given IVF/NS, Rocephin in the ER. History - Past Medical History Cardiovascular: reports: Congestive heart failure, Hypertension, High c holesterol, Coronary artery disease, Deep vein thrombosis, Atrial fibrillation, Arrhythmia, Other Respiratory: reports: Shortness of breath Neuro: reports: CVA Endocrine/Autoimmune: reports: None GI: reports: None : reports: None HEENT: reports: Chronic vision loss, Other Psych: reports: Depression, Other Musculoskeletal: reports: Scoliosis, Chronic back pain Derm: reports: None MRSA Hx?: No - Past Surgical History Ortho: reports: Spine surgery HEENT: reports: Cataracts Derm: reports: Other - Family & Social History Family History: Mother: , Father: , Sister: , Brother: Family History Comment/Other: All family has ; mother had heart disease and colon CA, father of "black lung", 2 sisters had an unknown type of cancer, 2 brothers; one that had vascular disease causing him to lose both lower extremities. Living Situation: Alone Social History Notes: Patient used to live alone with her dog and did all of her own ADLs, walking independently or with a cane. She moved from [place], where she raised her 3 boys and she and her owned a [employer]. Her in 2016 from a "blood infection." She moved from [place] to [facility] shortly after [place]. She smoked 5-6 cigarrettes daily for about the passed 50 years but quit. She rarely drinks alcohol. - Substance History Use: Uses substance without health or social issues: Tobacco (smoked 5-6 cigarrettes daily for the past 50ish years. Quit this week), Alcohol (Rarely, only tastes tests son's drinks "to make sure they are not poison") - POLST Patient has POLST: No POLST Status: DNR Meds/Allgy - Home Medications Home Medications: Ambulatory Orders Medication Instructions Recorded Confirmed Aspirin Chewable [St Ab 81 mg PO DAILY #30 tab 12/21/22 03/05/23 Aspirin] amLODIPine [Norvasc] 2.5 mg PO DAILY #30 tab 12/21/22 03/05/23 cloNIDine 0.2 MG PATCH 1 patch TOP Q7D #4 patch 12/21/22 03/05/23 [[id number]] Apixaban [Eliquis] 2.5 mg PO BID 03/05/23 03/05/23 DULoxetine [Cymbalta] 30 mg PO DAILY 03/05/23 03/05/23 Lisinopril [Zestril] 20 mg PO DAILY 03/05/23 03/05/23 hydrALAZINE [Apresoline] 10 mg PO BID PRN 03/05/23 03/05/23 - Allergies Allergies/Adverse Reactions: Allergies Allergy/AdvReac Type Severity Reaction Status Date / Time milk AdvReac Mild Cramps Verified 08/27/21 06:01 Review of Systems - All Other Systems All Other Systems: reports: Other (Unable to obtain d/t patient's clinical condition) Exam - Vital Signs Reviewed Vital Signs: Yes Vital Signs: Vital Signs x48h Temp Pulse Resp BP Pulse Ox 03/05/23 19:41 71 18 175/96 H 95 03/05/23 18:44 71 15 154/93 H 96 03/05/23 16:30 36.1 C L 67 16 159/106 H 97 - Physical Exam General Appearance: positive: No acute distress, Alert, Other Eyes Bilateral: positive: EOMI, No scleral icterus ENT: positive: Dry mucous membranes, Other (per ER Provider: mild bleeding broken right upper incisor, poor dentition; irrigated in ER) Respiratory: positive: Other (Access cart stethoscope not working; per ER Provider: scattered rhonchi) Cardiovascular: positive: Other (Access cart stethoscope not working; per ER Provider: RRR, no murmurs) Abdomen: positive: Other ( per ER Provider: non-distended, NT, Soft) Extremities: positive: Other ( per ER Provider: 2+ edema B/L LE) Neurologic/Psychiatric: positive: Other (Difficult to assess orientation and do exam, as patient cannot hear; per ER Provider: Chronic LEFT-sided weakness and slurred speech. Follows commands on both sides. Patient awake and alert, speech fairly clear. No facial droop.) Conclusion/Plan - Problem List (1) Hyponatremia Conclusion/Plan: Hyponatremia Hypothyroidism -Na 112/repeat 111, TSH 65.18, Osmo pending -CXR: pending -EKG: Sinus Bradycardia at 59 bpm, RBBB, no STTw changes -CT Head: encephalomalacia, NAD; consider MRI, if indicated -Pt was given IVF/NS in the ER. -admit to ICU -pt is clinically dry (dry OM) with chronic LE edema -will start NS at 100 cc/hr -Free water fluid restriction 1L/day -start Levothyroxine 50 mcg/day -recheck Na in 2 hours, then q4hr to eval for improvement and ensure correction not too fast -hold home medications: Lisinopril, Amlodipine UTI -U/A: LE WBC Bact -Pt was given Rocephin in the ER. -continue Rocephin -F/U UC HTN CHF HLD Atrial Fibrillation CAD Aortic Stenosis AAA -BP 175/96 -continue home medications: Clonidine, ASA, Eliquis, Hydralazine -hold home medications: Lisinopril, Amlodipine d/t Hyponatremia -Hydralazine PRN CVA with residual L sided weakness, slurred speech -supportive care Vision and Hearing loss -supportive care Anemia, macrocytic -Hgb 11.5, MCH 36.1 -check B12/Folate Depression -continue home medications: Duloxetine VTE Prophylaxis: on Eliquis Code Status: DNR/DNI per SNF paperwork ~Linda Del Valle MD Hospitalist - Lab Results Fish Bones: 03/05/23 16:49 03/05/23 19:43
[2023-03-05] MEDS ORDERED: ONDANSETRON ODT 4 MG TABLET TL PRN (20:38)
[2023-03-05] MEDS ORDERED: ACETAMINOPHEN 325 MG TABLET PO PRN (20:38)
[2023-03-05] MEDS ORDERED: SODIUM CHLORIDE FLUSH 0.9% 10 ML SYRINGE IVP PRN (20:38)
[2023-03-05] MEDS ORDERED: ONDANSETRON 4 MG/2 ML VIAL IVP PRN (20:38)
[2023-03-05] MEDS ORDERED: hydrALAZINE 10 MG TABLET PO PRN ×2 (20:46→21:54)
[2023-03-05] MEDS: SODIUM CHLORIDE 0.9% 1,000 ML IV SCH (21:13)
[2023-03-05] MEDS: APIXABAN 2.5 MG TABLET PO SCH (21:58)
[2023-03-05] MEDS: cloNIDine 0.2 MG PATCH TOP SCH ×2 (22:00→22:04)
[2023-03-05] MEDS: LEVOTHYROXINE 25 MCG TABLET PO SCH (22:00)
--- NOTE | 2023-03-05 22:02 | XRAY Report ---
PROCEDURE: Chest 1 View X-Ray INDICATIONS: chest pain TECHNIQUE: One view of the chest was acquired. COMPARISON: Chest x-ray 02/08/2023 FINDINGS: Surgical changes and devices: None. Lungs and pleura: No pleural effusions or pneumothorax. Lungs are clear. Mediastinum: Mediastinal contours appear normal. Heart size is enlarged. Bones and chest wall: No suspicious bony lesions. Overlying soft tissues appear unremarkable. IMPRESSION: No acute cardiopulmonary process. Reviewed by: Jeanie Nguyen MD on 03/05/2023 10:00 PM [facility] Approved by: Jeanie Nguyen MD on 03/05/2023 10:00 PM [facility] Station ID: [id number]
[2023-03-05] MEDS ORDERED: SODIUM CHLORIDE 1 GM TABLET PO ONE (23:00)
[2023-03-06] MEDS: SODIUM CHLORIDE FLUSH 0.9% 10 ML SYRINGE IVP SCH ×3 (00:48→17:13)
[2023-03-06] MEDS: BENZOCAINE/MENTHOL LOZENGE MM PRN ×2 (04:22→22:55)
[2023-03-06 05:24] LABS: MAGNESIUM 1.7 mg/dL (1.7-2.3); PHOSPHORUS 2.2 mg/dL (2.5-5.0)
[2023-03-06 05:26] LABS: CALCIUM, IONIZED 0.94 mmol/L (1.15-1.33); VBG PH 7.489 (7.31-7.41)
[2023-03-06 05:30] LABS: CALCIUM 8.6 mg/dL (8.5-10.3); CREATININE 0.6 mg/dL (0.6-1.3); POTASSIUM 4.2 mmol/L (3.5-4.5)
[2023-03-06 05:34] LABS: BASOPHILS # (AUTO) 0.1 10^3/uL (0.0-0.1); EOSINOPHILS # (AUTO) 0.1 10^3/uL (0.0-0.7); EOSINOPHILS % (AUTO) 1.5 %; HCT - HEMATOCRIT 34.7 % (37.0-47.0); HGB - HEMOGLOBIN 12.5 g/dL (12.0-16.0); LYMPHOCYTES % (AUTO) 16.4 %; MEAN CORPUSCULAR HEMOGLOBIN 36.3 pg (27.0-31.0); MEAN CORPUSCULAR VOLUME 100.9 fL (81.0-99.0); MEAN PLATELET VOLUME 9.9 fL (7.9-10.8); MONOCYTES # (AUTO) 0.3 10^3/uL (0.0-1.0); MONOCYTES % (AUTO) 4.3 %; NEUTROPHILS # (AUTO) 4.6 10^3/uL (1.5-6.6); NEUTROPHILS % (AUTO) 76.5 %; PLT - PLATELET COUNT 468 10^3/uL (130-450); RED BLOOD COUNT 3.44 10^6/uL (4.20-5.40); RED CELL DISTRIBUTION WIDTH 13.4 % (12.0-15.0)
[2023-03-06] MEDS ORDERED: CALCIUM GLUCONATE IN NS 0.9% 2,000 MG/100 ML BAG IV ONE (06:02)
[2023-03-06] MEDS: LEVOTHYROXINE 25 MCG TABLET PO SCH (06:42)
[2023-03-06] MEDS ORDERED: MAGNESIUM OXIDE 400 MG TABLET PO ONE (08:00)
[2023-03-06] MEDS: ASPIRIN CHEW 81 MG TABLET PO SCH (08:24)
[2023-03-06] MEDS: NEUTRA-PHOS 250 MG TABLET PO SCH ×2 (08:26→12:11)
[2023-03-06] MEDS: cefTRIAXone 1 GM in SODIUM CHLORIDE 0.9% MINIBAG 100 ML IV SCH (08:27)
[2023-03-06] MEDS: SODIUM CHLORIDE 0.9% 1,000 ML IV SCH ×2 (08:53→20:02)
[2023-03-06] MEDS: DULoxetine 30 MG CAPSULE PO SCH (09:00)
[2023-03-06] MEDS: APIXABAN 2.5 MG TABLET PO SCH ×2 (09:00→20:32)
--- NOTE | 2023-03-06 13:34 | PHARMACY PROGRESS NOTE ---
- Best Possible Medication History Admit Date and Time: 03/05/232037 Processed by: Pharmacy Medication History completed: Yes Secondary Source(s): Insurance records, Facility MAR as ONLY source As the person ultimately responsible for medication therapy, providers are able to order a medication from an existing home medication list in [facility] via the "Reconcile Routine" prior to Confirmation of that medication by customer support professional. Such practice is discouraged except when the physician, in their clinical judgment, deems that a medical need exists for a medication without regard to previous use.
[2023-03-06] MEDS: LEVOTHYROXINE 100 MCG VIAL IVP SCH (14:40)
[2023-03-06 14:58] LABS: CALCIUM 8.8 mg/dL (8.5-10.3); CREATININE 0.6 mg/dL (0.6-1.3); POTASSIUM 4.1 mmol/L (3.5-4.5)
[2023-03-06] MEDS ORDERED: SODIUM CHLORIDE 3% HYPERTONIC 100 ML IV SCH (15:00)
--- NOTE | 2023-03-06 16:05 | PROVIDER PROGRESS NOTE ---
Assessment/Plan - Problem List (1) Hyponatremia Assessment/Plan: -Na 112> 111> 113> 114, Urine and serum Osmo pending. CXR 03/05: No acute cardiopulmonary process EKG 03/05: Sinus Bradycardia at 59 bpm, RBBB, no STTw changes CT Head 03/05: encephalomalacia, NAD; consider MRI, if indicated pt is clinically dry (dry OM) with chronic LE edema Most likely due to uncontrolled hypothyroidism Plan Cont NS at 100 cc/hr and start 100 cc 3% hypertonic saline Free water fluid restriction 1L/day recheck Na q4hr to eval for improvement and ensure correction not too fast hold home medications: Lisinopril, Amlodipine (2) Hypothyroid Conclusion/Plan: TSH 65.18 on 03/05 Have not taken Levothryroxine since last hospital visit in 09/02/21. Likely contributing to hypoatremia, low heart rate (56-74), hypothermia(36.1- 37), fatigue plan continue Levothyroxine 50 mcg/day and 100 mg IV push every 5 days recheck TSH level in 1-2 month (3) UTI Conclusion/Plan: U/A on 03/05: LE WBC Bact plan Continue IV Rocephin Monitor WBC (4) Anemia, macrocytic Conclusion/Plan: Hgb 11.5>12.5 , MCH 36.1>36.3 Normal B12/Folate level 03/06. 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 Conclusion/Plan: -supportive care (6) Vision and Hearing loss Conclusion/Plan: -supportive care (7) Depression Conclusion/Plan: -continue home medications: Duloxetine (8) VTE Prophylaxis: on Eliquis Conclusion/Plan: Code Status: DNR/DNI per SNF paperwork (9)Chronic stable medical problem Conclusion/Plan: HTN 119-168/74-99 CHF HLD Atrial Fibrillation CAD Aortic Stenosis AAA plan -continue home medications: Clonidine, ASA, Eliquis, Hydralazine -hold home medications: Lisinopril, Amlodipine d/t Hyponatremia -Hydralazine PRN - Current Meds Current Meds: Current Medications Generic Name Dose Route Start Last Admin Trade Name Freq PRN Reason Stop Dose Admin Apixaban 2.5 mg 03/05/23 21:00 03/06/23 09:00 Apixaban 2.5 Mg Tablet PO 2.5 mg BID DELPHINE Administration Aspirin 81 mg 03/06/23 09:00 03/06/23 08:24 Aspirin Chew 81 Mg Tablet PO 81 mg DAILY DELPHINE Administration Clonidine HCl 1 patch 03/05/23 21:00 03/05/23 22:04 Clonidine 0.2 Mg Patch TOP Not Given Q7D DELPHINE Duloxetine HCl 30 mg 03/06/23 09:00 03/06/23 09:00 Duloxetine 30 Mg Capsule PO 30 mg DAILY DELPHINE Administration Sodium Chloride 1,000 mls @ 100 mls/hr 03/05/23 21:00 03/06/23 08:53 Normal Saline 0.9% IV 100 mls/hr .Q10H DELPHINE Administration Ceftriaxone Sodium 1 gm/ 100 mls @ 200 mls/hr 03/06/23 09:00 03/06/23 09:05 Sodium Chloride IV Infused DAILY DELPHINE Infusion Sodium Chloride 100 mls @ 10 mls/hr 03/06/23 15:00 03/06/23 14:50 Sodium Chloride 3% Hypertonic IV 03/07/23 00:59 10 mls/hr .Q10H DELPHINE Administration Levothyroxine Sodium 50 mcg 03/05/23 21:00 03/06/23 06:42 Levothyroxine 25 Mcg Tablet PO 50 mcg QDAC DELPHINE Administration Levothyroxine Sodium 100 mcg 03/06/23 15:00 03/06/23 14:40 Levothyroxine 100 Mcg Vial IVP 100 mcg Q5D DELPHINE Administration Sodium Chloride 10 ml 03/06/23 01:00 03/06/23 09:49 Sodium Chloride Flush 0.9% 10 Ml Syringe IVP 10 ml 0100,0900,1700 DELPHINE Administration Throat Lozenges 1 lozenge 03/06/23 04:09 03/06/23 04:22 Benzocaine/Menthol Lozenge MM 1 lozenge Q2HR PRN Administration Throat pain - Lab Result Fish Bone Diagrams: 03/06/23 05:00 03/06/23 14:08 Subjective - Subjective Patient Reports: Abdominal Pain (does not feel constipated.), Fatigue, Pain (lower back), Other (hypothermia) Objective Vital Signs: Vital Signs - 24 hr 03/05/23 03/05/23 03/05/23 16:30 18:44 19:41 Temperature 36.1 C L Heart Rate 67 71 71 Heart Rate [ Monitoring electrodes] Respiratory 16 15 18 Rate Blood Pressure 159/106 H 154/93 H 175/96 H Blood Pressure [Left Brachial artery] O2 Saturation 97 96 95 03/05/23 03/05/23 03/05/23 21:08 21:38 22:00 Temperature 36.4 C L Heart Rate 65 Heart Rate [ 74 67 Monitoring electrodes] Respiratory 18 16 20 Rate Blood Pressure 146/97 H Blood Pressure 145/91 H 128/86 H [Left Brachial artery] O2 Saturation 98 98 97 03/05/23 03/06/23 03/06/23 23:00 00:00 01:00 Temperature 36.4 C L Heart Rate Heart Rate [ 66 56 L 56 L Monitoring electrodes] Respiratory 14 13 22 Rate Blood Pressure Blood Pressure 125/86 H 145/75 H 122/80 [Left Brachial artery] O2 Saturation 96 97 97 03/06/23 03/06/23 03/06/23 02:00 03:00 04:00 Temperature Heart Rate Heart Rate [ 56 L 63 65 Monitoring electrodes] Respiratory 21 20 15 Rate Blood Pressure Blood Pressure 119/74 131/73 H 113/95 H [Left Brachial artery] O2 Saturation 98 97 96 03/06/23 03/06/23 03/06/23 05:00 06:00 07:00 Temperature 36.4 C L Heart Rate Heart Rate [ 60 67 57 L Monitoring electrodes] Respiratory 19 19 16 Rate Blood Pressure Blood Pressure 130/97 H 141/99 H 168/87 H [Left Brachial artery] O2 Saturation 97 96 98 03/06/23 03/06/23 03/06/23 08:00 09:00 10:00 Temperature Heart Rate Heart Rate [ 62 72 71 Monitoring electrodes] Respiratory 22 17 16 Rate Blood Pressure Blood Pressure 145/93 H 141/76 H 130/75 [Left Brachial artery] O2 Saturation 98 95 94 03/06/23 03/06/23 03/06/23 11:00 12:00 13:00 Temperature 37 C Heart Rate Heart Rate [ 65 70 59 L Monitoring electrodes] Respiratory 20 16 12 Rate Blood Pressure Blood Pressure 134/84 H 126/77 139/71 H [Left Brachial artery] O2 Saturation 94 97 92 03/06/23 14:00 Temperature Heart Rate Heart Rate [ 59 L Monitoring electrodes] Respiratory 11 L Rate Blood Pressure Blood Pressure 141/78 H [Left Brachial artery] O2 Saturation 97 Oxygen O2 Source Room air I&O (Last 24 Hrs): Intake and Output Totals x24h 03/04/23 03/05/23 03/06/23 23:59 23:59 23:59 Intake Total 600 1440 Output Total 525 374 Balance 75 1066 General: Alert, Oriented x3, Cooperative, Mild distress, Other (hard of hearing.) HEENT: Atraumatic, PERRLA, EOMI, Mucous membr. moist/pink, Other (no icterus) Neuro: Alert, Oriented Times 3, Other Cardiovascular: Regular rate, Normal S1, Normal S2, No murmurs, Other (faint heart sounds) Respiratory: Rhonchi Abdomen: Normal bowel sounds, Soft, No tenderness Extremities: No cyanosis, Other (Lower extremities with shiny skin without ulcers, erythema, brusing. Pitting edema 1+) - Results Results: Laboratory Results WBC 6.0 x10^3/uL (4.8-10.8) 03/06/23 05:00 RBC 3.44 10^6/uL (4.20-5.40) L 03/06/23 05:00 Hgb 12.5 g/dL (12.0-16.0) 03/06/23 05:00 Hct 34.7 % (37.0-47.0) L 03/06/23 05:00 MCV 100.9 fL (81.0-99.0) H 03/06/23 05:00 MCH 36.3 pg (27.0-31.0) H 03/06/23 05:00 MCHC 36.0 g/dL (32.0-36.0) 03/06/23 05:00 RDW 13.4 % (12.0-15.0) 03/06/23 05:00 Plt Count 468 10^3/uL (130-450) H 03/06/23 05:00 MPV 9.9 fL (7.9-10.8) 03/06/23 05:00 Neut # (Auto) 4.6 10^3/uL (1.5-6.6) 03/06/23 05:00 Lymph # (Auto) 1.0 10^3/uL (1.5-3.5) L 03/06/23 05:00 [place] # (Auto) 0.3 10^3/uL (0.0-1.0) 03/06/23 05:00 Eos # (Auto) 0.1 10^3/uL (0.0-0.7) 03/06/23 05:00 Baso # (Auto) 0.1 10^3/uL (0.0-0.1) 03/06/23 05:00 Absolute Nucleated RBC 0.00 x10^3/uL 03/06/23 05:00 Nucleated RBC % 0.0 /100WBC 03/06/23 05:00 Platelet Estimate INCREASED (>450,000) (NORMAL) 03/05/23 16:49 Platelet Morphology 2+ GIANT PLATELETS (NORMAL) 03/05/23 16:49 RBC Morph Micro Appear 1+ ANISOCYTOSIS (NORMAL) 03/05/23 16:49 VBG pH 7.489 (7.31-7.41) H 03/06/23 04:41 Ionized Calcium 0.94 mmol/L (1.15-1.33) L 03/06/23 04:41 Sodium 114 mmol/L (135-145) L* 03/06/23 14:08 Potassium 4.2 mmol/L (3.5-4.5) 03/06/23 04:41 Chloride 82 mmol/L (101-111) L 03/06/23 04:41 Carbon Dioxide 22 mmol/L (21-32) 03/06/23 04:41 Anion Gap 9.0 (6-13) 03/06/23 04:41 BUN 8 mg/dL (6-20) 03/06/23 04:41 Creatinine 0.6 mg/dL (0.6-1.3) 03/06/23 04:41 Estimated GFR (MDRD) 97 (>89) 03/06/23 04:41 Glucose 101 mg/dL (74-104) 03/06/23 04:41 Calcium 8.6 mg/dL (8.5-10.3) 03/06/23 04:41 Phosphorus 2.2 mg/dL (2.5-5.0) L 03/06/23 04:41 Magnesium 1.7 mg/dL (1.7-2.3) 03/06/23 04:41 Total Bilirubin 0.6 mg/dL (0.2-1.0) 03/05/23 16:49 AST 25 IU/L (10-42) 03/05/23 16:49 ALT 7 IU/L (10-60) L 03/05/23 16:49 Alkaline Phosphatase 51 IU/L (42-121) 03/05/23 16:49 Troponin I High Sens 12.1 ng/L (2.3-14.8) 03/05/23 16:49 Total Protein 6.8 g/dL (6.4-8.9) 03/05/23 16:49 Albumin 4.0 g/dL (3.2-5.5) 03/05/23 16:49 Globulin 2.8 g/dL (2.1-4.2) 03/05/23 16:49 Albumin/Globulin Ratio 1.4 (1.0-2.2) 03/05/23 16:49 Lipase 17 U/L (11-82) 03/05/23 16:49 Vitamin B12 416 pg/mL (180-914) 03/06/23 04:41 Folate 8.7 ng/mL (5.90 - >24.8) 03/06/23 04:41 TSH 65.18 uIU/mL (0.34-5.60) H 03/05/23 16:49 Urine Color YELLOW 03/05/23 18:45 Urine Clarity HAZY (CLEAR) 03/05/23 18:45 Urine pH 7.5 PH (5.0-7.5) 03/05/23 18:45 Ur Specific [place] 1.010 (1.002-1.030) 03/05/23 18:45 Urine Protein TRACE mg/dL (NEGATIVE) 03/05/23 18:45 Urine Glucose (UA) NEGATIVE mg/dL (NEGATIVE) 03/05/23 18:45 Urine Ketones NEGATIVE mg/dL (NEGATIVE) 03/05/23 18:45 Urine Occult Blood NEGATIVE (NEGATIVE) 03/05/23 18:45 Urine Nitrite NEGATIVE (NEGATIVE) 03/05/23 18:45 Urine Bilirubin NEGATIVE (NEGATIVE) 03/05/23 18:45 Urine Urobilinogen 1 (NORMAL) E.U./dL (NORMAL) 03/05/23 18:45 Ur Leukocyte Esterase TRACE (NEGATIVE) H 03/05/23 18:45 Urine RBC 0-5 /HPF (0-5) 03/05/23 18:45 Urine WBC 11-25 /HPF (0-5) H 03/05/23 18:45 Ur Squamous Epith Cells RARE Squamous (<= Few) 03/05/23 18:45 Amorphous Sediment Few /LPF 03/05/23 18:45 Urine Bacteria Moderate /HPF (None Seen) H 03/05/23 18:45 Ur Microscopic Review INDICATED 03/05/23 18:45 Urine Culture Comments INDICATED 03/05/23 18:45 Urine Sodium 45.1 mmol/L 03/05/23 18:45 Nasal Screen MRSA (PCR) NEGATIVE (NEGATIVE) 03/05/23 21:45 - Procedures Procedures: Procedures RELEASE MEDIAN NERVE, OPEN APPROACH (02/26/17)
[2023-03-06] MEDS: PRENATAL VITAMIN TABLET PO SCH (17:11)
[2023-03-06 19:24] LABS: CALCIUM 8.9 mg/dL (8.5-10.3); CREATININE 0.6 mg/dL (0.6-1.3); POTASSIUM 4.2 mmol/L (3.5-4.5)
[2023-03-07] MEDS: SODIUM CHLORIDE FLUSH 0.9% 10 ML SYRINGE IVP SCH ×3 (00:55→16:14)
[2023-03-07 05:17] LABS: CALCIUM, IONIZED 0.99 mmol/L (1.15-1.33); VBG PH 7.48 (7.31-7.41)
[2023-03-07] MEDS ORDERED: CALCIUM GLUCONATE IN NS 0.9% 2,000 MG/100 ML BAG IV ONE (05:33)
[2023-03-07 06:07] LABS: MAGNESIUM 1.7 mg/dL (1.7-2.3); PHOSPHORUS 2.4 mg/dL (2.5-5.0)
[2023-03-07 06:10] LABS: CALCIUM 8.6 mg/dL (8.5-10.3); CREATININE 0.5 mg/dL (0.6-1.3); POTASSIUM 3.8 mmol/L (3.5-4.5)
[2023-03-07] MEDS ORDERED: MAGNESIUM OXIDE 400 MG TABLET PO ONE (06:20)
[2023-03-07] MEDS: SODIUM CHLORIDE 0.9% 1,000 ML IV SCH ×2 (06:32→18:48)
[2023-03-07] MEDS: LEVOTHYROXINE 25 MCG TABLET PO SCH (06:32)
[2023-03-07] MEDS: NEUTRA-PHOS 250 MG TABLET PO SCH ×2 (07:52→09:24)
[2023-03-07] MEDS: PRENATAL VITAMIN TABLET PO SCH (07:52)
[2023-03-07] MEDS: cefTRIAXone 1 GM in SODIUM CHLORIDE 0.9% MINIBAG 100 ML IV SCH (09:23)
[2023-03-07] MEDS: APIXABAN 2.5 MG TABLET PO SCH ×2 (09:23→21:27)
[2023-03-07] MEDS: ASPIRIN CHEW 81 MG TABLET PO SCH (09:23)
[2023-03-07] MEDS: DULoxetine 30 MG CAPSULE PO SCH (09:24)
[2023-03-07] MEDS: polyethylene glycoL 3350 17 GM PACKET PO SCH (09:24)
[2023-03-07] MEDS ORDERED: FOSFOMYCIN TROMETHAMINE 3 GM PACKET PO ONE (10:00)
--- NOTE | 2023-03-07 13:42 | PROVIDER PROGRESS NOTE ---
Assessment/Plan - Problem List (1) Hyponatremia Assessment/Plan: -Na 112> 111> 113> 114> 113> 115> 117, Urine and serum Osmo pending. CXR 03/05: No acute cardiopulmonary process. enlarged heart EKG 03/05: Sinus Bradycardia at 59 bpm, RBBB, no STTw changes CT Head 03/05: encephalomalacia, NAD; consider MRI, if indicated dry (dry OM) with LE edema 2+ Most likely due to uncontrolled hypothyroidism Plan Cont NS at 100 cc/hr and cont 100 cc 3% hypertonic saline Free water fluid restriction 1L/day recheck Na q4hr to eval for improvement and ensure correction not too fast hold home medications: Lisinopril, Amlodipine (2) Hypothyroid Conclusion/Plan: TSH 65.18 on 03/05 Have not taken Levothryroxine since last hospital visit in 09/02/21. Likely contributing to hypoatremia, low heart rate (56-74), hypothermia(36.1- 37), fatigue plan continue Levothyroxine 50 mcg/day and 100 mg IV push every 5 days recheck TSH level in 1-2 month (3) UTI- Enterococcus Faecalis Conclusion/Plan: U/A on 03/05: LE WBC Bact. Urine culture on 03/05 indicates Enterococcus Faecalis WBC 6.1> 6.2 plan Give one dose fosfomycin DC IV Rocephin Monitor WBC (4) Anemia, macrocytic (resolved) Conclusion/Plan: Hgb 11.5>12.5 (03/06) , MCH 36.1>36.3 Normal B12/Folate level on 03/06. 416/8.7 plan Cont multi vit with folic acid (5) Hx CVA with residual L sided weakness Conclusion/Plan: -supportive care (6) Vision and Hearing loss Conclusion/Plan: -supportive care (7) Depression Conclusion/Plan: -continue home medications: Duloxetine (8) VTE Prophylaxis: on Eliquis Conclusion/Plan: Code Status: DNR/DNI per SNF paperwork (9)Chronic stable medical problem Conclusion/Plan: HTN 119-168/74-99 CHF HLD Atrial Fibrillation CAD Aortic Stenosis AAA plan -continue home medications: Clonidine, ASA, Eliquis, Hydralazine -hold home medications: Lisinopril, Amlodipine d/t Hyponatremia -Hydralazine PRN - Current Meds Current Meds: Current Medications Generic Name Dose Route Start Last Admin Trade Name Melvin PRN Reason Stop Dose Admin Apixaban 2.5 mg 03/05/23 21:00 03/07/23 09:23 Apixaban 2.5 Mg Tablet PO 2.5 mg BID DELPHINE Administration Aspirin 81 mg 03/06/23 09:00 03/07/23 09:23 Aspirin Chew 81 Mg Tablet PO 81 mg DAILY DELPHINE Administration Clonidine HCl 1 patch 03/05/23 21:00 03/05/23 22:04 Clonidine 0.2 Mg Patch TOP Not Given Q7D DELPHINE Duloxetine HCl 30 mg 03/06/23 09:00 03/07/23 09:24 Duloxetine 30 Mg Capsule PO 30 mg DAILY DELPHINE Administration Sodium Chloride 1,000 mls @ 100 mls/hr 03/05/23 21:00 03/07/23 06:32 Normal Saline 0.9% IV 100 mls/hr .Q10H DELPHINE Administration Levothyroxine Sodium 50 mcg 03/05/23 21:00 03/07/23 06:32 Levothyroxine 25 Mcg Tablet PO 50 mcg QDAC DELPHINE Administration Levothyroxine Sodium 100 mcg 03/06/23 15:00 03/06/23 14:40 Levothyroxine 100 Mcg Vial IVP 100 mcg Q5D DELPHINE Administration Polyethylene Glycol 17 gm 03/07/23 09:00 03/07/23 09:24 Polyethylene Glycol 3350 17 Gm Packet PO 17 gm DAILY DELPHINE Administration Multivit/Folic Acid/Iron 1 tab 03/06/23 17:00 03/07/23 07:52 Vitamin Tablet PO 1 tab DAILYWM DELPHINE Administration Sodium Chloride 10 ml 03/06/23 01:00 03/07/23 09:24 Sodium Chloride Flush 0.9% 10 Ml Syringe IVP 10 ml 0100,0900,1700 DELPHINE Administration Throat Lozenges 1 lozenge 03/06/23 04:09 03/06/23 22:55 Benzocaine/Menthol Lozenge MM 1 lozenge Q2HR PRN Administration Throat pain - Lab Result Fish Bone Diagrams: 03/06/23 05:00 03/07/23 15:27 - Additional Planning Time Spent: 15-30 minutes Subjective - Subjective Patient Reports: Other (dyspnea, lethargic) Objective Vital Signs: Vital Signs - 24 hr 03/06/23 03/06/23 03/06/23 14:00 15:00 16:00 Temperature Heart Rate Heart Rate [ 59 L 73 71 Monitoring electrodes] Respiratory 11 L 19 18 Rate Blood Pressure 141/78 H 137/94 H 152/98 H [Left Brachial artery] O2 Saturation 97 95 96 03/06/23 03/06/23 03/06/23 17:00 18:00 19:00 Temperature 36.8 C Heart Rate Heart Rate [ 64 60 61 Monitoring electrodes] Respiratory 18 19 14 Rate Blood Pressure 134/80 H 143/88 H 144/95 H [Left Brachial artery] O2 Saturation 97 96 95 03/06/23 03/06/23 03/06/23 20:00 21:00 22:00 Temperature 36.6 C Heart Rate 96 Heart Rate [ 61 59 L 65 Monitoring electrodes] Respiratory 11 L 18 18 Rate Blood Pressure 138/87 H 159/87 H 159/89 H [Left Brachial artery] O2 Saturation 96 98 95 03/06/23 03/07/23 03/07/23 23:00 00:00 01:00 Temperature Heart Rate Heart Rate [ 67 62 60 Monitoring electrodes] Respiratory 20 10 L 14 Rate Blood Pressure 157/96 H 153/86 H 157/88 H [Left Brachial artery] O2 Saturation 98 95 96 03/07/23 03/07/23 03/07/23 02:00 03:00 04:00 Temperature Heart Rate Heart Rate [ 61 61 63 Monitoring electrodes] Respiratory 15 11 L 15 Rate Blood Pressure 157/92 H 163/96 H 160/73 H [Left Brachial artery] O2 Saturation 97 97 95 03/07/23 03/07/23 03/07/23 05:00 06:00 07:00 Temperature Heart Rate Heart Rate [ 61 61 65 Monitoring electrodes] Respiratory 13 20 20 Rate Blood Pressure 127/76 130/66 160/88 H [Left Brachial artery] O2 Saturation 97 96 97 03/07/23 03/07/23 03/07/23 08:00 09:00 10:00 Temperature 36.5 C Heart Rate Heart Rate [ 73 66 60 Monitoring electrodes] Respiratory 16 20 21 Rate Blood Pressure 151/105 H 140/94 H 129/75 [Left Brachial artery] O2 Saturation 96 96 98 03/07/23 03/07/23 11:00 12:00 Temperature Heart Rate Heart Rate [ 70 82 Monitoring electrodes] Respiratory 21 22 Rate Blood Pressure 140/71 H 149/83 H [Left Brachial artery] O2 Saturation 96 97 Oxygen O2 Source Room air I&O (Last 24 Hrs): Intake and Output Totals x24h 03/05/23 03/06/23 03/07/23 23:59 23:59 23:59 Intake Total 600 2540 1570 Output Total 525 585 668 Balance 75 1955 902 General: Alert (Hard of hearing women laying down with the bed tilted to the left side), Oriented x3, Cooperative, No acute distress HEENT: Atraumatic, PERRLA, EOMI (watery eyes. dry mucous membrane), Other Neck: Supple, No JVD, No LAD Neuro: Alert, Oriented Times 3, Other (quiet whisper speech with limited words) Cardiovascular: Regular rate (systolic murmur heard on apex), Other Respiratory: Rhonchi Abdomen: Normal bowel sounds, Soft, No tenderness, No hepatospenomegaly, No masses Extremities: No tenderness/swelling, Other (2+ pitting edema. No ulcer or redness. shiny skin on legs and feet. feet feel luke warm and hands feel cold) - Results Results: Laboratory Results WBC 6.0 x10^3/uL (4.8-10.8) 03/06/23 05:00 RBC 3.44 10^6/uL (4.20-5.40) L 03/06/23 05:00 Hgb 12.5 g/dL (12.0-16.0) 03/06/23 05:00 Hct 34.7 % (37.0-47.0) L 03/06/23 05:00 MCV 100.9 fL (81.0-99.0) H 03/06/23 05:00 MCH 36.3 pg (27.0-31.0) H 03/06/23 05:00 MCHC 36.0 g/dL (32.0-36.0) 03/06/23 05:00 RDW 13.4 % (12.0-15.0) 03/06/23 05:00 Plt Count 468 10^3/uL (130-450) H 03/06/23 05:00 MPV 9.9 fL (7.9-10.8) 03/06/23 05:00 Neut # (Auto) 4.6 10^3/uL (1.5-6.6) 03/06/23 05:00 Lymph # (Auto) 1.0 10^3/uL (1.5-3.5) L 03/06/23 05:00 [place] # (Auto) 0.3 10^3/uL (0.0-1.0) 03/06/23 05:00 Eos # (Auto) 0.1 10^3/uL (0.0-0.7) 03/06/23 05:00 Baso # (Auto) 0.1 10^3/uL (0.0-0.1) 03/06/23 05:00 Absolute Nucleated RBC 0.00 x10^3/uL 03/06/23 05:00 Nucleated RBC % 0.0 /100WBC 03/06/23 05:00 Platelet Estimate INCREASED (>450,000) (NORMAL) 03/05/23 16:49 Platelet Morphology 2+ GIANT PLATELETS (NORMAL) 03/05/23 16:49 RBC Morph Micro Appear 1+ ANISOCYTOSIS (NORMAL) 03/05/23 16:49 VBG pH 7.480 (7.31-7.41) H 03/07/23 04:30 Ionized Calcium 0.99 mmol/L (1.15-1.33) L 03/07/23 04:30 Sodium 117 mmol/L (135-145) L* 03/07/23 04:30 Potassium 3.8 mmol/L (3.5-4.5) 03/07/23 04:30 Chloride 87 mmol/L (101-111) L 03/07/23 04:30 Carbon Dioxide 23 mmol/L (21-32) 03/07/23 04:30 Anion Gap 7.0 (6-13) 03/07/23 04:30 BUN 7 mg/dL (6-20) 03/07/23 04:30 Creatinine 0.5 mg/dL (0.6-1.3) L 03/07/23 04:30 Estimated GFR (MDRD) 119 (>89) 03/07/23 04:30 Glucose 97 mg/dL (74-104) 03/07/23 04:30 Calcium 8.6 mg/dL (8.5-10.3) 03/07/23 04:30 Phosphorus 2.4 mg/dL (2.5-5.0) L 03/07/23 04:30 Magnesium 1.7 mg/dL (1.7-2.3) 03/07/23 04:30 Total Bilirubin 0.6 mg/dL (0.2-1.0) 03/05/23 16:49 AST 25 IU/L (10-42) 03/05/23 16:49 ALT 7 IU/L (10-60) L 03/05/23 16:49 Alkaline Phosphatase 51 IU/L (42-121) 03/05/23 16:49 Troponin I High Sens 12.1 ng/L (2.3-14.8) 03/05/23 16:49 Total Protein 6.8 g/dL (6.4-8.9) 03/05/23 16:49 Albumin 4.0 g/dL (3.2-5.5) 03/05/23 16:49 Globulin 2.8 g/dL (2.1-4.2) 03/05/23 16:49 Albumin/Globulin Ratio 1.4 (1.0-2.2) 03/05/23 16:49 Lipase 17 U/L (11-82) 03/05/23 16:49 Vitamin B12 416 pg/mL (180-914) 03/06/23 04:41 Folate 8.7 ng/mL (5.90 - >24.8) 03/06/23 04:41 TSH 65.18 uIU/mL (0.34-5.60) H 03/05/23 16:49 Urine Color YELLOW 03/05/23 18:45 Urine Clarity HAZY (CLEAR) 03/05/23 18:45 Urine pH 7.5 PH (5.0-7.5) 03/05/23 18:45 Ur Specific [place] 1.010 (1.002-1.030) 03/05/23 18:45 Urine Protein TRACE mg/dL (NEGATIVE) 03/05/23 18:45 Urine Glucose (UA) NEGATIVE mg/dL (NEGATIVE) 03/05/23 18:45 Urine Ketones NEGATIVE mg/dL (NEGATIVE) 03/05/23 18:45 Urine Occult Blood NEGATIVE (NEGATIVE) 03/05/23 18:45 Urine Nitrite NEGATIVE (NEGATIVE) 03/05/23 18:45 Urine Bilirubin NEGATIVE (NEGATIVE) 03/05/23 18:45 Urine Urobilinogen 1 (NORMAL) E.U./dL (NORMAL) 03/05/23 18:45 Ur Leukocyte Esterase TRACE (NEGATIVE) H 03/05/23 18:45 Urine RBC 0-5 /HPF (0-5) 03/05/23 18:45 Urine WBC 11-25 /HPF (0-5) H 03/05/23 18:45 Ur Squamous Epith Cells RARE Squamous (<= Few) 03/05/23 18:45 Amorphous Sediment Few /LPF 03/05/23 18:45 Urine Bacteria Moderate /HPF (None Seen) H 03/05/23 18:45 Ur Microscopic Review INDICATED 03/05/23 18:45 Urine Culture Comments INDICATED 03/05/23 18:45 Urine Sodium 45.1 mmol/L 03/05/23 18:45 Nasal Screen MRSA (PCR) NEGATIVE (NEGATIVE) 03/05/23 21:45 - Procedures Procedures: Procedures RELEASE MEDIAN NERVE, OPEN APPROACH (02/26/17) ABX Reporting Has patient been on IV antibiotics over the past 48 hours?: Yes
[2023-03-07 15:45] LABS: CALCIUM, IONIZED 1.06 mmol/L (1.15-1.33); VBG PH 7.401 (7.31-7.41)
[2023-03-07 15:47] LABS: MAGNESIUM 1.6 mg/dL (1.7-2.3); PHOSPHORUS 2.9 mg/dL (2.5-5.0); POTASSIUM 3.8 mmol/L (3.5-4.5)
[2023-03-07] MEDS ORDERED: POTASSIUM CHLORIDE 20 MEQ TABLET PO ONE (16:05)
[2023-03-07] MEDS: MAGNESIUM OXIDE 400 MG TABLET PO SCH (16:13)
[2023-03-07] MEDS: CALCIUM CARBONATE CHEW 500 MG TABLET PO SCH ×2 (16:14→21:27)
[2023-03-07 16:27] LABS: CREATININE 0.6 mg/dL (0.6-1.3); POTASSIUM 3.8 mmol/L (3.5-4.5)
[2023-03-07] MEDS ORDERED: SODIUM CHLORIDE 3% HYPERTONIC 100 ML IV SCH (17:00)
[2023-03-07] MEDS: hydrALAZINE 10 MG TABLET PO SCH (18:13)
[2023-03-07 22:37] LABS: CREATININE 0.5 mg/dL (0.6-1.3); POTASSIUM 3.7 mmol/L (3.5-4.5)
[2023-03-08] MEDS: MAGNESIUM OXIDE 400 MG TABLET PO SCH (00:08)
[2023-03-08] MEDS: hydrALAZINE 10 MG TABLET PO SCH ×4 (00:08→18:17)
[2023-03-08] MEDS: SODIUM CHLORIDE 0.9% 1,000 ML IV SCH ×2 (05:03→15:12)
[2023-03-08] MEDS: SODIUM CHLORIDE FLUSH 0.9% 10 ML SYRINGE IVP SCH ×3 (05:04→17:17)
[2023-03-08 05:07] LABS: CALCIUM, IONIZED 1.08 mmol/L (1.15-1.33); VBG PH 7.428 (7.31-7.41)
[2023-03-08 05:22] LABS: MAGNESIUM 1.6 mg/dL (1.7-2.3); PHOSPHORUS 2.4 mg/dL (2.5-5.0)
[2023-03-08] MEDS ORDERED: MAGNESIUM OXIDE 400 MG TABLET PO ONE (05:33)
[2023-03-08 05:42] LABS: CALCIUM 8.9 mg/dL (8.5-10.3); CREATININE 0.6 mg/dL (0.6-1.3); POTASSIUM 3.5 mmol/L (3.5-4.5)
[2023-03-08 05:44] LABS: BASOPHILS # (AUTO) 0.1 10^3/uL (0.0-0.1); BASOPHILS % (AUTO) 1.6 %; EOSINOPHILS # (AUTO) 0.2 10^3/uL (0.0-0.7); EOSINOPHILS % (AUTO) 2.9 %; HCT - HEMATOCRIT 31.6 % (37.0-47.0); HGB - HEMOGLOBIN 11.5 g/dL (12.0-16.0); LYMPHOCYTES # (AUTO) 1.6 10^3/uL (1.5-3.5); LYMPHOCYTES % (AUTO) 25.4 %; MEAN CORPUSCULAR HEMOGLOBIN 36.4 pg (27.0-31.0); MEAN CORPUSCULAR HGB CONC 36.4 g/dL (32.0-36.0); MEAN PLATELET VOLUME 10.2 fL (7.9-10.8); MONOCYTES # (AUTO) 0.3 10^3/uL (0.0-1.0); NEUTROPHILS # (AUTO) 4.1 10^3/uL (1.5-6.6); NEUTROPHILS % (AUTO) 64.8 %; PLT - PLATELET COUNT 444 10^3/uL (130-450); RED BLOOD COUNT 3.16 10^6/uL (4.20-5.40); RED CELL DISTRIBUTION WIDTH 13.3 % (12.0-15.0); WHITE BLOOD COUNT 6.3 x10^3/uL (4.8-10.8)
[2023-03-08] MEDS ORDERED: MAGNESIUM SULFATE 2 GRAM 2 GM/50 ML BAG IV ONE (05:53)
[2023-03-08] MEDS ORDERED: CALCIUM GLUC 1,000MG/50ML-NACL 1,000 MG/50 ML BAG IV ONE (05:53)
[2023-03-08] MEDS ORDERED: CALCIUM CARBONATE CHEW 500 MG TABLET PO SCH (06:00)
[2023-03-08] MEDS: LEVOTHYROXINE 25 MCG TABLET PO SCH (06:26)
[2023-03-08] MEDS ORDERED: POTASSIUM PHOSPHATE 15 MMOL in SODIUM CHLORIDE 0.9% 250 ML IV ONE (08:00)
[2023-03-08] MEDS: FERROUS SULFATE 325 MG TABLET PO SCH (08:14)
[2023-03-08] MEDS: DULoxetine 30 MG CAPSULE PO SCH (08:14)
[2023-03-08] MEDS: APIXABAN 2.5 MG TABLET PO SCH ×2 (08:14→20:15)
[2023-03-08] MEDS: PRENATAL VITAMIN TABLET PO SCH (08:14)
[2023-03-08] MEDS: ASPIRIN CHEW 81 MG TABLET PO SCH (08:14)
[2023-03-08] MEDS: lisinopriL 20 MG TABLET PO SCH (08:14)
[2023-03-08] MEDS: amLODIPine 5 MG TABLET PO SCH (08:17)
--- NOTE | 2023-03-08 08:53 | PROVIDER PROGRESS NOTE ---
Assessment/Plan - Problem List (1) Hyponatremia Assessment/Plan: -Na steadily increasing 112> 111> 113> 114> 113> 115> 117> 118 Serum Osmo LOW 238 mOsmol/kg (03/05). Urine Osmo regular 382 (03/05). Osmo [place]els mostly likely indicate hyponatremia due to hypothyroidism. SIADH excluded due to evidence of edema on LE. CXR 03/05: No acute cardiopulmonary process. enlarged heart EKG 03/05: Sinus Bradycardia at 59 bpm, RBBB, no STTw changes CT Head 03/05: encephalomalacia, NAD; consider MRI, if indicated dry (dry OM) with LE edema 2+ Plan Cont NS at 100 cc/hr and STOP 100 cc 3% hypertonic saline due to orient and alert mental status Free water fluid restriction 1L/day. Throat lozenges for dry mouth. recheck Na q4hr to eval for improvement and ensure correction not too fast resume home medications: Lisinopril, Amlodipine due steady sodium level increase. Patient will be here for multiple days to stabilize sodium levels (2) Hypothyroid Conclusion/Plan: TSH 65.18 on 03/05 Have not taken Levothryroxine since last hospital visit in 09/02/21. Likely contributing to hypoatremia and fatigue and feeling of coldness plan continue Levothyroxine 50 mcg/day and 100 mg IV push every 5 days recheck TSH level in 1-2 month (3) UTI- Enterococcus Faecalis Conclusion/Plan: U/A on 03/05: LE WBC Bact. Urine culture on 03/05 indicates Enterococcus Faecalis WBC 6.1> 6.0> 6.3 plan Gave one dose fosfomycin (03/07) Monitor WBC (4) Anemia, macrocytic (resolved) Conclusion/Plan: Hgb 11.5>12.5> 11.5 (03/06) , MCH 36.1>36.3> 36.4 Normal B12/Folate level on 03/06. 416/8.7 plan Cont multi vit with folic acid. 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 Conclusion/Plan: -supportive care (6) Vision and Hearing loss Conclusion/Plan: -supportive care (7) Depression Conclusion/Plan: -continue home medications: Duloxetine (8) VTE Prophylaxis: on Eliquis Conclusion/Plan: Code Status: DNR/DNI per SNF paperwork (9)Chronic stable medical problem Conclusion/Plan: HTN 119-168/74-99 CHF HLD Atrial Fibrillation CAD Aortic Stenosis AAA plan -continue home medications: Clonidine, ASA, Eliquis, Hydralazine -resume home medications: Lisinopril, Amlodipine -Hydralazine PRN - Current Meds Current Meds: Current Medications Generic Name Dose Route Start Last Admin Trade Name Genq PRN Reason Stop Dose Admin Apixaban 2.5 mg 03/05/23 21:00 03/08/23 08:14 Apixaban 2.5 Mg Tablet PO 2.5 mg BID DELPHINE Administration Aspirin 81 mg 03/06/23 09:00 03/08/23 08:14 Aspirin Chew 81 Mg Tablet PO 81 mg DAILY DELPHINE Administration Clonidine HCl 1 patch 03/05/23 21:00 03/05/23 22:04 Clonidine 0.2 Mg Patch TOP Not Given Q7D DELPHINE Duloxetine HCl 30 mg 03/06/23 09:00 03/08/23 08:14 Duloxetine 30 Mg Capsule PO 30 mg DAILY DELPHINE Administration Ferrous Sulfate 325 mg 03/08/23 09:00 03/08/23 08:14 Ferrous Sulfate 325 Mg Tablet PO 325 mg DAILYWM DELPHINE Administration Hydralazine HCl 10 mg 03/07/23 18:00 03/08/23 06:26 Hydralazine 10 Mg Tablet PO 10 mg Q6H DELPHINE Administration Sodium Chloride 1,000 mls @ 100 mls/hr 03/05/23 21:00 03/08/23 05:03 Normal Saline 0.9% IV 100 mls/hr .Q10H DELPHINE Administration Sodium Chloride 100 mls @ 5 mls/hr 03/07/23 17:00 03/07/23 17:01 Sodium Chloride 3% Hypertonic IV 03/08/23 12:59 5 mls/hr .Q20H DELPHINE Administration Potassium Phosphate 15 mmol/ 255 mls @ 63 mls/hr 03/08/23 08:00 03/08/23 08:05 Sodium Chloride IV 03/08/23 12:02 63 mls/hr ONCE ONE Administration Protocol Levothyroxine Sodium 50 mcg 03/05/23 21:00 03/08/23 06:26 Levothyroxine 25 Mcg Tablet PO 50 mcg QDAC DELPHINE Administration Levothyroxine Sodium 100 mcg 03/06/23 15:00 03/06/23 14:40 Levothyroxine 100 Mcg Vial IVP 100 mcg Q5D DELPHINE Administration Lisinopril 20 mg 03/08/23 09:00 03/08/23 08:14 Lisinopril 20 Mg Tablet PO 20 mg DAILY DELPHINE Administration Polyethylene Glycol 17 gm 03/07/23 09:00 03/07/23 09:24 Polyethylene Glycol 3350 17 Gm Packet PO 17 gm DAILY DELPHINE Administration Multivit/Folic Acid/Iron 1 tab 03/06/23 17:00 03/08/23 08:14 Vitamin Tablet PO 1 tab DAILYWM DELPHINE Administration Sodium Chloride 10 ml 03/06/23 01:00 03/08/23 05:04 Sodium Chloride Flush 0.9% 10 Ml Syringe IVP Not Given 0100,0900,1700 DELPHINE Throat Lozenges 1 lozenge 03/06/23 04:09 03/06/23 22:55 Benzocaine/Menthol Lozenge MM 1 lozenge Q2HR PRN Administration Throat pain - Lab Result Fish Bone Diagrams: 03/08/23 04:32 03/08/23 15:32 - Additional Planning Time Spent: 15-30 minutes Subjective - Subjective Patient Reports: Fatigue, Shortness of Breath ( difficult breathing) Objective Vital Signs: Vital Signs - 24 hr 03/07/23 03/07/23 03/07/23 09:00 10:00 11:00 Temperature 36.5 C Heart Rate [ 66 60 70 Monitoring electrodes] Respiratory 20 21 21 Rate Blood Pressure 140/94 H 129/75 140/71 H [Left Brachial artery] O2 Saturation 96 98 96 03/07/23 03/07/23 03/07/23 12:00 13:00 14:00 Temperature 36.9 C Heart Rate [ 82 71 68 Monitoring electrodes] Respiratory 22 21 24 Rate Blood Pressure 149/83 H 149/86 H 159/85 H [Left Brachial artery] O2 Saturation 97 96 95 03/07/23 03/07/23 03/07/23 15:00 16:00 17:00 Temperature Heart Rate [ 62 68 62 Monitoring electrodes] Respiratory 21 23 22 Rate Blood Pressure 163/93 H 139/80 H 125/75 [Left Brachial artery] O2 Saturation 95 96 96 03/07/23 03/07/23 03/07/23 18:00 19:00 20:00 Temperature 36.6 C Heart Rate [ 69 63 63 Monitoring electrodes] Respiratory 21 19 25 H Rate Blood Pressure 142/80 H 157/83 H 132/77 H [Left Brachial artery] O2 Saturation 98 98 98 03/07/23 03/07/23 03/07/23 21:00 22:00 23:00 Temperature Heart Rate [ 63 60 63 Monitoring electrodes] Respiratory 19 25 H 19 Rate Blood Pressure 115/87 H 153/82 H 154/93 H [Left Brachial artery] O2 Saturation 99 98 96 03/08/23 03/08/23 03/08/23 00:00 01:00 02:00 Temperature Heart Rate [ 63 63 63 Monitoring electrodes] Respiratory 25 H 19 21 Rate Blood Pressure 155/86 H 152/86 H 153/92 H [Left Brachial artery] O2 Saturation 98 96 94 03/08/23 03/08/23 03/08/23 03:00 04:00 05:00 Temperature 36.8 C Heart Rate [ 67 64 76 Monitoring electrodes] Respiratory 16 18 22 Rate Blood Pressure 164/91 H 162/84 H 150/84 H [Left Brachial artery] O2 Saturation 97 98 94 03/08/23 03/08/23 06:00 07:00 Temperature Heart Rate [ 64 62 Monitoring electrodes] Respiratory 19 22 Rate Blood Pressure 166/85 H 155/88 H [Left Brachial artery] O2 Saturation 98 96 Oxygen O2 Source Room air I&O (Last 24 Hrs): Intake and Output Totals x24h 03/06/23 03/07/23 03/08/23 23:59 23:59 23:59 Intake Total 2540 2670 1500 Output Total 585 993 295 Balance 1955 1677 1205 General: Alert, Oriented x3 (asked if today is thanksgiving), Cooperative, No acute distress HEENT: Atraumatic, PERRLA, EOMI, Other (dry MM) Neck: Supple, No JVD Neuro: Alert, Oriented Times 3, Other (quiet whisper speech with limited words) Cardiovascular: Regular rate, Normal S1, Normal S2, No murmurs Respiratory: Rhonchi Abdomen: Normal bowel sounds, Soft, No tenderness, No hepatospenomegaly, No masses Extremities: Other (2+ pitting edema. No ulcer or redness. shiny skin on legs and feet. feet feel luke warm and hands feel cold) - Results Results: Laboratory Results WBC 6.3 x10^3/uL (4.8-10.8) 03/08/23 04:32 RBC 3.16 10^6/uL (4.20-5.40) L 03/08/23 04:32 Hgb 11.5 g/dL (12.0-16.0) L 03/08/23 04:32 Hct 31.6 % (37.0-47.0) L 03/08/23 04:32 MCV 100.0 fL (81.0-99.0) H 03/08/23 04:32 MCH 36.4 pg (27.0-31.0) H 03/08/23 04:32 MCHC 36.4 g/dL (32.0-36.0) H 03/08/23 04:32 RDW 13.3 % (12.0-15.0) 03/08/23 04:32 Plt Count 444 10^3/uL (130-450) 03/08/23 04:32 MPV 10.2 fL (7.9-10.8) 03/08/23 04:32 Neut # (Auto) 4.1 10^3/uL (1.5-6.6) 03/08/23 04:32 Lymph # (Auto) 1.6 10^3/uL (1.5-3.5) 03/08/23 04:32 [place] # (Auto) 0.3 10^3/uL (0.0-1.0) 03/08/23 04:32 Eos # (Auto) 0.2 10^3/uL (0.0-0.7) 03/08/23 04:32 Baso # (Auto) 0.1 10^3/uL (0.0-0.1) 03/08/23 04:32 Absolute Nucleated RBC 0.00 x10^3/uL 03/08/23 04:32 Nucleated RBC % 0.0 /100WBC 03/08/23 04:32 Platelet Estimate INCREASED (>450,000) (NORMAL) 03/05/23 16:49 Platelet Morphology 2+ GIANT PLATELETS (NORMAL) 03/05/23 16:49 RBC Morph Micro Appear 1+ ANISOCYTOSIS (NORMAL) 03/05/23 16:49 VBG pH 7.428 (7.31-7.41) H 03/08/23 04:32 Ionized Calcium 1.08 mmol/L (1.15-1.33) L 03/08/23 04:32 Sodium 118 mmol/L (135-145) L* 03/08/23 04:32 Potassium 3.5 mmol/L (3.5-4.5) 03/08/23 04:32 Chloride 88 mmol/L (101-111) L 03/08/23 04:32 Carbon Dioxide 24 mmol/L (21-32) 03/08/23 04:32 Anion Gap 6.0 (6-13) 03/08/23 04:32 BUN 6 mg/dL (6-20) 03/08/23 04:32 Creatinine 0.6 mg/dL (0.6-1.3) 03/08/23 04:32 Estimated GFR (MDRD) 97 (>89) 03/08/23 04:32 Glucose 102 mg/dL (74-104) 03/08/23 04:32 Serum Osmolality 238 mOsmol/kg (280-301) L 03/05/23 16:49 Calcium 8.9 mg/dL (8.5-10.3) 03/08/23 04:32 Phosphorus 2.4 mg/dL (2.5-5.0) L 03/08/23 04:32 Magnesium 1.6 mg/dL (1.7-2.3) L 03/08/23 04:32 Total Bilirubin 0.6 mg/dL (0.2-1.0) 03/05/23 16:49 AST 25 IU/L (10-42) 03/05/23 16:49 ALT 7 IU/L (10-60) L 03/05/23 16:49 Alkaline Phosphatase 51 IU/L (42-121) 03/05/23 16:49 Troponin I High Sens 12.1 ng/L (2.3-14.8) 03/05/23 16:49 Total Protein 6.8 g/dL (6.4-8.9) 03/05/23 16:49 Albumin 4.0 g/dL (3.2-5.5) 03/05/23 16:49 Globulin 2.8 g/dL (2.1-4.2) 03/05/23 16:49 Albumin/Globulin Ratio 1.4 (1.0-2.2) 03/05/23 16:49 Lipase 17 U/L (11-82) 03/05/23 16:49 Vitamin B12 416 pg/mL (180-914) 03/06/23 04:41 Folate 8.7 ng/mL (5.90 - >24.8) 03/06/23 04:41 TSH 65.18 uIU/mL (0.34-5.60) H 03/05/23 16:49 Urine Color YELLOW 03/05/23 18:45 Urine Clarity HAZY (CLEAR) 03/05/23 18:45 Urine pH 7.5 PH (5.0-7.5) 03/05/23 18:45 Ur Specific [place] 1.010 (1.002-1.030) 03/05/23 18:45 Urine Protein TRACE mg/dL (NEGATIVE) 03/05/23 18:45 Urine Glucose (UA) NEGATIVE mg/dL (NEGATIVE) 03/05/23 18:45 Urine Ketones NEGATIVE mg/dL (NEGATIVE) 03/05/23 18:45 Urine Occult Blood NEGATIVE (NEGATIVE) 03/05/23 18:45 Urine Nitrite NEGATIVE (NEGATIVE) 03/05/23 18:45 Urine Bilirubin NEGATIVE (NEGATIVE) 03/05/23 18:45 Urine Urobilinogen 1 (NORMAL) E.U./dL (NORMAL) 03/05/23 18:45 Ur Leukocyte Esterase TRACE (NEGATIVE) H 03/05/23 18:45 Urine RBC 0-5 /HPF (0-5) 03/05/23 18:45 Urine WBC 11-25 /HPF (0-5) H 03/05/23 18:45 Ur Squamous Epith Cells RARE Squamous (<= Few) 03/05/23 18:45 Amorphous Sediment Few /LPF 03/05/23 18:45 Urine Bacteria Moderate /HPF (None Seen) H 03/05/23 18:45 Ur Microscopic Review INDICATED 03/05/23 18:45 Urine Culture Comments INDICATED 03/05/23 18:45 Urine Osmolality 382 mOsmol/kg (.) 03/05/23 18:44 Urine Sodium 45.1 mmol/L 03/05/23 18:45 Nasal Screen MRSA (PCR) NEGATIVE (NEGATIVE) 03/05/23 21:45 - Procedures Procedures: Procedures RELEASE MEDIAN NERVE, OPEN APPROACH (02/26/17) ABX Reporting Has patient been on IV antibiotics over the past 48 hours?: No
[2023-03-08] MEDS: BENZOCAINE/MENTHOL LOZENGE MM PRN ×2 (09:07→13:25)
[2023-03-08] MEDS: polyethylene glycoL 3350 17 GM PACKET PO SCH (10:06)
[2023-03-08 15:45] LABS: CALCIUM, IONIZED 1.07 mmol/L (1.15-1.33); VBG PH 7.394 (7.31-7.41)
[2023-03-08 15:52] LABS: PHOSPHORUS 2.9 mg/dL (2.5-5.0)
[2023-03-08] MEDS ORDERED: POTASSIUM CHLORIDE 20 MEQ TABLET PO ONE (17:00)
[2023-03-08] MEDS: CALCIUM CARBONATE CHEW 500 MG TABLET PO SCH ×2 (17:16→20:16)
[2023-03-09] MEDS: hydrALAZINE 10 MG TABLET PO SCH ×4 (00:07→17:46)
[2023-03-09] MEDS: SODIUM CHLORIDE 0.9% 1,000 ML IV SCH ×3 (00:08→22:14)
[2023-03-09 00:40] LABS: CALCIUM, IONIZED 1.09 mmol/L (1.15-1.33); VBG PH 7.415 (7.31-7.41)
[2023-03-09] MEDS ORDERED: CALCIUM GLUC 1,000MG/50ML-NACL 1,000 MG/50 ML BAG IV ONE (01:35)
[2023-03-09] MEDS: POTASSIUM CHLOR 10 MEQ/100 ML 10 MEQ/100 ML BAG IV SCH ×2 (01:53→03:00)
[2023-03-09] MEDS: SODIUM CHLORIDE FLUSH 0.9% 10 ML SYRINGE IVP SCH ×3 (02:59→16:15)
[2023-03-09 04:41] LABS: CALCIUM, IONIZED 1.14 mmol/L (1.15-1.33); VBG PH 7.386 (7.31-7.41)
[2023-03-09 05:06] LABS: CALCIUM 8.9 mg/dL (8.5-10.3); CREATININE 0.5 mg/dL (0.6-1.3); POTASSIUM 4.1 mmol/L (3.5-4.5)
[2023-03-09 05:13] LABS: MAGNESIUM 1.8 mg/dL (1.7-2.3); PHOSPHORUS 2.6 mg/dL (2.5-5.0)
[2023-03-09 05:17] LABS: BASOPHILS # (AUTO) 0.1 10^3/uL (0.0-0.1); BASOPHILS % (AUTO) 1.8 %; EOSINOPHILS # (AUTO) 0.4 10^3/uL (0.0-0.7); EOSINOPHILS % (AUTO) 5.9 %; HCT - HEMATOCRIT 28.6 % (37.0-47.0); LYMPHOCYTES # (AUTO) 1.5 10^3/uL (1.5-3.5); LYMPHOCYTES % (AUTO) 24.2 %; MEAN CORPUSCULAR HEMOGLOBIN 35.5 pg (27.0-31.0); MEAN CORPUSCULAR VOLUME 101.4 fL (81.0-99.0); MEAN PLATELET VOLUME 9.7 fL (7.9-10.8); MONOCYTES # (AUTO) 0.3 10^3/uL (0.0-1.0); MONOCYTES % (AUTO) 4.6 %; NEUTROPHILS # (AUTO) 3.9 10^3/uL (1.5-6.6); NEUTROPHILS % (AUTO) 63.2 %; PLT - PLATELET COUNT 432 10^3/uL (130-450); RED BLOOD COUNT 2.82 10^6/uL (4.20-5.40); RED CELL DISTRIBUTION WIDTH 13.4 % (12.0-15.0); WHITE BLOOD COUNT 6.1 x10^3/uL (4.8-10.8)
[2023-03-09] MEDS ORDERED: MAGNESIUM SULFATE 2 GRAM 2 GM/50 ML BAG IV ONE (05:38)
[2023-03-09] MEDS: LEVOTHYROXINE 25 MCG TABLET PO SCH (06:27)
[2023-03-09] MEDS: amLODIPine 5 MG TABLET PO SCH ×2 (09:02→16:15)
[2023-03-09] MEDS: FERROUS SULFATE 325 MG TABLET PO SCH (09:02)
[2023-03-09] MEDS: APIXABAN 2.5 MG TABLET PO SCH ×2 (09:03→21:19)
[2023-03-09] MEDS: DULoxetine 30 MG CAPSULE PO SCH (09:03)
[2023-03-09] MEDS: PRENATAL VITAMIN TABLET PO SCH (09:03)
[2023-03-09] MEDS: polyethylene glycoL 3350 17 GM PACKET PO SCH (09:04)
[2023-03-09] MEDS: lisinopriL 20 MG TABLET PO SCH (09:04)
[2023-03-09] MEDS: ASPIRIN CHEW 81 MG TABLET PO SCH (09:04)
--- NOTE | 2023-03-09 09:11 | PROVIDER PROGRESS NOTE ---
Assessment/Plan - Problem List (1) Hyponatremia Assessment/Plan: -Na steadily increasing 112> 111> 113> 114> 113> 115> 117> 118>120 Serum Osmo LOW 238 mOsmol/kg (03/05). Urine Osmo regular 382 (03/05). Osmo levels mostly likely indicate hyponatremia due to hypothyroidism. SIADH excluded due to evidence of edema on LE. CXR 03/05: No acute cardiopulmonary process. enlarged heart EKG 03/05: Sinus Bradycardia at 59 bpm, RBBB, no STTw changes CT Head 03/05: encephalomalacia, NAD; consider MRI, if indicated LE edema 2+ Plan Cont NS at 100 cc/hr STOP 100 cc 3% hypertonic saline due to orient and alert mental status Free water fluid restriction 1L/day. Throat lozenges for dry mouth. recheck Na q4hr to eval for improvement and ensure correction not too fast resume home medications: Lisinopril, Amlodipine due steady sodium level increase. Patient will be here for multiple days to stabilize sodium levels (2) Hypothyroid Conclusion/Plan: TSH 65.18 on 03/05 Have not taken Levothryroxine since last hospital visit in 09/02/21. Likely contributing to hypoatremia and fatigue and feeling of coldness plan continue Levothyroxine 50 mcg/day and 100 mg IV push every 5 days (due 03/11) recheck TSH level in 1-2 month (3) UTI- Enterococcus Faecalis (resolved) Conclusion/Plan: U/A on 03/05: LE WBC Bact. Urine culture on 03/05 indicates Enterococcus Faecalis WBC 6.1> 6.0> 6.3> 6.1 plan Gave one dose fosfomycin (03/07) Monitor WBC (4) Anemia, macrocytic (resolved) Conclusion/Plan: decreasing Hgb 11.5>12.5> 11.5> 10.0 , MCH 36.1>36.3> 36.4> 35.5 Normal B12/Folate level on 03/06. 416/8.7 plan Cont multi vit with folic acid. Cont PO Ferrous sulfate (5)Edema Conclusion/Plan: s2+ pitting edema on LE with increased daily weight 74.5> 76.5> 77.5> 79.5kg likely from IV saline Plan: initiate spironolactone as a diuretic monitor K levels to prevent hyperkalemia reduce IV saline from 100cc/hr to 88 CC/hr (6) Hx CVA with residual L sided weakness Conclusion/Plan: -supportive care (7) Vision and Hearing loss Conclusion/Plan: -supportive care (8) Depression Conclusion/Plan: -continue home medications: Duloxetine (9) VTE Prophylaxis: on Eliquis Conclusion/Plan: Code Status: DNR/DNI per SNF paperwork (10)Chronic stable medical problem Conclusion/Plan: HTN 127-169/55-88 CHF HLD Atrial Fibrillation CAD Aortic Stenosis AAA plan -continue home medications: Clonidine, ASA, Eliquis, Hydralazine -resume home medications: Lisinopril, Amlodipine -Hydralazine PRN - increase dosage of amlodipine from 2.5 to 5.0 mg due to consistently high blo od pressures. Monitor for increase edema and headache. - Current Meds Current Meds: Current Medications Generic Name Dose Route Start Last Admin Trade Name Freq PRN Reason Stop Dose Admin Amlodipine Besylate 2.5 mg 03/08/23 09:00 03/09/23 09:02 Amlodipine 5 Mg Tablet PO 2.5 mg DAILY DELPHINE Administration Apixaban 2.5 mg 03/05/23 21:00 03/09/23 09:03 Apixaban 2.5 Mg Tablet PO 2.5 mg BID DELPHINE Administration Aspirin 81 mg 03/06/23 09:00 03/09/23 09:04 Aspirin Chew 81 Mg Tablet PO 81 mg DAILY DELPHINE Administration Clonidine HCl 1 patch 03/05/23 21:00 03/05/23 22:04 Clonidine 0.2 Mg Patch TOP Not Given Q7D DELPHINE Duloxetine HCl 30 mg 03/06/23 09:00 03/09/23 09:03 Duloxetine 30 Mg Capsule PO 30 mg DAILY DELPHINE Administration Ferrous Sulfate 325 mg 03/08/23 09:00 03/09/23 09:02 Ferrous Sulfate 325 Mg Tablet PO 325 mg DAILYWM DELPHINE Administration Hydralazine HCl 10 mg 03/07/23 18:00 03/09/23 06:27 Hydralazine 10 Mg Tablet PO 10 mg Q6H DELPHINE Administration Sodium Chloride 1,000 mls @ 100 mls/hr 03/05/23 21:00 03/09/23 09:04 Normal Saline 0.9% IV 100 mls/hr .Q10H DELPHINE Administration Levothyroxine Sodium 50 mcg 03/05/23 21:00 03/09/23 06:27 Levothyroxine 25 Mcg Tablet PO 50 mcg QDAC DELPHINE Administration Levothyroxine Sodium 100 mcg 03/06/23 15:00 03/06/23 14:40 Levothyroxine 100 Mcg Vial IVP 100 mcg Q5D DELPHINE Administration Lisinopril 20 mg 03/08/23 09:00 03/09/23 09:04 Lisinopril 20 Mg Tablet PO 20 mg DAILY DELPHINE Administration Polyethylene Glycol 17 gm 03/07/23 09:00 03/09/23 09:04 Polyethylene Glycol 3350 17 Gm Packet PO 17 gm DAILY DELPHINE Administration Multivit/Folic Acid/Iron 1 tab 03/06/23 17:00 03/09/23 09:03 Vitamin Tablet PO 1 tab DAILYWM DELPHINE Administration Sodium Chloride 10 ml 03/06/23 01:00 03/09/23 09:05 Sodium Chloride Flush 0.9% 10 Ml Syringe IVP 10 ml 0100,0900,1700 DELPHINE Administration Throat Lozenges 1 lozenge 03/06/23 04:09 03/08/23 13:25 Benzocaine/Menthol Lozenge MM 1 lozenge Q2HR PRN Administration Throat pain - Lab Result Fish Bone Diagrams: 03/09/23 04:30 03/09/23 04:30 - EKG Results EKG Interpreted Independently: No - Additional Planning Time Spent: 15-30 minutes Subjective - Subjective Patient Reports: Resting Comfortably, Shortness of Breath Objective Vital Signs: Vital Signs - 24 hr 03/08/23 03/08/23 03/08/23 10:00 11:00 12:00 Temperature Heart Rate [ 61 61 66 Monitoring electrodes] Respiratory 19 23 21 Rate Blood Pressure 134/80 H 148/98 H 141/90 H [Left Brachial artery] O2 Saturation 97 99 98 03/08/23 03/08/23 03/08/23 13:00 14:00 15:00 Temperature 36.4 C L Heart Rate [ 65 67 74 Monitoring electrodes] Respiratory 20 15 17 Rate Blood Pressure 137/84 H 128/90 H 134/101 H [Left Brachial artery] O2 Saturation 96 100 97 03/08/23 03/08/23 03/08/23 16:00 17:00 18:00 Temperature 35.1 C L Heart Rate [ 62 72 73 Monitoring electrodes] Respiratory 18 18 18 Rate Blood Pressure 152/86 H 154/84 H 134/88 H [Left Brachial artery] O2 Saturation 96 99 98 03/08/23 03/08/23 03/08/23 19:00 20:00 21:00 Temperature 36.2 C L Heart Rate [ 75 74 67 Monitoring electrodes] Respiratory 15 14 11 L Rate Blood Pressure 140/85 H 146/80 H 127/88 H [Left Brachial artery] O2 Saturation 96 96 96 03/08/23 03/08/23 03/09/23 22:00 23:00 00:00 Temperature Heart Rate [ 70 76 65 Monitoring electrodes] Respiratory 9 L 18 22 Rate Blood Pressure 152/88 H 93/65 161/80 H [Left Brachial artery] O2 Saturation 97 97 03/09/23 03/09/23 03/09/23 01:00 02:00 03:00 Temperature 36.4 C L Heart Rate [ 68 64 64 Monitoring electrodes] Respiratory 18 19 21 Rate Blood Pressure 144/75 H 160/72 H 166/78 H [Left Brachial artery] O2 Saturation 93 97 99 03/09/23 03/09/23 03/09/23 04:00 05:00 06:00 Temperature 36.5 C Heart Rate [ 62 63 62 Monitoring electrodes] Respiratory 20 21 20 Rate Blood Pressure 167/55 H 169/72 H 161/74 H [Left Brachial artery] O2 Saturation 98 93 96 03/09/23 03/09/23 03/09/23 07:00 07:31 08:00 Temperature 36.5 C Heart Rate [ 60 62 Monitoring electrodes] Respiratory 17 21 Rate Blood Pressure 166/87 H 147/82 H [Left Brachial artery] O2 Saturation 96 95 03/09/23 09:00 Temperature Heart Rate [ 63 Monitoring electrodes] Respiratory 19 Rate Blood Pressure 162/82 H [Left Brachial artery] O2 Saturation 97 Oxygen O2 Source Room air I&O (Last 24 Hrs): Intake and Output Totals x24h 03/07/23 03/08/23 03/09/23 23:59 23:59 23:59 Intake Total 2670 3495 1956.666 Output Total 993 1035 535 Balance 1677 2460 1421.666 General: Alert (recognized friend who came to visit her after she showed her some photos.), Oriented x3, Cooperative (follows commands), No acute distress HEENT: Atraumatic, PERRLA, EOMI, Other (no icterus) Neck: Supple, No JVD, +2 carotid pulse wo bruit Lymphatic: no adenopathy Neuro: Alert, Oriented Times 3 Cardiovascular: Regular rate, Other ( murmurs heard in right and left 2nd intercoastal) Respiratory: Chest non-tender, Wheezes, Rhonchi Abdomen: Normal bowel sounds, Soft, No tenderness, No hepatospenomegaly, No masses Extremities: Other (2+ pitting edema. 2+ pulse No ulcer or redness. shiny skin on legs and feet. feet feel luke warm and hands feel cold) Skin: No rashes, No breakdown, No significant lesion - Results Results: Laboratory Results WBC 6.1 x10^3/uL (4.8-10.8) 03/09/23 04:30 RBC 2.82 10^6/uL (4.20-5.40) L 03/09/23 04:30 Hgb 10.0 g/dL (12.0-16.0) L 03/09/23 04:30 Hct 28.6 % (37.0-47.0) L 03/09/23 04:30 MCV 101.4 fL (81.0-99.0) H 03/09/23 04:30 MCH 35.5 pg (27.0-31.0) H 03/09/23 04:30 MCHC 35.0 g/dL (32.0-36.0) 03/09/23 04:30 RDW 13.4 % (12.0-15.0) 03/09/23 04:30 Plt Count 432 10^3/uL (130-450) 03/09/23 04:30 MPV 9.7 fL (7.9-10.8) 03/09/23 04:30 Neut # (Auto) 3.9 10^3/uL (1.5-6.6) 03/09/23 04:30 Lymph # (Auto) 1.5 10^3/uL (1.5-3.5) 03/09/23 04:30 [place] # (Auto) 0.3 10^3/uL (0.0-1.0) 03/09/23 04:30 Eos # (Auto) 0.4 10^3/uL (0.0-0.7) 03/09/23 04:30 Baso # (Auto) 0.1 10^3/uL (0.0-0.1) 03/09/23 04:30 Absolute Nucleated RBC 0.00 x10^3/uL 03/09/23 04:30 Nucleated RBC % 0.0 /100WBC 03/09/23 04:30 Platelet Estimate INCREASED (>450,000) (NORMAL) 03/05/23 16:49 Platelet Morphology 2+ GIANT PLATELETS (NORMAL) 03/05/23 16:49 RBC Morph Micro Appear 1+ ANISOCYTOSIS (NORMAL) 03/05/23 16:49 VBG pH 7.386 (7.31-7.41) 03/09/23 04:30 Ionized Calcium 1.14 mmol/L (1.15-1.33) L 03/09/23 04:30 Sodium 120 mmol/L (135-145) L* 03/09/23 04:30 Potassium 4.1 mmol/L (3.5-4.5) 03/09/23 04:30 Chloride 92 mmol/L (101-111) L 03/09/23 04:30 Carbon Dioxide 24 mmol/L (21-32) 03/09/23 04:30 Anion Gap 4.0 (6-13) L 03/09/23 04:30 BUN 5 mg/dL (6-20) L 03/09/23 04:30 Creatinine 0.5 mg/dL (0.6-1.3) L 03/09/23 04:30 Estimated GFR (MDRD) 119 (>89) 03/09/23 04:30 Glucose 89 mg/dL (74-104) 03/09/23 04:30 Serum Osmolality 238 mOsmol/kg (280-301) L 03/05/23 16:49 Calcium 8.9 mg/dL (8.5-10.3) 03/09/23 04:30 Phosphorus 2.6 mg/dL (2.5-5.0) 03/09/23 04:30 Magnesium 1.8 mg/dL (1.7-2.3) 03/09/23 04:30 Total Bilirubin 0.6 mg/dL (0.2-1.0) 03/05/23 16:49 AST 25 IU/L (10-42) 03/05/23 16:49 ALT 7 IU/L (10-60) L 03/05/23 16:49 Alkaline Phosphatase 51 IU/L (42-121) 03/05/23 16:49 Troponin I High Sens 12.1 ng/L (2.3-14.8) 03/05/23 16:49 Total Protein 6.8 g/dL (6.4-8.9) 03/05/23 16:49 Albumin 4.0 g/dL (3.2-5.5) 03/05/23 16:49 Globulin 2.8 g/dL (2.1-4.2) 03/05/23 16:49 Albumin/Globulin Ratio 1.4 (1.0-2.2) 03/05/23 16:49 Lipase 17 U/L (11-82) 03/05/23 16:49 Vitamin B12 416 pg/mL (180-914) 03/06/23 04:41 Folate 8.7 ng/mL (5.90 - >24.8) 03/06/23 04:41 TSH 65.18 uIU/mL (0.34-5.60) H 03/05/23 16:49 Urine Color YELLOW 03/05/23 18:45 Urine Clarity HAZY (CLEAR) 03/05/23 18:45 Urine pH 7.5 PH (5.0-7.5) 03/05/23 18:45 Ur Specific [place] 1.010 (1.002-1.030) 03/05/23 18:45 Urine Protein TRACE mg/dL (NEGATIVE) 03/05/23 18:45 Urine Glucose (UA) NEGATIVE mg/dL (NEGATIVE) 03/05/23 18:45 Urine Ketones NEGATIVE mg/dL (NEGATIVE) 03/05/23 18:45 Urine Occult Blood NEGATIVE (NEGATIVE) 03/05/23 18:45 Urine Nitrite NEGATIVE (NEGATIVE) 03/05/23 18:45 Urine Bilirubin NEGATIVE (NEGATIVE) 03/05/23 18:45 Urine Urobilinogen 1 (NORMAL) E.U./dL (NORMAL) 03/05/23 18:45 Ur Leukocyte Esterase TRACE (NEGATIVE) H 03/05/23 18:45 Urine RBC 0-5 /HPF (0-5) 03/05/23 18:45 Urine WBC 11-25 /HPF (0-5) H 03/05/23 18:45 Ur Squamous Epith Cells RARE Squamous (<= Few) 03/05/23 18:45 Amorphous Sediment Few /LPF 03/05/23 18:45 Urine Bacteria Moderate /HPF (None Seen) H 03/05/23 18:45 Ur Microscopic Review INDICATED 03/05/23 18:45 Urine Culture Comments INDICATED 03/05/23 18:45 Urine Osmolality 382 mOsmol/kg (.) 03/05/23 18:44 Urine Sodium 45.1 mmol/L 03/05/23 18:45 Nasal Screen MRSA (PCR) NEGATIVE (NEGATIVE) 03/05/23 21:45 - Procedures Procedures: Procedures RELEASE MEDIAN NERVE, OPEN APPROACH (02/26/17) ABX Reporting Has patient been on IV antibiotics over the past 48 hours?: No
[2023-03-09] MEDS: SPIRONOLACTONE 25 MG TABLET PO SCH (15:27)
[2023-03-10] MEDS: hydrALAZINE 10 MG TABLET PO SCH ×4 (00:01→17:40)
[2023-03-10] MEDS: SODIUM CHLORIDE FLUSH 0.9% 10 ML SYRINGE IVP SCH ×3 (00:05→17:40)
[2023-03-10] MEDS: SODIUM CHLORIDE 0.9% 1,000 ML IV SCH ×3 (00:10→23:52)
[2023-03-10 05:48] LABS: CALCIUM 8.4 mg/dL (8.5-10.3); CREATININE 0.4 mg/dL (0.6-1.3); POTASSIUM 3.5 mmol/L (3.5-4.5)
[2023-03-10 05:52] LABS: BASOPHILS # (AUTO) 0.1 10^3/uL (0.0-0.1); BASOPHILS % (AUTO) 1.6 %; EOSINOPHILS # (AUTO) 0.4 10^3/uL (0.0-0.7); EOSINOPHILS % (AUTO) 6.5 %; HCT - HEMATOCRIT 28.4 % (37.0-47.0); HGB - HEMOGLOBIN 9.9 g/dL (12.0-16.0); LYMPHOCYTES # (AUTO) 1.2 10^3/uL (1.5-3.5); LYMPHOCYTES % (AUTO) 21.5 %; MEAN CORPUSCULAR HEMOGLOBIN 35.1 pg (27.0-31.0); MEAN CORPUSCULAR HGB CONC 34.9 g/dL (32.0-36.0); MEAN CORPUSCULAR VOLUME 100.7 fL (81.0-99.0); MEAN PLATELET VOLUME 9.8 fL (7.9-10.8); MONOCYTES # (AUTO) 0.3 10^3/uL (0.0-1.0); MONOCYTES % (AUTO) 5.1 %; NEUTROPHILS # (AUTO) 3.7 10^3/uL (1.5-6.6); NEUTROPHILS % (AUTO) 64.8 %; PLT - PLATELET COUNT 404 10^3/uL (130-450); RED BLOOD COUNT 2.82 10^6/uL (4.20-5.40); RED CELL DISTRIBUTION WIDTH 13.3 % (12.0-15.0); WHITE BLOOD COUNT 5.7 x10^3/uL (4.8-10.8)
[2023-03-10] MEDS: LEVOTHYROXINE 25 MCG TABLET PO SCH (06:35)
[2023-03-10] MEDS: ASPIRIN CHEW 81 MG TABLET PO SCH (08:25)
[2023-03-10] MEDS: lisinopriL 20 MG TABLET PO SCH (08:25)
[2023-03-10] MEDS: DULoxetine 30 MG CAPSULE PO SCH (08:25)
[2023-03-10] MEDS: amLODIPine 5 MG TABLET PO SCH (08:25)
[2023-03-10] MEDS: FERROUS SULFATE 325 MG TABLET PO SCH (08:25)
[2023-03-10] MEDS: polyethylene glycoL 3350 17 GM PACKET PO SCH (08:25)
[2023-03-10] MEDS: PRENATAL VITAMIN TABLET PO SCH (08:25)
[2023-03-10] MEDS: APIXABAN 2.5 MG TABLET PO SCH ×2 (08:26→21:25)
[2023-03-10] MEDS: BENZOCAINE/MENTHOL LOZENGE MM PRN ×2 (08:26→15:48)
[2023-03-10] MEDS: SPIRONOLACTONE 25 MG TABLET PO SCH (08:27)
--- NOTE | 2023-03-10 09:57 | PROVIDER PROGRESS NOTE ---
Assessment/Plan - Problem List (1) Hyponatremia Assessment/Plan: -Na steadily increasing 112> 111> 113> 114> 113> 115> 117> 118>120> 121 Serum Osmo LOW 238 mOsmol/kg (03/05). Urine Osmo regular 382 (03/05). Osmo levels mostly likely indicate hyponatremia due to hypothyroidism. SIADH excluded due to evidence of edema on LE. CXR 03/05: No acute cardiopulmonary process. enlarged heart EKG 03/05: Sinus Bradycardia at 59 bpm, RBBB, no STTw changes CT Head 03/05: encephalomalacia, NAD; consider MRI, if indicated LE edema 2+. Able to speak full sentence today. Plan Cont NS at 100 cc/hr Free water fluid restriction 1L/day. Throat lozenges for dry mouth. recheck Na q4hr to eval for improvement and ensure correction not too fast resume home medications: Lisinopril, Amlodipine Patient will be here for multiple days to stabilize sodium levels. goal is 126 (2) Hypothyroid Conclusion/Plan: TSH 65.18 on 03/05 Have not taken Levothryroxine since last hospital visit in 09/02/21. Likely contributing to hypoatremia and fatigue and feeling of coldness plan continue Levothyroxine 50 mcg/day and 100 mg IV push every 5 days (due 03/11) recheck TSH level in 1-2 month (3) UTI- Enterococcus Faecalis (resolved) Conclusion/Plan: U/A on 03/05: LE WBC Bact. Urine culture on 03/05 indicates Enterococcus Faecalis WBC 6.1> 6.0> 6.3> 6.1 plan Gave one dose fosfomycin (03/07) Monitor WBC (4) Anemia, macrocytic Conclusion/Plan: decreasing Hgb 11.5>12.5> 11.5> 10.0 > 9.9. MCH low 35.1 Normal B12/Folate level on 03/06. 416/8.7 plan Cont multi vit with folic acid. Cont PO Ferrous sulfate (5)Edema Conclusion/Plan: s2+ pitting edema on LE. 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 Monitor for increase edema and headache. - Current Meds Current Meds: Current Medications Generic Name Dose Route Start Last Admin Trade Name Freq PRN Reason Stop Dose Admin Amlodipine Besylate 5 mg 03/09/23 17:00 03/10/23 08:25 Amlodipine 5 Mg Tablet PO 5 mg DAILY DELPHINE Administration Apixaban 2.5 mg 03/05/23 21:00 03/10/23 08:26 Apixaban 2.5 Mg Tablet PO 2.5 mg BID DELPHINE Administration Aspirin 81 mg 03/06/23 09:00 03/10/23 08:25 Aspirin Chew 81 Mg Tablet PO 81 mg DAILY DELPHINE Administration Clonidine HCl 1 patch 03/05/23 21:00 03/05/23 22:04 Clonidine 0.2 Mg Patch TOP Not Given Q7D DELPHINE Duloxetine HCl 30 mg 03/06/23 09:00 03/10/23 08:25 Duloxetine 30 Mg Capsule PO 30 mg DAILY DELPHINE Administration Ferrous Sulfate 325 mg 03/08/23 09:00 03/10/23 08:25 Ferrous Sulfate 325 Mg Tablet PO 325 mg DAILYWM DELPHINE Administration Hydralazine HCl 10 mg 03/07/23 18:00 03/10/23 06:36 Hydralazine 10 Mg Tablet PO Not Given Q6H DELPHINE Sodium Chloride 1,000 mls @ 85 mls/hr 03/09/23 14:31 03/10/23 00:10 Normal Saline 0.9% IV 85 mls/hr .[id number] DELPHINE Administration Levothyroxine Sodium 50 mcg 03/05/23 21:00 03/10/23 06:35 Levothyroxine 25 Mcg Tablet PO 50 mcg QDAC DELPHINE Administration Levothyroxine Sodium 100 mcg 03/06/23 15:00 03/06/23 14:40 Levothyroxine 100 Mcg Vial IVP 100 mcg Q5D DELPHINE Administration Lisinopril 20 mg 03/08/23 09:00 03/10/23 08:25 Lisinopril 20 Mg Tablet PO 20 mg DAILY DELPHINE Administration Polyethylene Glycol 17 gm 03/07/23 09:00 03/10/23 08:25 Polyethylene Glycol 3350 17 Gm Packet PO 17 gm DAILY DELPHINE Administration Multivit/Folic Acid/Iron 1 tab 03/06/23 17:00 03/10/23 08:25 Vitamin Tablet PO 1 tab DAILYWM DELPHINE Administration Sodium Chloride 10 ml 03/06/23 01:00 03/10/23 08:25 Sodium Chloride Flush 0.9% 10 Ml Syringe IVP 10 ml 0100,0900,1700 DELPHINE Administration Spironolactone 25 mg 03/09/23 09:00 03/10/23 08:27 Spironolactone 25 Mg Tablet PO 25 mg DAILY DELPHINE Administration Throat Lozenges 1 lozenge 03/06/23 04:09 03/10/23 08:26 Benzocaine/Menthol Lozenge MM 1 lozenge Q2HR PRN Administration Throat pain - Lab Result Fish Bone Diagrams: 03/10/23 04:56 03/10/23 04:56 - Additional Planning Time Spent: 15-30 minutes Subjective - Subjective Patient Reports: Cough, Fatigue, Other (feeling cold) Objective Vital Signs: Vital Signs - 24 hr 03/09/23 03/09/23 03/09/23 10:00 11:00 12:00 Temperature 36.6 C Heart Rate [ 63 61 63 Monitoring electrodes] Respiratory 18 20 16 Rate Blood Pressure 153/78 H 165/77 H 166/71 H [Left Brachial artery] O2 Saturation 98 96 98 03/09/23 03/09/23 03/09/23 13:00 14:00 18:13 Temperature 36.7 C Heart Rate [ 78 66 69 Monitoring electrodes] Respiratory 17 23 21 Rate Blood Pressure 164/80 H 157/78 H 167/83 H [Left Brachial artery] O2 Saturation 97 97 98 03/09/23 03/10/23 03/10/23 22:00 00:27 08:18 Temperature 36.2 C L 36.4 C L 36.2 C L Heart Rate [ 68 63 63 Monitoring electrodes] Respiratory 13 17 18 Rate Blood Pressure 148/72 H 141/78 H 148/71 H [Left Brachial artery] O2 Saturation 97 97 96 Oxygen O2 Source Room air I&O (Last 24 Hrs): Intake and Output Totals x24h 03/08/23 03/09/23 03/10/23 23:59 23:59 23:59 Intake Total 3495 3286.666 200 Output Total 1035 1230 1400 Balance 2460 2056.666 -1200 General: Alert, Oriented x3, Cooperative, No acute distress HEENT: Atraumatic, PERRLA, EOMI, Other (no icterus) Neck: Supple, No JVD Neuro: Alert, Oriented Times 3, Other (speaking full sentence questions) Cardiovascular: Regular rate, Other (murmurs heard on left and right 2nd intercoastal and apex) Respiratory: Chest non-tender, Wheezes, Rhonchi Abdomen: Normal bowel sounds, Soft, No tenderness, No hepatospenomegaly, No masses Extremities: Other (2+ pitting edema. 2+ pulse No ulcer or redness. shiny skin on legs and feet. feet feel luke warm and hands feel cold) Skin: No rashes, No breakdown, No significant lesion - Results Results: Laboratory Results WBC 5.7 x10^3/uL (4.8-10.8) 03/10/23 04:56 RBC 2.82 10^6/uL (4.20-5.40) L 03/10/23 04:56 Hgb 9.9 g/dL (12.0-16.0) L 03/10/23 04:56 Hct 28.4 % (37.0-47.0) L 03/10/23 04:56 MCV 100.7 fL (81.0-99.0) H 03/10/23 04:56 MCH 35.1 pg (27.0-31.0) H 03/10/23 04:56 MCHC 34.9 g/dL (32.0-36.0) 03/10/23 04:56 RDW 13.3 % (12.0-15.0) 03/10/23 04:56 Plt Count 404 10^3/uL (130-450) 03/10/23 04:56 MPV 9.8 fL (7.9-10.8) 03/10/23 04:56 Neut # (Auto) 3.7 10^3/uL (1.5-6.6) 03/10/23 04:56 Lymph # (Auto) 1.2 10^3/uL (1.5-3.5) L 03/10/23 04:56 [place] # (Auto) 0.3 10^3/uL (0.0-1.0) 03/10/23 04:56 Eos # (Auto) 0.4 10^3/uL (0.0-0.7) 03/10/23 04:56 Baso # (Auto) 0.1 10^3/uL (0.0-0.1) 03/10/23 04:56 Absolute Nucleated RBC 0.00 x10^3/uL 03/10/23 04:56 Nucleated RBC % 0.0 /100WBC 03/10/23 04:56 Platelet Estimate INCREASED (>450,000) (NORMAL) 03/05/23 16:49 Platelet Morphology 2+ GIANT PLATELETS (NORMAL) 03/05/23 16:49 RBC Morph Micro Appear 1+ ANISOCYTOSIS (NORMAL) 03/05/23 16:49 VBG pH 7.386 (7.31-7.41) 03/09/23 04:30 Ionized Calcium 1.14 mmol/L (1.15-1.33) L 03/09/23 04:30 Sodium 121 mmol/L (135-145) L 03/10/23 04:56 Potassium 3.5 mmol/L (3.5-4.5) 03/10/23 04:56 Chloride 91 mmol/L (101-111) L 03/10/23 04:56 Carbon Dioxide 25 mmol/L (21-32) 03/10/23 04:56 Anion Gap 5.0 (6-13) L 03/10/23 04:56 BUN 3 mg/dL (6-20) L 03/10/23 04:56 Creatinine 0.4 mg/dL (0.6-1.3) L 03/10/23 04:56 Estimated GFR (MDRD) 154 (>89) 03/10/23 04:56 Glucose 98 mg/dL (74-104) 03/10/23 04:56 Serum Osmolality 238 mOsmol/kg (280-301) L 03/05/23 16:49 Calcium 8.4 mg/dL (8.5-10.3) L 03/10/23 04:56 Phosphorus 2.6 mg/dL (2.5-5.0) 03/09/23 04:30 Magnesium 1.8 mg/dL (1.7-2.3) 03/09/23 09:38 Total Bilirubin 0.6 mg/dL (0.2-1.0) 03/05/23 16:49 AST 25 IU/L (10-42) 03/05/23 16:49 ALT 7 IU/L (10-60) L 03/05/23 16:49 Alkaline Phosphatase 51 IU/L (42-121) 03/05/23 16:49 Troponin I High Sens 12.1 ng/L (2.3-14.8) 03/05/23 16:49 Total Protein 6.8 g/dL (6.4-8.9) 03/05/23 16:49 Albumin 4.0 g/dL (3.2-5.5) 03/05/23 16:49 Globulin 2.8 g/dL (2.1-4.2) 03/05/23 16:49 Albumin/Globulin Ratio 1.4 (1.0-2.2) 03/05/23 16:49 Lipase 17 U/L (11-82) 03/05/23 16:49 Vitamin B12 416 pg/mL (180-914) 03/06/23 04:41 Folate 8.7 ng/mL (5.90 - >24.8) 03/06/23 04:41 TSH 65.18 uIU/mL (0.34-5.60) H 03/05/23 16:49 Urine Color YELLOW 03/05/23 18:45 Urine Clarity HAZY (CLEAR) 03/05/23 18:45 Urine pH 7.5 PH (5.0-7.5) 03/05/23 18:45 Ur Specific [place] 1.010 (1.002-1.030) 03/05/23 18:45 Urine Protein TRACE mg/dL (NEGATIVE) 03/05/23 18:45 Urine Glucose (UA) NEGATIVE mg/dL (NEGATIVE) 03/05/23 18:45 Urine Ketones NEGATIVE mg/dL (NEGATIVE) 03/05/23 18:45 Urine Occult Blood NEGATIVE (NEGATIVE) 03/05/23 18:45 Urine Nitrite NEGATIVE (NEGATIVE) 03/05/23 18:45 Urine Bilirubin NEGATIVE (NEGATIVE) 03/05/23 18:45 Urine Urobilinogen 1 (NORMAL) E.U./dL (NORMAL) 03/05/23 18:45 Ur Leukocyte Esterase TRACE (NEGATIVE) H 03/05/23 18:45 Urine RBC 0-5 /HPF (0-5) 03/05/23 18:45 Urine WBC 11-25 /HPF (0-5) H 03/05/23 18:45 Ur Squamous Epith Cells RARE Squamous (<= Few) 03/05/23 18:45 Amorphous Sediment Few /LPF 03/05/23 18:45 Urine Bacteria Moderate /HPF (None Seen) H 03/05/23 18:45 Ur Microscopic Review INDICATED 03/05/23 18:45 Urine Culture Comments INDICATED 03/05/23 18:45 Urine Osmolality 382 mOsmol/kg (.) 03/05/23 18:44 Urine Sodium 45.1 mmol/L 03/05/23 18:45 Nasal Screen MRSA (PCR) NEGATIVE (NEGATIVE) 03/05/23 21:45 - Procedures Procedures: Procedures RELEASE MEDIAN NERVE, OPEN APPROACH (02/26/17) ABX Reporting Has patient been on IV antibiotics over the past 48 hours?: No
[2023-03-10] MEDS ORDERED: oxyCODONE 5 MG TABLET PO PRN (18:52)
--- NOTE | 2023-03-10 19:21 | XRAY Report ---
PROCEDURE: Abdomen 1 View X-Ray INDICATIONS: severe RUQ pain TECHNIQUE: One view of the abdomen acquired. COMPARISON: Correlation is made with chest radiograph, 03/05/[address] CT, 01/31 FINDINGS: Surgical changes and devices: Thoracolumbar postoperative change is seen. Bowel: No dilated loops of small bowel are seen. There is a normal gas-filled colon, with the transve rse colon measuring up to 7.47 m. Soft tissues: No suspicious abdominal calcifications. Visualized solid organ contours appear normal in size. Bones: No suspicious bony lesions. Age-appropriate degenerative changes are seen. IMPRESSION: Gaseous distention of the colon can be seen. No dilated loops of small bowel are seen. If it would be helpful for clinical management decision making, please consider a dedicated follow-up CT of the abdomen and pelvis with at least IV contrast. If oral contrast is given, there should be a long dwell time of at least 4 hours. Reviewed by: Rangel Menard MD on 03/10/2023 6:19 PM [facility] Approved by: Rangel Menard MD on 03/10/2023 6:19 PM [facility] Station ID: [id number]
[2023-03-11] MEDS: SODIUM CHLORIDE FLUSH 0.9% 10 ML SYRINGE IVP SCH ×3 (01:00→16:07)
[2023-03-11 05:32] LABS: CALCIUM 8.7 mg/dL (8.5-10.3); CREATININE 0.5 mg/dL (0.6-1.3); POTASSIUM 3.6 mmol/L (3.5-4.5)
[2023-03-11] MEDS: hydrALAZINE 10 MG TABLET PO SCH ×4 (05:33→18:36)
[2023-03-11] MEDS: LEVOTHYROXINE 25 MCG TABLET PO SCH (05:48)
[2023-03-11 05:52] LABS: BASOPHILS # (AUTO) 0.1 10^3/uL (0.0-0.1); BASOPHILS % (AUTO) 2.5 %; EOSINOPHILS # (AUTO) 0.3 10^3/uL (0.0-0.7); EOSINOPHILS % (AUTO) 5.9 %; HCT - HEMATOCRIT 30.6 % (37.0-47.0); HGB - HEMOGLOBIN 10.5 g/dL (12.0-16.0); LYMPHOCYTES # (AUTO) 1.2 10^3/uL (1.5-3.5); MEAN CORPUSCULAR HEMOGLOBIN 35.2 pg (27.0-31.0); MEAN CORPUSCULAR HGB CONC 34.3 g/dL (32.0-36.0); MEAN CORPUSCULAR VOLUME 102.7 fL (81.0-99.0); MEAN PLATELET VOLUME 9.9 fL (7.9-10.8); MONOCYTES # (AUTO) 0.3 10^3/uL (0.0-1.0); MONOCYTES % (AUTO) 4.7 %; NEUTROPHILS # (AUTO) 3.6 10^3/uL (1.5-6.6); NEUTROPHILS % (AUTO) 64.5 %; PLT - PLATELET COUNT 445 10^3/uL (130-450); RED BLOOD COUNT 2.98 10^6/uL (4.20-5.40); RED CELL DISTRIBUTION WIDTH 13.6 % (12.0-15.0); WHITE BLOOD COUNT 5.6 x10^3/uL (4.8-10.8)
[2023-03-11] MEDS: DULoxetine 30 MG CAPSULE PO SCH (08:27)
[2023-03-11] MEDS: APIXABAN 2.5 MG TABLET PO SCH ×2 (08:27→20:27)
[2023-03-11] MEDS: FERROUS SULFATE 325 MG TABLET PO SCH (08:27)
[2023-03-11] MEDS: ASPIRIN CHEW 81 MG TABLET PO SCH (08:27)
[2023-03-11] MEDS: polyethylene glycoL 3350 17 GM PACKET PO SCH (08:31)
[2023-03-11] MEDS: PRENATAL VITAMIN TABLET PO SCH (08:32)
[2023-03-11] MEDS: lisinopriL 20 MG TABLET PO SCH (08:32)
[2023-03-11] MEDS: SPIRONOLACTONE 25 MG TABLET PO SCH (08:32)
[2023-03-11] MEDS: amLODIPine 5 MG TABLET PO SCH (09:22)
--- NOTE | 2023-03-11 09:48 | PROVIDER PROGRESS NOTE ---
Assessment/Plan - Problem List (1) Pain in the abdomen Qualifiers: Abdominal location: unspecified location Qualified Code(s): R10.9 - Unspecified abdominal pain Assessment/Plan: Nursing reported 08/23 abdomen pain 03/11. pain increases with meals Abdomen X ray show gaseous distention of colon. other findings nml pain on left upper quadrant with pressure Plan abdomen CT ordered (2) Hyponatremia Assessment/Plan: -Na steadily increasing 112> 111> 113> 114> 113> 115> 117> 118>120> 121> 122 Serum Osmo LOW 238 mOsmol/kg (03/05). Urine Osmo regular 382 (03/05). Osmo levels mostly likely indicate hyponatremia due to hypothyroidism. SIADH excluded due to evidence of edema on LE. CXR 03/05: No acute cardiopulmonary process. enlarged heart EKG 03/05: Sinus Bradycardia at 59 bpm, RBBB, no STTw changes CT Head 03/05: encephalomalacia, NAD; consider MRI, if indicated LE edema 2+. Able to speak full sentence today. Plan Cont NS at 100 cc/hr Free water fluid restriction 1L/day. Throat lozenges for dry mouth. recheck Na q4hr to eval for improvement and ensure correction not too fast resume home medications: Lisinopril, Amlodipine Patient will be here for multiple days to stabilize sodium levels. goal is 126 (3) Hypothyroid Conclusion/Plan: TSH 65.18 on 03/05 Have not taken Levothryroxine since last hospital visit in 09/02/21. Likely contributing to hypoatremia and fatigue and feeling of coldness plan continue Levothyroxine 50 mcg/day and 100 mg IV push every 5 days (due 03/11) recheck TSH level in 1-2 month (4) UTI- Enterococcus Faecalis (resolved) Conclusion/Plan: U/A on 03/05: LE WBC Bact. Urine culture on 03/05 indicates Enterococcus Faecalis WBC 5.6 plan Gave one dose fosfomycin (03/07) Monitor WBC (5) Anemia, macrocytic Conclusion/Plan: decreasing Hgb 11.5>12.5> 11.5> 10.0 > 9.9> 10.5. MCV low 102.7 Normal B12/Folate level on 03/06. 416/8.7 plan Cont multi vit with folic acid. Cont PO Ferrous sulfate (6)Edema Conclusion/Plan: s2+ pitting edema on LE. 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 Monitor for increase edema and headache. - Current Meds Current Meds: Current Medications Generic Name Dose Route Start Last Admin Trade Name Freq PRN Reason Stop Dose Admin Acetaminophen 650 mg 03/05/23 20:38 03/10/23 17:55 Acetaminophen 325 Mg Tablet PO 650 mg Q4HR PRN Administration Pain 1 to 4, or Fever Amlodipine Besylate 5 mg 03/09/23 17:00 03/10/23 08:25 Amlodipine 5 Mg Tablet PO 5 mg DAILY DELPHINE Administration Apixaban 2.5 mg 03/05/23 21:00 03/11/23 08:27 Apixaban 2.5 Mg Tablet PO 2.5 mg BID DELPHINE Administration Aspirin 81 mg 03/06/23 09:00 03/11/23 08:27 Aspirin Chew 81 Mg Tablet PO 81 mg DAILY DELPHINE Administration Clonidine HCl 1 patch 03/05/23 21:00 03/05/23 22:04 Clonidine 0.2 Mg Patch TOP Not Given Q7D DELPHINE Duloxetine HCl 30 mg 03/06/23 09:00 03/11/23 08:27 Duloxetine 30 Mg Capsule PO 30 mg DAILY DELPHINE Administration Ferrous Sulfate 325 mg 03/08/23 09:00 03/11/23 08:27 Ferrous Sulfate 325 Mg Tablet PO 325 mg DAILYWM DELPHINE Administration Hydralazine HCl 10 mg 03/07/23 18:00 03/11/23 05:33 Hydralazine 10 Mg Tablet PO Not Given Q6H DELPHINE Sodium Chloride 1,000 mls @ 85 mls/hr 03/09/23 14:31 03/10/23 23:52 Normal Saline 0.9% IV 85 mls/hr .[id number] DELPHINE Administration Levothyroxine Sodium 50 mcg 03/05/23 21:00 03/11/23 05:48 Levothyroxine 25 Mcg Tablet PO 50 mcg QDAC DELPHINE Administration Levothyroxine Sodium 100 mcg 03/06/23 15:00 03/06/23 14:40 Levothyroxine 100 Mcg Vial IVP 100 mcg Q5D DELPHINE Administration Lisinopril 20 mg 03/08/23 09:00 03/11/23 08:32 Lisinopril 20 Mg Tablet PO 20 mg DAILY DELPHINE Administration Oxycodone HCl 5 mg 03/10/23 18:52 03/10/23 21:25 Oxycodone 5 Mg Tablet PO 5 mg Q4HR PRN Administration Moderate Pain (Level 4-6) Polyethylene Glycol 17 gm 03/07/23 09:00 03/11/23 08:31 Polyethylene Glycol 3350 17 Gm Packet PO 17 gm DAILY DELPHINE Administration Multivit/Folic Acid/Iron 1 tab 03/06/23 17:00 03/11/23 08:32 Vitamin Tablet PO 1 tab DAILYWM DELPHINE Administration Sodium Chloride 10 ml 03/06/23 01:00 03/11/23 08:32 Sodium Chloride Flush 0.9% 10 Ml Syringe IVP Not Given 0100,0900,1700 DELPHINE Spironolactone 25 mg 03/09/23 09:00 03/11/23 08:32 Spironolactone 25 Mg Tablet PO 25 mg DAILY DELPHINE Administration Throat Lozenges 1 lozenge 03/06/23 04:09 03/10/23 15:48 Benzocaine/Menthol Lozenge MM 1 lozenge Q2HR PRN Administration Throat pain - Lab Result Fish Bone Diagrams: 03/11/23 04:32 03/11/23 04:32 - EKG Results EKG Interpreted Independently: No - Additional Planning Time Spent: 15-30 minutes Subjective - Subjective Patient Reports: Cough, Pain (abdomen pain increasing with meals), Other (feeling cold) Objective Vital Signs: Vital Signs - 24 hr 03/10/23 03/10/23 03/10/23 12:03 16:57 17:38 Temperature 36.4 C L Heart Rate [ 69 Brachial] Heart Rate [ Monitoring electrodes] Respiratory 16 Rate Blood Pressure 147/83 H 147/79 H 148/90 H [Left Brachial artery] O2 Saturation 97 03/11/23 03/11/23 00:08 09:00 Temperature 36.4 C L 36.3 C L Heart Rate [ 70 Brachial] Heart Rate [ 67 Monitoring electrodes] Respiratory 18 18 Rate Blood Pressure 128/75 158/78 H [Left Brachial artery] O2 Saturation 94 95 Oxygen O2 Source Room air I&O (Last 24 Hrs): Intake and Output Totals x24h 03/09/23 03/10/23 03/11/23 23:59 23:59 23:59 Intake Total 3286.666 2520.000 160 Output Total 1230 2600 1000 Balance 2056.666 -80.000 -840 General: Alert, Oriented x3, Cooperative, No acute distress HEENT: Atraumatic, PERRLA, EOMI, Mucous membr. moist/pink, Other (no icterus) Neck: Supple, No JVD Neuro: Alert, Oriented Times 3 Cardiovascular: Regular rate, Other (murmurs heard on left and right 2nd intercoastal and apex) Respiratory: Chest non-tender, Wheezes, Rhonchi Abdomen: Normal bowel sounds, Soft, No hepatospenomegaly, No masses, Other (tender upper left region with palpations) Extremities: Other (2+ pitting edema. 2+ pulse No ulcer or redness. shiny skin on legs and feet. feet feel luke warm) - Results Results: Laboratory Results WBC 5.6 x10^3/uL (4.8-10.8) 03/11/23 04:32 RBC 2.98 10^6/uL (4.20-5.40) L 03/11/23 04:32 Hgb 10.5 g/dL (12.0-16.0) L 03/11/23 04:32 Hct 30.6 % (37.0-47.0) L 03/11/23 04:32 MCV 102.7 fL (81.0-99.0) H 03/11/23 04:32 MCH 35.2 pg (27.0-31.0) H 03/11/23 04:32 MCHC 34.3 g/dL (32.0-36.0) 03/11/23 04:32 RDW 13.6 % (12.0-15.0) 03/11/23 04:32 Plt Count 445 10^3/uL (130-450) 03/11/23 04:32 MPV 9.9 fL (7.9-10.8) 03/11/23 04:32 Neut # (Auto) 3.6 10^3/uL (1.5-6.6) 03/11/23 04:32 Lymph # (Auto) 1.2 10^3/uL (1.5-3.5) L 03/11/23 04:32 [place] # (Auto) 0.3 10^3/uL (0.0-1.0) 03/11/23 04:32 Eos # (Auto) 0.3 10^3/uL (0.0-0.7) 03/11/23 04:32 Baso # (Auto) 0.1 10^3/uL (0.0-0.1) 03/11/23 04:32 Absolute Nucleated RBC 0.00 x10^3/uL 03/11/23 04:32 Nucleated RBC % 0.0 /100WBC 03/11/23 04:32 Platelet Estimate INCREASED (>450,000) (NORMAL) 03/05/23 16:49 Platelet Morphology 2+ GIANT PLATELETS (NORMAL) 03/05/23 16:49 RBC Morph Micro Appear 1+ ANISOCYTOSIS (NORMAL) 03/05/23 16:49 VBG pH 7.386 (7.31-7.41) 03/09/23 04:30 Ionized Calcium 1.14 mmol/L (1.15-1.33) L 03/09/23 04:30 Sodium 122 mmol/L (135-145) L 03/11/23 04:32 Potassium 3.6 mmol/L (3.5-4.5) 03/11/23 04:32 Chloride 90 mmol/L (101-111) L 03/11/23 04:32 Carbon Dioxide 26 mmol/L (21-32) 03/11/23 04:32 Anion Gap 6.0 (6-13) 03/11/23 04:32 BUN 3 mg/dL (6-20) L 03/11/23 04:32 Creatinine 0.5 mg/dL (0.6-1.3) L 03/11/23 04:32 Estimated GFR (MDRD) 119 (>89) 03/11/23 04:32 Glucose 91 mg/dL (74-104) 03/11/23 04:32 Serum Osmolality 238 mOsmol/kg (280-301) L 03/05/23 16:49 Calcium 8.7 mg/dL (8.5-10.3) 03/11/23 04:32 Phosphorus 2.6 mg/dL (2.5-5.0) 03/09/23 04:30 Magnesium 1.8 mg/dL (1.7-2.3) 03/09/23 09:38 Total Bilirubin 0.6 mg/dL (0.2-1.0) 03/05/23 16:49 AST 25 IU/L (10-42) 03/05/23 16:49 ALT 7 IU/L (10-60) L 03/05/23 16:49 Alkaline Phosphatase 51 IU/L (42-121) 03/05/23 16:49 Troponin I High Sens 12.1 ng/L (2.3-14.8) 03/05/23 16:49 Total Protein 6.8 g/dL (6.4-8.9) 03/05/23 16:49 Albumin 4.0 g/dL (3.2-5.5) 03/05/23 16:49 Globulin 2.8 g/dL (2.1-4.2) 03/05/23 16:49 Albumin/Globulin Ratio 1.4 (1.0-2.2) 03/05/23 16:49 Lipase 17 U/L (11-82) 03/05/23 16:49 Vitamin B12 416 pg/mL (180-914) 03/06/23 04:41 Folate 8.7 ng/mL (5.90 - >24.8) 03/06/23 04:41 TSH 65.18 uIU/mL (0.34-5.60) H 03/05/23 16:49 Urine Color YELLOW 03/05/23 18:45 Urine Clarity HAZY (CLEAR) 03/05/23 18:45 Urine pH 7.5 PH (5.0-7.5) 03/05/23 18:45 Ur Specific [place] 1.010 (1.002-1.030) 03/05/23 18:45 Urine Protein TRACE mg/dL (NEGATIVE) 03/05/23 18:45 Urine Glucose (UA) NEGATIVE mg/dL (NEGATIVE) 03/05/23 18:45 Urine Ketones NEGATIVE mg/dL (NEGATIVE) 03/05/23 18:45 Urine Occult Blood NEGATIVE (NEGATIVE) 03/05/23 18:45 Urine Nitrite NEGATIVE (NEGATIVE) 03/05/23 18:45 Urine Bilirubin NEGATIVE (NEGATIVE) 03/05/23 18:45 Urine Urobilinogen 1 (NORMAL) E.U./dL (NORMAL) 03/05/23 18:45 Ur Leukocyte Esterase TRACE (NEGATIVE) H 03/05/23 18:45 Urine RBC 0-5 /HPF (0-5) 03/05/23 18:45 Urine WBC 11-25 /HPF (0-5) H 03/05/23 18:45 Ur Squamous Epith Cells RARE Squamous (<= Few) 03/05/23 18:45 Amorphous Sediment Few /LPF 03/05/23 18:45 Urine Bacteria Moderate /HPF (None Seen) H 03/05/23 18:45 Ur Microscopic Review INDICATED 03/05/23 18:45 Urine Culture Comments INDICATED 03/05/23 18:45 Urine Osmolality 382 mOsmol/kg (.) 03/05/23 18:44 Urine Sodium 45.1 mmol/L 03/05/23 18:45 Nasal Screen MRSA (PCR) NEGATIVE (NEGATIVE) 03/05/23 21:45 - Procedures Procedures: Procedures RELEASE MEDIAN NERVE, OPEN APPROACH (02/26/17) ABX Reporting Has patient been on IV antibiotics over the past 48 hours?: No
[2023-03-11] MEDS: SODIUM CHLORIDE 0.9% 1,000 ML IV SCH ×2 (11:09→22:18)
[2023-03-11] MEDS: LEVOTHYROXINE 100 MCG VIAL IVP SCH (15:59)
[2023-03-11] MEDS: BENZOCAINE/MENTHOL LOZENGE MM PRN (22:16)
[2023-03-12] MEDS: hydrALAZINE 10 MG TABLET PO SCH ×4 (00:46→20:00)
[2023-03-12 06:00] LABS: BASOPHILS # (AUTO) 0.1 10^3/uL (0.0-0.1); BASOPHILS % (AUTO) 1.8 %; EOSINOPHILS # (AUTO) 0.3 10^3/uL (0.0-0.7); EOSINOPHILS % (AUTO) 5.7 %; HCT - HEMATOCRIT 29.2 % (37.0-47.0); HGB - HEMOGLOBIN 10.2 g/dL (12.0-16.0); LYMPHOCYTES # (AUTO) 1.4 10^3/uL (1.5-3.5); LYMPHOCYTES % (AUTO) 25.3 %; MEAN CORPUSCULAR HEMOGLOBIN 35.3 pg (27.0-31.0); MEAN CORPUSCULAR HGB CONC 34.9 g/dL (32.0-36.0); MEAN PLATELET VOLUME 9.7 fL (7.9-10.8); MONOCYTES # (AUTO) 0.2 10^3/uL (0.0-1.0); MONOCYTES % (AUTO) 4.2 %; NEUTROPHILS # (AUTO) 3.4 10^3/uL (1.5-6.6); NEUTROPHILS % (AUTO) 62.8 %; PLT - PLATELET COUNT 454 10^3/uL (130-450); RED BLOOD COUNT 2.89 10^6/uL (4.20-5.40); RED CELL DISTRIBUTION WIDTH 13.4 % (12.0-15.0); WHITE BLOOD COUNT 5.5 x10^3/uL (4.8-10.8)
[2023-03-12] MEDS: SODIUM CHLORIDE FLUSH 0.9% 10 ML SYRINGE IVP SCH ×3 (08:10→17:16)
[2023-03-12] MEDS: PRENATAL VITAMIN TABLET PO SCH (08:12)
[2023-03-12] MEDS: FERROUS SULFATE 325 MG TABLET PO SCH (08:12)
[2023-03-12] MEDS: DOCUSATE SODIUM 250 MG CAPSULE PO SCH (08:12)
[2023-03-12] MEDS: polyethylene glycoL 3350 17 GM PACKET PO SCH (08:12)
[2023-03-12] MEDS: amLODIPine 5 MG TABLET PO SCH (08:13)
[2023-03-12] MEDS: SPIRONOLACTONE 25 MG TABLET PO SCH (08:13)
[2023-03-12] MEDS: lisinopriL 20 MG TABLET PO SCH (08:13)
[2023-03-12] MEDS: LEVOTHYROXINE 25 MCG TABLET PO SCH (08:13)
[2023-03-12] MEDS: DULoxetine 30 MG CAPSULE PO SCH (08:14)
[2023-03-12] MEDS: APIXABAN 2.5 MG TABLET PO SCH ×2 (08:14→21:51)
[2023-03-12] MEDS: ASPIRIN CHEW 81 MG TABLET PO SCH (08:14)
[2023-03-12] MEDS: SENNA 8.6 MG TABLET PO SCH (08:14)
[2023-03-12 09:03] LABS: CALCIUM 8.6 mg/dL (8.5-10.3); CREATININE 0.5 mg/dL (0.6-1.3); POTASSIUM 3.6 mmol/L (3.5-4.5)
[2023-03-12] MEDS: SODIUM CHLORIDE 0.9% 1,000 ML IV SCH (11:27)
--- NOTE | 2023-03-12 15:56 | Ultrasound Report ---
PROCEDURE: Duplex Ext Veins Left INDICATIONS: edematous arms TECHNIQUE: Real-time imaging, as well as color and pulse Doppler interrogation, were performed of the lower extr emity deep veins from the inguinal ligament to the popliteal fossa. Attempted visualization of the ca lf veins was performed. COMPARISON: None. FINDINGS: The deep veins are normally compressible, and free of intraluminal thrombus. Color and pu lse Doppler demonstrate normal phasic intraluminal flow. There is normal augmentation response to di stal compression maneuver. IMPRESSION: No deep venous thrombosis of the visualized right or left upper extremity. Reviewed by: Mustapha Maciel on 03/12/2023 2:54 PM [facility] Approved by: Mustapha Maciel on 03/12/2023 2:54 PM [facility] Station ID: [id number]
--- NOTE | 2023-03-12 15:56 | Ultrasound Report ---
PROCEDURE: Duplex Ext Veins Right INDICATIONS: edematous arms TECHNIQUE: Real-time imaging, as well as color and pulse Doppler interrogation, were performed of the lower extr emity deep veins from the inguinal ligament to the popliteal fossa. Attempted visualization of the ca lf veins was performed. COMPARISON: None. FINDINGS: The deep veins are normally compressible, and free of intraluminal thrombus. Color and pu lse Doppler demonstrate normal phasic intraluminal flow. There is normal augmentation response to di stal compression maneuver. IMPRESSION: No deep venous thrombosis of the visualized lower extremity. Reviewed by: Mustapha Maciel on 03/12/2023 2:55 PM [facility] Approved by: Mustapha Maciel on 03/12/2023 2:55 PM [facility] Station ID: [id number]
--- NOTE | 2023-03-12 18:44 | PROVIDER PROGRESS NOTE ---
Progress Note March 12, 2023 6:30 PM This garret elderly female keeps on complaining of intermittent abdominal pain. I thought about doing a CT of the abdomen but her pain is resolved. On exam it was never severe without peritoneal findings. She has normal bowel sounds. No fever. She is eating poorly. She must be fed by nursing. Nursing also reports she had a little bit of choking on a piece of stew. Exam: Temperature is 36.3, heart rate 73, blood pressure 145/79, respirations 14, 93% on room air. Very quiet elderly female who basically just stares at you when you try and talk to her. It does not help that she is hard of hearing. She tries to process what you say, there will be a 10 to 12-second pause as she stares at you and then says "what". I do not know how much she is processing either through deafness or dementia. Supple neck Diminished breath sounds at the bases but essentially clear Regular rate and rhythm without tachycardia Abdomen today is soft, nontender, normal bowel sounds. Extremities have edema of the arms. Nursing was concerned that it was sudden edema in comparison to yesterday today. So I obtain venous Dopplers of the arms and there are no DVTs. 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 Very slow psychomotor responses. Again, she is a feeder and nursing and aides had to be encouraged to feed her. Lab: Sodium is up another point to 123 today. She has been slowly creeping up by 1 point every day since I came on service. She started at 115. Potassium 3.6. Chloride 90. BUN 3, creatinine 0.5. Glucose 94. White cell count 5.5. Hemoglobin 10.2. Hematocrit 29.2. MCV 101, platelets 454 Assessment/Plan - Problem List (1) Pain in the abdomen Qualifiers: Abdominal location: unspecified location Qualified Code(s): R10.9 - Unspecified abdominal pain Assessment/Plan: Nursing reported 5/10 abdomen pain 03/11. pain increases with meals Abdomen X ray show gaseous distention of colon. other findings nml pain on left upper quadrant with pressure Today no abdominal pain. Just an episode of choking with swallowing. Hold off on CT the (2) Hyponatremia Assessment/Plan: -Na steadily increasing 112> 111> 113> 114> 113> 115> 117> 118>120> 121> 122>123 Serum Osmo LOW 238 mOsmol/kg (03/05). Urine Osmo regular 382 (03/05). Osmo levels mostly likely indicate hyponatremia due to hypothyroidism. SIADH excluded due to evidence of edema on LE. CXR 03/05: No acute cardiopulmonary process. enlarged heart EKG 03/05: Sinus Bradycardia at 59 bpm, RBBB, no STTw changes CT Head 03/05: encephalomalacia, NAD; consider MRI, if indicated LE edema 2+. Able to speak full sentence in the last 2 days but still slow. I have given her 3 doses of hypertonic saline. Once her sentence structure became intact, and her eyes were open and she was more responsive I do not feel it is worth the risk of hypertonic saline and stopped it. She is now just on normal saline Plan Cont NS at 100 cc/hr 0.9 NS Free water fluid restriction 1L/day. Throat lozenges for dry mouth. recheck Na q4hr to eval for improvement and ensure correction not too fast Patient will be here for multiple days to stabilize sodium levels. goal is 126. When she is at 126, and sodium clearly is continued to rise, I think she is safe to go to the prison. (3) Hypothyroid Conclusion/Plan: TSH 65.18 on 03/05 Have not taken Levothryroxine since last hospital visit in 09/02/21. She was on it before admission. It was not resumed at discharge. Likely contributing to hypoatremia and fatigue and feeling of coldness plan continue Levothyroxine 50 mcg/day and 100 mg IV push every 5 days (due 03/11) recheck TSH level in 1-2 month (4) UTI- Enterococcus Faecalis (resolved) Conclusion/Plan: U/A on 03/05: LE WBC Bact. Urine culture on 03/05 indicates Enterococcus Faecalis WBC 5.6 She received 1 dose of fosfomycin after receiving a couple of days of IV antibiotics. This should complete her therapy. (5) Anemia, macrocytic Conclusion/Plan: decreasing Hgb 11.5>12.5> 11.5> 10.0 > 9.9> 10.5. MCV low 102.7 Normal B12/Folate level on 03/06. 416/8.7 plan Cont multi vit with folic acid. Cont PO Ferrous sulfate (6)Edema Conclusion/Plan: s2+ pitting edema on LE. 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 Monitor for increase edema and headache.
[2023-03-12] MEDS: cloNIDine 0.2 MG PATCH TOP SCH (21:51)
[2023-03-13] MEDS: SODIUM CHLORIDE 0.9% 1,000 ML IV SCH ×2 (00:13→12:46)
[2023-03-13] MEDS: hydrALAZINE 10 MG TABLET PO SCH ×4 (00:30→18:22)
[2023-03-13] MEDS: SODIUM CHLORIDE FLUSH 0.9% 10 ML SYRINGE IVP SCH ×3 (01:00→16:20)
[2023-03-13 05:46] LABS: CALCIUM 8.5 mg/dL (8.5-10.3); CREATININE 0.5 mg/dL (0.6-1.3); POTASSIUM 3.4 mmol/L (3.5-4.5)
[2023-03-13 06:08] LABS: BASOPHILS # (AUTO) 0.1 10^3/uL (0.0-0.1); BASOPHILS % (AUTO) 1.9 %; EOSINOPHILS # (AUTO) 0.2 10^3/uL (0.0-0.7); EOSINOPHILS % (AUTO) 3.3 %; HCT - HEMATOCRIT 31.2 % (37.0-47.0); HGB - HEMOGLOBIN 10.7 g/dL (12.0-16.0); LYMPHOCYTES # (AUTO) 1.5 10^3/uL (1.5-3.5); LYMPHOCYTES % (AUTO) 28.1 %; MEAN CORPUSCULAR HEMOGLOBIN 34.6 pg (27.0-31.0); MEAN CORPUSCULAR HGB CONC 34.3 g/dL (32.0-36.0); MEAN PLATELET VOLUME 9.7 fL (7.9-10.8); MONOCYTES # (AUTO) 0.3 10^3/uL (0.0-1.0); MONOCYTES % (AUTO) 5.6 %; NEUTROPHILS # (AUTO) 3.3 10^3/uL (1.5-6.6); NEUTROPHILS % (AUTO) 60.9 %; PLT - PLATELET COUNT 433 10^3/uL (130-450); RED BLOOD COUNT 3.09 10^6/uL (4.20-5.40); RED CELL DISTRIBUTION WIDTH 13.7 % (12.0-15.0); WHITE BLOOD COUNT 5.4 x10^3/uL (4.8-10.8)
[2023-03-13] MEDS: LEVOTHYROXINE 25 MCG TABLET PO SCH (06:46)
[2023-03-13] MEDS: polyethylene glycoL 3350 17 GM PACKET PO SCH (08:31)
[2023-03-13] MEDS: PRENATAL VITAMIN TABLET PO SCH (08:32)
[2023-03-13] MEDS: lisinopriL 20 MG TABLET PO SCH (08:32)
[2023-03-13] MEDS: SPIRONOLACTONE 25 MG TABLET PO SCH (08:32)
[2023-03-13] MEDS: SENNA 8.6 MG TABLET PO SCH (08:32)
[2023-03-13] MEDS: ASPIRIN CHEW 81 MG TABLET PO SCH (08:32)
[2023-03-13] MEDS: amLODIPine 5 MG TABLET PO SCH (08:32)
[2023-03-13] MEDS: DULoxetine 30 MG CAPSULE PO SCH (08:32)
[2023-03-13] MEDS: DOCUSATE SODIUM 250 MG CAPSULE PO SCH (08:32)
[2023-03-13] MEDS: FERROUS SULFATE 325 MG TABLET PO SCH (08:32)
[2023-03-13] MEDS: APIXABAN 2.5 MG TABLET PO SCH ×2 (08:32→20:39)
--- NOTE | 2023-03-13 12:07 | PROVIDER PROGRESS NOTE ---
Assessment/Plan - Problem List (1) Hyponatremia Assessment/Plan: Na steadily increasing 112> 111> 113> 114> 113> 115> 117> 118>120> 121> 122> 123> still 123 today (all labs were reviewed) Serum Osmo was low 238 (03/05). Urine Osmo was acceptable 382 (03/05). Osmo levels mostly likely from hyponatremia due to hypothyroidism. She got 3 doses of hypertonic saline. Once her sentence structure became intact, and her eyes were open hypertonic saline was stopped. She is now just on iv normal saline, rate decreasing Plan Decrease NS from 85 cc/hr to TKO Cont Free water fluid restriction 1L/day. Throat lozenges for dry mouth. Today I will start her on a salt tablet daily Daily BMP Goal Na is ~126. When she is at ~126, and sodium clearly is continuing to rise, plan for her to go to a correction. (2) Hypothyroid Conclusion/Plan: TSH was 65.18 on 03/05/23 She had not taken Levothryroxine since last hospital visit in 09/02/21. She was on it before that admission, but it was not resumed at discharge. Likely this was contributing to hyponatremia and fatigue and feeling of coldness Plan Continue Levothyroxine 50 mcg/day oral plus 100 mg IV push every 5 days (last iv dose was 03/11) Recheck TSH level in 1-2 month (3) Anemia, macrocytic Conclusion/Plan: Decreasing Hgb 11.5>12.5> 11.5> 10.0 > 9.9> 10.5. MCV high at 102.7 Normal B12/Folate level on 03/06: 416/8.7 Iron panel was not done Plan Cont multi vit with folic acid. Cont PO Ferrous sulfate for now but talya get Iron panel (4) Edema Conclusion/Plan: 2+ pitting edema on LE. Edema likely from hypo-osmotic serum plus from receiving IV saline Plan: Decrease iv saline rate Cont Spironolactone and monitor K levels to prevent hyperkalemia (5) Hx CVA with residual L sided weakness Conclusion/Plan: The patient is bedbound by choice (6) Pain in the abdomen Qualifiers: Abdominal location: unspecified location Qualified Code(s): R10.9 - Unspecified abdominal pain Assessment/Plan: Nursing reported 5/10 abdomen pain 11/26 and pain increased with meals Abdomen X ray show gaseous distention of colon, other findings nml Today no abdominal pain. Plan: Gas-X prn (7) Vision and Hearing loss Conclusion/Plan: Supportive care (8) Depression Conclusion/Plan: Continue home medications: Duloxetine (9) UTI- Enterococcus Faecalis Conclusion/Plan: RESOLVED U/A on 03/05: LE WBC Bact. Urine culture on 03/05 indicates Enterococcus Faecalis WBC 5.6 She received 1 dose of fosfomycin after receiving a couple of days of IV antibiotics. This should complete her therapy. (10) Chronic stable medical problem Conclusion/Plan: HTN 130's/71-90 CHF HLD Atrial Fibrillation, on Eliquis CAD Aortic Stenosis AAA Plan: -continue home medications: Clonidine, ASA, Eliquis, Hydralazine, Lisinopril, Amlodipine - Current Meds Current Meds: Current Medications Generic Name Dose Route Start Last Admin Trade Name Freq PRN Reason Stop Dose Admin Acetaminophen 650 mg 03/05/23 20:38 03/10/23 17:55 Acetaminophen 325 Mg Tablet PO 650 mg Q4HR PRN Administration Pain 1 to 4, or Fever Amlodipine Besylate 5 mg 03/09/23 17:00 03/13/23 08:32 Amlodipine 5 Mg Tablet PO 5 mg DAILY DELPHINE Administration Apixaban 2.5 mg 03/05/23 21:00 03/13/23 08:32 Apixaban 2.5 Mg Tablet PO 2.5 mg BID DELPHINE Administration Aspirin 81 mg 03/06/23 09:00 03/13/23 08:32 Aspirin Chew 81 Mg Tablet PO 81 mg DAILY DELPHINE Administration Clonidine HCl 1 patch 03/05/23 21:00 03/12/23 21:51 Clonidine 0.2 Mg Patch TOP 1 patch Q7D DELPHINE Administration Docusate Sodium 250 - 500 mg 03/12/23 09:00 03/13/23 08:32 Docusate Sodium 250 Mg Capsule PO 500 mg DAILY DELPHINE Administration Duloxetine HCl 30 mg 03/06/23 09:00 03/13/23 08:32 Duloxetine 30 Mg Capsule PO 30 mg DAILY DELPHINE Administration Ferrous Sulfate 325 mg 03/08/23 09:00 03/13/23 08:32 Ferrous Sulfate 325 Mg Tablet PO 325 mg DAILYWM DELPHINE Administration Hydralazine HCl 10 mg 03/07/23 18:00 03/13/23 06:47 Hydralazine 10 Mg Tablet PO Not Given Q6H DELPHINE Sodium Chloride 1,000 mls @ 85 mls/hr 03/09/23 14:31 03/13/23 00:13 Normal Saline 0.9% IV 85 mls/hr .[id number] DELPHINE Administration Levothyroxine Sodium 50 mcg 03/05/23 21:00 03/13/23 06:46 Levothyroxine 25 Mcg Tablet PO 50 mcg QDAC DELPHINE Administration Levothyroxine Sodium 100 mcg 03/06/23 15:00 03/11/23 15:59 Levothyroxine 100 Mcg Vial IVP 100 mcg Q5D DELPHINE Administration Lisinopril 20 mg 03/08/23 09:00 03/13/23 08:32 Lisinopril 20 Mg Tablet PO 20 mg DAILY DELPHINE Administration Oxycodone HCl 5 mg 03/10/23 18:52 03/10/23 21:25 Oxycodone 5 Mg Tablet PO 5 mg Q4HR PRN Administration Moderate Pain (Level 4-6) Polyethylene Glycol 17 gm 03/07/23 09:00 03/13/23 08:31 Polyethylene Glycol 3350 17 Gm Packet PO 17 gm DAILY DELPHINE Administration Multivit/Folic Acid/Iron 1 tab 03/06/23 17:00 03/13/23 08:32 Vitamin Tablet PO 1 tab DAILYWM DELPHINE Administration Senna 8.6 - 17.2 mg 03/12/23 09:00 03/13/23 08:32 Senna 8.6 Mg Tablet PO 17.2 mg DAILY DELPHINE Administration Sodium Chloride 10 ml 03/06/23 01:00 03/13/23 08:33 Sodium Chloride Flush 0.9% 10 Ml Syringe IVP 10 ml 0100,0900,1700 DELPHINE Administration Spironolactone 25 mg 03/09/23 09:00 03/13/23 08:32 Spironolactone 25 Mg Tablet PO 25 mg DAILY DELPHINE Administration Throat Lozenges 1 lozenge 03/06/23 04:09 03/11/23 22:16 Benzocaine/Menthol Lozenge MM 1 lozenge Q2HR PRN Administration Throat pain - Lab Result Fish Bone Diagrams: 03/13/23 05:04 03/13/23 05:04 - Additional Planning My Orders: My Active Orders 03/13/23 11:29 [place] Discontinuation [RC] ONCE Subjective - Subjective Patient Reports: Feeling Better (She recognized me from her last hospitalization, was able to say my name. She is otherwise bradykinetic) Objective Vital Signs: Vital Signs - 24 hr 03/12/23 03/12/23 03/12/23 12:24 15:30 21:37 Temperature 36.3 C L 36.6 C Heart Rate [ 73 Brachial] Heart Rate [ 72 Monitoring electrodes] Respiratory 14 14 Rate Blood Pressure 145/79 H 115/90 H [Left Brachial artery] Blood Pressure 148/77 H [Right Brachial artery] O2 Saturation 93 94 03/13/23 03/13/23 06:00 09:46 Temperature 36.4 C L 36.3 C L Heart Rate [ 64 Brachial] Heart Rate [ 68 Monitoring electrodes] Respiratory 18 18 Rate Blood Pressure [Left Brachial artery] Blood Pressure 139/84 H 131/73 H [Right Brachial artery] O2 Saturation 95 94 Oxygen O2 Source Room air I&O (Last 24 Hrs): Intake and Output Totals x24h 03/11/23 03/12/23 03/13/23 23:59 23:59 23:59 Intake Total 2236.833 2400 200 Output Total 3500 2450 1700 Balance -1263. General: Alert, No acute distress, Other (Bradykinetic) HEENT: Mucous membr. moist/pink Neck: Supple Neuro: Alert, Focal Deficits (Left arm and leg are paretic, has generalized weakness) Cardiovascular: No murmurs Respiratory: No respiratory distress, Breath sounds nml Abdomen: Soft, No tenderness Extremities: Other (1+ edema) - Results Results: Laboratory Results WBC 5.4 x10^3/uL (4.8-10.8) 03/13/23 05:04 RBC 3.09 10^6/uL (4.20-5.40) L 03/13/23 05:04 Hgb 10.7 g/dL (12.0-16.0) L 03/13/23 05:04 Hct 31.2 % (37.0-47.0) L 03/13/23 05:04 MCV 101.0 fL (81.0-99.0) H 03/13/23 05:04 MCH 34.6 pg (27.0-31.0) H 03/13/23 05:04 MCHC 34.3 g/dL (32.0-36.0) 03/13/23 05:04 RDW 13.7 % (12.0-15.0) 03/13/23 05:04 Plt Count 433 10^3/uL (130-450) 03/13/23 05:04 MPV 9.7 fL (7.9-10.8) 03/13/23 05:04 Neut # (Auto) 3.3 10^3/uL (1.5-6.6) 03/13/23 05:04 Lymph # (Auto) 1.5 10^3/uL (1.5-3.5) 03/13/23 05:04 [place] # (Auto) 0.3 10^3/uL (0.0-1.0) 03/13/23 05:04 Eos # (Auto) 0.2 10^3/uL (0.0-0.7) 03/13/23 05:04 Baso # (Auto) 0.1 10^3/uL (0.0-0.1) 03/13/23 05:04 Absolute Nucleated RBC 0.00 x10^3/uL 03/13/23 05:04 Nucleated RBC % 0.0 /100WBC 03/13/23 05:04 Platelet Estimate INCREASED (>450,000) (NORMAL) 03/05/23 16:49 Platelet Morphology 2+ GIANT PLATELETS (NORMAL) 03/05/23 16:49 RBC Morph Micro Appear 1+ ANISOCYTOSIS (NORMAL) 03/05/23 16:49 VBG pH 7.386 (7.31-7.41) 03/09/23 04:30 Ionized Calcium 1.14 mmol/L (1.15-1.33) L 03/09/23 04:30 Sodium 123 mmol/L (135-145) L 03/13/23 05:04 Potassium 3.4 mmol/L (3.5-4.5) L 03/13/23 05:04 Chloride 92 mmol/L (101-111) L 03/13/23 05:04 Carbon Dioxide 27 mmol/L (21-32) 03/13/23 05:04 Anion Gap 4.0 (6-13) L 03/13/23 05:04 BUN 3 mg/dL (6-20) L 03/13/23 05:04 Creatinine 0.5 mg/dL (0.6-1.3) L 03/13/23 05:04 Estimated GFR (MDRD) 119 (>89) 03/13/23 05:04 Glucose 105 mg/dL (74-104) H 03/13/23 05:04 Serum Osmolality 238 mOsmol/kg (280-301) L 03/05/23 16:49 Calcium 8.5 mg/dL (8.5-10.3) 03/13/23 05:04 Phosphorus 2.6 mg/dL (2.5-5.0) 03/09/23 04:30 Magnesium 1.8 mg/dL (1.7-2.3) 03/09/23 09:38 Total Bilirubin 0.6 mg/dL (0.2-1.0) 03/05/23 16:49 AST 25 IU/L (10-42) 03/05/23 16:49 ALT 7 IU/L (10-60) L 03/05/23 16:49 Alkaline Phosphatase 51 IU/L (42-121) 03/05/23 16:49 Troponin I High Sens 12.1 ng/L (2.3-14.8) 03/05/23 16:49 Total Protein 6.8 g/dL (6.4-8.9) 03/05/23 16:49 Albumin 4.0 g/dL (3.2-5.5) 03/05/23 16:49 Globulin 2.8 g/dL (2.1-4.2) 03/05/23 16:49 Albumin/Globulin Ratio 1.4 (1.0-2.2) 03/05/23 16:49 Lipase 17 U/L (11-82) 03/05/23 16:49 Vitamin B12 416 pg/mL (180-914) 03/06/23 04:41 Folate 8.7 ng/mL (5.90 - >24.8) 03/06/23 04:41 TSH 65.18 uIU/mL (0.34-5.60) H 03/05/23 16:49 Urine Color YELLOW 03/05/23 18:45 Urine Clarity HAZY (CLEAR) 03/05/23 18:45 Urine pH 7.5 PH (5.0-7.5) 03/05/23 18:45 Ur Specific [place] 1.010 (1.002-1.030) 03/05/23 18:45 Urine Protein TRACE mg/dL (NEGATIVE) 03/05/23 18:45 Urine Glucose (UA) NEGATIVE mg/dL (NEGATIVE) 03/05/23 18:45 Urine Ketones NEGATIVE mg/dL (NEGATIVE) 03/05/23 18:45 Urine Occult Blood NEGATIVE (NEGATIVE) 03/05/23 18:45 Urine Nitrite NEGATIVE (NEGATIVE) 03/05/23 18:45 Urine Bilirubin NEGATIVE (NEGATIVE) 03/05/23 18:45 Urine Urobilinogen 1 (NORMAL) E.U./dL (NORMAL) 03/05/23 18:45 Ur Leukocyte Esterase TRACE (NEGATIVE) H 03/05/23 18:45 Urine RBC 0-5 /HPF (0-5) 03/05/23 18:45 Urine WBC 11-25 /HPF (0-5) H 03/05/23 18:45 Ur Squamous Epith Cells RARE Squamous (<= Few) 03/05/23 18:45 Amorphous Sediment Few /LPF 03/05/23 18:45 Urine Bacteria Moderate /HPF (None Seen) H 03/05/23 18:45 Ur Microscopic Review INDICATED 03/05/23 18:45 Urine Culture Comments INDICATED 03/05/23 18:45 Urine Osmolality 382 mOsmol/kg (.) 03/05/23 18:44 Urine Sodium 45.1 mmol/L 03/05/23 18:45 Nasal Screen MRSA (PCR) NEGATIVE (NEGATIVE) 03/05/23 21:45 - Procedures Procedures: Procedures RELEASE MEDIAN NERVE, OPEN APPROACH (02/26/17)
[2023-03-13] MEDS ORDERED: SIMETHICONE CHEW 80 MG TABLET PO PRN (12:27)
[2023-03-13] MEDS: SODIUM CHLORIDE 1 GM TABLET PO SCH (12:46)
[2023-03-14] MEDS: SODIUM CHLORIDE 0.9% 1,000 ML IV SCH (02:03)
[2023-03-14] MEDS: SODIUM CHLORIDE FLUSH 0.9% 10 ML SYRINGE IVP SCH ×3 (02:20→17:11)
[2023-03-14] MEDS: hydrALAZINE 10 MG TABLET PO SCH ×4 (02:20→17:12)
[2023-03-14 05:14] LABS: CALCIUM 8.3 mg/dL (8.5-10.3); CREATININE 0.5 mg/dL (0.6-1.3); POTASSIUM 3.4 mmol/L (3.5-4.5)
[2023-03-14 05:50] LABS: HCT - HEMATOCRIT 30.6 % (37.0-47.0); HGB - HEMOGLOBIN 10.7 g/dL (12.0-16.0); MEAN CORPUSCULAR HEMOGLOBIN 35.8 pg (27.0-31.0); MEAN CORPUSCULAR VOLUME 102.3 fL (81.0-99.0); MEAN PLATELET VOLUME 9.3 fL (7.9-10.8); RED BLOOD COUNT 2.99 10^6/uL (4.20-5.40); RED CELL DISTRIBUTION WIDTH 13.7 % (12.0-15.0); WHITE BLOOD COUNT 5.6 x10^3/uL (4.8-10.8)
[2023-03-14] MEDS: LEVOTHYROXINE 25 MCG TABLET PO SCH (07:26)
[2023-03-14] MEDS: DOCUSATE SODIUM 250 MG CAPSULE PO SCH (08:36)
[2023-03-14] MEDS: FERROUS SULFATE 325 MG TABLET PO SCH (08:36)
[2023-03-14] MEDS: ASPIRIN CHEW 81 MG TABLET PO SCH (08:36)
[2023-03-14] MEDS: APIXABAN 2.5 MG TABLET PO SCH ×2 (08:36→21:25)
[2023-03-14] MEDS: amLODIPine 5 MG TABLET PO SCH (08:36)
[2023-03-14] MEDS: PRENATAL VITAMIN TABLET PO SCH (08:36)
[2023-03-14] MEDS: polyethylene glycoL 3350 17 GM PACKET PO SCH (08:37)
[2023-03-14] MEDS: DULoxetine 30 MG CAPSULE PO SCH (08:37)
[2023-03-14] MEDS: lisinopriL 20 MG TABLET PO SCH (08:37)
[2023-03-14] MEDS: SODIUM CHLORIDE 1 GM TABLET PO SCH (08:37)
[2023-03-14] MEDS: SENNA 8.6 MG TABLET PO SCH (08:37)
[2023-03-14] MEDS: SPIRONOLACTONE 25 MG TABLET PO SCH (08:37)
--- NOTE | 2023-03-14 08:47 | PROVIDER PROGRESS NOTE ---
Assessment/Plan - Problem List (1) Hyponatremia Assessment/Plan: Na steadily increasing 112> 111> 113> 114> 113> 115> 117> 118>120> 121> 122> 123> 124 today (all labs were reviewed) Serum Osmo was low 238 (03/05). Urine Osmo was acceptable 382 (03/05). Osmo levels mostly likely from hyponatremia due to hypothyroidism. She got 3 doses of hypertonic saline. Once she awakened, the hypertonic saline was stopped. She has now been just on iv normal saline, with iv rate decreasing Plan Cont NS at TKO today Cont Free water fluid restriction 1L/day. Throat lozenges for dry mouth. Cont new daily salt tablet daily Monitor daily BMP Goal Na is ~126. When she is at ~126, and sodium clearly is continuing to rise, plan for her to go back to skilled nursing. (2) Hypothyroid Conclusion/Plan: TSH was 65.18 on 03/05/23 She had not taken Levothryroxine since last hospitalization in 09/02/21. She was on it before that admission, but it was not resumed at discharge. Likely this was contributing to hyponatremia and fatigue and feeling of coldness Plan Continue Levothyroxine 50 mcg/day oral plus 100 mg IV push every 5 days (last iv dose was 03/11) Recheck TSH level in 1-2 month (3) Anemia, macrocytic Conclusion/Plan: Decreasing Hgb 11.5>12.5> 11.5> 10.0 > 9.9> 10.5. MCV high at 102.7 Normal B12/Folate level on 03/06: 416/8.7 Iron panel was done today and does show Iron deficiency anemia Plan Cont multi vit with folic acid. Cont PO Ferrous sulfate (4) Edema Conclusion/Plan: 2+ pitting edema on LE. 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 Plan: Cont the new Gas-X prn (9) UTI- Enterococcus Faecalis Conclusion/Plan: RESOLVED U/A on 03/05: LE WBC Bact. Urine culture on 03/05 indicates Enterococcus Faecalis WBC 5.6 She received 1 dose of fosfomycin after receiving a couple of days of IV antibiotics. This should complete her therapy. (10) Chronic stable medical problem Conclusion/Plan: HTN CHF HLD Atrial Fibrillation, on Eliquis CAD Aortic Stenosis AAA Plan: -continue home medications: Clonidine, ASA, Eliquis, Hydralazine, Lisinopril, Amlodipine - Current Meds Current Meds: Current Medications Generic Name Dose Route Start Last Admin Trade Name Freq PRN Reason Stop Dose Admin Acetaminophen 650 mg 03/05/23 20:38 03/10/23 17:55 Acetaminophen 325 Mg Tablet PO 650 mg Q4HR PRN Administration Pain 1 to 4, or Fever Amlodipine Besylate 5 mg 03/09/23 17:00 03/14/23 08:36 Amlodipine 5 Mg Tablet PO 5 mg DAILY DELPHINE Administration Apixaban 2.5 mg 03/05/23 21:00 03/14/23 08:36 Apixaban 2.5 Mg Tablet PO 2.5 mg BID DELPHINE Administration Aspirin 81 mg 03/06/23 09:00 03/14/23 08:36 Aspirin Chew 81 Mg Tablet PO 81 mg DAILY DELPHINE Administration Clonidine HCl 1 patch 03/05/23 21:00 03/12/23 21:51 Clonidine 0.2 Mg Patch TOP 1 patch Q7D DELPHINE Administration Docusate Sodium 250 - 500 mg 03/12/23 09:00 03/14/23 08:36 Docusate Sodium 250 Mg Capsule PO 250 mg DAILY DELPHINE Administration Duloxetine HCl 30 mg 03/06/23 09:00 03/14/23 08:37 Duloxetine 30 Mg Capsule PO 30 mg DAILY DELPHINE Administration Ferrous Sulfate 325 mg 03/08/23 09:00 03/14/23 08:36 Ferrous Sulfate 325 Mg Tablet PO 325 mg DAILYWM DELPHINE Administration Hydralazine HCl 10 mg 03/07/23 18:00 03/14/23 07:22 Hydralazine 10 Mg Tablet PO Not Given Q6H DELPHINE Sodium Chloride 1,000 mls @ 40 mls/hr 03/13/23 12:09 03/14/23 02:03 Normal Saline 0.9% IV 40 mls/hr .Q25H DELPHINE Administration Levothyroxine Sodium 50 mcg 03/05/23 21:00 03/14/23 07:26 Levothyroxine 25 Mcg Tablet PO 50 mcg QDAC DELPHINE Administration Levothyroxine Sodium 100 mcg 03/06/23 15:00 03/11/23 15:59 Levothyroxine 100 Mcg Vial IVP 100 mcg Q5D DELPHINE Administration Lisinopril 20 mg 03/08/23 09:00 03/14/23 08:37 Lisinopril 20 Mg Tablet PO 20 mg DAILY DELPHINE Administration Oxycodone HCl 5 mg 03/10/23 18:52 03/10/23 21:25 Oxycodone 5 Mg Tablet PO 5 mg Q4HR PRN Administration Moderate Pain (Level 4-6) Polyethylene Glycol 17 gm 03/07/23 09:00 03/14/23 08:37 Polyethylene Glycol 3350 17 Gm Packet PO 17 gm DAILY DELPHINE Administration Multivit/Folic Acid/Iron 1 tab 03/06/23 17:00 03/14/23 08:36 Vitamin Tablet PO 1 tab DAILYWM DELPHINE Administration Senna 8.6 - 17.2 mg 03/12/23 09:00 03/14/23 08:37 Senna 8.6 Mg Tablet PO 8.6 mg DAILY DELPHINE Administration Simethicone 80 mg 03/13/23 12:27 03/13/23 12:46 Simethicone Chew 80 Mg Tablet PO 80 mg 0900,1300,1800,2100 PRN Administration Gas Sodium Chloride 10 ml 03/06/23 01:00 03/14/23 08:38 Sodium Chloride Flush 0.9% 10 Ml Syringe IVP Not Given 0100,0900,1700 DELPHINE Sodium Chloride 1 gm 03/13/23 12:09 03/14/23 08:37 Sodium Chloride 1 Gm Tablet PO 1 gm DAILY DELPHINE Administration Spironolactone 25 mg 03/09/23 09:00 03/14/23 08:37 Spironolactone 25 Mg Tablet PO 25 mg DAILY DELPHINE Administration Throat Lozenges 1 lozenge 03/06/23 04:09 03/11/23 22:16 Benzocaine/Menthol Lozenge MM 1 lozenge Q2HR PRN Administration Throat pain - Lab Result Fish Bone Diagrams: 03/14/23 04:42 03/14/23 04:42 - Additional Planning My Orders: My Active Orders 03/13/23 12:09 Sodium Chloride 0.9% [Normal Saline 0.9%] 1,000 ml IV 40 mls/hr Sodium Chloride [Salt Tab] 1 gm PO DAILY 03/13/23 12:27 Simethicone [Mylicon] 80 mg PO 0900,1300,1800,2100 PRN Subjective - Subjective Patient Reports: Resting Comfortably, No Complaints Objective Vital Signs: Vital Signs - 24 hr 03/13/23 03/13/23 03/13/23 09:46 12:47 16:10 Temperature 36.3 C L 37.1 C Heart Rate [ 64 69 Brachial] Heart Rate [ Monitoring electrodes] Respiratory 18 20 Rate Blood Pressure 131/73 H 136/74 H 131/70 H [Right Brachial artery] O2 Saturation 94 95 03/14/23 03/14/23 03/14/23 02:05 05:54 07:32 Temperature 96.3 C H 36.3 C L 36.3 C L Heart Rate [ 60 65 Brachial] Heart Rate [ 66 Monitoring electrodes] Respiratory 18 18 16 Rate Blood Pressure 144/77 H 125/76 152/73 H [Right Brachial artery] O2 Saturation 94 95 93 Oxygen O2 Source Room air I&O (Last 24 Hrs): Intake and Output Totals x24h 03/12/23 03/13/23 03/14/23 23:59 23:59 23:59 Intake Total 2400 1640 531.333 Output Total 2450 1950 250 Balance -50 -310 281.333 General: Alert HEENT: EOMI, Mucous membr. moist/pink Neck: Supple Neuro: Alert, Other (Dense L hemiplegia, slow to answer) Cardiovascular: No murmurs Respiratory: No respiratory distress Abdomen: No tenderness Extremities: Other (1+ edema) - Results Results: Laboratory Results WBC 5.6 x10^3/uL (4.8-10.8) 03/14/23 04:42 RBC 2.99 10^6/uL (4.20-5.40) L 03/14/23 04:42 Hgb 10.7 g/dL (12.0-16.0) L 03/14/23 04:42 Hct 30.6 % (37.0-47.0) L 03/14/23 04:42 MCV 102.3 fL (81.0-99.0) H 03/14/23 04:42 MCH 35.8 pg (27.0-31.0) H 03/14/23 04:42 MCHC 35.0 g/dL (32.0-36.0) 03/14/23 04:42 RDW 13.7 % (12.0-15.0) 03/14/23 04:42 Plt Count 377 10^3/uL (130-450) 03/14/23 04:42 MPV 9.3 fL (7.9-10.8) 03/14/23 04:42 Neut # (Auto) 3.3 10^3/uL (1.5-6.6) 03/13/23 05:04 Lymph # (Auto) 1.5 10^3/uL (1.5-3.5) 03/13/23 05:04 [place] # (Auto) 0.3 10^3/uL (0.0-1.0) 03/13/23 05:04 Eos # (Auto) 0.2 10^3/uL (0.0-0.7) 03/13/23 05:04 Baso # (Auto) 0.1 10^3/uL (0.0-0.1) 03/13/23 05:04 Absolute Nucleated RBC 0.00 x10^3/uL 03/13/23 05:04 Nucleated RBC % 0.0 /100WBC 03/13/23 05:04 Platelet Estimate INCREASED (>450,000) (NORMAL) 03/05/23 16:49 Platelet Morphology 2+ GIANT PLATELETS (NORMAL) 03/05/23 16:49 RBC Morph Micro Appear 1+ ANISOCYTOSIS (NORMAL) 03/05/23 16:49 VBG pH 7.386 (7.31-7.41) 03/09/23 04:30 Ionized Calcium 1.14 mmol/L (1.15-1.33) L 03/09/23 04:30 Sodium 124 mmol/L (135-145) L 03/14/23 04:42 Potassium 3.4 mmol/L (3.5-4.5) L 03/14/23 04:42 Chloride 92 mmol/L (101-111) L 03/14/23 04:42 Carbon Dioxide 27 mmol/L (21-32) 03/14/23 04:42 Anion Gap 5.0 (6-13) L 03/14/23 04:42 BUN 4 mg/dL (6-20) L 03/14/23 04:42 Creatinine 0.5 mg/dL (0.6-1.3) L 03/14/23 04:42 Estimated GFR (MDRD) 119 (>89) 03/14/23 04:42 Glucose 108 mg/dL (74-104) H 03/14/23 04:42 Serum Osmolality 238 mOsmol/kg (280-301) L 03/05/23 16:49 Calcium 8.3 mg/dL (8.5-10.3) L 03/14/23 04:42 Phosphorus 2.6 mg/dL (2.5-5.0) 03/09/23 04:30 Magnesium 1.8 mg/dL (1.7-2.3) 03/09/23 09:38 Iron 46 ug/dL (50-212) L 03/14/23 04:42 TIBC 218 ug/dL (250-450) L 03/14/23 04:42 % Saturation 21 % (20-50) 03/14/23 04:42 Transferrin 156 mg/dL (203-362) L 03/14/23 04:42 Total Bilirubin 0.6 mg/dL (0.2-1.0) 03/05/23 16:49 AST 25 IU/L (10-42) 03/05/23 16:49 ALT 7 IU/L (10-60) L 03/05/23 16:49 Alkaline Phosphatase 51 IU/L (42-121) 03/05/23 16:49 Troponin I High Sens 12.1 ng/L (2.3-14.8) 03/05/23 16:49 Total Protein 6.8 g/dL (6.4-8.9) 03/05/23 16:49 Albumin 4.0 g/dL (3.2-5.5) 03/05/23 16:49 Globulin 2.8 g/dL (2.1-4.2) 03/05/23 16:49 Albumin/Globulin Ratio 1.4 (1.0-2.2) 03/05/23 16:49 Lipase 17 U/L (11-82) 03/05/23 16:49 Vitamin B12 416 pg/mL (180-914) 03/06/23 04:41 Folate 8.7 ng/mL (5.90 - >24.8) 03/06/23 04:41 TSH 65.18 uIU/mL (0.34-5.60) H 03/05/23 16:49 Urine Color YELLOW 03/05/23 18:45 Urine Clarity HAZY (CLEAR) 03/05/23 18:45 Urine pH 7.5 PH (5.0-7.5) 03/05/23 18:45 Ur Specific [place] 1.010 (1.002-1.030) 03/05/23 18:45 Urine Protein TRACE mg/dL (NEGATIVE) 03/05/23 18:45 Urine Glucose (UA) NEGATIVE mg/dL (NEGATIVE) 03/05/23 18:45 Urine Ketones NEGATIVE mg/dL (NEGATIVE) 03/05/23 18:45 Urine Occult Blood NEGATIVE (NEGATIVE) 03/05/23 18:45 Urine Nitrite NEGATIVE (NEGATIVE) 03/05/23 18:45 Urine Bilirubin NEGATIVE (NEGATIVE) 03/05/23 18:45 Urine Urobilinogen 1 (NORMAL) E.U./dL (NORMAL) 03/05/23 18:45 Ur Leukocyte Esterase TRACE (NEGATIVE) H 03/05/23 18:45 Urine RBC 0-5 /HPF (0-5) 03/05/23 18:45 Urine WBC 11-25 /HPF (0-5) H 03/05/23 18:45 Ur Squamous Epith Cells RARE Squamous (<= Few) 03/05/23 18:45 Amorphous Sediment Few /LPF 03/05/23 18:45 Urine Bacteria Moderate /HPF (None Seen) H 03/05/23 18:45 Ur Microscopic Review INDICATED 03/05/23 18:45 Urine Culture Comments INDICATED 03/05/23 18:45 Urine Osmolality 382 mOsmol/kg (.) 03/05/23 18:44 Urine Sodium 45.1 mmol/L 03/05/23 18:45 Nasal Screen MRSA (PCR) NEGATIVE (NEGATIVE) 03/05/23 21:45 - Procedures Procedures: Procedures RELEASE MEDIAN NERVE, OPEN APPROACH (02/26/17)
[2023-03-15] MEDS: hydrALAZINE 10 MG TABLET PO SCH ×2 (00:24→05:17)
[2023-03-15] MEDS: SODIUM CHLORIDE FLUSH 0.9% 10 ML SYRINGE IVP SCH ×2 (02:05→09:04)
[2023-03-15] MEDS: SODIUM CHLORIDE 0.9% 1,000 ML IV SCH (05:33)
[2023-03-15] MEDS: LEVOTHYROXINE 25 MCG TABLET PO SCH (05:33)
[2023-03-15 06:15] LABS: CREATININE 0.5 mg/dL (0.6-1.3); POTASSIUM 3.4 mmol/L (3.5-4.5)
[2023-03-15 07:23] VITALS: BP 145/69; O2SAT 97
[2023-03-15] MEDS: lisinopriL 20 MG TABLET PO SCH (09:01)
[2023-03-15] MEDS: DOCUSATE SODIUM 250 MG CAPSULE PO SCH (09:01)
[2023-03-15] MEDS: DULoxetine 30 MG CAPSULE PO SCH (09:01)
[2023-03-15] MEDS: SPIRONOLACTONE 25 MG TABLET PO SCH (09:02)
[2023-03-15] MEDS: PRENATAL VITAMIN TABLET PO SCH (09:02)
[2023-03-15] MEDS: FERROUS SULFATE 325 MG TABLET PO SCH (09:02)
[2023-03-15] MEDS: ASPIRIN CHEW 81 MG TABLET PO SCH (09:02)
[2023-03-15] MEDS: SODIUM CHLORIDE 1 GM TABLET PO SCH (09:02)
[2023-03-15] MEDS: SENNA 8.6 MG TABLET PO SCH (09:02)
[2023-03-15] MEDS: amLODIPine 5 MG TABLET PO SCH (09:02)
[2023-03-15] MEDS: APIXABAN 2.5 MG TABLET PO SCH (09:02)
[2023-03-15] MEDS: polyethylene glycoL 3350 17 GM PACKET PO SCH (09:04)
--- NOTE | 2023-03-15 10:21 | Discharge Plan ---
"Discharge Plan for SNF / [facility] - Discharge Plan And Transition Orders Problem Reviewed?: Yes Disposition: 03 SNF DC/Xfer Condition: Fair Allergies and Adverse Reactions: Allergies Allergy/AdvReac Type Severity Reaction Status Date / Time milk AdvReac Mild Cramps Verified 08/27/21 06:01 Health Concerns: Patient was hospitalized for obtundation, and the cause was severe hyponatremia, severe hypothyroidism and a UTI. Plan of Treatment: Continue medications ordered at discharge. Patient needs to be fed because of her stroke and weakness. Care Goals: Stabilization and comfort are the goals. Assessment: Return to [facility] SNF/[facility] is the agreed upon plan. - SNF / [facility] Transition Orders Admit to (Facility): [facility] Under the care of (Name): Dr Tushar Lim Discharge Diagnosis: (1) Hyponatremia Improving on new salt tablet and Spirinolactone. Needs recheck BMP on 03/21/23, to determine further treament (2) Hypothyroidism TSH was 65.18 at admission, because she had not taken Levothryroxine for many months. She got iv thyroid and was restarted on oral Levothyroxine 50 mcg daily. She needs a recheck TSH level in late Mar 2023 please, to adjust her dose. (3) Anemia, macrocytic Cont supplements (4) Edema Improving. Only several weeks of Spironolactone prescribed (5) Hx CVA with residual L sided weakness The patient has dense L hemiparesis and is bedbound by choice (6) Vision and Hearing loss Unchanged (7) Depression Stable on Duloxetine (8) UTI- Enterococcus Faecalis Urine culture grew Enterococcus Faecalis. Treatment completed (9) HTN Stable on meds (10) Atrial Fibrillation Continue Eliquis (11) CAD Stable on meds (12) Aortic Stenosis (13) AAA (14) DNR status Medicare Certification Statement: Notify PCP of admission and forward orders to primary provider for signature. Weight on admission and: Weekly Call PCP immediately if weight increases by: 5 kg Other Notification Orders: Call PCP immediately if patient develops dyspnea, chest pain/tightness or edema. House Bowel Program: Yes Additional Bowel Program Orders: If no BM after 2 days, nurse may give M.O.M. 30ml PO PRN and/or ducolax Supp 1 KS and/or MYNOR 250mg P.O., and/or senna 1-2 tabs PO. On day 3 nurse may give repeat above order until residents constipation is resolved. Annual Influenza Vaccine (between Dec 15 and July 14): Yes Two-step PPD per [facility] [id number] or approved exception documents: Yes Treatments & Other Orders: Turn and reposition in bed prn. Patient needs to be fed Lab Tests or X-ray Orders: BMP on Sun03/21/23 Medication Orders: PLEASE REFER TO THE DISCHARGE MEDICATION LIST. Insulin Orders?: No - Medications New Prescriptions: Spironolactone [Aldactone] 25 mg PO DAILY #20 tab Simethicone [Mylicon] 80 mg PO 0900,1300,1800,2100 PRN #45 tab PRN Reason: Gas Sodium Chloride [Salt Tab] 1 gm PO DAILY #20 tab Levothyroxine [Synthroid] 50 mcg PO QDAC #30 tab - Diet Type: Geriatric Texture: Regular (Patient needs to be fed) Liquids: Thin May have monthly special meal: Yes - Therapies | Activity Rehabilitation Potential: Maintain present ADL Functional Activity: Activity as Tolerated Weight Bearing: No Weight (Bedbound by choice, turn and reposition prn) Follow Up: Needs BMP done on 03/21/23, to check her serum Sodium level, to determine if daily salt tablet needs to be stopped. Needs a PCP visit 1-2 days after the 03/21/23 lab test returns."
--- NOTE | 2023-03-15 10:42 | DISCHARGE SUMMARY ---
Discharge Summary Admit Date: 03/05/23 Discharge Date: 03/15/23 Discharging Provider: Dr Sendy Martell Primary Care Provider: Dr Tushar Lim Condition at Discharge: Fair Discharge Disposition: 03 SNF DC/Xfer - HPI History of Present Illness: H&P was conducted via video remotely, using Access Cart. 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 Unable to obtain history from pt d/t pt's clinical condition. History obtained from staff, chart. Pt is hard of hearing and cannot hear/understand my questions. 77 yo F with PMH of CVA with residual L sided weakness, slurred speech, CHF, HTN, HLD, Atrial Fibrillation, CAD, Aortic Stenosis, DVT, Vision loss, Depressio n, AAA, Hx non-compliance with meds presented to the ER from [facility] with c/o 1 day h/o increased BP and feeling off. Pt had told staff that she feels like she is "having another stroke" around 3PM. No further symptoms/explanation given by pt or staff. Staff could not find any change on exam, no AMS from baseline, except that her BP was elevated to 180s/100s, and sent pt to ER. BP usually controlled. Pt now has no complaints in ER, but does not answer direct questioning. She has asked the staff for water. Pt was previously hospitalized from 12/16/22-12/21/22 for CVA with another L sided weakness, slurred speech. In the ER, BP 175/96, Hgb 11.5, MCH 36.1, Na 112/repeat Na 111, TSH 65.18, U/A: Leuk Es+ WBC+ Bact+ CXR: pending. EKG: Sinus Bradycardia at 59 bpm, RBBB, no STTw changes. CT Head: encephalomalacia, NAD; consider MRI, if indicated Pt was given IVF NS, and got Rocephin in the ER, and is being admitted. - HOSPITAL COURSE Hospital Course: (1) Hyponatremia Her serum sodium was very slow to rise. She was on NS, free water restriction, then finally started on salt tablet. Na then improved on new salt tablet and Spirinolactone was added due to anasarca. She was discharged back to her [facility]. She needs recheck BMP on 03/21/23, to determine further treament (2) Hypothyroidism TSH was 65.18 at admission, because she had not taken Levothryroxine for many months. She got iv thyroid q5 days here and was restarted on oral Levothyroxine 50 mcg daily. She needs a recheck TSH level in late Mar 2023 please, to possibly adjust her thyroid dose. (3) Anemia, macrocytic Her Hgb was 10 at adm and 10.7 at disch. Cont her supplements. (4) Edema, leg Improving. Only several weeks of Spironolactone prescribed (5) UTI Urine culture grew Enterococcus Faecalis. Antibx treatment completed while she was here. (5) Cronic problems: Hx CVA with residual L sided deficit The patient has dense L hemiparesis and is bedbound by choice Vision (and Hearing) loss Unchanged Depression Stable on Duloxetine HTN Stable on meds Atrial Fibrillation Continue Eliquis CAD Stable on meds Aortic Stenosis Stable AAA As per hx - ALLERGIES Allergies/Adverse Reactions: Allergies Allergy/AdvReac Type Severity Reaction Status Date / Time milk AdvReac Mild Cramps Verified 08/27/21 06:01 - MEDICATIONS Home Medications: Ambulatory Orders Medication Instructions Recorded Confirmed Aspirin Chewable [St Ab 81 mg PO DAILY #30 tab 12/21/22 03/06/23 Aspirin] cloNIDine 0.2 MG PATCH 1 patch TOP Q7D #4 patch 12/21/22 03/06/23 [[id number]] Apixaban [Eliquis] 2.5 mg PO BID 03/05/23 03/06/23 DULoxetine [Cymbalta] 30 mg PO DAILY 03/05/23 03/06/23 Lisinopril [Zestril] 20 mg PO DAILY 03/05/23 03/06/23 hydrALAZINE [Apresoline] 10 mg PO BID PRN 03/05/23 03/05/23 Acetaminophen [Tylenol] 650 mg PO Q4H PRN 03/06/23 03/06/23 Amlodipine Besylate [Norvasc] 2.5 mg PO DAILY 03/06/23 03/06/23 Bisacodyl Supp [Dulcolax Supp] 1 supp MD DAILY PRN 03/06/23 03/06/23 Ferrous Sulfate [Feosol] 325 mg PO DAILY 03/06/23 03/06/23 Mineral Oil [Mineral Oil Enema] 1 unit MD PRN PRN 03/06/23 03/06/23 Senna [Senokot] 17.2 mg PO DAILY PRN 03/06/23 03/06/23 Sodium Chloride 0.65% [[place]] 2 sprays DANIEL Q1H PRN 03/06/23 03/06/23 guaiFENesin [Chest Congestion 15 ml PO Q6H PRN 03/06/23 03/06/23 Relief] polyethylene glycoL 3350 [Miralax] 17 g PO DAILY PRN 03/06/23 03/06/23 Levothyroxine [Synthroid] 50 mcg PO QDAC #30 tab 03/15/23 Simethicone [Mylicon] 80 mg PO 0900,1300,1800,2100 PRN 03/15/23 #45 tab Sodium Chloride [Salt Tab] 1 gm PO DAILY #20 tab 03/15/23 Spironolactone [Aldactone] 25 mg PO DAILY #20 tab 03/15/23 - PHYSICAL EXAM AT DISCHARGE General Appearance: positive: No acute distress, Lethargic (but awakens and converses) Eyes Bilateral: positive: Normal inspection, EOMI, Other (Edema of the bags under her eyes) ENT: positive: ENT inspection nml, No signs of dehydration Neck: positive: Nml inspection, No JVD Respiratory: positive: No respiratory distress, Breath sounds nml Cardiovascular: positive: Systolic murmur Abdomen: positive: Non-tender, Nml bowel sounds, No distention Skin: positive: Warm, Dry Extremities: positive: Other (Tender shins. 1+ edema to knees) Neurologic/Psychiatric: positive: Disoriented to person, Disoriented to place, Disoriented to time, Other (Dense hemiparesis of left arm and left leg) - LABS Result Diagrams: 03/14/23 04:42 03/15/23 05:29 - DIAGNOSTIC IMAGING Diagnostic Imaging Results: Final report reviewed - TIME SPENT Time Spent in Discharge (Minutes): 45
== END 2023-03-15 12:30 | DRG 641 ==
LOC: EDUNIT# → ED 16:27 → ICU 20:38 → MS3 03-10 00:06
PROVIDERS: ADMIT Internal Medicine; ATTEND Internal Medicine
DX: E87.1 Hypo-osmolality and hyponatremia (principal); N39.0 Urinary tract infection, site not specified; I69.354 Hemiplegia and hemiparesis following cerebral infarction affecting left non-dominant side; E03.9 Hypothyroidism, unspecified; D53.9 Nutritional anemia, unspecified; I69.328 Other speech and language deficits following cerebral infarction; I11.0 Hypertensive heart disease with heart failure; E78.00 Pure hypercholesterolemia, unspecified; I50.9 Heart failure, unspecified; Z87.891 Personal history of nicotine dependence; H91.90 Unspecified hearing loss, unspecified ear; H54.7 Unspecified visual loss; I44.0 Atrioventricular block, first degree; I48.91 Unspecified atrial fibrillation; Z79.01 Long term (current) use of anticoagulants; I25.10 Atherosclerotic heart disease of native coronary artery without angina pectoris; F32.A Depression, unspecified; I35.0 Nonrheumatic aortic (valve) stenosis; I71.40 Abdominal aortic aneurysm, without rupture, unspecified; R41.0 Disorientation, unspecified; E78.5 Hyperlipidemia, unspecified; Z66 Do not resuscitate; K13.79 Other lesions of oral mucosa; R00.1 Bradycardia, unspecified; I45.10 Unspecified right bundle-branch block; R68.0 Hypothermia, not associated with low environmental temperature; B95.2 Enterococcus as the cause of diseases classified elsewhere; R10.9 Unspecified abdominal pain; F50.89 Other specified eating disorder; R09.89 Other specified symptoms and signs involving the circulatory and respiratory systems; R53.1 Weakness
CPT/HCPCS: 36415; 70450; 71045; 74018; 80048; 80053; 81001; 82330; 82607; 82746; 83540; 83690; 83735; 83930; 83935; 84100; 84132; 84295; 84300; 84443; 84466; 84484; 85025; 85027; 87077; 87086; 87150; 87181; 93005; 93971; 94002; 99285; A9270; J8499; 81003; 82803

== ENCOUNTER 2023-03-15 12:32 | Outpatient (CLI) | payer MEDICARE | END 2023-03-15 12:33 | disposition home or self-care (01) | LOC: EMS 12:32 | PROVIDERS: ATTEND Internal Medicine | DX: I69.354 Hemiplegia and hemiparesis following cerebral infarction affecting left non-dominant side (principal); Z74.01 Bed confinement status | CPT/HCPCS: A0425; A0428 ==

== ENCOUNTER 2023-03-22 08:00 | Outpatient (CLI) | payer MEDICARE ==
[2023-03-22 19:53] LABS: CALCIUM 9.7 mg/dL (8.5-10.3); CREATININE 0.7 mg/dL (0.6-1.3); POTASSIUM 4.3 mmol/L (3.5-4.5)
== END 2023-03-22 23:59 | disposition home or self-care (01) ==
LOC: LAB.R 08:00
DX: E87.1 Hypo-osmolality and hyponatremia (principal)
CPT/HCPCS: 36415; 80048

== ENCOUNTER 2023-04-04 14:45 | Outpatient (CLI) | payer MEDICARE | END 2023-04-04 14:46 | disposition home or self-care (01) | LOC: LAB.R 14:45 | DX: E03.9 Hypothyroidism, unspecified (principal) | CPT/HCPCS: 84443 ==

== ENCOUNTER 2023-04-20 08:00 | Outpatient (CLI) | payer MEDICARE ==
[2023-04-20 07:41] LABS: BASOPHILS # (AUTO) 0.1 10^3/uL (0.0-0.1); BASOPHILS % (AUTO) 1.6 %; EOSINOPHILS # (AUTO) 0.4 10^3/uL (0.0-0.7); EOSINOPHILS % (AUTO) 6.8 %; HCT - HEMATOCRIT 34.3 % (37.0-47.0); HGB - HEMOGLOBIN 11.2 g/dL (12.0-16.0); LYMPHOCYTES % (AUTO) 31.7 %; MEAN CORPUSCULAR HEMOGLOBIN 34.8 pg (27.0-31.0); MEAN CORPUSCULAR HGB CONC 32.7 g/dL (32.0-36.0); MEAN CORPUSCULAR VOLUME 106.5 fL (81.0-99.0); MEAN PLATELET VOLUME 10.3 fL (7.9-10.8); MONOCYTES # (AUTO) 0.4 10^3/uL (0.0-1.0); MONOCYTES % (AUTO) 5.8 %; NEUTROPHILS # (AUTO) 3.5 10^3/uL (1.5-6.6); NEUTROPHILS % (AUTO) 53.8 %; PLT - PLATELET COUNT 570 10^3/uL (130-450); RED BLOOD COUNT 3.22 10^6/uL (4.20-5.40); RED CELL DISTRIBUTION WIDTH 13.6 % (12.0-15.0); WHITE BLOOD COUNT 6.4 x10^3/uL (4.8-10.8)
== END 2023-04-20 23:59 | disposition home or self-care (01) ==
LOC: LAB.R 08:00
PROVIDERS: ATTEND Registered Nurse
DX: I10 Essential (primary) hypertension (principal); E87.1 Hypo-osmolality and hyponatremia; I48.20 Chronic atrial fibrillation, unspecified; E78.00 Pure hypercholesterolemia, unspecified
CPT/HCPCS: 80053; 82306; 84436; 84443; 85025

== ENCOUNTER 2023-04-22 08:00 | Outpatient (CLI) | payer MEDICARE ==
[2023-04-22 08:48] LABS: ALBUMIN 3.4 g/dL (3.2-5.5); ALBUMIN/GLOBULIN RATIO 1.3 (1.0-2.2); BILIRUBIN,TOTAL 0.5 mg/dL (0.2-1.0); CALCIUM 9.1 mg/dL (8.5-10.3); CREATININE 0.8 mg/dL (0.6-1.3); POTASSIUM 4.5 mmol/L (3.5-4.5)
[2023-04-22 09:02] LABS: THYROID STIMULATING HORMONE 47.53 uIU/mL (0.34-5.60)
== END 2023-04-22 23:59 | disposition home or self-care (01) ==
LOC: LAB.R 08:00
PROVIDERS: ATTEND Registered Nurse
DX: I11.0 Hypertensive heart disease with heart failure (principal); I50.9 Heart failure, unspecified; E87.1 Hypo-osmolality and hyponatremia; I48.20 Chronic atrial fibrillation, unspecified; E78.00 Pure hypercholesterolemia, unspecified
CPT/HCPCS: 80053; 82306; 84436; 84443

== ENCOUNTER 2023-07-11 13:50 | Outpatient (CLI) | payer MEDICARE ==
--- NOTE | 2023-07-11 17:05 | XRAY Report ---
PROCEDURE: Ankle 1-2V LT INDICATIONS: EFFUSION, LEFT ANKLE TECHNIQUE: 2 views of the ankle were acquired. COMPARISON: None. FINDINGS: Bones: Limited 2 views of the ankle show severe soft tissue swelling, osteopenia. No fracture or subl uxation is identified. Severe atherosclerotic vascular calcifications are present. Ankle mortise is n ot well discernible on this 2 view ankle. Soft tissues: As above. IMPRESSION: Somewhat limited 2 view of the ankle show diffuse soft tissue swelling, osteopenia with no definite a cute bony findings Reviewed by: Ab Chu MD on 07/11/2023 5:04 PM PDT Approved by: Ab Chu MD on 07/11/2023 5:04 PM PDT Station ID: [id number]
--- NOTE | 2023-07-11 17:07 | XRAY Report ---
PROCEDURE: Foot 1-2V LT INDICATIONS: EFFUSION, LEFT ANKLE TECHNIQUE: 2 views of the foot were acquired. COMPARISON: None. FINDINGS: Bones: Limited 2 view of the foot shows diffuse osteopenia and soft tissue swelling. No definite acut e fracture or subluxation seen. Soft tissues: As above IMPRESSION: Limited 2 view of the foot with severe osteopenia and soft tissue swelling. If clinical suspicion for occult fracture persists, CT may provide additional diagnostic benefit. Reviewed by: Ab Chu MD on 07/11/2023 5:06 PM PDT Approved by: Ab Chu MD on 07/11/2023 5:06 PM PDT Station ID: [id number]
== END 2023-07-11 13:51 | disposition home or self-care (01) ==
LOC: DI 13:50
PROVIDERS: ATTEND Registered Nurse
DX: M85.872 Other specified disorders of bone density and structure, left ankle and foot (principal); R22.42 Localized swelling, mass and lump, left lower limb

== ENCOUNTER 2023-07-31 14:37 | Outpatient (CLI) | payer MEDICARE ==
[2023-07-31 15:49] LABS: ALBUMIN 3.7 g/dL (3.2-5.5); ALBUMIN/GLOBULIN RATIO 1.2 (1.0-2.2); BILIRUBIN,TOTAL 0.3 mg/dL (0.2-1.0); POTASSIUM 4.5 mmol/L (3.5-4.5); TOTAL PROTEIN 6.7 g/dL (6.4-8.9)
[2023-07-31 16:37] LABS: THYROID STIMULATING HORMONE 1.93 uIU/mL (0.34-5.60)
== END 2023-07-31 14:38 | disposition home or self-care (01) ==
LOC: LAB.R 14:37
PROVIDERS: ATTEND Registered Nurse
DX: E78.00 Pure hypercholesterolemia, unspecified (principal); E55.9 Vitamin D deficiency, unspecified; E03.9 Hypothyroidism, unspecified
CPT/HCPCS: 80053; 82306; 84439; 84443

== ENCOUNTER 2023-11-11 08:00 | Outpatient (CLI) | payer MEDICARE ==
[2023-11-11 11:39] LABS: ALBUMIN 3.7 g/dL (3.2-5.5); ALBUMIN/GLOBULIN RATIO 1.3 (1.0-2.2); BILIRUBIN,TOTAL 0.4 mg/dL (0.2-1.0); CALCIUM 9.9 mg/dL (8.5-10.3); CREATININE 0.8 mg/dL (0.6-1.3); POTASSIUM 3.9 mmol/L (3.5-4.5); TOTAL PROTEIN 6.5 g/dL (6.4-8.9)
== END 2023-11-11 23:59 | disposition home or self-care (01) ==
LOC: LAB.R 08:00
PROVIDERS: ATTEND Registered Nurse
DX: E87.1 Hypo-osmolality and hyponatremia (principal)
CPT/HCPCS: 80053

== ENCOUNTER 2023-12-09 08:00 | Outpatient (CLI) | payer MEDICARE, MEDICAID ==
[2023-12-09 13:01] LABS: ALBUMIN 3.4 g/dL (3.2-5.5); ALBUMIN/GLOBULIN RATIO 1.2 (1.0-2.2); BILIRUBIN,TOTAL 0.4 mg/dL (0.2-1.0); CALCIUM 9.3 mg/dL (8.5-10.3); CREATININE 0.7 mg/dL (0.6-1.3); POTASSIUM 4.4 mmol/L (3.5-4.5); TOTAL PROTEIN 6.3 g/dL (6.4-8.9)
[2023-12-09 13:12] LABS: THYROID STIMULATING HORMONE 3.12 uIU/mL (0.34-5.60)
== END 2023-12-09 23:59 | disposition home or self-care (01) ==
LOC: LAB.R 08:00
PROVIDERS: ATTEND Registered Nurse
DX: E03.9 Hypothyroidism, unspecified (principal); E87.1 Hypo-osmolality and hyponatremia
CPT/HCPCS: 80053; 84436; 84439; 84443